=== PATIENT | male | born 1960 | race Caucasian/White ===

== ENCOUNTER → 2018-05-23 | Outpatient (CLI) | payer OTHER | LOC: WOUNDCARE 08:15 | PROVIDERS: ATTEND Surgery | DX: L95.9 Vasculitis limited to the skin, unspecified (principal); I87.332 Chronic venous hypertension (idiopathic) with ulcer and inflammation of left lower extremity; L97.422 Non-pressure chronic ulcer of left heel and midfoot with fat layer exposed; L97.222 Non-pressure chronic ulcer of left calf with fat layer exposed; L97.212 Non-pressure chronic ulcer of right calf with fat layer exposed; E11.42 Type 2 diabetes mellitus with diabetic polyneuropathy; I89.0 Lymphedema, not elsewhere classified; E66.01 Morbid (severe) obesity due to excess calories; Z68.43 Body mass index [BMI] 50.0-59.9, adult | CPT/HCPCS: 11100 ==

== ENCOUNTER → 2018-05-28 | Outpatient (CLI) | payer OTHER | LOC: WOUNDCARE 11:56 | PROVIDERS: ATTEND Surgery | DX: I87.332 Chronic venous hypertension (idiopathic) with ulcer and inflammation of left lower extremity (principal); L97.422 Non-pressure chronic ulcer of left heel and midfoot with fat layer exposed; L97.222 Non-pressure chronic ulcer of left calf with fat layer exposed; L97.212 Non-pressure chronic ulcer of right calf with fat layer exposed; E11.42 Type 2 diabetes mellitus with diabetic polyneuropathy; L95.9 Vasculitis limited to the skin, unspecified; I89.0 Lymphedema, not elsewhere classified; E66.01 Morbid (severe) obesity due to excess calories; Z68.43 Body mass index [BMI] 50.0-59.9, adult | CPT/HCPCS: 99213 ==

== ENCOUNTER → 2018-05-30 | Outpatient (CLI) | payer OTHER | LOC: WOUNDCARE 13:12 | PROVIDERS: ATTEND Surgery | DX: R21 Rash and other nonspecific skin eruption (principal); L95.9 Vasculitis limited to the skin, unspecified; L97.422 Non-pressure chronic ulcer of left heel and midfoot with fat layer exposed; L97.222 Non-pressure chronic ulcer of left calf with fat layer exposed; L97.212 Non-pressure chronic ulcer of right calf with fat layer exposed; I87.332 Chronic venous hypertension (idiopathic) with ulcer and inflammation of left lower extremity; E11.42 Type 2 diabetes mellitus with diabetic polyneuropathy; I89.0 Lymphedema, not elsewhere classified; E66.01 Morbid (severe) obesity due to excess calories; Z68.42 Body mass index [BMI] 45.0-49.9, adult | CPT/HCPCS: 99213 ==

== ENCOUNTER → 2018-06-04 | Outpatient (CLI) | payer OTHER | LOC: WOUNDCARE 12:33 | PROVIDERS: ATTEND Surgery | DX: E11.621 Type 2 diabetes mellitus with foot ulcer (principal); L97.422 Non-pressure chronic ulcer of left heel and midfoot with fat layer exposed; L97.412 Non-pressure chronic ulcer of right heel and midfoot with fat layer exposed; E11.622 Type 2 diabetes mellitus with other skin ulcer; L97.222 Non-pressure chronic ulcer of left calf with fat layer exposed; L97.212 Non-pressure chronic ulcer of right calf with fat layer exposed; E11.42 Type 2 diabetes mellitus with diabetic polyneuropathy; I89.0 Lymphedema, not elsewhere classified; L95.9 Vasculitis limited to the skin, unspecified; E66.01 Morbid (severe) obesity due to excess calories; Z68.42 Body mass index [BMI] 45.0-49.9, adult | CPT/HCPCS: 99213 ==

== ENCOUNTER → 2018-06-11 | Outpatient (CLI) | payer OTHER | LOC: WOUNDCARE 13:22 | PROVIDERS: ATTEND Surgery | DX: E11.621 Type 2 diabetes mellitus with foot ulcer (principal); I87.333 Chronic venous hypertension (idiopathic) with ulcer and inflammation of bilateral lower extremity; L97.422 Non-pressure chronic ulcer of left heel and midfoot with fat layer exposed; L97.412 Non-pressure chronic ulcer of right heel and midfoot with fat layer exposed; E11.622 Type 2 diabetes mellitus with other skin ulcer; L97.222 Non-pressure chronic ulcer of left calf with fat layer exposed; L97.212 Non-pressure chronic ulcer of right calf with fat layer exposed; E11.42 Type 2 diabetes mellitus with diabetic polyneuropathy; I89.0 Lymphedema, not elsewhere classified; L95.9 Vasculitis limited to the skin, unspecified; E66.01 Morbid (severe) obesity due to excess calories; Z68.42 Body mass index [BMI] 45.0-49.9, adult | CPT/HCPCS: 99213 ==

== ENCOUNTER → 2018-06-18 | Outpatient (CLI) | payer OTHER | LOC: WOUNDCARE 13:25 | PROVIDERS: ATTEND Surgery | DX: E11.621 Type 2 diabetes mellitus with foot ulcer (principal); I87.333 Chronic venous hypertension (idiopathic) with ulcer and inflammation of bilateral lower extremity; L97.412 Non-pressure chronic ulcer of right heel and midfoot with fat layer exposed; L97.422 Non-pressure chronic ulcer of left heel and midfoot with fat layer exposed; E11.622 Type 2 diabetes mellitus with other skin ulcer; L97.222 Non-pressure chronic ulcer of left calf with fat layer exposed; L97.212 Non-pressure chronic ulcer of right calf with fat layer exposed; E11.42 Type 2 diabetes mellitus with diabetic polyneuropathy; I89.0 Lymphedema, not elsewhere classified; L95.9 Vasculitis limited to the skin, unspecified; E66.01 Morbid (severe) obesity due to excess calories; Z68.43 Body mass index [BMI] 50.0-59.9, adult | CPT/HCPCS: 11042 ==

== ENCOUNTER → 2018-07-16 | Outpatient (CLI) | payer OTHER | LOC: WOUNDCARE 13:38 | PROVIDERS: ATTEND Surgery | DX: E11.621 Type 2 diabetes mellitus with foot ulcer (principal); L97.412 Non-pressure chronic ulcer of right heel and midfoot with fat layer exposed; L97.421 Non-pressure chronic ulcer of left heel and midfoot limited to breakdown of skin; L97.212 Non-pressure chronic ulcer of right calf with fat layer exposed; L95.9 Vasculitis limited to the skin, unspecified; I87.331 Chronic venous hypertension (idiopathic) with ulcer and inflammation of right lower extremity; E11.42 Type 2 diabetes mellitus with diabetic polyneuropathy; E66.01 Morbid (severe) obesity due to excess calories; I89.0 Lymphedema, not elsewhere classified; E11.622 Type 2 diabetes mellitus with other skin ulcer | CPT/HCPCS: 99213 ==

== ENCOUNTER → 2018-07-30 | Outpatient (CLI) | payer OTHER | LOC: WOUNDCARE 13:33 | PROVIDERS: ATTEND Surgery | DX: E11.621 Type 2 diabetes mellitus with foot ulcer (principal); L97.412 Non-pressure chronic ulcer of right heel and midfoot with fat layer exposed; E11.622 Type 2 diabetes mellitus with other skin ulcer; L97.212 Non-pressure chronic ulcer of right calf with fat layer exposed; E11.42 Type 2 diabetes mellitus with diabetic polyneuropathy; L95.9 Vasculitis limited to the skin, unspecified; I89.0 Lymphedema, not elsewhere classified; E66.01 Morbid (severe) obesity due to excess calories; Z68.43 Body mass index [BMI] 50.0-59.9, adult | CPT/HCPCS: 99213 ==

== ENCOUNTER → 2018-08-13 | Outpatient (CLI) | payer OTHER | LOC: WOUNDCARE 12:51 | PROVIDERS: ATTEND Surgery | DX: E11.621 Type 2 diabetes mellitus with foot ulcer (principal); L97.412 Non-pressure chronic ulcer of right heel and midfoot with fat layer exposed; E11.622 Type 2 diabetes mellitus with other skin ulcer; L97.212 Non-pressure chronic ulcer of right calf with fat layer exposed; L95.9 Vasculitis limited to the skin, unspecified; E11.42 Type 2 diabetes mellitus with diabetic polyneuropathy; I89.0 Lymphedema, not elsewhere classified; E66.01 Morbid (severe) obesity due to excess calories; Z68.43 Body mass index [BMI] 50.0-59.9, adult | CPT/HCPCS: 99212 ==

== ENCOUNTER → 2018-11-12 | Outpatient (CLI) | payer MEDICARE, OTHER ==
[2018-11-12 10:55] LABS: BASOPHILS % (AUTO) 0 % (0-10); EOSINOPHILS # (AUTO) 0.2 10^3/uL (0.0-0.3); EOSINOPHILS % (AUTO) 3 % (0-10); HEMATOCRIT 35 % (40-54); HEMOGLOBIN 10.6 G/DL (13.3-17.7); LYMPHOCYTES # (AUTO) 1.3 X 10^3 (1.0-4.0); LYMPHOCYTES % (AUTO) 17 % (12-44); MEAN CORPUSCULAR HEMOGLOBIN 27 PG (25-34); MEAN CORPUSCULAR HGB CONC 31 G/DL (32-36); MEAN CORPUSCULAR VOLUME 90 FL (80-99); MEAN PLATELET VOLUME 9.3 FL (7.4-10.4); MONOCYTES # (AUTO) 0.6 X 10^3 (0.0-1.0); MONOCYTES % (AUTO) 9 % (0-12); NEUTROPHILS # (AUTO) 5.2 X 10^3 (1.8-7.8); NEUTROPHILS % (AUTO) 71 % (42-75); PLATELET COUNT 245 10^3/uL (130-400); RED BLOOD COUNT 3.88 10^6/uL (4.35-5.85); RED CELL DISTRIBUTION WIDTH 16.1 % (10.0-14.5); WHITE BLOOD COUNT 7.4 10^3/uL (4.3-11.0)
[2018-11-12 11:14] LABS: ALBUMIN 3.7 GM/DL (3.2-4.5); BILIRUBIN,TOTAL 0.5 MG/DL (0.1-1.0); CALCIUM 9.2 MG/DL (8.5-10.1); CREATININE SERUM 1.42 MG/DL (0.60-1.30); POTASSIUM 4.7 MMOL/L (3.6-5.0); TOTAL PROTEIN 7.4 GM/DL (6.4-8.2)
== END ==
LOC: LAB 10:34
PROVIDERS: ATTEND Internal Medicine Rheumatology
DX: M31.0 Hypersensitivity angiitis (principal); Z79.899 Other long term (current) drug therapy
CPT/HCPCS: 36415; 80053; 83010; 83615; 85025

== ENCOUNTER → 2019-01-03 | Outpatient (CLI) | payer MEDICARE ==
--- NOTE | 2019-01-03 15:36 | Diagnostic Imaging Report ---
INDICATION: Left knee pain. AP, oblique, and lateral views of left knee are obtained. No fracture or acute bony abnormality seen. There is no overt joint effusion. There is prominent medial joint space narrowing with osteophyte formation. Lateral compartment appears preserved. There is mild patellofemoral spurring. IMPRESSION: Overt degenerative findings in the left knee, prominent in the medial compartment. No acute bony abnormality. Dictated by: Dictated on workstation # [id number]
== END ==
LOC: RAD FS 15:10
PROVIDERS: ATTEND Nurse Practitioner
DX: M17.12 Unilateral primary osteoarthritis, left knee (principal)
CPT/HCPCS: 73562

== ENCOUNTER → 2019-04-11 | Outpatient (CLI) | payer MEDICARE ==
--- NOTE | 2019-04-11 15:48 | Diagnostic Imaging Report ---
INDICATION: Chronic right knee pain. TIME OF EXAM: 09:40 a.m. COMPARISON: No prior studies are available for comparison. FINDINGS: There is medial compartmental degenerative change with mild joint space narrowing and marginal spurring. Lateral compartment is maintained. Very mild patellofemoral degenerative change is noted. There is some spurring of the tibial spines. No fracture, dislocation, or effusion is seen. IMPRESSION: Mild degenerative changes. No acute bony abnormality is detected. Dictated by: Dictated on workstation # [id number]
== END ==
LOC: RAD FS 09:29
PROVIDERS: ATTEND Nurse Practitioner
DX: M17.11 Unilateral primary osteoarthritis, right knee (principal)
CPT/HCPCS: 73562

== ENCOUNTER → 2019-08-07 | Outpatient (CLI) | payer MEDICARE | LOC: WOUNDCARE 08:04 | PROVIDERS: ATTEND Surgery | DX: E11.621 Type 2 diabetes mellitus with foot ulcer (principal); E11.42 Type 2 diabetes mellitus with diabetic polyneuropathy; L97.412 Non-pressure chronic ulcer of right heel and midfoot with fat layer exposed; L95.8 Other vasculitis limited to the skin | CPT/HCPCS: 11104 ==

== ENCOUNTER → 2019-08-14 | Outpatient (CLI) | payer MEDICARE | LOC: WOUNDCARE 07:59 | PROVIDERS: ATTEND Surgery | DX: L95.8 Other vasculitis limited to the skin (principal); E11.621 Type 2 diabetes mellitus with foot ulcer; E11.42 Type 2 diabetes mellitus with diabetic polyneuropathy; L97.412 Non-pressure chronic ulcer of right heel and midfoot with fat layer exposed; I87.331 Chronic venous hypertension (idiopathic) with ulcer and inflammation of right lower extremity; E11.52 Type 2 diabetes mellitus with diabetic peripheral angiopathy with gangrene | CPT/HCPCS: 99213 ==

== ENCOUNTER → 2019-08-21 | Outpatient (CLI) | payer MEDICARE | LOC: WOUNDCARE 15:05 | PROVIDERS: ATTEND Surgery | DX: L95.8 Other vasculitis limited to the skin (principal); E11.621 Type 2 diabetes mellitus with foot ulcer; E11.42 Type 2 diabetes mellitus with diabetic polyneuropathy; E11.52 Type 2 diabetes mellitus with diabetic peripheral angiopathy with gangrene; L97.412 Non-pressure chronic ulcer of right heel and midfoot with fat layer exposed; I87.331 Chronic venous hypertension (idiopathic) with ulcer and inflammation of right lower extremity | CPT/HCPCS: 99212 ==

== ENCOUNTER → 2019-08-28 | Outpatient (CLI) | payer MEDICARE | LOC: WOUNDCARE 14:50 | PROVIDERS: ATTEND Surgery | DX: E11.621 Type 2 diabetes mellitus with foot ulcer (principal); E11.42 Type 2 diabetes mellitus with diabetic polyneuropathy; E11.52 Type 2 diabetes mellitus with diabetic peripheral angiopathy with gangrene; I87.331 Chronic venous hypertension (idiopathic) with ulcer and inflammation of right lower extremity; I96 Gangrene, not elsewhere classified; L95.8 Other vasculitis limited to the skin; L97.412 Non-pressure chronic ulcer of right heel and midfoot with fat layer exposed | CPT/HCPCS: 11042 ==

== ENCOUNTER → 2019-09-04 | Outpatient (CLI) | payer MEDICARE | LOC: WOUNDCARE 14:22 | PROVIDERS: ATTEND Surgery | DX: E11.621 Type 2 diabetes mellitus with foot ulcer (principal); E11.42 Type 2 diabetes mellitus with diabetic polyneuropathy; L97.412 Non-pressure chronic ulcer of right heel and midfoot with fat layer exposed; I87.331 Chronic venous hypertension (idiopathic) with ulcer and inflammation of right lower extremity; E11.52 Type 2 diabetes mellitus with diabetic peripheral angiopathy with gangrene | CPT/HCPCS: 11042 ==

== ENCOUNTER → 2019-09-11 | Outpatient (CLI) | payer MEDICARE | LOC: WOUNDCARE 09:29 | PROVIDERS: ATTEND Surgery | DX: L97.412 Non-pressure chronic ulcer of right heel and midfoot with fat layer exposed (principal); E11.621 Type 2 diabetes mellitus with foot ulcer; E11.42 Type 2 diabetes mellitus with diabetic polyneuropathy; E11.52 Type 2 diabetes mellitus with diabetic peripheral angiopathy with gangrene; I87.331 Chronic venous hypertension (idiopathic) with ulcer and inflammation of right lower extremity | CPT/HCPCS: 11042 ==

== ENCOUNTER → 2019-09-18 | Outpatient (CLI) | payer MEDICARE | LOC: WOUNDCARE 14:22 | PROVIDERS: ATTEND Surgery | DX: E11.621 Type 2 diabetes mellitus with foot ulcer (principal); E11.42 Type 2 diabetes mellitus with diabetic polyneuropathy; L97.412 Non-pressure chronic ulcer of right heel and midfoot with fat layer exposed; I87.331 Chronic venous hypertension (idiopathic) with ulcer and inflammation of right lower extremity; E11.52 Type 2 diabetes mellitus with diabetic peripheral angiopathy with gangrene | CPT/HCPCS: 11042 ==

== ENCOUNTER → 2019-09-25 | Outpatient (CLI) | payer MEDICARE | LOC: WOUNDCARE 14:11 | PROVIDERS: ATTEND Surgery | DX: E11.621 Type 2 diabetes mellitus with foot ulcer (principal); E11.42 Type 2 diabetes mellitus with diabetic polyneuropathy; L97.412 Non-pressure chronic ulcer of right heel and midfoot with fat layer exposed; I87.331 Chronic venous hypertension (idiopathic) with ulcer and inflammation of right lower extremity; E11.52 Type 2 diabetes mellitus with diabetic peripheral angiopathy with gangrene | CPT/HCPCS: 11042 ==

== ENCOUNTER → 2019-09-27 | Outpatient (CLI) | payer MEDICARE | LOC: WOUNDCARE 09:51 | PROVIDERS: ATTEND Surgery | DX: L97.412 Non-pressure chronic ulcer of right heel and midfoot with fat layer exposed (principal); E11.621 Type 2 diabetes mellitus with foot ulcer; E11.52 Type 2 diabetes mellitus with diabetic peripheral angiopathy with gangrene; I87.331 Chronic venous hypertension (idiopathic) with ulcer and inflammation of right lower extremity | CPT/HCPCS: 97597 ==

== ENCOUNTER → 2019-10-02 | Outpatient (CLI) | payer MEDICARE | LOC: WOUNDCARE 14:13 | PROVIDERS: ATTEND Surgery | DX: E11.621 Type 2 diabetes mellitus with foot ulcer (principal); L97.412 Non-pressure chronic ulcer of right heel and midfoot with fat layer exposed; E11.42 Type 2 diabetes mellitus with diabetic polyneuropathy; I87.331 Chronic venous hypertension (idiopathic) with ulcer and inflammation of right lower extremity | CPT/HCPCS: 29445 ==

== ENCOUNTER → 2019-10-09 | Outpatient (CLI) | payer MEDICARE | LOC: WOUNDCARE 13:56 | PROVIDERS: ATTEND Surgery | DX: E11.621 Type 2 diabetes mellitus with foot ulcer (principal); E11.42 Type 2 diabetes mellitus with diabetic polyneuropathy; E11.52 Type 2 diabetes mellitus with diabetic peripheral angiopathy with gangrene; I87.331 Chronic venous hypertension (idiopathic) with ulcer and inflammation of right lower extremity; L97.412 Non-pressure chronic ulcer of right heel and midfoot with fat layer exposed; I96 Gangrene, not elsewhere classified | CPT/HCPCS: 11042 ==

== ENCOUNTER → 2019-10-16 | Outpatient (CLI) | payer MEDICARE | LOC: WOUNDCARE 13:36 | PROVIDERS: ATTEND Surgery | DX: E11.621 Type 2 diabetes mellitus with foot ulcer (principal); E11.42 Type 2 diabetes mellitus with diabetic polyneuropathy; L97.412 Non-pressure chronic ulcer of right heel and midfoot with fat layer exposed; I87.331 Chronic venous hypertension (idiopathic) with ulcer and inflammation of right lower extremity; E11.52 Type 2 diabetes mellitus with diabetic peripheral angiopathy with gangrene | CPT/HCPCS: 11042 ==

== ENCOUNTER → 2019-10-23 | Outpatient (CLI) | payer MEDICARE | LOC: WOUNDCARE 14:01 | PROVIDERS: ATTEND Surgery | DX: L97.412 Non-pressure chronic ulcer of right heel and midfoot with fat layer exposed (principal); E11.621 Type 2 diabetes mellitus with foot ulcer; E11.52 Type 2 diabetes mellitus with diabetic peripheral angiopathy with gangrene; E11.42 Type 2 diabetes mellitus with diabetic polyneuropathy; I87.331 Chronic venous hypertension (idiopathic) with ulcer and inflammation of right lower extremity | CPT/HCPCS: 11042 ==

== ENCOUNTER → 2019-10-28 | Outpatient (CLI) | payer MEDICARE | LOC: WOUNDCARE 08:16 | PROVIDERS: ATTEND Surgery | DX: E11.621 Type 2 diabetes mellitus with foot ulcer (principal); E11.42 Type 2 diabetes mellitus with diabetic polyneuropathy; E11.52 Type 2 diabetes mellitus with diabetic peripheral angiopathy with gangrene; I96 Gangrene, not elsewhere classified; I87.331 Chronic venous hypertension (idiopathic) with ulcer and inflammation of right lower extremity; L97.412 Non-pressure chronic ulcer of right heel and midfoot with fat layer exposed | CPT/HCPCS: 11042 ==

== ENCOUNTER → 2019-11-01 | Outpatient (CLI) | payer MEDICARE ==
[2019-11-01 14:36] LABS: HEMOGLOBIN 12.2 G/DL (13.3-17.7); MEAN CORPUSCULAR HEMOGLOBIN 30 PG (25-34); WHITE BLOOD COUNT 7.1 10^3/uL (4.3-11.0)
[2019-11-01 14:37] LABS: BASOPHILS % (AUTO) 1 % (0-10); EOSINOPHILS # (AUTO) 0.1 10^3/uL (0.0-0.3); EOSINOPHILS % (AUTO) 2 % (0-10); HEMATOCRIT 38 % (40-54); LYMPHOCYTES # (AUTO) 1.6 X 10^3 (1.0-4.0); LYMPHOCYTES % (AUTO) 22 % (12-44); MEAN CORPUSCULAR HGB CONC 32 G/DL (32-36); MEAN CORPUSCULAR VOLUME 95 FL (80-99); MEAN PLATELET VOLUME 9.8 FL (7.4-10.4); MONOCYTES # (AUTO) 0.7 X 10^3 (0.0-1.0); MONOCYTES % (AUTO) 9 % (0-12); NEUTROPHILS # (AUTO) 4.7 X 10^3 (1.8-7.8); NEUTROPHILS % (AUTO) 66 % (42-75); PLATELET COUNT 238 10^3/uL (130-400); RED CELL DISTRIBUTION WIDTH 13.8 % (10.0-14.5)
[2019-11-01 14:51] LABS: BUN/CREATININE RATIO 15; CALCIUM 9.7 MG/DL (8.5-10.1); CARBON DIOXIDE 26 MMOL/L (21-32); CHLORIDE 96 MMOL/L (98-107); CREATININE SERUM 1.22 MG/DL (0.60-1.30); GFR ESTIMATED > 60; GLUCOSE 304 MG/DL (70-105); POTASSIUM 4.2 MMOL/L (3.6-5.0); SODIUM 134 MMOL/L (135-145)
[2019-11-01 14:52] LABS: ALANINE AMINOTRANSFERASE 12 U/L (0-55); ALBUMIN 3.5 GM/DL (3.2-4.5); ALKALINE PHOSPHATASE 50 U/L (40-136); BILIRUBIN,TOTAL 0.3 MG/DL (0.1-1.0); TOTAL PROTEIN 6.4 GM/DL (6.4-8.2)
== END ==
LOC: LAB FS 14:09
PROVIDERS: ATTEND Surgery
DX: E11.621 Type 2 diabetes mellitus with foot ulcer (principal); E11.42 Type 2 diabetes mellitus with diabetic polyneuropathy; L97.412 Non-pressure chronic ulcer of right heel and midfoot with fat layer exposed; I87.331 Chronic venous hypertension (idiopathic) with ulcer and inflammation of right lower extremity
CPT/HCPCS: 36415; 80053; 83036; 85025

== ENCOUNTER → 2019-11-05 | Outpatient (CLI) | payer MEDICARE | LOC: WOUNDCARE 14:57 | PROVIDERS: ATTEND Surgery | DX: E11.621 Type 2 diabetes mellitus with foot ulcer (principal); E11.42 Type 2 diabetes mellitus with diabetic polyneuropathy; L97.412 Non-pressure chronic ulcer of right heel and midfoot with fat layer exposed; I87.331 Chronic venous hypertension (idiopathic) with ulcer and inflammation of right lower extremity | CPT/HCPCS: 11042 ==

== ENCOUNTER → 2019-11-13 | Outpatient (CLI) | payer MEDICARE | LOC: WOUNDCARE 14:24 | PROVIDERS: ATTEND Orthopaedic Surgery Hand Surgery | DX: L97.412 Non-pressure chronic ulcer of right heel and midfoot with fat layer exposed (principal); E11.621 Type 2 diabetes mellitus with foot ulcer; E11.42 Type 2 diabetes mellitus with diabetic polyneuropathy; E11.52 Type 2 diabetes mellitus with diabetic peripheral angiopathy with gangrene; I87.331 Chronic venous hypertension (idiopathic) with ulcer and inflammation of right lower extremity | CPT/HCPCS: 11042 ==

== ENCOUNTER → 2019-11-20 | Outpatient (CLI) | payer MEDICARE | LOC: WOUNDCARE 13:45 | PROVIDERS: ATTEND Orthopaedic Surgery Hand Surgery | DX: E11.621 Type 2 diabetes mellitus with foot ulcer (principal); E11.42 Type 2 diabetes mellitus with diabetic polyneuropathy; L97.412 Non-pressure chronic ulcer of right heel and midfoot with fat layer exposed; I87.331 Chronic venous hypertension (idiopathic) with ulcer and inflammation of right lower extremity; E11.52 Type 2 diabetes mellitus with diabetic peripheral angiopathy with gangrene | CPT/HCPCS: 11042 ==

== ENCOUNTER 2019-11-27 11:56 | Outpatient (CLI) | payer MEDICARE ==
[~2019-11-27] VITALS: Ht 188 cm; Wt 198.6 kg
[2019-11-27] MEDS ORDERED: DAPS100T3 PO (13:33)
[2019-11-27] MEDS ORDERED: GABA-488 PO (13:33)
[2019-11-27] MEDS ORDERED: ONDA4TAB11 PO (13:33)
[2019-11-27] MEDS ORDERED: LISI40TA PO (13:33)
[2019-11-27] MEDS ORDERED: METF-397 PO (13:33)
[2019-11-27] MEDS ORDERED: RIVA20TA PO (13:33)
[2019-11-27] MEDS ORDERED: GLIM2TAB2 PO (13:33)
== END 2019-11-27 13:10 | disposition home or self-care (01) ==
LOC: PREOP 11:56
PROVIDERS: ATTEND Orthopaedic Surgery
DX: Z01.818 Encounter for other preprocedural examination (principal)
CPT/HCPCS: 87081

== ENCOUNTER → 2019-11-27 | Outpatient (CLI) | payer MEDICARE ==
[~2019-11-27] MED LIST: DAPS100T3 PO; GABA-488 PO; GLIM2TAB2 PO; LISI40TA PO; METF-397 PO; ONDA4TAB11 PO; RIVA20TA PO
== END ==
LOC: WOUNDCARE 14:12
PROVIDERS: ATTEND Orthopaedic Surgery Hand Surgery
DX: E11.621 Type 2 diabetes mellitus with foot ulcer (principal); E11.42 Type 2 diabetes mellitus with diabetic polyneuropathy; E11.52 Type 2 diabetes mellitus with diabetic peripheral angiopathy with gangrene; I87.331 Chronic venous hypertension (idiopathic) with ulcer and inflammation of right lower extremity; L97.412 Non-pressure chronic ulcer of right heel and midfoot with fat layer exposed; I96 Gangrene, not elsewhere classified
CPT/HCPCS: 11042

== ENCOUNTER → 2019-12-04 | Outpatient (CLI) | payer MEDICARE | LOC: WOUNDCARE 13:58 | PROVIDERS: ATTEND Orthopaedic Surgery Hand Surgery | DX: E11.621 Type 2 diabetes mellitus with foot ulcer (principal); L97.412 Non-pressure chronic ulcer of right heel and midfoot with fat layer exposed; E11.42 Type 2 diabetes mellitus with diabetic polyneuropathy; I87.331 Chronic venous hypertension (idiopathic) with ulcer and inflammation of right lower extremity | CPT/HCPCS: 11042 ==

== ENCOUNTER → 2019-12-10 | Outpatient (CLI) | payer MEDICARE ==
[~2019-12-10] MED LIST changes: +HYDR-3816 PO
== END ==
LOC: WOUNDCARE 14:30
PROVIDERS: ATTEND Orthopaedic Surgery Hand Surgery
DX: E11.621 Type 2 diabetes mellitus with foot ulcer (principal); E11.42 Type 2 diabetes mellitus with diabetic polyneuropathy; L97.412 Non-pressure chronic ulcer of right heel and midfoot with fat layer exposed; I87.331 Chronic venous hypertension (idiopathic) with ulcer and inflammation of right lower extremity
CPT/HCPCS: 11042

== ENCOUNTER 2019-12-11 07:40 | Day surgery (SDC) | payer MEDICARE ==
--- NOTE | 2019-12-02 11:30 | HISTORY AND PHYSICAL ---
DATE OF SERVICE: This will be for outpatient surgery, date of service and date of surgery will be 12/11/2019, for right carpal tunnel release. HISTORY OF PRESENT ILLNESS: The patient is a 59-year-old right-hand dominant gentleman with complaints of right hand pain and paresthesias. He underwent an EMG nerve conduction study, which revealed evidence of right carpal tunnel syndrome. Due to functional impairment and failure to improve with conservative measures, the patient elected to proceed with surgical intervention. REVIEW OF SYSTEMS: No chest pain, no shortness of breath, no dysuria. PAST MEDICAL HISTORY: Diabetes, hypertension, osteoarthritis, sciatica, hyperlipidemia, low testosterone, sleep apnea and gout. PAST SURGICAL HISTORY: Elbow, vasectomy. FAMILY HISTORY: Noncontributory. PRIMARY CARE PROVIDER: David Cardenas MD. MEDICATIONS: Aspirin, Valium, alprazolam, furosemide, lovastatin, gabapentin, testosterone, glimepiride, lisinopril, dapsone, hydrocodone, cyclobenzaprine, and prednisone. ALLERGIES: ERYTHROMYCIN AND DICLOXACILLIN. SOCIAL HISTORY: The patient denies alcohol or tobacco use. PHYSICAL EXAMINATION: GENERAL: The patient is well developed, well-nourished, in no acute distress. HEENT: Normocephalic, atraumatic. Pupils are equal, round, and reactive to light. Oropharynx is clear. NECK: Supple, no lymphadenopathy. LUNGS: Clear to auscultation bilaterally. HEART: Regular rate and rhythm. ABDOMEN: Soft, nontender, nondistended. EXTREMITIES: Right wrist demonstrates positive Tinel carpal tunnel with positive Phalen maneuver. He has decreased sensation in median distribution. He has weakness with palmar abduction of the thumb. IMPRESSION: Right carpal tunnel syndrome, unresponsive to conservative measures. PLAN: Right carpal tunnel release. The risks, benefits, options, ramifications and recovery were discussed at length with the patient. He understands and wishes to proceed. Job ID: [id number] DocumentID: [id number] Dictated Date: 12/02/2019 11:12:28 Poly Operator Date: 12/02/2019 11:30:08 Dictated By: AVRIL WINKLER MD
[2019-12-11] VITALS (8 sets, daily range): BP systolic 114–135; BP diastolic 60–90
[~2019-12-11] VITALS: Ht 188 cm; Wt 198.6 kg
[~2019-12-11 07:40] MED LIST changes: -HYDR-3816 PO
[2019-12-11] MEDS ORDERED: LACTATED RINGERS 1,000 ML IV PRN (08:02)
[2019-12-11] MEDS ORDERED: CLINDAMYCIN 600 MG/50 ML IVPB 50 ML IV ONE (08:15)
--- NOTE | 2019-12-11 09:08 | Progress Note-Pre Operative ---
Pre-Operative Progress Note H&P Reviewed The H&P was reviewed, patient examined and no changes noted. Date Seen by Provider: Dec 11, 2019 Time Seen by Provider: 09:08 Date H&P Reviewed: Dec 11, 2019 Time H&P Reviewed: 09:08 Pre-Operative Diagnosis: right carpal tunnel syndrome AVRIL WINKLER MD Dec 11, 2019 09:08
--- NOTE | 2019-12-11 09:09 | Progress Note-Post Operative ---
Post-Operative Progess Note Surgeon (s)/Laser Systems Engineer (s) Surgeon AVRIL WINKLER MD Laser Systems Engineer: Roberto Lama Pre-Operative Diagnosis right carpal tunnel syndrome Post-Operative Diagnosis right carpal tunnel syndrome Procedure & Operative Findings Date of Procedure 12/11/19 Procedure Performed/Findings right carpal tunnel release Anesthesia Type MAC plus local Estimated Blood Loss Estimated blood loss (mL): minimal Specimens/Packing Specimens Removed none Packing: none AVRIL WINKLER MD Dec 11, 2019 09:09
[2019-12-11] MEDS ORDERED: LIDOCAINE 1% INJ 20 ML 20 ML VIAL ONE (09:16)
[2019-12-11] MEDS ORDERED: BUPIVACAINE 0.5% 30 ML (SENSORCAINE) VIAL ONE (09:16)
[2019-12-11] MEDS ORDERED: HYDROcodone/APAP 7.5 MG/325 MG (LORTAB, LORCET PLUS) TABLET PO PRN (10:00)
[2019-12-11] MEDS ORDERED: KETAMINE/NaCl 50 MG/5 ML SYRINGE (ED ONLY) ONE (10:05)
[2019-12-11] MEDS ORDERED: MIDAZOLAM 2 MG/2 ML (VERSED) VIAL ONE (10:05)
[2019-12-11] MEDS ORDERED: PROPOFOL INJECTION 50 ML IV ONE (10:05)
[2019-12-11] MEDS ORDERED: HYDR-3816 PO (12:35)
--- NOTE | 2019-12-11 17:06 | OPERATIVE REPORT ---
DATE OF SERVICE: 12/11/2019 PREOPERATIVE DIAGNOSIS: Right carpal tunnel syndrome. POSTOPERATIVE DIAGNOSIS: Right carpal tunnel syndrome. PROCEDURE: Right open carpal tunnel release. SURGEON: Arun Winkler MD CLIENT ACCOUNT SPECIALIST: Roberto Lama, who assisted throughout the procedure and closed the incision. ANESTHESIA: Monitored anesthesia care plus local by Mirella Escobedo CRNA. TOURNIQUET TIME: 3 minutes at 250 mmHg. ESTIMATED BLOOD LOSS: Minimal. DRAINS: None. COMPLICATIONS: None. POSTOPERATIVE PLAN: Routine protocol. The patient was transferred to the recovery room awake and in stable condition. STATEMENT OF MEDICAL NECESSITY: The patient is a 59-year-old right hand dominant gentleman with complaints of right hand pain and paresthesias. He tried splinting and rest, activity modifications, and anti-inflammatories. Due to functional impairment and failure to improve with conservative measures, the patient elected to proceed with surgical intervention. He had positive Tinel's of carpal tunnel, positive Phalen's maneuver. DESCRIPTION OF PROCEDURE: After risks and benefits of procedure were discussed and questions were answered, informed consent was signed and placed on chart and the operative site was confirmed in the preoperative holding area initialed by the surgeon. The patient was then transferred to the operating room and after adequate levels of monitored anesthesia care were obtained, a timeout was called, confirming the operative site. The right upper extremity was then prepped and draped in the usual sterile fashion with arm elevated, tourniquet inflated to 250 mmHg. A longitudinal incision was made in line with radial border of the ring finger overlying the transverse carpal ligament. The underlying soft tissues were sharply dissected. The transverse carpal ligament was identified and sharply incised by pushing through with the scalpel blade while carefully protecting the median nerve. The median nerve was carefully protected and intact at the conclusion of the procedure. Distally, this was confirmed fully released with a freer. Proximally, the transverse carpal ligament was spread above and below with dissection scissors and then opened while protecting median nerve. This was carefully protected. This was confirmed fully released with a freer. The tourniquet was deflated for a total time of three minutes. Pressure was used for hemostasis. Wound was copiously irrigated and closed with 4-0 nylon in running alternating horizontal mattress fashion. A soft dressing and brace were applied. The patient was transferred to the recovery room awake and in stable condition. Job ID: [id number] DocumentID: [id number] Dictated Date: 12/11/2019 11:36:29 Resaw Operator Date: 12/11/2019 17:06:05 Dictated By: ARUN WINKLER MD
== END 2019-12-11 13:19 | disposition home or self-care (01) ==
LOC: SDC 07:40
PROVIDERS: ATTEND Orthopaedic Surgery
DX: G56.01 Carpal tunnel syndrome, right upper limb (principal); I10 Essential (primary) hypertension; M19.90 Unspecified osteoarthritis, unspecified site; E78.5 Hyperlipidemia, unspecified; M10.9 Gout, unspecified; G47.33 Obstructive sleep apnea (adult) (pediatric); F41.9 Anxiety disorder, unspecified; F32.9 Major depressive disorder, single episode, unspecified; E11.42 Type 2 diabetes mellitus with diabetic polyneuropathy; E66.01 Morbid (severe) obesity due to excess calories; Z68.43 Body mass index [BMI] 50.0-59.9, adult; Z98.52 Vasectomy status; Z79.82 Long term (current) use of aspirin; Z79.51 Long term (current) use of inhaled steroids; Z79.84 Long term (current) use of oral hypoglycemic drugs; Z88.1 Allergy status to other antibiotic agents
CPT/HCPCS: 82962

== ENCOUNTER → 2019-12-18 | Outpatient (CLI) | payer MEDICARE ==
[~2019-12-18] MED LIST changes: +HYDR-3816 PO
== END ==
LOC: WOUNDCARE 09:50
PROVIDERS: ATTEND Orthopaedic Surgery Hand Surgery
DX: E11.42 Type 2 diabetes mellitus with diabetic polyneuropathy (principal); I87.331 Chronic venous hypertension (idiopathic) with ulcer and inflammation of right lower extremity; S90.424A Blister (nonthermal), right lesser toe(s), initial encounter; E66.01 Morbid (severe) obesity due to excess calories; D89.89 Other specified disorders involving the immune mechanism, not elsewhere classified
CPT/HCPCS: 99212

== ENCOUNTER 2020-01-02 07:02 | Inpatient (IN) | payer MEDICARE ==
[2020-01-02] VITALS (9 sets, daily range): BP systolic 120–137; BP diastolic 62–97
[~2020-01-02] VITALS: Ht 187.9 cm; Wt 191.2 kg
[~2020-01-02 07:02] MED LIST changes: -GLIM2TAB2 PO; +GLIM2TAB4 PO; +HYDR-34 PO; -HYDR-3816 PO
[2020-01-02] MEDS ORDERED: NS IV 1000 ML 1,000 ML IV STA ×2 (07:15→08:09)
--- NOTE | 2020-01-02 07:26 | ED General ---
General Stated Complaint: FLU-LIKE SYMPTOMS Source of Information: Patient, EMS History of Present Illness Date Seen by Provider: Jan 02, 2020 Time Seen by Provider: 07:02 Initial Comments 59 yo M presenting with complaints of "flu" symptoms for the last 2 days. He has had sinus congestion, runny nose, cough. He has had low grade fever around 99 at home last night. This am he woke up and was having diarrhea while he was in bed coughing. He states that he has diarrhea at least once or twice a week and it has been more chronic for him. He has no abdominal pain or nausea or vomiting. He has no pain with urination. He had gotten up to go to to the bathroom to finish having more diarrhea and was feeling weak. He was too weak to get up off of the toilet to get in the shower to try and clean off the diarrhea. When his son and ex- helped him get up off the toilet he had his knees give out on him because he was still too weak to get up. They helped to clean from the diarrhea and then called 911 due to his weakness and cough. he also was having some diaphoresis or sweating during all this and thought maybe his low-grade fever had broken. he had not taken his temperature at home this morning and was not sure what his temperature was. Allergies and Home Medications Allergies Coded Allergies: azithromycin (Verified Allergy, Unknown, Rash, 11/27/19) dicloxacillin (Verified Allergy, Unknown, Rash, 11/27/19) Home Medications Dapsone 100 Mg Tablet, 150 MG PO DAILY, (Reported) take 1.5 of 100mg tab Gabapentin 300 Mg Capsule, 300 MG PO TID, (Reported) Glimepiride 2 Mg Tablet, 2 MG PO DAILY, (Reported) Hydrocodone/Acetaminophen 1 Each Tablet, 1 TAB PO Q4H PRN for PAIN-MODERATE (5- 7) Prescribed by: DANIELLE PEREZ on 12/11/19 1235 Lisinopril 40 Mg Tablet, 40 MG PO DAILY, (Reported) Metformin HCl 500 Mg Tablet, 500 MG PO BID, (Reported) Ondansetron 4 Mg Tab.rapdis, 4 MG PO Q6H PRN for NAUSEA/VOMITING, (Reported) Rivaroxaban 20 Mg Tablet, 20 MG PO DAILY, (Reported) Patient Home Medication List Home Medication List Reviewed: Yes Review of Systems Review of Systems Constitutional: chills, diaphoresis (this a.m.), fever (up to around 99F), malaise, weakness EENTM: nose congestion, other (sinus pressure); No ear discharge, No ear pain, No eye pain, No mouth pain, No throat pain Respiratory: cough; No hemoptysis; short of breath; No stridor, No wheezing Cardiovascular: No chest pain, No palpitations Gastrointestinal: No abdominal pain; diarrhea (this am); No nausea, No vomiting Genitourinary: No dysuria, No frequency, No pain Musculoskeletal: joint pain (chronic arthritis but felt his joints were hurting more today) Skin: No rash Psychiatric/Neurological: Headache (sinus pressure), Weakness (generalized this am) Past Jkdhoph-Bzottq-Claaem Hx Past Med/Social Hx: Reviewed Nursing Past Med/Soc Hx Patient Social History Former Smoker, Quit: Nov 27, 2006 Recent Foreign Travel: Yes Recent Hopitalizations: No Immunizations Up To Date Date of Influenza Vaccine: Nov 13, 2019 Seasonal Allergies Seasonal Allergies: No Past Medical History Surgeries: Yes (skin ulceration sx2, R elbow sx, ) Orthopedic (Right carpal tunnel Nov 2019, Elbow), Vasectomy Respiratory: Yes Sleep Apnea Currently Using CPAP: No Cardiac: Yes High Cholesterol, Hypertension Neurological: Yes Neuropathy (Diabetic) Genitourinary: No Gastrointestinal: Yes Chronic Diarrhea Musculoskeletal: Yes Arthritis, Chronic Back Pain, Gout Endocrine: Yes Diabetes, Non-Insulin dep HEENT: Yes (glasses, ) Cancer: No Psychosocial: Yes Anxiety Integumentary: Yes (right heel ulcer) Blood Disorders: No (HX OF DVT) Physical Exam Vital Signs Vital Signs - First Documented 01/02/20 07:37 O2 Flow Rate 2.00 Capillary Refill : Height, Weight, BMI Height: '" Weight: lbs. oz. kg; 56.19 BMI Method: General Appearance: No Apparent Distress, Obese (morbidly obese) HEENT: PERRL/EOMI, Pharynx Normal, Other (clear nasal congestion) Neck: Full Range of Motion, Normal Inspection, Non Tender, Supple Respiratory: Chest Non Tender, No Accessory Muscle Use, No Respiratory Distress, Decreased Breath Sounds Cardiovascular: Regular Rate, Rhythm, Normal Peripheral Pulses, Other (distant heart sounds due to body habitus) Gastrointestinal: Normal Bowel Sounds, No Pulsatile Mass, Non Tender, Soft, Other (morbidly obese abdomen limits exam) Extremity: Normal Capillary Refill, No Pedal Edema Neurologic/Psychiatric: Alert, Oriented x3, Normal Mood/Affect, manager of distribution II-XII Norm as Tested Skin: Normal Color, Warm/Dry Focused Exam Lactate Level 01/02/20 07:10: Lactic Acid Level 2.78*H Lactic Acid Level Laboratory Tests Test 01/02/20 07:10 Lactic Acid Level 2.78 MMOL/L (0.50-2.00) *H Progress/Results/Core Measures Suspected Sepsis SIRS Temperature: Pulse: Respiratory Rate: Laboratory Tests 01/02/20 07:10: White Blood Count 6.1 Blood Pressure / Mean: 01/02/20 07:10: Lactic Acid Level 2.78*H Laboratory Tests 01/02/20 07:10: Creatinine 1.90H, Platelet Count 195, Total Bilirubin 0.6 Results/Orders Lab Results Laboratory Tests Test 01/02/20 07:10 01/02/20 08:20 Range/Units White Blood Count 6.1 4.3-11.0 10^3/uL Red Blood Count 3.88 L 4.35-5.85 10^6/uL Hemoglobin 11.0 L 13.3-17.7 G/DL Hematocrit 36 L 40-54 % Mean Corpuscular Volume 92 80-99 FL Mean Corpuscular Hemoglobin 28 25-34 PG Mean Corpuscular Hemoglobin Concent 31 L 32-36 G/DL Red Cell Distribution Width 14.9 H 10.0-14.5 % Platelet Count 195 130-400 10^3/uL Mean Platelet Volume 9.9 7.4-10.4 FL Neutrophils (%) (Auto) 55 42-75 % Lymphocytes (%) (Auto) 30 12-44 % Monocytes (%) (Auto) 14 H 0-12 % Eosinophils (%) (Auto) 0 0-10 % Basophils (%) (Auto) 0 0-10 % Neutrophils # (Auto) 3.4 1.8-7.8 X 10^3 Lymphocytes # (Auto) 1.9 1.0-4.0 X 10^3 Monocytes # (Auto) 0.8 0.0-1.0 X 10^3 Eosinophils # (Auto) 0.0 0.0-0.3 10^3/uL Basophils # (Auto) 0.0 0.0-0.1 10^3/uL Sodium Level 132 L 135-145 MMOL/L Potassium Level 4.5 3.6-5.0 MMOL/L Chloride Level 95 L 98-107 MMOL/L Carbon Dioxide Level 23 21-32 MMOL/L Anion Gap 14 5-14 MMOL/L Blood Urea Nitrogen 28 H 7-18 MG/DL Creatinine 1.90 H 0.60-1.30 MG/DL Estimat Glomerular Filtration Rate 37 BUN/Creatinine Ratio 15 Glucose Level 158 H 70-105 MG/DL Lactic Acid Level 2.78 *H 0.50-2.00 MMOL/L Calcium Level 9.3 8.5-10.1 MG/DL Corrected Calcium 9.5 8.5-10.1 MG/DL Magnesium Level 1.1 *L 1.6-2.4 MG/DL Total Bilirubin 0.6 0.1-1.0 MG/DL Aspartate Amino Transf (AST/SGOT) 30 5-34 U/L Alanine Aminotransferase (ALT/SGPT) 18 0-55 U/L Alkaline Phosphatase 48 40-136 U/L Troponin I < 0.30 <0.30 NG/ML C-Reactive Protein 3.83 H <0.50 MG/DL Pro-B-Type Natriuretic Peptide 115.0 H <75.0 PG/ML Total Protein 7.1 6.4-8.2 GM/DL Albumin 3.8 3.2-4.5 GM/DL Blood Gas Puncture Site LT WRIST Blood Gas Patient Temperature 36.2 Arterial Blood pH 7.38 7.37-7.43 Arterial Blood Partial Pressure CO2 42 35-45 MMHG Arterial Blood Partial Pressure O2 97 H 79-93 MMHG Arterial Blood HCO3 25 23-27 MMOL/L Arterial Blood Total CO2 26.1 21.0-31.0 MMOL/L Arterial Blood Oxygen Saturation 97 94-100 % Arterial Blood Base Excess -0.4 -2.5-2.5 MMOL/L Werner Test OK Blood Gas Ventilator Setting NO Blood Gas Inspired Oxygen 2L Micro Results Microbiology 01/02/20 Influenza Types A,B Antigen (CANDICE) - Final, Complete My Orders Orders - JADYN MARQUEZ MD Cbc With Automated Diff (01/02/20 07:15) Comprehensive Metabolic Panel (01/02/20 07:15) Blood Culture (01/02/20 07:15) Chest 1 View Ap/Pa Only (01/02/20 07:15) Magnesium (01/02/20 07:15) Ekg Tracing (01/02/20 07:15) O2 (01/02/20 07:15) Ed Iv/Invasive Line Start (01/02/20 07:15) Sputum Culture (01/02/20 07:15) Monitor-Rhythm Ecg Trace Only (01/02/20 07:15) Crp Fs (01/02/20 07:15) Lactic Acid Analyzer (01/02/20 07:15) Influenza A And B Antigens (01/02/20 07:15) Ns Iv 1000 Ml (Sodium Chloride 0.9%) (01/02/20 07:15) Troponin I Fs (01/02/20 07:18) Probnp Fs (01/02/20 07:18) Magnesium 1 Gm/100 Ml Ivpb (Magnesium Gonzalez (01/02/20 08:09) Ns Iv 1000 Ml (Sodium Chloride 0.9%) (01/02/20 08:09) Arterial Blood Gas (01/02/20 08:13) Oseltamivir 75 Mg Capsule (Tamiflu 75 (01/02/20 08:13) Ns Iv 1000 Ml (Sodium Chloride 0.9%) (01/02/20 08:45) Vital Signs/I&O 01/02/20 01/02/20 01/02/20 07:03 07:03 07:37 Temp 36.8 Pulse 94 Resp 18 B/P (MAP) 97/61 (73) Pulse Ox 98 97 O2 Delivery Room Air Room Air Nasal Cannula O2 Flow Rate 2.00 Capillary Refill : Progress Note #1: Progress Note check labs and CXR with Influenza swab and electrocardiogram and cardiac enzymes with his morbid obesity and diabetes Progress Note #2: Time: 07:44 Progress Note CXR does not show any acute infiltrate or effusion. He has not acute ST elevation on his ECG. His CBC is stable with normal WBC count of 6.1 and mild anemia with Hgb 11. He has been hypotensive while here running in 90s systolic but his IVF bolus is still infusing to see if this helps. He has been awake and alert and appropriate the entire time he has been in the ED. Progress Note #3: Time: 07:59 Progress Note Patient is positive for influenza B. His lactic acid was slightly elevated at 2.78. Updated the patient and his ex- about test results. With him still having a blood pressure running around 97/56 and having the elevated lactic acid and general weakness will check with the [facility] staff about admission for hydration, starting Tamiflu and medication for his influenza and continued supportive care. He also was placed on 2 L of supplemental oxygen because his O2 sat had dropped down to 90% as he was resting in the bed. He does have a history of sleep apnea which might have contributed to this. Progress Note #4: Time: 08:13 Progress Note Discussed with Dr. Conner for [facility] and she accepted the admission but requested the patient go to cardiac stepdown as well as have a blood gas drawn. We will start Tamiflu here and continue with fluid bolus to help with his blood pressures Progress Note #5: Time: 08:37 Progress Note The blood gas does not show any acute significant abnormality. His PCO2 is 42 PO2 of 97 on 2 L by nasal cannula and pH of 7.38. Continue with fluid bolus and proceed with transfer to cardiac stepdown unit in [place] ECG Initial ECG Impression Date: Jan 02, 2020 Initial ECG Impression Time: 07:25 Initial ECG Rate: 89 Initial ECG Rhythm: Normal Sinus Initial ECG Comparisson: No Previous ECG Available Comment Sinus rhythm with a heart rate 89 bpm. Low voltage precordial leads. ME interval of [address] elevation. QT interval 316 ms QTc interval 385 ms. He does have some flattening of the T waves in his lateral leads. There are no prior tracings immediately available for comparison. Diagnostic Imaging Diagonstic Imaging: Xray Plain Films/CT/US/NM/MRI: chest Comments NAME: OLI BASHIR [facility] REC#: [id number] PT STATUS: REG ER : 1960 PHYSICIAN: JADYN MARQUEZ MD ADMIT DATE: 01/02/20/ER FS Draft Date of Exam:01/02/20 CHEST 1 VIEW AP/PA ONLY INDICATION: Cough and weakness. COMPARISON: None available. TECHNIQUE: 2 radiographs of the chest dated 01/02/2020. FINDINGS: The cardiac silhouette is within normal limits in size. No significant pulmonary vascular congestion. The lungs are clear. No pleural effusion. No pneumothorax. No acute osseous abnormality. IMPRESSION: No acute cardiopulmonary abnormality. Dictated on workstation # [id number] Dict: 01/02/20 0732 Trans: 01/02/20 0736 [id number] Interpreted by: KIM WILLIAM MD Electronically signed by: Departure Communication (Admissions) Time/Spoke to Admitting Phy: 08:[address] Conner about admission and she accepted the patient for cardiac stepdown. She did request an ABG on the patient. Will start Tamiflu here and continue IV fluids for hydration. His blood pressure has already improved to 107/62 as the initial 2 L of fluid are infusing Impression Primary Impression: Influenza B Additional Impressions: Hypotension Qualified Codes: I95.9 - Hypotension, unspecified Elevated lactic acid level Sepsis Qualified Codes: A41.9 - Sepsis, unspecified organism Dehydration Hypomagnesemia Disposition: ADMITTED INPATIENT Condition: Stable Admissions Decision to Admit Reason: Admit from ER (General) Decision to Admit/Date: Jan 02, 2020 Time/Decision to Admit Time: 08:13 Departure-Patient Inst. Referrals: LOGAN CARDENAS MD (PCP/Family) Primary Care Physician JADYN MARQUEZ MD Jan 02, 2020 07:26
[2020-01-02 07:29] LABS: HEMATOCRIT 36 % (40-54); MEAN CORPUSCULAR HEMOGLOBIN 28 PG (25-34); MEAN CORPUSCULAR HGB CONC 31 G/DL (32-36); MEAN CORPUSCULAR VOLUME 92 FL (80-99); MEAN PLATELET VOLUME 9.9 FL (7.4-10.4); PLATELET COUNT 195 10^3/uL (130-400); RED CELL DISTRIBUTION WIDTH 14.9 % (10.0-14.5); WHITE BLOOD COUNT 6.1 10^3/uL (4.3-11.0)
[2020-01-02 07:30] LABS: BASOPHILS % (AUTO) 0 % (0-10); EOSINOPHILS % (AUTO) 0 % (0-10); LYMPHOCYTES # (AUTO) 1.9 X 10^3 (1.0-4.0); LYMPHOCYTES % (AUTO) 30 % (12-44); MONOCYTES # (AUTO) 0.8 X 10^3 (0.0-1.0); MONOCYTES % (AUTO) 14 % (0-12); NEUTROPHILS # (AUTO) 3.4 X 10^3 (1.8-7.8); NEUTROPHILS % (AUTO) 55 % (42-75)
--- NOTE | 2020-01-02 07:36 | Diagnostic Imaging Report ---
INDICATION: Cough and weakness. COMPARISON: None available. TECHNIQUE: 2 radiographs of the chest dated 01/02/2020. FINDINGS: The cardiac silhouette is within normal limits in size. No significant pulmonary vascular congestion. The lungs are clear. No pleural effusion. No pneumothorax. No acute osseous abnormality. IMPRESSION: No acute cardiopulmonary abnormality. Dictated by: Dictated on workstation # [id number]
--- NOTE | 2020-01-02 07:50 | NUR ---
Pt's BP reading showing low due to contracture of arm. Cuff moved to other arm, and arm repositioned. BP now WNL 97/56.
[2020-01-02 08:06] LABS: BUN/CREATININE RATIO 15; CARBON DIOXIDE 23 MMOL/L (21-32); CHLORIDE 95 MMOL/L (98-107); GFR ESTIMATED 37; POTASSIUM 4.5 MMOL/L (3.6-5.0); SODIUM 132 MMOL/L (135-145)
[2020-01-02 08:07] LABS: CALCIUM 9.3 MG/DL (8.5-10.1); GLUCOSE 158 MG/DL (70-105); MAGNESIUM 1.1 MG/DL (1.6-2.4)
[2020-01-02 08:08] LABS: ALANINE AMINOTRANSFERASE 18 U/L (0-55); ALBUMIN 3.8 GM/DL (3.2-4.5); ALKALINE PHOSPHATASE 48 U/L (40-136); BILIRUBIN,TOTAL 0.6 MG/DL (0.1-1.0); TOTAL PROTEIN 7.1 GM/DL (6.4-8.2)
[2020-01-02] MEDS ORDERED: MAGNESIUM 1 GM/100 ML IVPB 100 ML IV STA (08:09)
[2020-01-02] MEDS ORDERED: OSELTAMIVIR 75 MG (TAMIFLU) CAPSULE PO STA (08:13)
[2020-01-02 08:33] LABS: ALLENS TEST OK; INSPIRED O2 2L; PATIENT TEMP 36.2; VENTILATOR NO
[2020-01-02 08:34] LABS: ABG BASE EXCESS -0.4 MMOL/L (-2.5-2.5); ABG PCO2 42 MMHG (35-45); ABG PH 7.38 (7.37-7.43); ABG PO2 97 MMHG (79-93); ABG TCO2 26.1 MMOL/L (21.0-31.0)
[2020-01-02 08:35] LABS: ABG OXYGEN SATURATION 97 % (94-100)
[2020-01-02] MEDS ORDERED: NS IV 1000 ML 1,000 ML IV SCH (08:45)
--- NOTE | 2020-01-02 09:55 | NUR ---
attempted to call report; nurse unavailable
--- NOTE | 2020-01-02 09:59 | NUR ---
Report received from Donya HUNTER at 0732
[2020-01-02] MEDS ORDERED: HYDR-4227 PO (12:19)
--- NOTE | 2020-01-02 12:22 | NUR ---
SPOKE WITH THE PT , WENT THRU EXT MED HISTORY AND CALLED [facility] TO COMPLETE THE MED REC. GLIMEPIRIDE: MED REC SHOWS 4MG FILLED ON 12-30-2019 #90- HOWEVER THIS HAS NOT BEEN PICKED UP AND WHEN I ASKED THE PT ABOUT THE STRENGTH HE WAS NOT AWARE OF THE 4MG AND SAYS HE JUST TAKES THE 2MG. 2 MG WAS FILLED ON 10-07-2019 #90 AND THAT IS CURRENTLY THE STRENGTH HE IS TAKING AT HOME
[2020-01-02] MEDS ORDERED: inSUlin ASPART (NovoLOG) 1 UNIT/0.01 ML (CHARGE PER UNIT) SC SCH (12:45)
--- NOTE | 2020-01-02 13:17 | History & Physical-Hospitalist ---
RICHY HORTON,MED STUDENT 01/02/20 1316: History of Present Illness HPI/Chief Complaint Mr. Carlin is a 59yo male who presented to [facility] ED on 01/02/2020 via EMS from [facility] due to weakness. He states began to have a cough and rhinorrhea 3 days ago. The pt has chronic diarrhea and states he woke up last night with diarrhea, and when he sat down on the stool he found he was too weak to stand back up. He then had his son try to help him up and his knees gave out on him, which prompted the call to EMS. He also admits sinus pressure, sneezing, SOB while coughing, diaphoresis, and a temperature of 99.9 at home. He denies headache, sore throat, chest pain or pleuritic pain. He states he tried Robitussin for the cough, which did not help. His son experienced similar symptoms recently. Source: patient Exam Limitations: no limitations Date Seen 01/02/20 Time Seen by a Provider: 11:50 Attending Physician Anju Fletcher Pankaj K MD Referring Physician Date of Admission Jan 02, 2020 at 08:40 Home Medications & Allergies Home Medications Reviewed patient Home Medication Reconciliation performed by pharmacy medication reconciliations event technician and/or nursing. Patients Allergies have been reviewed. Allergies Allergies Coded Allergies azithromycin (Verified Allergy, Unknown, Rash, 11/27/19) dicloxacillin (Verified Allergy, Unknown, Rash, 11/27/19) Past Unwyypl-Mgppyb-Vcsdbd Hx Past Med/Social Hx: Reviewed Nursing Past Med/Soc Hx Patient Social History Marrital Status: , Alcohol Use: Occasionally Uses Recreational Drug Use: No Smoking Status: Former Smoker Former Smoker, Quit: Nov 27, 2006 2nd Hand Smoke Exposure: No Recent Foreign Travel: No Contact w/other who traveled: No Recent Hopitalizations: No Recent Infectious Disease Expo: No Immunizations Up To Date Date of Influenza Vaccine: Nov 13, 2019 Seasonal Allergies Seasonal Allergies: No Past Medical History Surgeries: Orthopedic (Right carpal tunnel Nov 2019, Elbow), Vasectomy Respiratory: Sleep Apnea Currently Using CPAP: No (Has one at home he is supposed to use, but has not been recently) Cardiac: High Cholesterol, Hypertension Neurological: Neuropathy (Diabetic) Gastrointestinal: Gastroesophageal Reflux, Chronic Diarrhea Musculoskeletal: Arthritis, Chronic Back Pain, Gout Endocrine: Diabetes, Non-Insulin dep Psychosocial: Anxiety History of Blood Disorders: No (HX OF DVT) Review of Systems Constitutional: No chills; diaphoresis; No dizziness, No fever; weakness EENTM: dental problems (missing several teeth); No hearing loss, No blurred vision, No vision loss, No epistaxis, No throat pain Respiratory: cough; No hemoptysis; phlegm, short of breath (only with coughing); No stridor, No wheezing Cardiovascular: No chest pain, No palpitations, No syncope Gastrointestinal: No abdominal pain, No constipation; diarrhea; No hematemesis; heartburn; No loss of appetite, No melena, No nausea, No vomiting Genitourinary: No dysuria, No frequency, No hematuria, No hesitancy, No pain Musculoskeletal: gout, joint pain Skin: No lesions, No lumps, No pruritus, No rash Psychiatric/Neurological: Anxiety; Denies Depressed, Denies Headache; Tingling; Denies Tremors Physical Exam Physical Exam Vital Signs Vital Signs - First Documented 01/02/20 07:37 O2 Flow Rate 2.00 Capillary Refill : Less Than 3 Seconds Height, Weight, BMI Height: '" Weight: lbs. oz. kg; 53.55 BMI Method: General Appearance: No Apparent Distress, WD/WN, Obese Eyes: Bilateral Eye PERRL, Bilateral Eye EOMI HEENT: Moist Mucous Membranes; No Pale Conjunctivae (L), No Pale Conjunctivae (R), No Scleral Icterus (L), No Scleral Icterus (R) Neck: Non Tender, Supple; No Lymphadenopathy (L), No Lymphadenopathy (R), No Tender Midline Respiratory: Lungs Clear, No Accessory Muscle Use, No Respiratory Distress; No Crackles, No Wheezing Cardiovascular: Regular Rate, Rhythm, No Murmur, Normal Peripheral Pulses Gastrointestinal: Normal Bowel Sounds, Non Tender, Soft; No Distended, No Guarding, No Tenderness Extremity: Non Tender, No Calf Tenderness, Pedal Edema Neurologic/Psychiatric: Alert, Oriented x3, Normal Mood/Affect Lymphatic: No Adenopathy Results Results/Procedures Labs Laboratory Tests 01/02/20 07:10 Patient resulted labs reviewed. Assessment/Plan Admission Diagnosis Influenza B Lactic acidosis Hypomagnesemia Hypertension Type II Diabetes Mellitus Diabetic neuropathy GERD Hyperlipidemia Chronic diarrhea Arthritis Gout Sleep apnea Assessment and Plan Influenza B Lactic acidosis Hypomagnesemia Hypertension Type II Diabetes Mellitus Diabetic neuropathy GERD Hyperlipidemia Chronic diarrhea Arthritis Gout Sleep apnea Start Tamiflu IV fluids IV magnesium Continue to monitor lactate Sputum cultures pending Droplet precautions Clinical Quality Measures DVT/VTE Risk/Contraindication: Risk Factor Score Per Nursin RFS Level Per Nursing on Admit: 4+=Very High ANJU FLETCHER DO 01/02/202119: History of Present Illness HPI/Chief Complaint CC: Severe sepsis HPI: This is a 57yoWM clinic pt of Dr. Cardenas with a PMH of MARITA non compliant with CPAP and morbid obesity with HTN, and DM who presents with Influenza B at [facility]. Pt was found to have acute renal failure with creatinine at 1.9 and systolic BP of 95. He received aggressive IV fluids and Dr. Valentine has been consulted. Tamiflu was given at [facility]. Chest X-ray was free of infiltrates. Past Fhnqwwr-Hfwhjx-Qvqfpy Hx Past Med/Social Hx: Reviewed Nursing Past Med/Soc Hx, Reviewed and Corrections made Patient Social History Marrital Status: Employed/Student: retired ([employer] 19 yrs) Alcohol Use: Denies Use Smoking Status: Former Smoker Past Medical History Respiratory: Sleep Apnea Currently Using CPAP: No (Has one at home he is supposed to use, but has not been recently) Cardiac: Hypertension Gastrointestinal: Gastroesophageal Reflux, Chronic Diarrhea Review of Systems Constitutional: see HPI, fever, malaise, weakness Physical Exam Physical Exam General Appearance: No Apparent Distress, Chronically ill, Obese Respiratory: Lungs Clear, Decreased Breath Sounds Cardiovascular: Regular Rate, Rhythm Assessment/Plan Admission Diagnosis CSD Dr Valentine consult Admission Status: Inpatient Order (span 2 midnights) Reason for Inpatient Admission: Flu and ARF Diagnosis/Problems Diagnosis/Problems (1) Influenza B Status: Acute (2) Elevated lactic acid level Status: Acute (3) Hypotension Status: Acute Qualifiers: Hypotension type: unspecified hypotension type Qualified Codes: I95.9 - Hypotension, unspecified (4) Sepsis Status: Acute Qualifiers: Sepsis type: sepsis due to unspecified organism Sepsis acute organ dysfunction status: without acute organ dysfunction Qualified Codes: A41.9 - Sepsis, unspecified organism (5) Hypomagnesemia Status: Acute (6) Dehydration Status: Acute Supervisory-Addendum Brief Verification & Attestation Participated in pt care: history, MDM, physical Personally performed: exam, history, MDM, supervision of care Care discussed with: Medical Student Procedures: n/a Results interpretation: Verified all documentation Verification and Attestation of Medical Student E/M Service A medical student performed and documented this service in my presence. I reviewed and verified all information documented by the medical student and made modifications to such information, when appropriate. I personally performed the physical exam and medical decision making. Anju Fletcher, Jan 02, 2020,21:20 RICHY HORTON,MED STUDENT Jan 02, 2020 13:16 ANJU FLETCHER DO Jan 02, 2020 21:20
[2020-01-02] MEDS: NS IV 1000 ML 1,000 ML IV SCH ×2 (13:54→20:51)
--- NOTE | 2020-01-02 14:23 | Pulmonary Consultation ---
History of Present Illness History of Present Illness Date Seen by Provider: Jan 02, 2020 Time Seen by Provider: 14:16 Date of Admission History of Present Illness 59yo with morbid obesity, and chronic diarrhea presented to ED via EMS secondary to worsening SOB, weakness, fever, and cough over the last 3 days. pt became so weak he was unable to get off of toilet. Pt was transferred here from [facility] ED for ICU care. I am consulted for pulmonary/CC management. Allergies and Home Medications Allergies Coded Allergies: azithromycin (Verified Allergy, Unknown, Rash, 11/27/19) dicloxacillin (Verified Allergy, Unknown, Rash, 11/27/19) Home Medications Dapsone 100 Mg Tablet, 150 MG PO DAILY, (Reported) TAKES 1 & (100MG) TAB TO EQUAL 150MG Gabapentin 300 Mg Capsule, 300 MG PO TID, (Reported) Glimepiride 2 Mg Tablet, 2 MG PO DAILY, (Reported) Hydrocodone/Acetaminophen 1 Each Tablet, 1 TAB PO Q4H PRN for PAIN-MODERATE (5- 7), (Reported) Lisinopril 40 Mg Tablet, 40 MG PO DAILY, (Reported) Metformin HCl 500 Mg Tablet, 500 MG PO BID, (Reported) Rivaroxaban 20 Mg Tablet, 20 MG PO DAILY, (Reported) Past Tedxuqw-Pfrqad-Rdghqr Hx Past Med/Social Hx: Reviewed Nursing Past Med/Soc Hx Patient Social History Alcohol Use: Occasionally Uses Recreational Drug Use: No Smoking Status: Former Smoker Former Smoker, Quit: Nov 27, 2006 2nd Hand Smoke Exposure: No Recent Foreign Travel: No Contact w/Someone Who Travel: No Recent Infectious Disease Expo: No Recent Hopitalizations: No Immunizations Up To Date Date of Influenza Vaccine: Nov 13, 2019 Seasonal Allergies Seasonal Allergies: No Past Medical History Surgeries: Yes (skin ulceration sx2, R elbow sx, ) Orthopedic (Right carpal tunnel Nov 2019, Elbow), Vasectomy Respiratory: Yes Sleep Apnea Currently Using CPAP: No (Has one at home he is supposed to use, but has not been recently) Cardiac: Yes High Cholesterol, Hypertension Neurological: Yes Neuropathy (Diabetic) Genitourinary: No Gastrointestinal: Yes Gastroesophageal Reflux, Chronic Diarrhea Musculoskeletal: Yes Arthritis, Chronic Back Pain, Gout Endocrine: Yes Diabetes, Non-Insulin dep HEENT: Yes (glasses, ) Cancer: No Psychosocial: Yes Anxiety Integumentary: Yes (right heel ulcer) Blood Disorders: No (HX OF DVT) Review of Systems Time Seen by Provider: 14:21 Constitutional: Fever, Chills, Sweats, Weakness, Malaise, Other Eyes: No: Pain, Vision change, Conjunctivae inflammation, Eyelid inflammation, Other, Redness ENT: Nose congestion; No: Ear pain, Ear discharge, Nose pain, Nose discharge, Mouth pain, Mouth swelling, Throat pain, Throat swelling, Other Respiratory: Cough, Shortness of breath, SOB with excertion, Wheezing, Sputum; No: Hemoptysis Cardiovascular: Palpitations, Orthopnea, Paroxysmal Noc. Dyspnea, Lt Headedness Gastrointestinal: Diarrhea; No: Nausea, Vomiting, Abdominal Pain, Constipation, Melena, Hematochezia, Other Sepsis Event Evaluation Height, Weight, BMI Height: '" Weight: lbs. oz. kg; 53.55 BMI Method: Exam Exam Vital Signs Date Time Temp Pulse Resp B/P (MAP) Pulse Ox O2 Delivery O2 Flow Rate FiO2 01/02/20 12:23 88 01/02/20 12:00 96 Room Air 01/02/20 12:00 82 9 135/89 (104) 95 Room Air 01/02/20 11:50 95 Room Air 01/02/20 11:00 87 14 125/79 (94) 94 Room Air 01/02/20 10:30 95 16 120/86 (97) 93 Room Air 01/02/20 09:45 36.8 80 18 115/54 (73) 98 Nasal Cannula 2.00 01/02/20 07:37 97 Nasal Cannula 2.00 01/02/20 07:03 Room Air 01/02/20 07:03 36.8 94 18 97/61 (73) 98 Room Air Height & Weight Height: '" Weight: lbs. oz. kg; 53.55 BMI Method: General Appearance: No Apparent Distress, WD/WN, Obese HEENT: Moist Mucous Membranes; No Pale Conjunctivae (L), No Pale Conjunctivae (R), No Scleral Icterus (L), No Scleral Icterus (R) Neck: Non Tender, Supple; No Lymphadenopathy (L), No Lymphadenopathy (R), No Tender Midline Respiratory: Lungs Clear, No Accessory Muscle Use, No Respiratory Distress; No Crackles, No Wheezing Cardiovascular: Regular Rate, Rhythm, No Murmur, Normal Peripheral Pulses Capillary Refill: Less Than 3 Seconds Extremity: Non Tender, No Calf Tenderness, Pedal Edema Neurologic/Psychiatric: Alert, Oriented x3, Normal Mood/Affect Skin: Normal Color, Warm/Dry Lymphatic: No Adenopathy Results Lab Laboratory Tests 01/02/20 07:10 Assessment/Plan Assessment/Plan Influenza A -Emmanuel culture -Tamiflu -Repeat labs Metabolic lactic acidosis -IVF and monitor Severe dehydration -aggressive IVF Chronic diarrhea -Check Cdiff and stool culture Acute renal failure -IVF morbid obesity RONALD SCHULZ DO Jan 02, 2020 14:23
[2020-01-02] MEDS ORDERED: ENOXAPARIN 40 MG/0.4 ML (LOVENOX) SYR SC SCH ×2 (14:24→21:00)
[2020-01-02 14:53] LABS: BASOPHILS % (AUTO) 0 % (0-10); EOSINOPHILS % (AUTO) 0 % (0-10); HEMATOCRIT 32 % (40-54); HEMOGLOBIN 9.7 G/DL (13.3-17.7); LYMPHOCYTES # (AUTO) 1.2 X 10^3 (1.0-4.0); LYMPHOCYTES % (AUTO) 36 % (12-44); MEAN CORPUSCULAR HEMOGLOBIN 28 PG (25-34); MEAN CORPUSCULAR HGB CONC 31 G/DL (32-36); MEAN CORPUSCULAR VOLUME 92 FL (80-99); MEAN PLATELET VOLUME 9.4 FL (7.4-10.4); MONOCYTES # (AUTO) 0.4 X 10^3 (0.0-1.0); MONOCYTES % (AUTO) 13 % (0-12); NEUTROPHILS # (AUTO) 1.7 X 10^3 (1.8-7.8); NEUTROPHILS % (AUTO) 51 % (42-75); PLATELET COUNT 164 10^3/uL (130-400); RED CELL DISTRIBUTION WIDTH 15.1 % (10.0-14.5); WHITE BLOOD COUNT 3.3 10^3/uL (4.3-11.0)
--- NOTE | 2020-01-02 15:03 | NUR ---
Pt is Islam. Shipping Specialist provided prayer and blessing . No other needs indicated at this time.
[2020-01-02 15:15] LABS: ALBUMIN 3.3 GM/DL (3.2-4.5); BILIRUBIN,TOTAL 0.4 MG/DL (0.1-1.0); CREATININE SERUM 1.62 MG/DL (0.60-1.30); MAGNESIUM 1.2 MG/DL (1.6-2.4); PHOSPHORUS 3.3 MG/DL (2.3-4.7); POTASSIUM 4.2 MMOL/L (3.6-5.0); TOTAL PROTEIN 6.1 GM/DL (6.4-8.2)
[2020-01-02 15:32] LABS: BILIRUBIN,URINE NEGATIVE (NEGATIVE); CLARITY,URINE CLEAR; COLOR,URINE YELLOW; GLUCOSE, URINE (UA) NEGATIVE (NEGATIVE); KETONES,URINE NEGATIVE (NEGATIVE); LEUKOCYTE ESTERASE ,URINE NEGATIVE (NEGATIVE); NITRITE,URINE NEGATIVE (NEGATIVE); PH,URINE 5.5 (5-9); PROTEIN,URINE TRACE (NEGATIVE)
[2020-01-02 15:47] LABS: BACTERIA,URINE NEGATIVE /HPF; HYALINE CASTS, URINE 0-2 /LPF; SQUAMOUS EPITHELIAL CELL,UR 0-2 /HPF
[2020-01-02] MEDS ORDERED: RT-ALBUTEROL/IPRATROPIUM 3 ML (DUONEB) VIAL INH PRN (16:15)
[2020-01-02] MEDS: OSELTAMIVIR 75 MG (TAMIFLU) CAPSULE PO SCH (20:51)
[2020-01-02] MEDS ORDERED: RT-ALBUTEROL/IPRATROPIUM 3 ML (DUONEB) VIAL INH SCH (21:00)
[2020-01-02] MEDS ORDERED: ENOXAPARIN 60 MG/0.6 ML (LOVENOX) SYR SC SCH (21:00)
[2020-01-03] VITALS (7 sets, daily range): BP systolic 133–146; BP diastolic 63–78
[2020-01-03] MEDS: NS IV 1000 ML 1,000 ML IV SCH (04:10)
[2020-01-03 05:07] LABS: BASOPHILS % (AUTO) 0 % (0-10); EOSINOPHILS % (AUTO) 1 % (0-10); HEMATOCRIT 32 % (40-54); LYMPHOCYTES # (AUTO) 1.2 X 10^3 (1.0-4.0); LYMPHOCYTES % (AUTO) 34 % (12-44); MEAN CORPUSCULAR HEMOGLOBIN 28 PG (25-34); MEAN CORPUSCULAR HGB CONC 31 G/DL (32-36); MEAN CORPUSCULAR VOLUME 92 FL (80-99); MEAN PLATELET VOLUME 9.6 FL (7.4-10.4); MONOCYTES # (AUTO) 0.5 X 10^3 (0.0-1.0); MONOCYTES % (AUTO) 15 % (0-12); NEUTROPHILS # (AUTO) 1.8 X 10^3 (1.8-7.8); NEUTROPHILS % (AUTO) 50 % (42-75); PLATELET COUNT 156 10^3/uL (130-400); RED CELL DISTRIBUTION WIDTH 15.2 % (10.0-14.5); WHITE BLOOD COUNT 3.5 10^3/uL (4.3-11.0)
[2020-01-03 05:25] LABS: CALCIUM 7.9 MG/DL (8.5-10.1); CREATININE SERUM 1.25 MG/DL (0.60-1.30); MAGNESIUM 1.2 MG/DL (1.6-2.4); POTASSIUM 4.7 MMOL/L (3.6-5.0)
[2020-01-03] MEDS: inSUlin ASPART (NovoLOG) 1 UNIT/0.01 ML (CHARGE PER UNIT) SC SCH ×4 (05:30→20:13)
[2020-01-03 05:31] LABS: HYPOCHROMASIA SLIGHT; LYMPHOCYTES % (MANUAL) 34 %; MONOCYTES % (MANUAL) 12 %; NEUTROPHILS % (MANUAL) 54 %
[2020-01-03] MEDS ORDERED: MAGNESIUM 1 GM/100 ML IVPB 400 ML IV ONE (06:15)
--- NOTE | 2020-01-03 06:16 | Pulmonary Progress Note ---
Subjective Time Seen by a Provider: 06:14 Subjective/Events-last exam Pt is doing better. Sepsis Event Evaluation Height, Weight, BMI Height: '" Weight: lbs. oz. kg; 53.55 BMI Method: Focused Exam Lactate Level 01/02/20 07:10: Lactic Acid Level 2.78*H 01/02/20 14:30: Lactic Acid Level 1.40 Exam Exam Vital Signs Date Time Temp Pulse Resp B/P (MAP) Pulse Ox O2 Delivery O2 Flow Rate FiO2 01/03/20 04:00 96 Nasal Cannula 2.00 01/03/20 04:00 69 18 134/72 (92) 96 Nasal Cannula 2.00 01/03/20 01:00 80 01/03/20 00:00 96 Nasal Cannula 2.00 01/03/20 00:00 80 16 136/73 (94) 95 Nasal Cannula 2.00 01/03/20 00:00 36.7 01/02/20 21:50 Nasal Cannula 2.00 01/02/20 21:40 90 Room Air 01/02/20 21:00 94 Room Air 01/02/20 20:00 78 20 129/73 (91) 93 Room Air 01/02/20 20:00 94 Room Air 01/02/20 20:00 36.4 01/02/20 19:00 80 01/02/20 16:00 78 18 134/97 (109) 93 Room Air 01/02/20 16:00 96 Room Air 01/02/20 15:56 36.8 84 92 01/02/20 15:12 37.0 01/02/20 15:00 84 11 131/70 (90) 92 Room Air 01/02/20 14:00 85 21 137/62 (87) 93 Room Air 01/02/20 13:00 85 21 137/62 (87) 93 Room Air 01/02/20 12:23 88 01/02/20 12:00 96 Room Air 01/02/20 12:00 82 9 135/89 (104) 95 Room Air 01/02/20 11:50 95 Room Air 01/02/20 11:00 87 14 125/79 (94) 94 Room Air 01/02/20 10:30 95 16 120/86 (97) 93 Room Air 01/02/20 09:45 36.8 80 18 115/54 (73) 98 Nasal Cannula 2.00 2/27/20 07:37 97 Nasal Cannula 2.00 01/02/20 07:03 Room Air 01/02/20 07:03 36.8 94 18 97/61 (73) 98 Room Air I & O 01/03/20 07:00 Intake Total 6370 ml Output Total 1600 ml Balance 4770 ml Height & Weight Height: '" Weight: lbs. oz. kg; 53.55 BMI Method: General Appearance: No Apparent Distress, Chronically ill, Obese HEENT: Moist Mucous Membranes; No Pale Conjunctivae (L), No Pale Conjunctivae (R), No Scleral Icterus (L), No Scleral Icterus (R) Neck: Non Tender, Supple; No Lymphadenopathy (L), No Lymphadenopathy (R), No Tender Midline Respiratory: Lungs Clear, Decreased Breath Sounds Cardiovascular: Regular Rate, Rhythm Capillary Refill: Less Than 3 Seconds Extremity: Non Tender, No Calf Tenderness, Pedal Edema Neurologic/Psychiatric: Alert, Oriented x3, Normal Mood/Affect Skin: Normal Color, Warm/Dry Lymphatic: No Adenopathy Results Lab Laboratory Tests 01/02/20 07:10 01/02/20 14:30 01/03/20 04:55 Assessment/Plan Assessment/Plan Influenza A -Emmanuel culture -Tamiflu -Repeat labs Metabolic lactic acidosis -IVF and monitor Severe dehydration -aggressive IVF Chronic diarrhea -Check Cdiff and stool culture Acute renal failure -IVF morbid obesity RONALD SCHULZ DO Jan 03, 2020 06:16
[2020-01-03] MEDS ORDERED: ONDANSETRON 4 MG/2 ML (SDV) Z0FRAN IVP PRN (06:30)
[2020-01-03] MEDS ORDERED: RT-ALBUTEROL/IPRATROPIUM 3 ML (DUONEB) VIAL INH SCH (06:30)
[2020-01-03] MEDS: MAGNESIUM 1 GM/100 ML IVPB 100 ML IV SCH ×3 (06:38→16:40)
[2020-01-03] MEDS ORDERED: guaiFENesin/CODEINE (ROBITUSSIN AC) 10ML UDC PO PRN (07:00)
--- NOTE | 2020-01-03 07:47 | NUR ---
Report called to ELSA Starks who will assume pt care on arrival to [facility].
--- NOTE | 2020-01-03 08:03 | NUR ---
Pt transported via bed at this time by this RN and Jessy, closing supervisor at this time. Personal belongings with pt at time of transfer. VSS. Pt currently has no complaints at this time. ELSA Starks to assume pt care at this time.
[2020-01-03] MEDS: RT-ALBUTEROL/IPRATROPIUM 3 ML (DUONEB) VIAL INH SCH ×3 (08:47→20:27)
--- NOTE | 2020-01-03 10:01 | Progress Note - Hospitalist ---
Subjective HPI/CC On Admission Date Seen by Provider: Jan 03, 2020 Time Seen by Provider: 09:45 CC: Severe sepsis HPI: This is a 57yoWM clinic pt of Dr. Cardenas with a PMH of MARITA non compliant with CPAP and morbid obesity with HTN, and DM who presents with Influenza B at [facility]. Pt was found to have acute renal failure with creatinine at 1.9 and systolic BP of 95. He received aggressive IV fluids and Dr. Valentine has been consulted. Tamiflu was given at [facility] ER. Chest X-ray was free of infiltrates. Subjective/Events-last exam Patient was moved to the fourth floor today. He is up in a chair and had a bowel movement in bed after his breathing treatment this morning. He is eating breakfast and is not happy with the food. His functional status is marginal at home. He is on room air. Labs are reviewed and are back to normal. Review of Systems Gastrointestinal: Diarrhea Neurological: Weakness Focused Exam Lactate Level 01/02/20 07:10: Lactic Acid Level 2.78*H 01/02/20 14:30: Lactic Acid Level 1.40 Objective Exam Vital Signs Vital Signs Date Time Temp Pulse Resp B/P (MAP) Pulse Ox O2 Delivery O2 Flow Rate FiO2 01/03/20 16:00 37.5 87 20 146/73 (97) 95 Room Air 01/03/20 08:00 2.00 Capillary Refill : Less Than 3 Seconds General Appearance: No Apparent Distress, WD/WN HEENT: Normal ENT Inspection Neck: Supple Respiratory: Lungs Clear, Normal Breath Sounds, No Accessory Muscle Use, No Respiratory Distress Cardiovascular: Regular Rate, Rhythm, No Gallop Gastrointestinal: Soft Extremity: Pedal Edema Neurologic/Psychiatric: Alert, Oriented x3, Normal Mood/Affect Skin: Normal Color, Warm/Dry Results/Procedures Lab Laboratory Tests 01/03/20 04:55 Patient resulted labs reviewed. Assessment/Plan Assessment and Plan Assess & Plan/Chief Complaint Influenza B-on Tamiflu Lactic acidosis resolved Hypomagnesemia replaced Hypertension Type II Diabetes Mellitus Diabetic neuropathy-history of a non healing ulcer- will re-evaluate GERD Hyperlipidemia Chronic diarrhea with incontinence Arthritis Gout Sleep apnea Renal insufficiency with improvement BUN/creatinine-trace proteinuria Plan to stabilize-d/c planning Clinical Quality Measures DVT/VTE Risk/Contraindication: Risk Factor Score Per Nursin RFS Level Per Nursing on Admit: 4+=Very High SANDNESS,KELSEY Coffman MD Jan 03, 2020 10:01
[2020-01-03] MEDS ORDERED: HYDROcodone/APAP 7.5 MG/325 MG (LORTAB, LORCET PLUS) TABLET PO PRN (10:15)
--- NOTE | 2020-01-03 11:23 | Physical Therapy Evaluation ---
PT Evaluation-General Medical Diagnosis Admission Date Jan 02, 2020 at 08:40 Medical Diagnosis: influenza Onset Date: Jan 03, 2020 Therapy Diagnosis Therapy Diagnosis: wekness Precautions Precautions/Isolations: Droplet Isolation, Standard Precautions Referral Physician: demetria Reason for Referral: Evaluation/Treatment Medical History Pertinent Medical History: Arthritis, DM, GERD, HTN, Neuropathy Additional Medical History obesity Current History Pt admitted to [facility] for flu. Reviewed History: Yes Social History Home: Single Level Current Living Status: Spouse Prior Prior Level of Function SCALE: Activities may be completed with or without assistive devices. 7-Lcmnjvczvj-cqdylrj completes the activity by him/herself with no assistance from a helper. 5-Set-up or Clean-up Assistance-helper sets up or cleans up; patient completes activity. Benedict assists only prior to or following the activity. 4-Supervision or Touching Assistance-helper provides verbal cues and/or touching/steadying and/or contact guard assistance as patient completes activity. Assistance may be provided throughout the activity or intermittently. 3-Partial/Moderate Assistance-helper does LESS THAN HALF the effort. Benedict lifts, holds or supports trunk or limbs, but provides less than half the effort. 2-Substantial/Maximal Assistance-helper does MORE THAN HALF the effort. Benedict lifts or holds trunk or limbs and provides more than half the effort. 4-Gcqysuroa-utaqtk does ALL the effort. Patient does none of the effort to complete the activity. Or, the assistance of 2 or more helpers is required for the patient to complete the activity. If activity was not attempted, code reason: 7-Patient Refused. 9-Not Applicable-not attempted and the patient did not perform the activity before the current illness, exacerbation or injury. 10-Not Attempted due to Environmental Limitations-(lack of equipment, weather restraints, etc.). 88-Not Attempted due to Medical Conditions or Safety Concerns. Bed Mobility: 6 Transfers (B,C,W/C): 6 Gait: 6 Pt moves about in his home with a cane; sounds as though he does not get out much. PT Evaluation-Current Subjective Agrees to PT. Reports he feels weak Objective Patient Orientation: Person, Place, Time, Situation ROM/Strength ROM Lower Extremities WFL Strength Lower Extremities grossly 4/5 Integumentary/Posture Integumentary refer to nursing notes. Bowel Incontinence: Yes Bladder Incontinence: Vargas Cath Posture rounded shoulders. Neuromuscular (Tone, Coordination, Reflexes) intact Sensory Vision: Wears Glasses Hearing: Impaired Hand Dominance: Right Sensation Right Lower Extremit: Intact Sensation Left Lower Extremity: Intact Transfers Sit to Lying (QC): 3 (min assist to get into bed) Sit to Stand (QC): 4 (sBA; took more than one attempt to get up) Gait Does the Patient Walk?: Yes Mode of Locomotion: Walk Walk 10 feet (QC): 4 Walk 50 ft with 2 Turns(QC): 4 Gait Assistive Device: FWW Comments/Gait Description 50 ft with FWW with sBA; slow gait. Balance Sitting Static: Good Sitting Dynamic: Good Standing Static: Fair Standing Dynamic: Fair Assessment/Needs Functional weakness likely due to decreased activity at home as well as recent influenza. Will benefit from functional activity while hospitalized to allow him to return home and care for himself. Rehab Potential: Guarded PT Senior Care Goals Senior Care Goals PT Senior Care Goals Time Frame: Jan 10, 2020 Sit to Lying (QC): 6 Lying-Sitting on Side/Bed(QC): 6 Sit to Stand (QC): 6 Chair/Oxm-xy-Wrord Xfer(QC): 6 Walk 150 ft (QC): 6 PT Plan Problem List Problem List: Activity Tolerance, Functional Strength, Safety, Gait, Transfer Treatment/Plan Treatment Plan: Continue Plan of Care Treatment Duration: Jan 10, 2020 Frequency: 5 times per week Estimated Hrs Per Day: .25 hour per day Patient and/or Family Agrees t: Yes Safety Risks/Education Patient Education: Transfer Techniques, Disease Process Teaching Recipient: Patient Teaching Methods: Discussion Response to Teaching: Reinforcement Needed Time/GCodes Time In: 1050 Time Out: 1105 Total Billed Treatment Time: 15 Total Billed Treatment visit EVM 15 BHUPENDRA VELASCO PT Jan 03, 2020 11:23
[2020-01-03] MEDS: RIVAROXABAN 20 MG TABLET (XARELTO) PO SCH (13:00)
[2020-01-03] MEDS: OSELTAMIVIR 75 MG (TAMIFLU) CAPSULE PO SCH ×2 (13:00→21:27)
[2020-01-03] MEDS: GABAPENTIN 300 MG (NEURONTIN) CAP PO SCH ×2 (16:37→21:27)
[2020-01-03] MEDS: metFORMIN 500 MG (GLUCOPHAGE) TAB PO SCH (17:43)
[2020-01-03] MEDS ORDERED: NS IV 1000 ML 1,000 ML ONE (19:21)
[2020-01-04] VITALS: BP 168/79
[2020-01-04] MEDS: metFORMIN 500 MG (GLUCOPHAGE) TAB PO SCH (05:58)
[2020-01-04] MEDS: inSUlin ASPART (NovoLOG) 1 UNIT/0.01 ML (CHARGE PER UNIT) SC SCH ×2 (06:16→11:10)
[2020-01-04 08:00] VITALS: BP 154/82
[2020-01-04] MEDS: RT-ALBUTEROL/IPRATROPIUM 3 ML (DUONEB) VIAL INH SCH (08:11)
[2020-01-04] MEDS ORDERED: DAPSONE 100 MG TABLET PO SCH (09:00)
[2020-01-04] MEDS ORDERED: lisINopril 40 MG (PRINIVIL) TABLET PO SCH (09:00)
[2020-01-04] MEDS: RIVAROXABAN 20 MG TABLET (XARELTO) PO SCH (09:10)
[2020-01-04] MEDS: OSELTAMIVIR 75 MG (TAMIFLU) CAPSULE PO SCH (09:10)
[2020-01-04] MEDS: GABAPENTIN 300 MG (NEURONTIN) CAP PO SCH ×2 (09:10→13:25)
[2020-01-04] MEDS: MAGNESIUM 1 GM/100 ML IVPB 100 ML IV SCH (11:41)
[2020-01-04] MEDS ORDERED: OSLT75C PO (13:03)
--- NOTE | 2020-01-04 13:07 | Discharge Summary ---
Diagnosis/Chief Complaint Date of Admission Jan 02, 2020 at 08:40 Date of Discharge Dec Discharge Date: Jan 04, 2020 Discharge Time: 14:[address] Valentine consult Primary Care Logan Cardenas MD Discharge Diagnosis Influenza B Dehydration Hypomagnesemia Chronic diarrhea (1) Influenza B Status: Acute (2) Elevated lactic acid level Status: Acute (3) Hypotension Status: Acute (4) Sepsis Status: Acute (5) Hypomagnesemia Status: Acute (6) Dehydration Status: Acute Discharge Summary Procedures/Consulations Dr. Valentine Discharge Physical Exam Allergies: Coded Allergies: azithromycin (Verified Allergy, Unknown, Rash, 11/27/19) dicloxacillin (Verified Allergy, Unknown, Rash, 11/27/19) Vitals & I&Os Vital Signs Date Time Temp Pulse Resp B/P (MAP) Pulse Ox O2 Delivery O2 Flow Rate FiO2 01/04/20 10:15 95 Room Air 2.00 01/04/20 08:00 37.0 75 20 154/82 (106) General Appearance: Obese HEENT: Normal ENT Inspection Respiratory: Chest Non Tender, Lungs Clear, Normal Breath Sounds, No Accessory Muscle Use, No Respiratory Distress Cardiovascular: No Gallop, No JVD, No Murmur Gastrointestinal: Normal Bowel Sounds, Non Tender, Soft Extremity: Pedal Edema Skin: Normal Color, Warm/Dry Neurologic/Psychiatric: Alert, Oriented x3, No Motor/Sensory Deficits, Normal Mood/Affect Hospital Course Was the Problem List Reviewed?: Yes Patient was admitted with influenza B and weakness. He also had evidence of dehydration with an elevated BUN/creatinine creatinine. The patient was hydrated and placed on Tamiflu and his magnesium was replaced. He improved rapidly and at the time of discharge is ready to go home. He feels like he is in his usual state of health. Blood sugars were in an acceptable range with sliding scale insulin. His stools were checked for C. difficile. GDH antigen was positive but toxin a and B were negative. Confirmation with PCR is pending. Labs (last 24 hrs) Laboratory Tests 01/03/20 15:47: Glucometer 171H 01/03/20 20:08: Glucometer 154H 01/04/20 06:08: Glucometer 178H 01/04/20 10:46: Glucometer 178H Microbiology 01/03/20 C. difficile DNA Amplification, Resulted Pending 01/03/20 C. difficile GDH Antigen & Toxins - Final, Resulted 01/03/20 Stool Culture, Resulted Pending 01/02/20 MRSA Screen - Final, Complete MRSA not isolated 01/02/20 Blood Culture - Preliminary, Resulted No growth Patient resulted labs reviewed. Pending Labs Laboratory Tests 01/04/20 06:08: Glucometer 178 01/04/20 10:46: Glucometer 178 Imaging: Reviewed Imaging Report Discussion & Recommendations Discharge Planning: <30 minutes discharge planning Discharge Home Medications: Active Scripts Active Tamiflu (Oseltamivir Phosphate) 75 Mg Cap 75 Mg PO BID 3 Days Reported [place] 7.5-325 Tablet (Hydrocodone/Acetaminophen) 1 Each Tablet 1 Tab PO Q4H PRN MDD 6 TABS Xarelto (Rivaroxaban) 20 Mg Tablet 20 Mg PO DAILY Dapsone 100 Mg Tablet 150 Mg PO DAILY TAKES 1 & (100MG) TAB TO EQUAL 150MG Lisinopril 40 Mg Tablet 40 Mg PO DAILY Glimepiride 2 Mg Tablet 2 Mg PO DAILY Metformin HCl 500 Mg Tablet 500 Mg PO BID Gabapentin 300 Mg Capsule 300 Mg PO TID Condition at discharge Stable Instructions to patient/family Please see electronic discharge instructions given to patient. Clinical Quality Measures DVT/VTE Risk/Contraindication: Risk Factor Score Per Nursin RFS Level Per Nursing on Admit: 4+=Very High Copy Copies To 1: LOGAN CARDENAS MD Problem Qualifiers (1) Hypotension: Hypotension type: unspecified hypotension type Qualified Codes: I95.9 - Hypotension, unspecified (2) Sepsis: Sepsis type: sepsis due to unspecified organism Sepsis acute organ dysfunction status: without acute organ dysfunction Qualified Codes: A41.9 - Sepsis, unspecified organism KELSEY SANCHEZ MD Jan 04, 2020 13:07
[2020-01-04 13:19] VITALS: BP 154/82
== END 2020-01-04 14:15 | disposition home or self-care (01) | DRG 872 ==
LOC: EDUNIT# 07:02 → ER FS 07:03 → CSD 08:40 → ICU 10:39 → 4TH 01-03 08:03
PROVIDERS: ADMIT Internal Medicine; ATTEND Internal Medicine
DX: A41.89 Other specified sepsis (principal); J10.1 Influenza due to other identified influenza virus with other respiratory manifestations; J34.89 Other specified disorders of nose and nasal sinuses; E87.2 Acidosis; N17.9 Acute kidney failure, unspecified; E66.01 Morbid (severe) obesity due to excess calories; Z68.43 Body mass index [BMI] 50.0-59.9, adult; K21.9 Gastro-esophageal reflux disease without esophagitis; F41.9 Anxiety disorder, unspecified; Z87.891 Personal history of nicotine dependence; E86.0 Dehydration; K52.9 Noninfective gastroenteritis and colitis, unspecified; E78.00 Pure hypercholesterolemia, unspecified; I10 Essential (primary) hypertension; E11.40 Type 2 diabetes mellitus with diabetic neuropathy, unspecified; M19.91 Primary osteoarthritis, unspecified site; M54.9 Dorsalgia, unspecified; M10.9 Gout, unspecified; G47.33 Obstructive sleep apnea (adult) (pediatric); E78.5 Hyperlipidemia, unspecified; E83.42 Hypomagnesemia; R15.9 Full incontinence of feces; Z79.84 Long term (current) use of oral hypoglycemic drugs; Z91.19 Patient's noncompliance with other medical treatment and regimen
CPT/HCPCS: 36415; 71045; 80048; 80053; 81000; 82805; 82962; 83605; 83735; 83880; 84100; 84484; 85007; 85025; 85027; 86141; 87015; 87040; 87045; 87046; 87070; 87081; 87205; 87324; 87449; 87493; 87804; 87899; 93005; 93041; 94640; 94760

== ENCOUNTER → 2020-03-02 | Outpatient (CLI) | payer MEDICARE ==
[~2020-03-02] MED LIST changes: +HYDR-4227 PO; +OSLT75C PO
== END ==
LOC: WOUNDCARE 12:47
PROVIDERS: ATTEND Surgery
DX: E11.621 Type 2 diabetes mellitus with foot ulcer (principal); L97.411 Non-pressure chronic ulcer of right heel and midfoot limited to breakdown of skin; L95.8 Other vasculitis limited to the skin; I89.0 Lymphedema, not elsewhere classified; E66.01 Morbid (severe) obesity due to excess calories; Z79.84 Long term (current) use of oral hypoglycemic drugs; Z79.899 Other long term (current) drug therapy
CPT/HCPCS: 99214

== ENCOUNTER → 2020-03-11 | Outpatient (CLI) | payer MEDICARE | LOC: WOUNDCARE 13:29 | PROVIDERS: ATTEND Surgery | DX: E11.621 Type 2 diabetes mellitus with foot ulcer (principal); L97.411 Non-pressure chronic ulcer of right heel and midfoot limited to breakdown of skin; L95.8 Other vasculitis limited to the skin; I89.0 Lymphedema, not elsewhere classified; E66.01 Morbid (severe) obesity due to excess calories; Z79.84 Long term (current) use of oral hypoglycemic drugs; Z79.899 Other long term (current) drug therapy | CPT/HCPCS: 99213 ==

== ENCOUNTER 2020-03-20 07:41 | Outpatient (RCR) | payer MEDICARE ==
[~2020-03-20] VITALS: Ht 188 cm; Wt 193.2 kg
[~2020-03-20 07:41] MED LIST changes: +GLIM4TAB5 PO; +TMSL.4C PO
== END 2020-03-20 16:00 | disposition home or self-care (01) ==
LOC: PREOP 07:41
PROVIDERS: ATTEND Orthopaedic Surgery
DX: Z01.812 Encounter for preprocedural laboratory examination (principal); Z11.59 Encounter for screening for other viral diseases; G56.02 Carpal tunnel syndrome, left upper limb
CPT/HCPCS: 87635

== ENCOUNTER 2020-03-25 06:01 | Day surgery (SDC) | payer MEDICARE ==
--- NOTE | 2020-03-16 11:54 | HISTORY AND PHYSICAL ---
DATE OF SERVICE: DATE OF ADMISSION: 03/25/2020. This will be for outpatient surgery on 03/25/2020, for left carpal tunnel release. HISTORY OF PRESENT ILLNESS: The patient is a 60-year-old right hand dominant gentleman with complaints of left hand pain and paresthesias. He underwent an EMG nerve conduction study, which revealed evidence of carpal tunnel syndrome. He reports pain and weakness in his left hand with paresthesias. Due to functional impairment and failure to improve with conservative measures, the patient has elected to proceed with surgical intervention. REVIEW OF SYSTEMS: No chest pain, no shortness of breath, no dysuria. PAST MEDICAL HISTORY: Diabetes, hypertension, osteoarthritis, sciatica, hyperlipidemia, low testosterone, sleep apnea and gout. PAST SURGICAL HISTORY: Elbow, vasectomy, right carpal tunnel release. FAMILY HISTORY: Unknown. PRIMARY CARE PROVIDER: MEDICATIONS: Aspirin, Valium, alprazolam, furosemide, lovastatin, gabapentin, testosterone, glimepiride, lisinopril, dapsone, hydrocodone, cyclobenzaprine and prednisone. ALLERGIES: AZITHROMYCIN, DICLOXACILLIN. SOCIAL HISTORY: The patient denies alcohol, tobacco use. PHYSICAL EXAMINATION: GENERAL: The patient is well-developed, well-nourished, in no acute distress. HEENT: Normocephalic, atraumatic. Pupils are equal, round, reactive to light. Oropharynx is clear. NECK: Supple, no lymphadenopathy. LUNGS: Clear to auscultation bilaterally. HEART: Regular rate and rhythm. ABDOMEN: Soft, nontender, nondistended. EXTREMITIES: The left hand demonstrates positive Tinel's carpal tunnel with positive Phalen's maneuver. He has decreased sensation in median distribution. No gross weakness with finger abduction, but weakness noted with thumb palmar abduction. IMPRESSION: Left carpal tunnel syndrome. PLAN: Left open carpal tunnel release. The risks, benefits, options, ramifications and recovery were discussed at length with the patient. He understands and wishes to proceed. Job ID: [id number] DocumentID: [id number] Dictated Date: 03/16/2020 11:22:17 Structural Steel Trades Worker Date: 03/16/2020 11:54:45 Dictated By: AVRIL WINKLER MD
[2020-03-25] VITALS (7 sets, daily range): BP systolic 114–153; BP diastolic 60–77
--- OUTSIDE RECORDS SUMMARY | 2020-03-25 06:06 | XMS REPORT | Clinical Summary ---
Author Author Celeste, Derrick Freitas Organization [facility] Address Unknown Phone Unavailable Allergies, Adverse Reactions, Alerts Allergy Name Reaction Description Start Date Severity Status Pr ovider DOXYCYCLINE rash Severe Active Brenda floyd MD ZITHROMAX rash Severe Active Brenda solis MD Conditions or Problems Problem Name Problem Code Onset Date Status Entry Date Provider Comment Standard Description Annotate Diabetes, Type 2 250.00 Active Brenda Ford MD Diabetes mellitus without mention of complication, type II or unspecified type, not stated as uncontrolled BPH with urinary obstruction 600.01 Active Brenda Ford MD Hypertrophy (benign) of pros henry with urinary obstruction and other lower urinary tract symptoms (LUTS) Long-term (current) use of anticoagulants Activ e Brenda Ford MD Long-term (current) use of anticoagulant s BMI 50-59.9 Active Brenda Ford MD Body Mass Index 50.0-59.9, adult Obesity Class III (BMI >=40) Active Brenda Ford MD Morbid obesity Medication List Medication Instructions Start Date Stop Date Generic Name ND Status Provider Patient Instruction FLOMAX 0.4 MG ORAL CAPSULE 1 capsule by mouth every ev ening for prostate symptoms TAMSULOSIN HCL 58339789157 Active Christi Herzog Active XARELTO 20 MG ORAL TABLET Take one by mouth daily RIVAROXABAN 67820655423 Active Brenda Ford MD Active METFORMIN HCL 500 MG ORAL TABLET 1 tablet by mouth twice daily METFORMIN HCL 91472126367 Active Brenda Ford MD Active LISINOPRIL 20 MG ORAL TABLET 1 tablet by mouth daily LISINOPRIL 98046408570 Active Brenda Ford MD Active GLIMEPIRIDE 4 MG ORAL TABLET 1 tab by mouth daily GLIMEPIRIDE 58895151598 Active Brenda Ford MD Active GABAPENTIN 300 MG ORAL CAPSULE 1 tab by mouth three times daily GABAPENTIN 46304803569 Active Brenda Ford MD Active MELOXICAM 15 MG ORAL TABLET 1 tab by mouth every 12 hours as needed MELOXICAM 81764335411 Active Brenda Ford MD Active PROAIR HFA 108 (90 BASE) MCG/ACT INHALATION AEROSOL SO LUTION 2 puffs four times a day as needed ALBUTEROL SULFATE 35288225485 Active Brenda lui MD Active LASIX 40 MG ORAL TABLET 1 tablet by mouth daily as needed for swell ing FUROSEMIDE 20142956875 Active Brenda Ford MD Active Advance Directives Directive Description Start Date PERMISSION TO SHARE Immunizations Vaccine Administration Date Value Standard Jose Luis cription influenza immunization (Flu Vax) has been administered 01/09 Done according to patient influenza virus vaccine, unspecified for mulation Vital Signs Date Name Value Unit Range Description blood pressure, diastolic, repeated by physician 80 BP dubon blood pressure, diastolic 80 mm[Hg] BP dubon blood pressure, systolic, repeated by physician 130 BP sys blood pressure, systolic 130 mm[Hg] BP sys height E&M 72 [in_us] Bdy height pulse rate 74 /min Heart rate temperature E&M 97.8 [degF] Body temp erature weight E&M 434 [lb_av] Weight Measure d Diagnostic Results Date Name Value Unit Range Description Office Visit: Cn-urinary retention - PM H sexually transmitted disease no risk noted Encounters Code Encounter Date Provider Facility CPT-95159 Level 3 Est. Patient 11:54:36 CDT Brenda santiago MD [facility] CPT-53591 Level 3 New Patient 12:57:22 DIGITAL ADVERTISING ANALYST Brenda lui MD [facility] Procedures Code Procedure Name Date Entry Date Standard Desc ription CPT-20114 Bladder Scan 11:54:36 CDT CPT-34996 Bladder Scan 12:57:22 DIGITAL ADVERTISING ANALYST CPT-AP4035O (4274F) Influenza immunization administe red or previously received 12:57:22 DIGITAL ADVERTISING ANALYST
--- OUTSIDE RECORDS SUMMARY | 2020-03-25 06:06 | XMS REPORT ---
Author Author BURTONJOHNNYDerrick Organization [facility] Address [address] [place] [address] Care Team Providers Care [employer]ied [employer] Operator Name Role Phone SHAREEMICHELINE LOGAN Unavailable PROBLEMS Type Condition ICD9-CM Code [id number] Code Onset Dates Condition S tatus SNOMED Code Problem Type 2 diabetes mellitus wit h diabetic polyneuropathy, without long-term current use of insulin E11.42 07 Dec, 2016 Active 39551 6002 Problem Morbid obesity with BMI of 50.0-59.9, adult E66 .01 16 Dec, 2017 Active 011811740 Problem Sleep apnea G47.30 Active 62449803 Problem Osteoarthritis of left knee M17.12 17 Apr, 2013 Active 116135022 Problem Hypotestosteronemia in male E29.1 Ac tive 3740801781000 Problem Pure hypercholesterolemia E78.00 Acti ve 611437765 Problem 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 Active 645824172 Problem Essential hypertension I10 Active 19523155 Problem Left carpal tunnel syndrome G56.02 Ac tive 984273272539526 Problem Gout M10.9 Active 05264961 Problem CKD (chronic kidney disease) stage 3, GFR 30-59 ml/min N18.3 Active 258892805 Problem Type 2 diabetes mellitus wit hout complication, without long-term current use of insulin E11.9 Active 619612670 Problem Benign essential hypertension I10 Active 6915118 Problem 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 with unspecified severity L97.419 Active 300618191 ALLERGIES Substance Reaction Event Type Date Status Dicloxacillin Sodium rash Drug Allergy Jan, Active Azithromycin rash Drug Allergy Jan, Active ENCOUNTERS Encounter Location Date Diagnosis [address] [id number] [place] [address] Jun, [address] [id number] [place] [address] Feb, [address] [id number] [place] [address] Feb, Type 2 diabetes mellitus wit h diabetic polyneuropathy, without long-term current use of insulin E11.[address] [id number], [place] [address] Feb, Type 2 diabetes mellitus wit h diabetic polyneuropathy, without long-term current use of insulin E11.[address] [id number], [place] [address] Jan, [address] [id number], [place] [address] Jan, Bronchitis J40 [address] [id number], [place] [address] Jan, Bronchitis J40 ; Urinary ret ention R33.9 and Sepsis, due to unspecified organism, unspecified whether acute organ dysfunction present A41.9 [facility] [place] [address] [facility] [id number] [address] [address] Jan, [address] [id number], [place] [address] Nov, [address] [id number], [place] [address] Nov, Drug or chemical induced jose betes mellitus with foot ulcer E09.621 ; CKD (chronic kidney disease) stage 3, GFR 30-59 ml/min N18.3 ; Left carpal tunnel syndrome G56.02 and Encounter for immunization Z23 [address] [id number], [place] [address] Oct, Essential hypertension I10 ; Type 2 diabetes mellitus with diabetic polyneuropathy, without long-term current use of insulin E11.42 ; Pure hypercholesterolemia E78.00 ; Trigger thumb, right thumb M65.311 ; Trigger thumb, left thumb M65.312 ; Trigger finger, left index finger M65.322 ; Trigger finger, right middle finger M65.331 and Trigger finger, right index finger M65.[address] [id number] [place] [address] Sep, Type 2 diabetes mellitus wit hout complication, without long-term current use of insulin E11.[address] [id number] [place] [address] Sep, Testosterone deficiency E34. [address] [id number], [place] [address] Sep, [address] [id number], [place] [address] Sep, Type 2 diabetes mellitus wit hout complication, without long-term current use of insulin E11.[address] [id number], [place] [address] Aug, Hypotestosteronemia in male E29.[address] [id number], [place] [address] Aug, Type 2 diabetes mellitus wit h diabetic polyneuropathy, without long-term current use of insulin E11.42 [facility] [place] [address] [facility] [id number] [address] [place] [address] Jul, Drug or chemical induced jose betes mellitus with foot ulcer E09.621 ; Non-pressure chronic ulcer of right heel and midfoot with unspecified severity L97.419 and Cellulitis of other specified site L03.[address] [id number], [place] [address] Jul, Hypotestosteronemia in male E29.[address] [id number], [place] [address] Jun, Cellulitis of other specifie d site L03.[address] [id number], [place] [address] Jun, Hypotestosteronemia in male E29.1 [facility] [address] [id number] [place] [address] Jun, Morbid obesity E66.01 ; Cell ulitis of other specified site L03.818 and Pain of right foot M79.671 [facility] [address] [id number] [place] [address] Jun, Cellulitis of other specifie d site L03.818 ; Morbid obesity E66.01 and Healing skin ulcer, limited to breakdown of skin L98.491 [facility] [address] [id number] [place] [address] May, Benign essential hypertensio n I10 ; Type 2 diabetes mellitus without complication, without long-term current use of insulin E11.9 ; Pure hypercholesterolemia E78.00 ; Morbid obesity E66.01 and Deep vein thrombosis (DVT) of popliteal vein of right lower extremity, unspecified chronicity I82.431 [facility] [address] [id number] [place] [address] Apr, Hypotestosteronemia in male E29.1 [facility] [address] [id number] [place] [address] March, [facility] [address] [address] [id number] [place] [address] Feb, [facility] [address] [id number] [place] [address] Feb, Hypotestosteronemia in male E29.1 [facility] [address] [id number] [place] [address] Feb, [facility] [address] [id number], [place] [address] Feb, Deep vein thrombosis (DVT) o f popliteal vein of right lower extremity, unspecified chronicity I82.431 [facility] [address] [id number] [place] [address] Feb, CKD (chronic kidney disease) stage 3, GFR 30-59 ml/min N18.[address] [id number] [place] [address] Jan, Morbid obesity E66.01 ; Esse ntial hypertension I10 ; Pure hypercholesterolemia E78.00 ; CKD (chronic kidney disease) stage 3, GFR 30- 59 ml/min N18.3 and Hypotestosteronemia in male E29.[address] [id number], [place] [address] Jan, Bilateral leg edema R60.0 an d Pain of left calf M79.[address] [id number], [place] [address] Jan, Morbid obesity E66.01 ; [employer] Operator gabriel venous insufficiency I87.2 ; Bilateral leg edema R60.0 ; Pain of left calf M79.662 and Deep vein thrombosis (DVT) of popliteal vein of right lower extremity, unspecified chronicity I82.[address] 340 [id number], [place] [address] Jan, [address] 340 [id number], [place] [address] Dec, Hypotestosteronemia in male E29.1 [facility] [place] [address] [facility] [id number] [address] [place] [address] Dec, Hypotestosteronemia in male E29.[address] [id number], [place] [address] Dec, Long-term use of high-risk m edication Z79.899 ; BMI 50.0-59.9, adult Z68.43 ; Primary osteoarthritis of left knee M17.12 ; Benign essential hypertension I10 ; Pure hypercholesterolemia E78.00 ; Type 2 diabetes mellitus without complication, without long-term current use of insulin E11.9 ; Hypotestosteronemia in male E29.1 and Sciatica of left side M54.[address] [id number] [place] [address] Dec, Type 2 diabetes mellitus wit h diabetic polyneuropathy, unspecified whether chcf insulin use E11.42 and Long-term use of high-risk medication Z79.899 [facility] [address] [id number] [place] [address] Dec, [facility] [place] [address] [facility] [id number] [address] [place] [address] Oct, [facility] [place] [address] [id number] [address] [place] [address] Oct, [facility] [place] [address] [facility] [id number] [address] [place] [address] Sep, [facility] [place] [address] [facility] [id number] [address] [place] [address] Sep, [facility] [place] [address] [facility] [id number] [address] [place] [address] Sep, [facility] [place] [address] [id number] [address] [place] [address] Sep, [facility] [place] [address] [id number] [address] [place] [address] Aug, [facility] [place] [address] [facility] [id number] [address] [place] [address] May, IMMUNIZATIONS Vaccine Route Administration Date Status TESTOSTERONE 200 MG/1 ML (UP TO 100 MG) IM Intramuscular January 052018 Administered SOCIAL HISTORY Never Assessed REASON FOR VISIT F/U- Blood Clot in Leg- Right Leg PLAN OF CARE Activity Details Follow Up prn Reason: VITAL SIGNS Height 6ft 2in in 2019-01-29 Weight 448lb lbs 2019-01-29 BMI 57.51 kg/m2 2019-01-29 Blood pressure systolic 148 mmHg 2019-01-29 Blood pressure diastolic 90 mmHg 2019-01-29 MEDICATIONS Medication Instructions Dosage Frequency Start Date End Date Duration S tatus Xanax 0.5 MG Orally Twice a day 1 tablet 12h Unknown Testosterone Cypionate 200 MG/ML Intramuscular once monthly 1 ml Dec, 12 months Unknown Hydrocodone-Acetaminophen 10-325 MG Orally every 6 hrs 1 tablet as ne eded 6h Unknown Dapsone 100 MG Orally Once a day 1 1/2 tablet 24h 10 day(s) Active Mevacor 40 MG Orally Once a day 1 tablet with the evening meal 24h 30 day(s) Unknown Cyclobenzaprine HCl 5 MG Orally Three times a day 1 tablet as neede d 8h Dec, Active Furosemide 40 MG Orally Once a day 1 tablet 24h Active Gabapentin 300 MG Orally 3 times daily 1 capsule 30 day(s) Active Glimepiride 4 MG Orally Once a day 1 tablet with breakf ast or the first main meal of the day 24h 30 day(s) Active Xarelto 15 MG Orally 2 times a day 1 tablet with food 12h Jan 21 days Active Valium 5 MG Orally Twice a day 1 tablet as needed 12h Unknown Lisinopril 40 MG Orally Once a day 1 tablet 24h 30 d ay(s) Active RESULTS No Results PROCEDURES Procedure Date Ordered Result Body Site THER/PROPH/DIAG INJ, SC/IM January 29, 2019 INJ TESTOSTERONE CYPIONATE 1 MG 100 units January 29, 2019 INSTRUCTIONS MEDICATIONS ADMINISTERED No Known Medications MEDICAL (GENERAL) HISTORY Type Description Date Medical History Hypertension Medical History Type 2 diabetes mellitus Medical History Sleep apnea Medical History Gout Surgical History Elbow Surgery orthoscopi Surgical History groin surgery, both sides Surgical History vasectomy Surgical History colonoscopy Hospitalization History cellulitis in legs x2 weeks Hospitalization History back pain Hospitalization History [facility] 12/2019
--- OUTSIDE RECORDS SUMMARY | 2020-03-25 06:06 | XMS REPORT | Clinical Summary ---
Author Author Celeste, Derrick Freitas Organization [facility] Address Unknown Phone Unavailable Allergies, Adverse Reactions, [...] ev ening for prostate symptoms TAMSULOSIN HCL 76606609084 Active Christi Herzog Active XARELTO 20 MG ORAL TABLET Take one by mouth daily RIVAROXABAN 16014387440 Active Brenda Ford MD Active METFORMIN HCL 500 MG ORAL TABLET 1 tablet by mouth twice daily METFORMIN HCL 83914002070 Active Brenda Ford MD Active LISINOPRIL 20 MG ORAL TABLET 1 tablet by mouth daily LISINOPRIL 30181427548 Active Brenda Ford MD Active GLIMEPIRIDE 4 MG ORAL TABLET 1 tab by mouth daily GLIMEPIRIDE 38050102744 Active Brenda Ford MD Active GABAPENTIN 300 MG ORAL CAPSULE 1 tab by mouth three times daily GABAPENTIN 28408846866 Active Brenda Ford MD Active MELOXICAM 15 MG ORAL TABLET 1 tab by mouth every 12 hours as needed MELOXICAM 63820030357 Active Brenda Ford MD Active PROAIR HFA 108 (90 BASE) MCG/ACT INHALATION AEROSOL SO LUTION 2 puffs four times a day as needed ALBUTEROL SULFATE 58528248507 Active Brenda lui MD Active LASIX 40 MG ORAL TABLET 1 tablet by mouth daily as needed for swell ing FUROSEMIDE 92065841846 Active Brenda Ford MD Active Advance Directives [...] noted Encounters Code Encounter Date Provider Facility CPT-62908 Level 3 Est. 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
--- OUTSIDE RECORDS SUMMARY | 2020-03-25 06:08 | XMS REPORT | Continuity of Care Document ---
Author Organization Unknown Address Unknown Phone Unavailable Allergies Active Description Code Type Severity Reaction Onset Reported/Identified Relationship to Patient Clinical Status Yes azithromycin [id number] Drug Allergy Unknown Rash 11/27/2019 Yes dicloxacillin [id number] Fede g Allergy Unknown Rash 11/27/2019 Medications There is no data. Problems Date Dx Coded Attending Type Code Diagnosis Diagnosed By 10/05/1599 AVRIL WINKLER MD, Ot G56.02 CARPAL TUNNEL SYNDROME, LEFT UPPER LIMB 10/05/1599 AVRIL WINKLER MD, Ot Z01.812 ENCOUNTER FOR PREPROCEDURAL LABORATORY E 10/05/1599 AVRIL WINKLER MD, Ot Z11.59 ENCOUNTER FOR SCREENING FOR OTHER VIRAL 06/05/2018 AVRIL HERNANDEZ MD, Ot E11.42 TYPE 2 DIABETES MELLITUS WITH DIABETIC P 06/05/2018 AVRIL HERNANDEZ MD, Ot E66.01 MORBID (SEVERE) OBESITY DUE TO EXCESS CA 06/05/2018 AVRIL HERNANDEZ MD, Ot I87.332 CHRONIC VENOUS HTN W ULCER AND INFLAMMAT 06/05/2018 AVRIL HERNANDEZ MD, Ot I89 .0 LYMPHEDEMA, NOT ELSEWHERE CLASSIFIED 06/05/2018 AVRIL HERNANDEZ MD, Ot L95 .9 VASCULITIS LIMITED TO THE SKIN, UNSPECIF 06/05/2018 AVRIL HERNANDEZ MD, Ot L97.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 ULCER OF RIGHT CALF 06/05/2018 AVRIL HERNANDEZ MD, Ot L97.222 NON-PRESSURE CHRONIC ULCER OF LEFT CALF 06/05/2018 AVRIL HERNANDEZ MD, Ot L97.422 NON-PRS CHR ULCER OF LEFT HEEL AND MIDFO 06/05/2018 AVRIL HERNANDEZ MD, Ot R21 RASH AND OTHER NONSPECIFIC SKIN ERUPTION 06/05/2018 AVRIL HENRANDEZ MD, Ot Z68.42 BODY MASS INDEX (BMI) 45.0-49.9, ADULT 06/25/2018 AVRIL HERNANDEZ MD, Ot E11.42 TYPE 2 DIABETES MELLITUS WITH DIABETIC P 06/25/2018 AVRIL HERNANDEZ MD, Ot E66.01 MORBID (SEVERE) OBESITY DUE TO EXCESS CA 06/25/2018 AVRIL HERNANDEZ MD Ot I87.332 CHRONIC VENOUS HTN W ULCER AND INFLAMMAT 06/25/2018 AVRIL HERNANDEZ MD, Ot I89 .0 LYMPHEDEMA, NOT ELSEWHERE CLASSIFIED 06/25/2018 AVRIL HERNANDEZ MD, Ot L95 .9 VASCULITIS LIMITED TO THE SKIN, UNSPECIF 06/25/2018 AVRIL HERNANDEZ MD, Ot L97.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 ULCER OF RIGHT CALF 06/25/2018 AVRIL HERNANDEZ MD, Ot L97.222 NON-PRESSURE CHRONIC ULCER OF LEFT CALF 06/25/2018 AVRIL HERNANDEZ MD, Ot L97.422 NON-PRS CHR ULCER OF LEFT HEEL AND MIDFO 06/25/2018 AVRIL HERNANDEZ MD, Ot Z68.43 BODY MASS INDEX (BMI) 50-59.9 , ADULT 06/28/2018 AVRIL HERNANDEZ MD, Ot E11.42 TYPE 2 DIABETES MELLITUS WITH DIABETIC P 06/28/2018 AVRIL HERNANDEZ MD, Ot E11.621 TYPE 2 DIABETES MELLITUS WITH FOOT ULCER 06/28/2018 AVRIL HERNANDEZ MD, Ot E11.622 TYPE 2 DIABETES MELLITUS WITH OTHER SKIN 06/28/2018 AVRIL HERNANDEZ MD Ot E66.01 MORBID (SEVERE) OBESITY DUE TO EXCESS CA 06/28/2018 AVRIL HERNANDEZ MD Ot I87.333 CHRONIC VENOUS HTN W ULCER AND INFLAM OF 06/28/2018 AVRIL HERNANDEZ MD, Ot I89 .0 LYMPHEDEMA, NOT ELSEWHERE CLASSIFIED 06/28/2018 AVRIL HERNANDEZ MD, Ot L95 .9 VASCULITIS LIMITED TO THE SKIN, UNSPECIF 06/28/2018 AVRIL HERNANDEZ MD, Ot L97.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 ULCER OF RIGHT CALF 06/28/2018 AVRIL HERNANDEZ MD, Ot L97.222 NON-PRESSURE CHRONIC ULCER OF LEFT CALF 06/28/2018 AVRIL HERNANDEZ MD, Ot L97.412 NON-PRS CHR ULCER OF RIGHT HEEL AND MIDF 06/28/2018 AVRIL HERNANDEZ MD Ot L97.422 NON-PRS CHR ULCER OF LEFT HEEL AND MIDFO 06/28/2018 AVRIL HERNANDEZ MD, Ot Z68.43 BODY MASS INDEX (BMI) 50-59.9 , ADULT 07/01/2018 AVRIL HERNANDEZ MD Ot E11.42 TYPE 2 DIABETES MELLITUS WITH DIABETIC P 07/01/2018 AVRIL HERNANDEZ MD Ot E11.621 TYPE 2 DIABETES MELLITUS WITH FOOT ULCER 07/01/2018 AVRIL HERNANDEZ MD Ot E11.622 TYPE 2 DIABETES MELLITUS WITH OTHER SKIN 07/01/2018 AVRIL HERNANDEZ MD Ot E66.01 MORBID (SEVERE) OBESITY DUE TO EXCESS CA 07/01/2018 AVRIL HERNANDEZ MD Ot I87.333 CHRONIC VENOUS HTN W ULCER AND INFLAM OF 07/01/2018 AVRIL HERNANDEZ MD Ot I89 .0 LYMPHEDEMA, NOT ELSEWHERE CLASSIFIED 07/01/2018 AVRIL HERNANDEZ MD Ot L95 .9 VASCULITIS LIMITED TO THE SKIN, UNSPECIF 07/01/2018 AVRIL HERNANDEZ MD Ot L97.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 ULCER OF RIGHT CALF 07/01/2018 AVRIL HERNANDEZ MD Ot L97.222 NON-PRESSURE CHRONIC ULCER OF LEFT CALF 07/01/2018 AVRIL HERNANDEZ MD Ot L97.412 NON-PRS CHR ULCER OF RIGHT HEEL AND MIDF 07/01/2018 AVRIL HERNANDEZ MD Ot L97.422 NON-PRS CHR ULCER OF LEFT HEEL AND MIDFO 07/01/2018 AVRIL HERNANDEZ MD Ot Z68.43 BODY MASS INDEX (BMI) 50-59.9 , ADULT 07/03/2018 Ot E11.42 TYP E 2 DIABETES MELLITUS WITH DIABETIC P 07/03/2018 Ot E11.621 TY PE 2 DIABETES MELLITUS WITH FOOT ULCER 07/03/2018 Ot E11.622 TY PE 2 DIABETES MELLITUS WITH OTHER SKIN 07/03/2018 Ot E66.01 MOR BID (SEVERE) OBESITY DUE TO EXCESS CA 07/03/2018 Ot I87.333 CH RONIC VENOUS HTN W ULCER AND INFLAM OF 07/03/2018 Ot I89.0 LYMP HEDEMA, NOT ELSEWHERE CLASSIFIED 07/03/2018 Ot L95.9 VASC ULITIS LIMITED TO THE SKIN, UNSPECIF 07/03/2018 Ot L97.212 NO N-PRESSURE CHRONIC ULCER OF RIGHT CALF 07/03/2018 Ot L97.222 NO N-PRESSURE CHRONIC ULCER OF LEFT CALF 07/03/2018 Ot L97.412 NO N-PRS CHR ULCER OF RIGHT HEEL AND MIDF 07/03/2018 Ot L97.422 NO N-PRS CHR ULCER OF LEFT HEEL AND MIDFO 07/03/2018 Ot Z68.43 BOD Y MASS INDEX (BMI) 50-59.9 , ADULT 07/05/2018 AVRIL HERNANDEZ MD, Ot E11.42 TYPE 2 DIABETES MELLITUS WITH DIABETIC P 07/05/2018 AVRIL HERNANDEZ MD, Ot E11.621 TYPE 2 DIABETES MELLITUS WITH FOOT ULCER 07/05/2018 AVRIL HERNANDEZ MD, Ot E11.622 TYPE 2 DIABETES MELLITUS WITH OTHER SKIN 07/05/2018 AVRIL HERNANDEZ MD, Ot E66.01 MORBID (SEVERE) OBESITY DUE TO EXCESS CA 07/05/2018 AVRIL HERNANDEZ MD, Ot I87.333 CHRONIC VENOUS HTN W ULCER AND INFLAM OF 07/05/2018 AVRIL HERNANDEZ MD, Ot I89 .0 LYMPHEDEMA, NOT ELSEWHERE CLASSIFIED 07/05/2018 AVRIL HERNANDEZ MD, Ot L95 .9 VASCULITIS LIMITED TO THE SKIN, UNSPECIF 07/05/2018 AVRIL HERNANDEZ MD, Ot L97.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 ULCER OF RIGHT CALF 07/05/2018 AVRIL HERNANDEZ MD, Ot L97.222 NON-PRESSURE CHRONIC ULCER OF LEFT CALF 07/05/2018 AVRIL HERNANDEZ MD, Ot L97.412 NON-PRS CHR ULCER OF RIGHT HEEL AND MIDF 07/05/2018 AVRIL HERNANDEZ MD Ot L97.422 NON-PRS CHR ULCER OF LEFT HEEL AND MIDFO 07/05/2018 AVRIL HERNANDEZ MD Ot Z68.43 BODY MASS INDEX (BMI) 50-59.9 , ADULT 07/08/2018 AVRIL HERNANDEZ MD Ot E11.42 TYPE 2 DIABETES MELLITUS WITH DIABETIC P 07/08/2018 AVRIL HERNANDEZ MD Ot E11.621 TYPE 2 DIABETES MELLITUS WITH FOOT ULCER 07/08/2018 AVRIL HERNANDEZ MD, Ot E11.622 TYPE 2 DIABETES MELLITUS WITH OTHER SKIN 07/08/2018 AVRIL HERNANDEZ MD Ot E66.01 MORBID (SEVERE) OBESITY DUE TO EXCESS CA 07/08/2018 AVRIL HERNANDEZ MD, Ot I87.333 CHRONIC VENOUS HTN W ULCER AND INFLAM OF 07/08/2018 AVRIL HERNANDEZ MD, Ot I89 .0 LYMPHEDEMA, NOT ELSEWHERE CLASSIFIED 07/08/2018 AVRIL HERNANDEZ MD Ot L95 .9 VASCULITIS LIMITED TO THE SKIN, UNSPECIF 07/08/2018 AVRIL HERNANDEZ MD, Ot L97.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 ULCER OF RIGHT CALF 07/08/2018 AVRIL HERNANDEZ MD, Ot L97.412 NON-PRS CHR ULCER OF RIGHT HEEL AND MIDF 07/08/2018 AVRIL HERNANDEZ MD, Ot L97.421 NON-PRS CHR ULCER OF LEFT HEEL AND MIDFT 07/08/2018 AVRIL HERNANDEZ MD, Ot Z68.43 BODY MASS INDEX (BMI) 50-59.9 , ADULT 07/12/2018 AVRIL HERNANDEZ MD, Ot E11.42 TYPE 2 DIABETES MELLITUS WITH DIABETIC P 07/12/2018 AVRIL HERNANDEZ MD, Ot E11.621 TYPE 2 DIABETES MELLITUS WITH FOOT ULCER 07/12/2018 AVRIL HERNANDEZ MD, Ot E11.622 TYPE 2 DIABETES MELLITUS WITH OTHER SKIN 07/12/2018 AVRIL HERNANDEZ MD, Ot E66.01 MORBID (SEVERE) OBESITY DUE TO EXCESS CA 07/12/2018 AVRIL HERNANDEZ MD, Ot I87.333 CHRONIC VENOUS HTN W ULCER AND INFLAM OF 07/12/2018 AVRIL HERNANDEZ MD, Ot I89 .0 LYMPHEDEMA, NOT ELSEWHERE CLASSIFIED 07/12/2018 AVRIL HERNANDEZ MD, Ot L95 .9 VASCULITIS LIMITED TO THE SKIN, UNSPECIF 07/12/2018 AVRIL HERNANDEZ MD, Ot L97.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 ULCER OF RIGHT CALF 07/12/2018 AVRIL HERNANDEZ MD, Ot L97.412 NON-PRS CHR ULCER OF RIGHT HEEL AND MIDF 07/12/2018 AVRIL HERNANDEZ MD, Ot L97.421 NON-PRS CHR ULCER OF LEFT HEEL AND MIDFT 07/12/2018 AVRIL HERNANDEZ MD, Ot Z68.43 BODY MASS INDEX (BMI) 50-59.9 , ADULT 07/26/2018 AVRIL HERNANDEZ MD, Ot E11.42 TYPE 2 DIABETES MELLITUS WITH DIABETIC P 07/26/2018 AVRIL HERNANDEZ MD, Ot E11.621 TYPE 2 DIABETES MELLITUS WITH FOOT ULCER 07/26/2018 AVRIL HERNANDEZ MD, Ot E11.622 TYPE 2 DIABETES MELLITUS WITH OTHER SKIN 07/26/2018 AVRIL HERNANDEZ MD, Ot E66.01 MORBID (SEVERE) OBESITY DUE TO EXCESS CA 07/26/2018 AVRIL HERNANDEZ MD, Ot I87.331 CHRONIC VENOUS HTN W ULCER AND INFLAMMAT 07/26/2018 AVRIL HERNANDEZ MD, Ot I89 .0 LYMPHEDEMA, NOT ELSEWHERE CLASSIFIED 07/26/2018 AVRIL HERNANDEZ MD, Ot L95 .9 VASCULITIS LIMITED TO THE SKIN, UNSPECIF 07/26/2018 AVRIL HERNANDEZ MD, Ot L97.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 ULCER OF RIGHT CALF 07/26/2018 AVRIL HERNANDEZ MD, Ot L97.412 NON-PRS CHR ULCER OF RIGHT HEEL AND MIDF 07/26/2018 AVRIL HERNANDEZ MD, Ot L97.421 NON-PRS CHR ULCER OF LEFT HEEL AND MIDFT 08/01/2018 AVRIL HERNANDEZ MD Ot E11.42 TYPE 2 DIABETES MELLITUS WITH DIABETIC P 08/01/2018 AVRIL HERNANDEZ MD, Ot E11.621 TYPE 2 DIABETES MELLITUS WITH FOOT ULCER 08/01/2018 AVRIL HERNANDEZ MD, Ot E11.622 TYPE 2 DIABETES MELLITUS WITH OTHER SKIN 08/01/2018 AVRIL HERNANDEZ MD, Ot E66.01 MORBID (SEVERE) OBESITY DUE TO EXCESS CA 08/01/2018 AVRIL HERNANDEZ MD, Ot I89 .0 LYMPHEDEMA, NOT ELSEWHERE CLASSIFIED 08/01/2018 AVRIL HERNANDEZ MD, Ot L95 .9 VASCULITIS LIMITED TO THE SKIN, UNSPECIF 08/01/2018 AVRIL HERNANDEZ MD, Ot L97.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 ULCER OF RIGHT CALF 08/01/2018 AVRIL HERNANDEZ MD, Ot L97.412 NON-PRS CHR ULCER OF RIGHT HEEL AND MIDF 08/01/2018 AVRIL HERNANDEZ MD Ot Z68.43 BODY MASS INDEX (BMI) 50-59.9 , ADULT 08/09/2018 AVRIL HERNANDEZ MD Ot E11.42 TYPE 2 DIABETES MELLITUS WITH DIABETIC P 08/09/2018 AVRIL HERNANDEZ MD Ot E11.621 TYPE 2 DIABETES MELLITUS WITH FOOT ULCER 08/09/2018 AVRIL HERNANDEZ MD, Ot E11.622 TYPE 2 DIABETES MELLITUS WITH OTHER SKIN 08/09/2018 AVRIL HERNANDEZ MD Ot E66.01 MORBID (SEVERE) OBESITY DUE TO EXCESS CA 08/09/2018 AVRIL HERNANDEZ MD, Ot I89 .0 LYMPHEDEMA, NOT ELSEWHERE CLASSIFIED 08/09/2018 AVRIL HERNANDEZ MD, Ot L95 .9 VASCULITIS LIMITED TO THE SKIN, UNSPECIF 08/09/2018 AVRIL HERNANDEZ MD, Ot L97.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 ULCER OF RIGHT CALF 08/09/2018 AVRIL HERNANDEZ MD, Ot L97.412 NON-PRS CHR ULCER OF RIGHT HEEL AND MIDF 08/09/2018 AVRIL HERNANDEZ MD, Ot Z68.43 BODY MASS INDEX (BMI) 50-59.9 , ADULT 08/15/2018 AVRIL HERNANDEZ MD, Ot E11.42 TYPE 2 DIABETES MELLITUS WITH DIABETIC P 08/15/2018 AVRIL HERNANDEZ MD, Ot E11.621 TYPE 2 DIABETES MELLITUS WITH FOOT ULCER 08/15/2018 AVRIL HERNANDEZ MD, Ot E11.622 TYPE 2 DIABETES MELLITUS WITH OTHER SKIN 08/15/2018 AVRIL HERNANDEZ MD, Ot E66.01 MORBID (SEVERE) OBESITY DUE TO EXCESS CA 08/15/2018 AVRIL HERNANDEZ MD, Ot I89 .0 LYMPHEDEMA, NOT ELSEWHERE CLASSIFIED 08/15/2018 AVRIL HERNANDEZ MD, Ot L95 .9 VASCULITIS LIMITED TO THE SKIN, UNSPECIF 08/15/2018 AVRIL HERNANDEZ MD, Ot L97.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 ULCER OF RIGHT CALF 08/15/2018 AVRIL HERNANDEZ MD, Ot L97.412 NON-PRS CHR ULCER OF RIGHT HEEL AND MIDF 08/15/2018 AVRIL HERNANDEZ MD, Ot Z68.43 BODY MASS INDEX (BMI) 50-59.9, ADULT 08/27/2018 AVRIL HERNANDEZ MD, Ot E11.42 TYPE 2 DIABETES MELLITUS WITH DIABETIC P 08/27/2018 AVRIL HERNANDEZ MD, Ot E11.621 TYPE 2 DIABETES MELLITUS WITH FOOT ULCER 08/27/2018 AVRIL HERNANDEZ MD, Ot E11.622 TYPE 2 DIABETES MELLITUS WITH OTHER SKIN 08/27/2018 AVRIL HERNANDEZ MD, Ot E66.01 MORBID (SEVERE) OBESITY DUE TO EXCESS CA 08/27/2018 AVRIL HERNANDEZ MD, Ot I89 .0 LYMPHEDEMA, NOT ELSEWHERE CLASSIFIED 08/27/2018 AVRIL HERNANDEZ MD, Ot L95 .9 VASCULITIS LIMITED TO THE SKIN, UNSPECIF 08/27/2018 AVRIL HERNANDEZ MD, Ot L97.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 ULCER OF RIGHT CALF 08/27/2018 AVRIL HERNANDEZ MD, Ot L97.412 NON-PRS CHR ULCER OF RIGHT HEEL AND MIDF 08/27/2018 AVRIL HERNANDEZ MD, Ot Z68.43 BODY MASS INDEX (BMI) 50-59.9, ADULT 11/12/2018 AVRIL HERNANDEZ MD, Ot E11.42 TYPE 2 DIABETES MELLITUS WITH DIABETIC P 11/12/2018 AVRIL HERNANDEZ MD, Ot E66.01 MORBID (SEVERE) OBESITY DUE TO EXCESS CA 11/12/2018 AVRIL HERNANDEZ MD, Ot I87.332 CHRONIC VENOUS HTN W ULCER AND INFLAMMAT 11/12/2018 AVRIL HERNANDEZ MD, Ot I89 .0 LYMPHEDEMA, NOT ELSEWHERE CLASSIFIED 11/12/2018 AVRIL HERNANDEZ MD, Ot L95 .9 VASCULITIS LIMITED TO THE SKIN, UNSPECIF 11/12/2018 AVRIL HERNANDEZ MD, Ot L97.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 ULCER OF RIGHT CALF 11/12/2018 AVRIL HERNANDEZ MD Ot L97.222 NON-PRESSURE CHRONIC ULCER OF LEFT CALF 11/12/2018 AVRIL HERNANDEZ MD, Ot L97.422 NON-PRS CHR ULCER OF LEFT HEEL AND MIDFO 11/12/2018 AVRIL HERNANDEZ MD, Ot Z68.43 BODY MASS INDEX (BMI) 50-59.9 , ADULT 11/12/2018 AVRIL HERNANDEZ MD Ot E11.42 TYPE 2 DIABETES MELLITUS WITH DIABETIC P 11/12/2018 AVRIL HERNANDEZ MD, Ot E66.01 MORBID (SEVERE) OBESITY DUE TO EXCESS CA 11/12/2018 AVRIL HERNANDEZ MD, Ot I87.332 CHRONIC VENOUS HTN W ULCER AND INFLAMMAT 11/12/2018 AVRIL HERNANDEZ MD, Ot I89 .0 LYMPHEDEMA, NOT ELSEWHERE CLASSIFIED 11/12/2018 AVRIL HERNANDEZ MD, Ot L95 .9 VASCULITIS LIMITED TO THE SKIN, UNSPECIF 11/12/2018 AVRIL HERNANDEZ MD Ot L97.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 ULCER OF RIGHT CALF 11/12/2018 AVRIL HERNANDEZ MD, Ot L97.222 NON-PRESSURE CHRONIC ULCER OF LEFT CALF 11/12/2018 AVRIL HERNANDEZ MD, Ot L97.422 NON-PRS CHR ULCER OF LEFT HEEL AND MIDFO 11/12/2018 AVRIL HERNANDEZ MD, Ot Z68.43 BODY MASS INDEX (BMI) 50-59.9 , ADULT 11/12/2018 AVRIL HERNANDEZ MD Ot E11.42 TYPE 2 DIABETES MELLITUS WITH DIABETIC P 11/12/2018 AVRIL HERNANDEZ MD Ot E66.01 MORBID (SEVERE) OBESITY DUE TO EXCESS CA 11/12/2018 AVRIL HERNANDEZ MD, Ot I87.332 CHRONIC VENOUS HTN W ULCER AND INFLAMMAT 11/12/2018 AVRIL HERNANDEZ MD, Ot I89 .0 LYMPHEDEMA, NOT ELSEWHERE CLASSIFIED 11/12/2018 AVRIL HERNANDEZ MD, Ot L95 .9 VASCULITIS LIMITED TO THE SKIN, UNSPECIF 11/12/2018 AVRIL HERNANDEZ MD, Ot L97.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 ULCER OF RIGHT CALF 11/12/2018 AVRIL HERNANDEZ MD, Ot L97.222 NON-PRESSURE CHRONIC ULCER OF LEFT CALF 11/12/2018 AVRIL HERNANDEZ MD, Ot L97.422 NON-PRS CHR ULCER OF LEFT HEEL AND MIDFO 11/12/2018 AVRIL HERNANDEZ MD, Ot R21 RASH AND OTHER NONSPECIFIC SKIN ERUPTION 11/12/2018 AVRIL HERNANDEZ MD, Ot Z68.42 BODY MASS INDEX (BMI) 45.0-49.9, ADULT 11/12/2018 AVRIL HERNANDEZ MD, Ot E11.42 TYPE 2 DIABETES MELLITUS WITH DIABETIC P 11/12/2018 AVRIL HERNANDEZ MD, Ot E11.621 TYPE 2 DIABETES MELLITUS WITH FOOT ULCER 11/12/2018 AVRIL HERNANDEZ MD, Ot E11.622 TYPE 2 DIABETES MELLITUS WITH OTHER SKIN 11/12/2018 AVRIL HERNANDEZ MD Ot E66.01 MORBID (SEVERE) OBESITY DUE TO EXCESS CA 11/12/2018 AVRIL HERNANDEZ MD, Ot I89 .0 LYMPHEDEMA, NOT ELSEWHERE CLASSIFIED 11/12/2018 AVRIL HERNANDEZ MD, Ot L95 .9 VASCULITIS LIMITED TO THE SKIN, UNSPECIF 11/12/2018 AVRIL HERNANDEZ MD, Ot L97.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 ULCER OF RIGHT CALF 11/12/2018 AVRIL HERNANDEZ MD, Ot L97.222 NON-PRESSURE CHRONIC ULCER OF LEFT CALF 11/12/2018 AVRIL HERNANDEZ MD, Ot L97.412 NON-PRS CHR ULCER OF RIGHT HEEL AND MIDF 11/12/2018 AVRIL HERNANDEZ MD, Ot L97.422 NON-PRS CHR ULCER OF LEFT HEEL AND MIDFO 11/12/2018 AVRIL HERNANDEZ MD, Ot Z68.42 BODY MASS INDEX (BMI) 45.0-49.9, ADULT 11/12/2018 Ot E11.42 TYP E 2 DIABETES MELLITUS WITH DIABETIC P 11/12/2018 Ot E11.621 TY PE 2 DIABETES MELLITUS WITH FOOT ULCER 11/12/2018 Ot E11.622 TY PE 2 DIABETES MELLITUS WITH OTHER SKIN 11/12/2018 Ot E66.01 MOR BID (SEVERE) OBESITY DUE TO EXCESS CA 11/12/2018 Ot I87.333 CH RONIC VENOUS HTN W ULCER AND INFLAM OF 11/12/2018 Ot I89.0 LYMP HEDEMA, NOT ELSEWHERE CLASSIFIED 11/12/2018 Ot L95.9 VASC ULITIS LIMITED TO THE SKIN, UNSPECIF 11/12/2018 Ot L97.212 NO N-PRESSURE CHRONIC ULCER OF RIGHT CALF 11/12/2018 Ot L97.222 NO N-PRESSURE CHRONIC ULCER OF LEFT CALF 11/12/2018 Ot L97.412 NO N-PRS CHR ULCER OF RIGHT HEEL AND MIDF 11/12/2018 Ot L97.422 NO N-PRS CHR ULCER OF LEFT HEEL AND MIDFO 11/12/2018 Ot Z68.42 BOD Y MASS INDEX (BMI) 45.0-49.9, ADULT 11/12/2018 Ot E11.42 TYP E 2 DIABETES MELLITUS WITH DIABETIC P 11/12/2018 Ot E11.621 TY PE 2 DIABETES MELLITUS WITH FOOT ULCER 11/12/2018 Ot E11.622 TY PE 2 DIABETES MELLITUS WITH OTHER SKIN 11/12/2018 Ot E66.01 MOR BID (SEVERE) OBESITY DUE TO EXCESS CA 11/12/2018 Ot I87.333 CH RONIC VENOUS HTN W ULCER AND INFLAM OF 11/12/2018 Ot I89.0 LYMP HEDEMA, NOT ELSEWHERE CLASSIFIED 11/12/2018 Ot L95.9 VASC ULITIS LIMITED TO THE SKIN, UNSPECIF 11/12/2018 Ot L97.212 NO N-PRESSURE CHRONIC ULCER OF RIGHT CALF 11/12/2018 Ot L97.222 NO N-PRESSURE CHRONIC ULCER OF LEFT CALF 11/12/2018 Ot L97.412 NO N-PRS CHR ULCER OF RIGHT HEEL AND MIDF 11/12/2018 Ot L97.422 NO N-PRS CHR ULCER OF LEFT HEEL AND MIDFO 11/12/2018 Ot Z68.43 BOD Y MASS INDEX (BMI) 50-59.9 , ADULT 11/12/2018 AVRIL HERNANDEZ MD Ot E11.42 TYPE 2 DIABETES MELLITUS WITH DIABETIC P 11/12/2018 AVRIL HERNANDEZ MD Ot E11.621 TYPE 2 DIABETES MELLITUS WITH FOOT ULCER 11/12/2018 AVRIL HERNANDEZ MD Ot E11.622 TYPE 2 DIABETES MELLITUS WITH OTHER SKIN 11/12/2018 AVRIL HERNANDEZ MD Ot E66.01 MORBID (SEVERE) OBESITY DUE TO EXCESS CA 11/12/2018 AVRIL HERNANDEZ MD, Ot I87.333 CHRONIC VENOUS HTN W ULCER AND INFLAM OF 11/12/2018 AVRIL HERNANDEZ MD, Ot I89 .0 LYMPHEDEMA, NOT ELSEWHERE CLASSIFIED 11/12/2018 AVRIL HERNANDEZ MD, Ot L95 .9 VASCULITIS LIMITED TO THE SKIN, UNSPECIF 11/12/2018 AVRIL HERNANDEZ MD, Ot L97.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 ULCER OF RIGHT CALF 11/12/2018 AVRIL HERNANDEZ MD, Ot L97.222 NON-PRESSURE CHRONIC ULCER OF LEFT CALF 11/12/2018 AVRIL HERNANDEZ MD, Ot L97.412 NON-PRS CHR ULCER OF RIGHT HEEL AND MIDF 11/12/2018 AVRIL HERNANDEZ MD, Ot L97.422 NON-PRS CHR ULCER OF LEFT HEEL AND MIDFO 11/12/2018 AVRIL HERNANDEZ MD, Ot Z68.43 BODY MASS INDEX (BMI) 50-59.9 , ADULT 11/12/2018 AVRIL HERNANDEZ MD, Ot E11.42 TYPE 2 DIABETES MELLITUS WITH DIABETIC P 11/12/2018 AVRIL HERNANDEZ MD, Ot E11.621 TYPE 2 DIABETES MELLITUS WITH FOOT ULCER 11/12/2018 AVRIL HERNANDEZ MD, Ot E11.622 TYPE 2 DIABETES MELLITUS WITH OTHER SKIN 11/12/2018 AVRIL HERNANDEZ MD, Ot E66.01 MORBID (SEVERE) OBESITY DUE TO EXCESS CA 11/12/2018 AVRIL HERNANDEZ MD, Ot I87.333 CHRONIC VENOUS HTN W ULCER AND INFLAM OF 11/12/2018 AVRIL HERNANDEZ MD, Ot I89 .0 LYMPHEDEMA, NOT ELSEWHERE CLASSIFIED 11/12/2018 AVRIL HERNANDEZ MD, Ot L95 .9 VASCULITIS LIMITED TO THE SKIN, UNSPECIF 11/12/2018 AVRIL HERNANDEZ MD, Ot L97.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 ULCER OF RIGHT CALF 11/12/2018 AVRIL HERNANDEZ MD, Ot L97.412 NON-PRS CHR ULCER OF RIGHT HEEL AND MIDF 11/12/2018 AVRIL HERNANDEZ MD, Ot L97.421 NON-PRS CHR ULCER OF LEFT HEEL AND MIDFT 11/12/2018 AVRIL HERNANDEZ MD, Ot Z68.43 BODY MASS INDEX (BMI) 50-59.9 , ADULT 11/12/2018 AVRIL HERNANDEZ MD, Ot E11.42 TYPE 2 DIABETES MELLITUS WITH DIABETIC P 11/12/2018 AVRIL HERNANDEZ MD, Ot E11.621 TYPE 2 DIABETES MELLITUS WITH FOOT ULCER 11/12/2018 AVRIL HERNANDEZ MD, Ot E11.622 TYPE 2 DIABETES MELLITUS WITH OTHER SKIN 11/12/2018 AVRIL HERNANDEZ MD, Ot E66.01 MORBID (SEVERE) OBESITY DUE TO EXCESS CA 11/12/2018 AVRIL HERNANDEZ MD Ot I87.331 CHRONIC VENOUS HTN W ULCER AND INFLAMMAT 11/12/2018 AVRIL HERNANDEZ MD, Ot I89 .0 LYMPHEDEMA, NOT ELSEWHERE CLASSIFIED 11/12/2018 AVRIL HERNANDEZ MD, Ot L95 .9 VASCULITIS LIMITED TO THE SKIN, UNSPECIF 11/12/2018 AVRIL HERNANDEZ MD, Ot L97.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 ULCER OF RIGHT CALF 11/12/2018 AVRIL HERNANDEZ MD, Ot L97.412 NON-PRS CHR ULCER OF RIGHT HEEL AND MIDF 11/12/2018 AVRIL HERNANDEZ MD, Ot L97.421 NON-PRS CHR ULCER OF LEFT HEEL AND MIDFT 11/12/2018 AVRIL HERNANDZE MD, Ot E11.42 TYPE 2 DIABETES MELLITUS WITH DIABETIC P 11/12/2018 AVRIL HERNANDEZ MD, Ot E11.621 TYPE 2 DIABETES MELLITUS WITH FOOT ULCER 11/12/2018 AVRIL HERNANDEZ MD, Ot E11.622 TYPE 2 DIABETES MELLITUS WITH OTHER SKIN 11/12/2018 AVRIL HERNANDEZ MD, Ot E66.01 MORBID (SEVERE) OBESITY DUE TO EXCESS CA 11/12/2018 AVRIL HERNANDEZ MD, Ot I89 .0 LYMPHEDEMA, NOT ELSEWHERE CLASSIFIED 11/12/2018 AVRIL HERNANDEZ MD, Ot L95 .9 VASCULITIS LIMITED TO THE SKIN, UNSPECIF 11/12/2018 AVRIL HERNANDEZ MD, Ot L97.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 ULCER OF RIGHT CALF 11/12/2018 AVRIL HERNANDEZ MD, Ot L97.412 NON-PRS CHR ULCER OF RIGHT HEEL AND MIDF 11/12/2018 AVRIL HERNANDEZ MD, Ot Z68.43 BODY MASS INDEX (BMI) 50-59.9 , ADULT 11/12/2018 AVRIL HERNANDEZ MD, Ot E11.42 TYPE 2 DIABETES MELLITUS WITH DIABETIC P 11/12/2018 AVRIL HERNANDEZ MD, Ot E11.621 TYPE 2 DIABETES MELLITUS WITH FOOT ULCER 11/12/2018 AVRIL HERNANDEZ MD, Ot E11.622 TYPE 2 DIABETES MELLITUS WITH OTHER SKIN 11/12/2018 AVRIL HERNANDEZ MD, Ot E66.01 MORBID (SEVERE) OBESITY DUE TO EXCESS CA 11/12/2018 AVRIL HERNANDEZ MD, Ot I89 .0 LYMPHEDEMA, NOT ELSEWHERE CLASSIFIED 11/12/2018 AVRIL HERNANDEZ MD, Ot L95 .9 VASCULITIS LIMITED TO THE SKIN, UNSPECIF 11/12/2018 AVRIL HERNANDEZ MD, Ot L97.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 ULCER OF RIGHT CALF 11/12/2018 AVRIL HERNANDEZ MD, Ot L97.412 NON-PRS CHR ULCER OF RIGHT HEEL AND MIDF 11/12/2018 AVRIL HERNANDEZ MD, Ot Z68.43 BODY MASS INDEX (BMI) 50-59.9, ADULT 11/15/2018 VAISHNAVI MORTON MD Ot M31.0 HYPERSENSITIVITY ANGIITIS 11/15/2018 VAISHNAVI MORTON MD Ot Z79.8 99 OTHER HALF-WAY (CURRENT) DRUG THERAPY 12/12/2018 VAISHNAVI MORTON MD, Ot M31.0 HYPERSENSITIVITY ANGIITIS 12/12/2018 VAISHNAVI MORTON MD Ot Z79.8 99 OTHER PAINT [employer]AY T[employer]ER (CURRENT) DRUG THERAPY 01/04/2019 VERN BENITEZ SANFORIZER Ot M17.12 UNILATERAL PRIMARY OSTEOARTHRITIS, LEFT 01/09/2019 VERN BENITEZ SANFORIZER Ot M17.12 UNILATERAL PRIMARY OSTEOARTHRITIS, LEFT 01/09/2019 VERN BENITEZ SANFORIZER Ot M17.12 UNILATERAL PRIMARY OSTEOARTHRITIS, LEFT 04/23/2019 VERN BENITEZ Ot M17.11 UNILATERAL PRIMARY OSTEOARTHRITIS, RIGHT 08/07/2019 AVRIL HERNANDEZ MD Ot E11.42 TYPE 2 DIABETES MELLITUS WITH DIABETIC P 08/07/2019 AVRIL HERNANDEZ MD, Ot E66.01 MORBID (SEVERE) OBESITY DUE TO EXCESS CA 08/07/2019 AVRIL HERNANDEZ MD, Ot I87.332 CHRONIC VENOUS HTN W ULCER AND INFLAMMAT 08/07/2019 AVRIL HERNANDEZ MD, Ot I89 .0 LYMPHEDEMA, NOT ELSEWHERE CLASSIFIED 08/07/2019 AVRIL HERNANDEZ MD, Ot L95 .9 VASCULITIS LIMITED TO THE SKIN, UNSPECIF 08/07/2019 AVRIL HERNANDEZ MD, Ot L97.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 ULCER OF RIGHT CALF 08/07/2019 AVRIL HERNANDEZ MD, Ot L97.222 NON-PRESSURE CHRONIC ULCER OF LEFT CALF 08/07/2019 AVRIL HERNANDEZ MD, Ot L97.422 NON-PRS CHR ULCER OF LEFT HEEL AND MIDFO 08/07/2019 AVRIL HERNANDEZ MD, Ot Z68.43 BODY MASS INDEX (BMI) 50-59.9 , ADULT 08/07/2019 AVRIL HERNANDEZ MD, Ot E11.42 TYPE 2 DIABETES MELLITUS WITH DIABETIC P 08/07/2019 AVRIL HERNANDEZ MD Ot E66.01 MORBID (SEVERE) OBESITY DUE TO EXCESS CA 08/07/2019 AVRIL HERNANDEZ MD, Ot I87.332 CHRONIC VENOUS HTN W ULCER AND INFLAMMAT 08/07/2019 AVRIL HERNANDEZ MD, Ot I89 .0 LYMPHEDEMA, NOT ELSEWHERE CLASSIFIED 08/07/2019 AVRIL HERNANDEZ MD, Ot L95 .9 VASCULITIS LIMITED TO THE SKIN, UNSPECIF 08/07/2019 AVRIL HERNANDEZ MD, Ot L97.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 ULCER OF RIGHT CALF 08/07/2019 AVRIL HERNANDEZ MD, Ot L97.222 NON-PRESSURE CHRONIC ULCER OF LEFT CALF 08/07/2019 AVRIL HERNANDEZ MD, Ot L97.422 NON-PRS CHR ULCER OF LEFT HEEL AND MIDFO 08/07/2019 AVRIL HERNANDEZ MD, Ot Z68.43 BODY MASS INDEX (BMI) 50-59.9 , ADULT 08/07/2019 AVRIL HERNANDEZ MD, Ot E11.42 TYPE 2 DIABETES MELLITUS WITH DIABETIC P 08/07/2019 AVRIL HERNANDEZ MD, Ot E66.01 MORBID (SEVERE) OBESITY DUE TO EXCESS CA 08/07/2019 AVRIL HERNANDEZ MD, Ot I87.332 CHRONIC VENOUS HTN W ULCER AND INFLAMMAT 08/07/2019 AVRIL HERNANDEZ MD, Ot I89 .0 LYMPHEDEMA, NOT ELSEWHERE CLASSIFIED 08/07/2019 AVRIL HERNANDEZ MD, Ot L95 .9 VASCULITIS LIMITED TO THE SKIN, UNSPECIF 08/07/2019 AVRIL HERNANDEZ MD, Ot L97.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 ULCER OF RIGHT CALF 08/07/2019 AVRIL HERNANDEZ MD, Ot L97.222 NON-PRESSURE CHRONIC ULCER OF LEFT CALF 08/07/2019 AVRIL HERNANDEZ MD, Ot L97.422 NON-PRS CHR ULCER OF LEFT HEEL AND MIDFO 08/07/2019 AVRIL HERNANDEZ MD, Ot R21 RASH AND OTHER NONSPECIFIC SKIN ERUPTION 08/07/2019 AVRIL HERNANDEZ MD, Ot Z68.42 BODY MASS INDEX (BMI) 45.0-49.9, ADULT 08/07/2019 AVRIL HERNANDEZ MD Ot E11.42 TYPE 2 DIABETES MELLITUS WITH DIABETIC P 08/07/2019 AVRIL HERNANDEZ MD Ot E11.621 TYPE 2 DIABETES MELLITUS WITH FOOT ULCER 08/07/2019 AVRIL HERNANDEZ MD Ot E11.622 TYPE 2 DIABETES MELLITUS WITH OTHER SKIN 08/07/2019 AVRIL HERNANDEZ MD Ot E66.01 MORBID (SEVERE) OBESITY DUE TO EXCESS CA 08/07/2019 AVRIL HERNANDEZ MD Ot I89 .0 LYMPHEDEMA, NOT ELSEWHERE CLASSIFIED 08/07/2019 AVRIL HERNANDEZ MD Ot L95 .9 VASCULITIS LIMITED TO THE SKIN, UNSPECIF 08/07/2019 AVRIL HERNANDEZ MD, Ot L97.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 ULCER OF RIGHT CALF 08/07/2019 AVRIL HERNANDEZ MD Ot L97.222 NON-PRESSURE CHRONIC ULCER OF LEFT CALF 08/07/2019 AVRIL HERNANDEZ MD, Ot L97.412 NON-PRS [facility] ULCER OF RIGHT HEEL AND MIDF 08/07/2019 AVRIL HERNANDEZ MD Ot L97.422 NON-PRS CHR ULCER OF LEFT HEEL AND MIDFO 08/07/2019 AVRIL HERNANDEZ MD Ot Z68.42 BODY MASS INDEX (BMI) 45.0-49.9, ADULT 08/07/2019 Ot E11.42 TYP E 2 DIABETES MELLITUS WITH DIABETIC P 08/07/2019 Ot E11.621 TY PE 2 DIABETES MELLITUS WITH FOOT ULCER 08/07/2019 Ot E11.622 TY PE 2 DIABETES MELLITUS WITH OTHER SKIN 08/07/2019 Ot E66.01 MOR BID (SEVERE) OBESITY DUE TO EXCESS CA 08/07/2019 Ot I87.333 CH RONIC VENOUS HTN W ULCER AND INFLAM OF 08/07/2019 Ot I89.0 LYMP HEDEMA, NOT ELSEWHERE CLASSIFIED 08/07/2019 Ot L95.9 VASC ULITIS LIMITED TO THE SKIN, UNSPECIF 08/07/2019 Ot L97.212 NO N-PRESSURE CHRONIC ULCER OF RIGHT CALF 08/07/2019 Ot L97.222 NO N-PRESSURE CHRONIC ULCER OF LEFT CALF 08/07/2019 Ot L97.412 NO N-PRS CHR ULCER OF RIGHT HEEL AND MIDF 08/07/2019 Ot L97.422 NO N-PRS CHR ULCER OF LEFT HEEL AND MIDFO 08/07/2019 Ot Z68.42 BOD Y MASS INDEX (BMI) 45.0-49.9, ADULT 08/07/2019 Ot E11.42 TYP E 2 DIABETES MELLITUS WITH DIABETIC P 08/07/2019 Ot E11.621 TY PE 2 DIABETES MELLITUS WITH FOOT ULCER 08/07/2019 Ot E11.622 TY PE 2 DIABETES MELLITUS WITH OTHER SKIN 08/07/2019 Ot E66.01 MOR BID (SEVERE) OBESITY DUE TO EXCESS CA 08/07/2019 Ot I87.333 CH RONIC VENOUS HTN W ULCER AND INFLAM OF 08/07/2019 Ot I89.0 LYMP HEDEMA, NOT ELSEWHERE CLASSIFIED 08/07/2019 Ot L95.9 VASC ULITIS LIMITED TO THE SKIN, UNSPECIF 08/07/2019 Ot L97.212 NO N-PRESSURE CHRONIC ULCER OF RIGHT CALF 08/07/2019 Ot L97.222 NO N-PRESSURE CHRONIC ULCER OF LEFT CALF 08/07/2019 Ot L97.412 NO N-PRS CHR ULCER OF RIGHT HEEL AND MIDF 08/07/2019 Ot L97.422 NO N-PRS CHR ULCER OF LEFT HEEL AND MIDFO 08/07/2019 Ot Z68.43 BOD Y MASS INDEX (BMI) 50-59.9 , ADULT 08/07/2019 AVRIL HERNANDEZ MD Ot E11.42 TYPE 2 DIABETES MELLITUS WITH DIABETIC P 08/07/2019 AVRIL HERNANDEZ MD Ot E11.621 TYPE 2 DIABETES MELLITUS WITH FOOT ULCER 08/07/2019 AVRIL HERNANDEZ MD, Ot E11.622 TYPE 2 DIABETES MELLITUS WITH OTHER SKIN 08/07/2019 AVRIL HERNANDEZ MD Ot E66.01 MORBID (SEVERE) OBESITY DUE TO EXCESS CA 08/07/2019 AVRIL HERNANDEZ MD Ot I87.333 CHRONIC VENOUS HTN W ULCER AND INFLAM OF 08/07/2019 AVRIL HERNANDEZ MD Ot I89 .0 LYMPHEDEMA, NOT ELSEWHERE CLASSIFIED 08/07/2019 AVRIL HERNANDEZ MD Ot L95 .9 VASCULITIS LIMITED TO THE SKIN, UNSPECIF 08/07/2019 AVRIL HERNANDEZ MD Ot L97.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 ULCER OF RIGHT CALF 08/07/2019 AVRIL HERNANDEZ MD Ot L97.222 NON-PRESSURE CHRONIC ULCER OF LEFT CALF 08/07/2019 AVRIL HERNANDEZ MD, Ot L97.412 NON-PRS CHR ULCER OF RIGHT HEEL AND MIDF 08/07/2019 AVRIL HERNANDEZ MD, Ot L97.422 NON-PRS CHR ULCER OF LEFT HEEL AND MIDFO 08/07/2019 AVRIL HERNANDEZ MD, Ot Z68.43 BODY MASS INDEX (BMI) 50-59.9 , ADULT 08/07/2019 AVRIL HERNANDEZ MD, Ot E11.42 TYPE 2 DIABETES MELLITUS WITH DIABETIC P 08/07/2019 AVRIL HERNANDEZ MD, Ot E11.621 TYPE 2 DIABETES MELLITUS WITH FOOT ULCER 08/07/2019 AVRIL HERNANDEZ MD, Ot E11.622 TYPE 2 DIABETES MELLITUS WITH OTHER SKIN 08/07/2019 AVRIL HERNANDEZ MD, Ot E66.01 MORBID (SEVERE) OBESITY DUE TO EXCESS CA 08/07/2019 AVRIL HERNANDEZ MD, Ot I87.333 CHRONIC VENOUS HTN W ULCER AND INFLAM OF 08/07/2019 AVRIL HERNANDEZ MD, Ot I89 .0 LYMPHEDEMA, NOT ELSEWHERE CLASSIFIED 08/07/2019 AVRIL HERNANDEZ MD, Ot L95 .9 VASCULITIS LIMITED TO THE SKIN, UNSPECIF 08/07/2019 AVRIL HERNANDEZ MD, Ot L97.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 ULCER OF RIGHT CALF 08/07/2019 AVRIL HERNANDEZ MD, Ot L97.412 NON-PRS CHR ULCER OF RIGHT HEEL AND MIDF 08/07/2019 AVRIL HERNANDEZ MD, Ot L97.421 NON-PRS CHR ULCER OF LEFT HEEL AND MIDFT 08/07/2019 AVRIL HERNANDEZ MD, Ot Z68.43 BODY MASS INDEX (BMI) 50-59.9 , ADULT 08/07/2019 AVRIL HERNANDEZ MD, Ot E11.42 TYPE 2 DIABETES MELLITUS WITH DIABETIC P 08/07/2019 AVRIL HERNANDEZ MD, Ot E11.621 TYPE 2 DIABETES MELLITUS WITH FOOT ULCER 08/07/2019 AVRIL HERNANDEZ MD, Ot E11.622 TYPE 2 DIABETES MELLITUS WITH OTHER SKIN 08/07/2019 AVRIL HERNANDEZ MD, Ot E66.01 MORBID (SEVERE) OBESITY DUE TO EXCESS CA 08/07/2019 AVRIL HERNANDEZ MD, Ot I87.331 CHRONIC VENOUS HTN W ULCER AND INFLAMMAT 08/07/2019 AVRIL HERNANDEZ MD, Ot I89 .0 LYMPHEDEMA, NOT ELSEWHERE CLASSIFIED 08/07/2019 AVRIL HERNANDEZ MD, Ot L95 .9 VASCULITIS LIMITED TO THE SKIN, UNSPECIF 08/07/2019 AVRIL HERNANDEZ MD, Ot L97.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 ULCER OF RIGHT CALF 08/07/2019 AVRIL HERNANDEZ MD, Ot L97.412 NON-PRS CHR ULCER OF RIGHT HEEL AND MIDF 08/07/2019 AVRIL HERNANDEZ MD, Ot L97.421 NON-PRS CHR ULCER OF LEFT HEEL AND MIDFT 08/07/2019 AVRIL HERNANDEZ MD Ot E11.42 TYPE 2 DIABETES MELLITUS WITH DIABETIC P 08/07/2019 AVRIL HERNANDEZ MD, Ot E11.621 TYPE 2 DIABETES MELLITUS WITH FOOT ULCER 08/07/2019 AVRIL HERNANDEZ MD, Ot E11.622 TYPE 2 DIABETES MELLITUS WITH OTHER SKIN 08/07/2019 AVRIL HERNANDEZ MD, Ot E66.01 MORBID (SEVERE) OBESITY DUE TO EXCESS CA 08/07/2019 AVRIL HERNANDEZ MD, Ot I89 .0 LYMPHEDEMA, NOT ELSEWHERE CLASSIFIED 08/07/2019 AVRIL HERNANDEZ MD, Ot L95 .9 VASCULITIS LIMITED TO THE SKIN, UNSPECIF 08/07/2019 AVRIL HERNANDEZ MD, Ot L97.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 ULCER OF RIGHT CALF 08/07/2019 AVRIL HERNANDEZ MD, Ot L97.412 NON-PRS CHR ULCER OF RIGHT HEEL AND MIDF 08/07/2019 AVRIL HERNANDEZ MD, Ot Z68.43 BODY MASS INDEX (BMI) 50-59.9 , ADULT 08/07/2019 AVRIL HERNANDEZ MD, Ot E11.42 TYPE 2 DIABETES MELLITUS WITH DIABETIC P 08/07/2019 AVRIL HERNANDEZ MD, Ot E11.621 TYPE 2 DIABETES MELLITUS WITH FOOT ULCER 08/07/2019 AVRIL HERNANDEZ MD, Ot E11.622 TYPE 2 DIABETES MELLITUS WITH OTHER SKIN 08/07/2019 AVRIL HERNANDEZ MD, Ot E66.01 MORBID (SEVERE) OBESITY DUE TO EXCESS CA 08/07/2019 AVRIL HERNANDEZ MD, Ot I89 .0 LYMPHEDEMA, NOT ELSEWHERE CLASSIFIED 08/07/2019 AVRIL HERNANDEZ MD, Ot L95 .9 VASCULITIS LIMITED TO THE SKIN, UNSPECIF 08/07/2019 AVRIL HERNANDEZ MD, Ot L97.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 ULCER OF RIGHT CALF 08/07/2019 AVRIL HERNANDEZ MD, Ot L97.412 NON-PRS CHR ULCER OF RIGHT HEEL AND MIDF 08/07/2019 AVRIL HERNANDEZ MD, Ot Z68.43 BODY MASS INDEX (BMI) 50-59.9, ADULT 08/07/2019 VAISHNAVI MORTON MD, Ot M31.0 HYPERSENSITIVITY ANGIITIS 08/07/2019 VAISHNAVI MORTON MD, Ot Z79.8 99 OTHER PAINT SPRAY TENDER (CURRENT) DRUG THERAPY 08/07/2019 VERN BENITEZ Ot M17.12 UNILATERAL PRIMARY OSTEOARTHRITIS, LEFT 08/07/2019 VERN BENITEZ Ot M17.11 UNILATERAL PRIMARY OSTEOARTHRITIS, RIGHT 08/16/2019 AVRIL HERNANDEZ MD Ot E11.42 TYPE 2 DIABETES MELLITUS WITH DIABETIC P 08/16/2019 AVRIL HERNANDEZ MD, Ot E11.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 08/16/2019 AVRIL HERNANDEZ MD, Ot E11.621 TYPE 2 DIABETES MELLITUS WITH FOOT ULCER 08/16/2019 AVRIL HERNANDEZ MD Ot I87.331 CHRONIC VENOUS HTN W ULCER AND INFLAMMAT 08/16/2019 AVRIL HERNANDEZ MD Ot L95 .8 OTHER VASCULITIS LIMITED TO THE SKIN 08/16/2019 AVRIL HERNANDEZ MD Ot L97.412 NON-PRS CHR ULCER OF RIGHT HEEL AND MIDF 08/17/2019 AVRIL HERNANDEZ MD Ot E11.42 TYPE 2 DIABETES MELLITUS WITH DIABETIC P 08/17/2019 AVRIL HERNANDEZ MD Ot E11.621 TYPE 2 DIABETES MELLITUS WITH FOOT ULCER 08/17/2019 AVRIL HERNANDEZ MD Ot L95 .8 OTHER VASCULITIS LIMITED TO THE SKIN 08/17/2019 AVRIL HERNANDEZ MD Ot L97.412 NON-PRS CHR ULCER OF RIGHT HEEL AND MIDF 08/19/2019 AVRIL HERNANDEZ MD Ot E11.42 TYPE 2 DIABETES MELLITUS WITH DIABETIC P 08/19/2019 AVRIL HERNANDEZ MD Ot E11.621 TYPE 2 DIABETES MELLITUS WITH FOOT ULCER 08/19/2019 AVRIL HERNANDEZ MD Ot L95 .8 OTHER VASCULITIS LIMITED TO THE SKIN 08/19/2019 AVRIL HERNANDEZ MD Ot L97.412 NON-PRS CHR ULCER OF RIGHT HEEL AND MIDF 08/23/2019 AVRIL HERNANDEZ MD Ot E11.42 TYPE 2 DIABETES MELLITUS WITH DIABETIC P 08/23/2019 AVRIL HERNANDEZ MD Ot E11.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 08/23/2019 AVRIL HERNANDEZ MD Ot E11.621 TYPE 2 DIABETES MELLITUS WITH FOOT ULCER 08/23/2019 AVRIL HERNANDEZ MD Ot I87.331 CHRONIC VENOUS HTN W ULCER AND INFLAMMAT 08/23/2019 AVRIL HERNANDEZ MD, Ot L95 .8 OTHER VASCULITIS LIMITED TO THE SKIN 08/23/2019 AVRIL HERNANDEZ MD, Ot L97.412 NON-PRS CHR ULCER OF RIGHT HEEL AND MIDF 08/30/2019 AVRIL HERNANDEZ MD Ot E11.42 TYPE 2 DIABETES MELLITUS WITH DIABETIC P 08/30/2019 AVRIL HERNANDEZ MD, Ot E11.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 08/30/2019 AVRIL HERNANDEZ MD, Ot E11.621 TYPE 2 DIABETES MELLITUS WITH FOOT ULCER 08/30/2019 AVRIL HERNANDEZ MD, Ot I87.331 CHRONIC VENOUS HTN W ULCER AND INFLAMMAT 08/30/2019 AVRIL HERNANDEZ MD, Ot I96 GANGRENE, NOT ELSEWHERE CLASSIFIED 08/30/2019 AVRIL HERNANDEZ MD, Ot L95 .8 OTHER VASCULITIS LIMITED TO THE SKIN 08/30/2019 AVRIL HERNANDEZ MD, Ot L97.412 NON-PRS CHR ULCER OF RIGHT HEEL AND MIDF 09/07/2019 AVRIL HERNANDEZ MD, Ot E11.42 TYPE 2 DIABETES MELLITUS WITH DIABETIC P 09/07/2019 AVRIL HERNANDEZ MD, Ot E11.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 09/07/2019 AVRIL HERNANDEZ MD, Ot E11.621 TYPE 2 DIABETES MELLITUS WITH FOOT ULCER 09/07/2019 AVRIL HERNANDEZ MD, Ot I87.331 CHRONIC VENOUS HTN W ULCER AND INFLAMMAT 09/07/2019 AVRIL HERNANDEZ MD Ot L97.412 NON-PRS CHR ULCER OF RIGHT HEEL AND MIDF 09/12/2019 AVRIL HERNANEDZ MD, Ot E11.42 TYPE 2 DIABETES MELLITUS WITH DIABETIC P 09/12/2019 AVRIL HERNANDEZ MD Ot E11.621 TYPE 2 DIABETES MELLITUS WITH FOOT ULCER 09/12/2019 AVRIL HERNANDEZ MD Ot L95 .8 OTHER VASCULITIS LIMITED TO THE SKIN 09/12/2019 AVRIL HERNANDEZ MD, Ot L97.412 NON-PRS CHR ULCER OF RIGHT HEEL AND MIDF 09/12/2019 AVRIL HERNANDEZ MD Ot E11.42 TYPE 2 DIABETES MELLITUS WITH DIABETIC P 09/12/2019 AVRIL HERNANDEZ MD Ot E11.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 09/12/2019 AVRIL HERNANDEZ MD, Ot E11.621 TYPE 2 DIABETES MELLITUS WITH FOOT ULCER 09/12/2019 AVRIL HERNANDEZ MD Ot I87.331 CHRONIC VENOUS HTN W ULCER AND INFLAMMAT 09/12/2019 AVRIL HERNANDEZ MD, Ot I96 GANGRENE, NOT ELSEWHERE CLASSIFIED 09/12/2019 AVRIL HERNANDEZ MD Ot L95 .8 OTHER VASCULITIS LIMITED TO THE SKIN 09/12/2019 AVRIL HERNANDEZ MD, Ot L97.412 NON-PRS CHR ULCER OF RIGHT HEEL AND MIDF 09/20/2019 AVRIL HERNANDEZ MD Ot E11.42 TYPE 2 DIABETES MELLITUS WITH DIABETIC P 09/20/2019 AVRIL HERNANDEZ MD, Ot E11.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 09/20/2019 AVRIL HERNANDEZ MD, Ot E11.621 TYPE 2 DIABETES MELLITUS WITH FOOT ULCER 09/20/2019 AVRIL HERNANDEZ MD, Ot I87.331 CHRONIC VENOUS HTN W ULCER AND INFLAMMAT 09/20/2019 AVRIL HERNANDEZ MD, Ot L97.412 NON-PRS CHR ULCER OF RIGHT HEEL AND MIDF 09/24/2019 AVRIL HERNANDEZ MD Ot E11.42 TYPE 2 DIABETES MELLITUS WITH DIABETIC P 09/24/2019 AVRIL HERNANDEZ MD Ot E11.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 09/24/2019 AVRIL HERNANDEZ MD, Ot E11.621 TYPE 2 DIABETES MELLITUS WITH FOOT ULCER 09/24/2019 AVRIL HERNANDEZ MD Ot I87.331 CHRONIC VENOUS HTN W ULCER AND INFLAMMAT 09/24/2019 AVRIL HERNANDEZ MD, Ot L97.412 NON-PRS CHR ULCER OF RIGHT HEEL AND MIDF 09/27/2019 AVRIL HERNANDEZ MD Ot E11.42 TYPE 2 DIABETES MELLITUS WITH DIABETIC P 09/27/2019 AVRIL HERNANDEZ MD Ot E11.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 09/27/2019 AVRIL HERNANDEZ MD, Ot E11.621 TYPE 2 DIABETES MELLITUS WITH FOOT ULCER 09/27/2019 AVRIL HERNANDEZ MD Ot I87.331 CHRONIC VENOUS HTN W ULCER AND INFLAMMAT 09/27/2019 AVRIL HERNANDEZ MD, Ot L97.412 NON-PRS CHR ULCER OF RIGHT HEEL AND MIDF 10/01/2019 AVRIL HERNANDEZ MD Ot E11.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 10/01/2019 AVRIL HERNANDEZ MD, Ot E11.621 TYPE 2 DIABETES MELLITUS WITH FOOT ULCER 10/01/2019 AVRIL HERNANDEZ MD Ot I87.331 CHRONIC VENOUS HTN W ULCER AND INFLAMMAT 10/01/2019 AVRIL HERNANDEZ MD Ot L97.412 NON-PRS CHR ULCER OF RIGHT HEEL AND MIDF 10/07/2019 AVRIL HERNANDEZ MD, Ot E11.42 TYPE 2 DIABETES MELLITUS WITH DIABETIC P 10/07/2019 AVRIL HERNANDEZ MD, Ot E11.621 TYPE 2 DIABETES MELLITUS WITH FOOT ULCER 10/07/2019 AVRIL HERNANDEZ MD, Ot I87.331 CHRONIC VENOUS HTN W ULCER AND INFLAMMAT 10/07/2019 AVRIL HERNANDEZ MD, Ot L97.412 NON-PRS CHR ULCER OF RIGHT HEEL AND MIDF 10/11/2019 AVRIL HERNANDEZ MD, Ot E11.42 TYPE 2 DIABETES MELLITUS WITH DIABETIC P 10/11/2019 AVRIL HERNANDEZ MD, Ot E11.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 10/11/2019 AVRIL HERNANDEZ MD, Ot E11.621 TYPE 2 DIABETES MELLITUS WITH FOOT ULCER 10/11/2019 AVRIL HERNANDEZ MD, Ot I87.331 CHRONIC VENOUS HTN W ULCER AND INFLAMMAT 10/11/2019 AVRIL HERNANDEZ MD Ot I96 GANGRENE, NOT ELSEWHERE CLASSIFIED 10/11/2019 AVRIL HERNANDEZ MD, Ot L97.412 NON-PRS CHR ULCER OF RIGHT HEEL AND MIDF 10/15/2019 AVRIL HERNANDEZ MD Ot E11.42 TYPE 2 DIABETES MELLITUS WITH DIABETIC P 10/15/2019 AVRIL HERNANDEZ MD Ot E11.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 10/15/2019 AVRIL HERNANDEZ MD, Ot E11.621 TYPE 2 DIABETES MELLITUS WITH FOOT ULCER 10/15/2019 AVRIL HERNANDEZ MD Ot I87.331 CHRONIC VENOUS HTN W ULCER AND INFLAMMAT 10/15/2019 AVRIL HERNANDEZ MD Ot I96 GANGRENE, NOT ELSEWHERE CLASSIFIED 10/15/2019 AVRIL HERNANDEZ MD, Ot L97.412 NON-PRS CHR ULCER OF RIGHT HEEL AND MIDF 10/16/2019 AVRIL HERNANDEZ MD Ot E11.42 TYPE 2 DIABETES MELLITUS WITH DIABETIC P 10/16/2019 AVRIL HERNANDEZ MD Ot E11.621 TYPE 2 DIABETES MELLITUS WITH FOOT ULCER 10/16/2019 AVRIL HERNANDEZ MD Ot I87.331 CHRONIC VENOUS HTN W ULCER AND INFLAMMAT 10/16/2019 AVRIL HERNANDEZ MD Ot L97.412 NON-PRS CHR ULCER OF RIGHT HEEL AND MIDF 10/28/2019 AVRIL HERNANDEZ MD Ot E11.42 TYPE 2 DIABETES MELLITUS WITH DIABETIC P 10/28/2019 AVRIL HERNANDEZ MD, Ot E11.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 10/28/2019 AVRIL HERNANDEZ MD, Ot E11.621 TYPE 2 DIABETES MELLITUS WITH FOOT ULCER 10/28/2019 AVRIL HERNANDEZ MD, Ot I87.331 CHRONIC VENOUS HTN W ULCER AND INFLAMMAT 10/28/2019 AVRIL HERNANDEZ MD, Ot L97.412 NON-PRS CHR ULCER OF RIGHT HEEL AND MIDF 11/01/2019 AVRIL HERNANDEZ MD, Ot E11.42 TYPE 2 DIABETES MELLITUS WITH DIABETIC P 11/01/2019 AVRIL HERNANDEZ MD, Ot E11.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 11/01/2019 AVRIL HERNANDEZ MD, Ot E11.621 TYPE 2 DIABETES MELLITUS WITH FOOT ULCER 11/01/2019 AVRIL HERNANDEZ MD, Ot I87.331 CHRONIC VENOUS HTN W ULCER AND INFLAMMAT 11/01/2019 AVRIL HERNANDEZ MD Ot I96 GANGRENE, NOT ELSEWHERE CLASSIFIED 11/01/2019 AVRIL HERNANDEZ MD, Ot L97.412 NON-PRS CHR ULCER OF RIGHT HEEL AND MIDF 11/04/2019 ARVIL HERNANDEZ MD, Ot E11.42 TYPE 2 DIABETES MELLITUS WITH DIABETIC P 11/04/2019 AVRIL HERNANDEZ MD, Ot E11.621 TYPE 2 DIABETES MELLITUS WITH FOOT ULCER 11/04/2019 AVRIL HERNANDEZ MD Ot I87.331 CHRONIC VENOUS HTN W ULCER AND INFLAMMAT 11/04/2019 AVRIL HERNANDEZ MD, Ot L97.412 NON-PRS CHR ULCER OF RIGHT HEEL AND MIDF 11/15/2019 ALICIA BENOIT MD, Ot E11.42 TYPE 2 DIABETES MELLITUS WITH DIABETIC P 11/15/2019 ALICIA BENOIT MD, Ot E11.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 11/15/2019 ALICIA BENOIT MD, Ot E11.621 TYPE 2 DIABETES MELLITUS WITH FOOT ULCER 11/15/2019 ALICIA BENOIT MD Ot I87.331 CHRONIC VENOUS HTN W ULCER AND INFLAMMAT 11/15/2019 ALICIA BENOIT MD, Ot L97.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 11/22/2019 ALICIA BENOIT MD Ot E11.42 TYPE 2 DIABETES MELLITUS WITH DIABETIC P 11/22/2019 ALICIA BENOIT MD Ot E11.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 11/22/2019 ALICIA BENOIT MD, Ot E11.621 TYPE 2 DIABETES MELLITUS WITH FOOT ULCER 11/22/2019 ALICIA BENOIT MD, Ot I87.331 CHRONIC VENOUS HTN W ULCER AND INFLAMMAT 11/22/2019 ALICIA BENOIT MD, Ot L97.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 11/27/2019 AVRIL HERNANDEZ MD, Ot E11.42 TYPE 2 DIABETES MELLITUS WITH DIABETIC P 11/27/2019 AVRIL HERNANDEZ MD, Ot E66.01 MORBID (SEVERE) OBESITY DUE TO EXCESS CA 11/27/2019 AVRIL HERNANDEZ MD, Ot I87.332 CHRONIC VENOUS HTN W ULCER AND INFLAMMAT 11/27/2019 AVRIL HERNANDEZ MD, Ot I89 .0 LYMPHEDEMA, NOT ELSEWHERE CLASSIFIED 11/27/2019 AVRIL HERNANDEZ MD, Ot L95 .9 VASCULITIS LIMITED TO THE SKIN, UNSPECIF 11/27/2019 AVRIL HERNANDEZ MD, Ot L97.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 ULCER OF RIGHT CALF 11/27/2019 AVRIL HERNANDEZ MD Ot L97.222 NON-PRESSURE CHRONIC ULCER OF LEFT CALF 11/27/2019 AVRIL HERNANDEZ MD, Ot L97.422 NON-PRS CHR ULCER OF LEFT HEEL AND MIDFO 11/27/2019 AVRIL HERNANDEZ MD Ot Z68.43 BODY MASS INDEX (BMI) 50-59.9 , ADULT 11/27/2019 AVRIL HERNANDEZ MD, Ot E11.42 TYPE 2 DIABETES MELLITUS WITH DIABETIC P 11/27/2019 AVRIL HERNANDEZ MD, Ot E66.01 MORBID (SEVERE) OBESITY DUE TO EXCESS CA 11/27/2019 AVRIL HERNANDEZ MD, Ot I87.332 CHRONIC VENOUS HTN W ULCER AND INFLAMMAT 11/27/2019 AVRIL HERNANDEZ MD, Ot I89 .0 LYMPHEDEMA, NOT ELSEWHERE CLASSIFIED 11/27/2019 AVRIL HERNANDEZ MD, Ot L95 .9 VASCULITIS LIMITED TO THE SKIN, UNSPECIF 11/27/2019 AVRIL HERNANDEZ MD, Ot L97.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 ULCER OF RIGHT CALF 11/27/2019 AVRIL HERNANDEZ MD Ot L97.222 NON-PRESSURE CHRONIC ULCER OF LEFT CALF 11/27/2019 AVRIL HERNANDEZ MD, Ot L97.422 NON-PRS CHR ULCER OF LEFT HEEL AND MIDFO 11/27/2019 AVRIL HERNANDEZ MD, Ot Z68.43 BODY MASS INDEX (BMI) 50-59.9 , ADULT 11/27/2019 AVRIL HERNANDEZ MD, Ot E11.42 TYPE 2 DIABETES MELLITUS WITH DIABETIC P 11/27/2019 AVRIL HERNANDEZ MD Ot E66.01 MORBID (SEVERE) OBESITY DUE TO EXCESS CA 11/27/2019 AVRIL HERNANDEZ MD, Ot I87.332 CHRONIC VENOUS HTN W ULCER AND INFLAMMAT 11/27/2019 AVRIL HERNANDEZ MD, Ot I89 .0 LYMPHEDEMA, NOT ELSEWHERE CLASSIFIED 11/27/2019 AVRIL HERNANDEZ MD, Ot L95 .9 VASCULITIS LIMITED TO THE SKIN, UNSPECIF 11/27/2019 AVRIL HERNANDEZ MD, Ot L97.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 ULCER OF RIGHT CALF 11/27/2019 AVRIL HERNANDEZ MD, Ot L97.222 NON-PRESSURE CHRONIC ULCER OF LEFT CALF 11/27/2019 AVRIL HERNANDEZ MD, Ot L97.422 NON-PRS CHR ULCER OF LEFT HEEL AND MIDFO 11/27/2019 AVRIL HERNANDEZ MD, Ot R21 RASH AND OTHER NONSPECIFIC SKIN ERUPTION 11/27/2019 AVRIL HERNANDEZ MD, Ot Z68.42 BODY MASS INDEX (BMI) 45.0-49.9, ADULT 11/27/2019 AVRIL HERNANDEZ MD, Ot E11.42 TYPE 2 DIABETES MELLITUS WITH DIABETIC P 11/27/2019 AVRIL HERNANDEZ MD Ot E11.621 TYPE 2 DIABETES MELLITUS WITH FOOT ULCER 11/27/2019 AVRIL HERNANDEZ MD, Ot E11.622 TYPE 2 DIABETES MELLITUS WITH OTHER SKIN 11/27/2019 AVRIL HERNANDEZ MD, Ot E66.01 MORBID (SEVERE) OBESITY DUE TO EXCESS CA 11/27/2019 AVRIL HERNANDEZ MD, Ot I89 .0 LYMPHEDEMA, NOT ELSEWHERE CLASSIFIED 11/27/2019 AVRIL HERNANDEZ MD, Ot L95 .9 VASCULITIS LIMITED TO THE SKIN, UNSPECIF 11/27/2019 AVRIL HERNANDEZ MD, Ot L97.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 ULCER OF RIGHT CALF 11/27/2019 AVRIL HERNANDEZ MD Ot L97.222 NON-PRESSURE CHRONIC ULCER OF LEFT CALF 11/27/2019 AVRIL HERNANDEZ MD, Ot L97.412 NON-PRS CHR ULCER OF RIGHT HEEL AND MIDF 11/27/2019 AVRIL HERNANDEZ MD Ot L97.422 NON-PRS CHR ULCER OF LEFT HEEL AND MIDFO 11/27/2019 AVRIL HERNANDEZ MD Ot Z68.42 BODY MASS INDEX (BMI) 45.0-49.9, ADULT 11/27/2019 Ot E11.42 TYP E 2 DIABETES MELLITUS WITH DIABETIC P 11/27/2019 Ot E11.621 TY PE 2 DIABETES MELLITUS WITH FOOT ULCER 11/27/2019 Ot E11.622 TY PE 2 DIABETES MELLITUS WITH OTHER SKIN 11/27/2019 Ot E66.01 MOR BID (SEVERE) OBESITY DUE TO EXCESS CA 11/27/2019 Ot I87.333 CH RONIC VENOUS HTN W ULCER AND INFLAM OF 11/27/2019 Ot I89.0 LYMP HEDEMA, NOT ELSEWHERE CLASSIFIED 11/27/2019 Ot L95.9 VASC ULITIS LIMITED TO THE SKIN, UNSPECIF 11/27/2019 Ot L97.212 NO N-PRESSURE CHRONIC ULCER OF RIGHT CALF 11/27/2019 Ot L97.222 NO N-PRESSURE CHRONIC ULCER OF LEFT CALF 11/27/2019 Ot L97.412 NO N-PRS CHR ULCER OF RIGHT HEEL AND MIDF 11/27/2019 Ot L97.422 NO N-PRS CHR ULCER OF LEFT HEEL AND MIDFO 11/27/2019 Ot Z68.42 BOD Y MASS INDEX (BMI) 45.0-49.9, ADULT 11/27/2019 Ot E11.42 TYP E 2 DIABETES MELLITUS WITH DIABETIC P 11/27/2019 Ot E11.621 TY PE 2 DIABETES MELLITUS WITH FOOT ULCER 11/27/2019 Ot E11.622 TY PE 2 DIABETES MELLITUS WITH OTHER SKIN 11/27/2019 Ot E66.01 MOR BID (SEVERE) OBESITY DUE TO EXCESS CA 11/27/2019 Ot I87.333 CH RONIC VENOUS HTN W ULCER AND INFLAM OF 11/27/2019 Ot I89.0 LYMP HEDEMA, NOT ELSEWHERE CLASSIFIED 11/27/2019 Ot L95.9 VASC ULITIS LIMITED TO THE SKIN, UNSPECIF 11/27/2019 Ot L97.212 NO N-PRESSURE CHRONIC ULCER OF RIGHT CALF 11/27/2019 Ot L97.222 NO N-PRESSURE CHRONIC ULCER OF LEFT CALF 11/27/2019 Ot L97.412 NO N-PRS CHR ULCER OF RIGHT HEEL AND MIDF 11/27/2019 Ot L97.422 NO N-PRS CHR ULCER OF LEFT HEEL AND MIDFO 11/27/2019 Ot Z68.43 BOD Y MASS INDEX (BMI) 50-59.9 , ADULT 11/27/2019 AVRIL HERNANDEZ MD, Ot E11.42 TYPE 2 DIABETES MELLITUS WITH DIABETIC P 11/27/2019 AVRIL HERNANDEZ MD, Ot E11.621 TYPE 2 DIABETES MELLITUS WITH FOOT ULCER 11/27/2019 AVRIL HERNANDEZ MD, Ot E11.622 TYPE 2 DIABETES MELLITUS WITH OTHER SKIN 11/27/2019 AVRIL HERNANDEZ MD, Ot E66.01 MORBID (SEVERE) OBESITY DUE TO EXCESS CA 11/27/2019 AVRIL HERNANDEZ MD, Ot I87.333 CHRONIC VENOUS HTN W ULCER AND INFLAM OF 11/27/2019 AVRIL HERNANDEZ MD, Ot I89 .0 LYMPHEDEMA, NOT ELSEWHERE CLASSIFIED 11/27/2019 AVRIL HERNANDEZ MD, Ot L95 .9 VASCULITIS LIMITED TO THE SKIN, UNSPECIF 11/27/2019 AVRIL HERNANDEZ MD, Ot L97.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 ULCER OF RIGHT CALF 11/27/2019 AVRIL HERNANDEZ MD, Ot L97.222 NON-PRESSURE CHRONIC ULCER OF LEFT CALF 11/27/2019 AVRIL HERNANDEZ MD, Ot L97.412 NON-PRS CHR ULCER OF RIGHT HEEL AND MIDF 11/27/2019 AVRIL HERNANDEZ MD, Ot L97.422 NON-PRS CHR ULCER OF LEFT HEEL AND MIDFO 11/27/2019 AVRIL HERNANDEZ MD Ot Z68.43 BODY MASS INDEX (BMI) 50-59.9 , ADULT 11/27/2019 AVRIL HERNANDEZ MD, Ot E11.42 TYPE 2 DIABETES MELLITUS WITH DIABETIC P 11/27/2019 AVRIL HERNANDEZ MD, Ot E11.621 TYPE 2 DIABETES MELLITUS WITH FOOT ULCER 11/27/2019 AVRIL HERNANDEZ MD, Ot E11.622 TYPE 2 DIABETES MELLITUS WITH OTHER SKIN 11/27/2019 AVRIL HERNANDEZ MD, Ot E66.01 MORBID (SEVERE) OBESITY DUE TO EXCESS CA 11/27/2019 AVRIL HERNANDEZ MD Ot I87.333 CHRONIC VENOUS HTN W ULCER AND INFLAM OF 11/27/2019 AVRIL HERNANDEZ MD, Ot I89 .0 LYMPHEDEMA, NOT ELSEWHERE CLASSIFIED 11/27/2019 AVRIL HERNANDEZ MD, Ot L95 .9 VASCULITIS LIMITED TO THE SKIN, UNSPECIF 11/27/2019 AVRIL HERNANDEZ MD, Ot L97.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 ULCER OF RIGHT CALF 11/27/2019 AVRIL HERNANDEZ MD, Ot L97.412 NON-PRS CHR ULCER OF RIGHT HEEL AND MIDF 11/27/2019 AVRIL HERNANDEZ MD, Ot L97.421 NON-PRS CHR ULCER OF LEFT HEEL AND MIDFT 11/27/2019 AVRIL HERNANDEZ MD, Ot Z68.43 BODY MASS INDEX (BMI) 50-59.9 , ADULT 11/27/2019 AVRIL HERNANDEZ MD, Ot E11.42 TYPE 2 DIABETES MELLITUS WITH DIABETIC P 11/27/2019 AVRIL HERNANDEZ MD, Ot E11.621 TYPE 2 DIABETES MELLITUS WITH FOOT ULCER 11/27/2019 AVRIL HERNANDEZ MD, Ot E11.622 TYPE 2 DIABETES MELLITUS WITH OTHER SKIN 11/27/2019 AVRIL HERNANDEZ MD, Ot E66.01 MORBID (SEVERE) OBESITY DUE TO EXCESS CA 11/27/2019 AVRIL HERNANDEZ MD, Ot I87.331 CHRONIC VENOUS HTN W ULCER AND INFLAMMAT 11/27/2019 AVRIL HERNANDEZ MD, Ot I89 .0 LYMPHEDEMA, NOT ELSEWHERE CLASSIFIED 11/27/2019 AVRIL HERNANDEZ MD, Ot L95 .9 VASCULITIS LIMITED TO THE SKIN, UNSPECIF 11/27/2019 AVRIL HERNANDEZ MD, Ot L97.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 ULCER OF RIGHT CALF 11/27/2019 AVRIL HERNANDEZ MD, Ot L97.412 NON-PRS CHR ULCER OF RIGHT HEEL AND MIDF 11/27/2019 AVRIL HERNANDEZ MD Ot L97.421 NON-PRS CHR ULCER OF LEFT HEEL AND MIDFT 11/27/2019 AVRIL HERNANDEZ MD, Ot E11.42 TYPE 2 DIABETES MELLITUS WITH DIABETIC P 11/27/2019 AVRIL HERNANDEZ MD, Ot E11.621 TYPE 2 DIABETES MELLITUS WITH FOOT ULCER 11/27/2019 AVRIL HERNANDEZ MD, Ot E11.622 TYPE 2 DIABETES MELLITUS WITH OTHER SKIN 11/27/2019 AVRIL HERNANDEZ MD, Ot E66.01 MORBID (SEVERE) OBESITY DUE TO EXCESS CA 11/27/2019 AVRIL HERNANDEZ MD, Ot I89 .0 LYMPHEDEMA, NOT ELSEWHERE CLASSIFIED 11/27/2019 AVRIL HERNANDEZ MD, Ot L95 .9 VASCULITIS LIMITED TO THE SKIN, UNSPECIF 11/27/2019 AVRIL HERNANDEZ MD, Ot L97.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 ULCER OF RIGHT CALF 11/27/2019 AVRIL HERNANDEZ MD, Ot L97.412 NON-PRS CHR ULCER OF RIGHT HEEL AND MIDF 11/27/2019 VARIL HERNANDEZ MD, Ot Z68.43 BODY MASS INDEX (BMI) 50-59.9 , ADULT 11/27/2019 AVRIL HERNANDEZ MD Ot E11.42 TYPE 2 DIABETES MELLITUS WITH DIABETIC P 11/27/2019 AVRIL HERNANDEZ MD, Ot E11.621 TYPE 2 DIABETES MELLITUS WITH FOOT ULCER 11/27/2019 AVRIL HERNANDEZ MD, Ot E11.622 TYPE 2 DIABETES MELLITUS WITH OTHER SKIN 11/27/2019 AVRIL HERNANDEZ MD, Ot E66.01 MORBID (SEVERE) OBESITY DUE TO EXCESS CA 11/27/2019 AVRIL HERNANDEZ MD, Ot I89 .0 LYMPHEDEMA, NOT ELSEWHERE CLASSIFIED 11/27/2019 AVRIL HERNANDEZ MD, Ot L95 .9 VASCULITIS LIMITED TO THE SKIN, UNSPECIF 11/27/2019 AVRIL HERNANDEZ MD, Ot L97.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 ULCER OF RIGHT CALF 11/27/2019 AVRIL HERNANDEZ MD, Ot L97.412 NON-PRS CHR ULCER OF RIGHT HEEL AND MIDF 11/27/2019 AVRIL HERNANDEZ MD, Ot Z68.43 BODY MASS INDEX (BMI) 50-59.9, ADULT 11/27/2019 VAISHNAVI MORTON MD Ot M31.0 HYPERSENSITIVITY ANGIITIS 11/27/2019 VAISHNAVI MORTON MD Ot Z79.8 99 OTHER PA[employer] (CURRENT) DRUG THERAPY 11/27/2019 VERN BENITEZ Ot M17.12 UNILATERAL PRIMARY OSTEOARTHRITIS, LEFT 11/27/2019 VERN BENITEZ Ot M17.11 UNILATERAL PRIMARY OSTEOARTHRITIS, RIGHT 11/27/2019 AVRIL HERNANDEZ MD Ot E11.42 TYPE 2 DIABETES MELLITUS WITH DIABETIC P 11/27/2019 AVRIL HERNANDEZ MD, Ot E11.621 TYPE 2 DIABETES MELLITUS WITH FOOT ULCER 11/27/2019 AVRIL HERNANDEZ MD, Ot L95 .8 OTHER VASCULITIS LIMITED TO THE SKIN 11/27/2019 AVRIL HERNANDEZ MD Ot L97.412 NON-PRS CHR ULCER OF RIGHT HEEL AND MIDF 11/27/2019 AVRIL HERNANDEZ MD, Ot E11.42 TYPE 2 DIABETES MELLITUS WITH DIABETIC P 11/27/2019 AVRIL HERNANDEZ MD Ot E11.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 11/27/2019 AVRIL HERNANDEZ MD, Ot E11.621 TYPE 2 DIABETES MELLITUS WITH FOOT ULCER 11/27/2019 AVRIL HERNANDEZ MD Ot I87.331 CHRONIC VENOUS HTN W ULCER AND INFLAMMAT 11/27/2019 AVRIL HERNANDEZ MD Ot L95 .8 OTHER VASCULITIS LIMITED TO THE SKIN 11/27/2019 AVRIL HERNANDEZ MD Ot L97.412 NON-PRS CHR ULCER OF RIGHT HEEL AND MIDF 11/27/2019 ARVIL HERNANDEZ MD Ot E11.42 TYPE 2 DIABETES MELLITUS WITH DIABETIC P 11/27/2019 AVRIL HERNANDEZ MD Ot E11.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 11/27/2019 AVRIL HERNANDEZ MD, Ot E11.621 TYPE 2 DIABETES MELLITUS WITH FOOT ULCER 11/27/2019 AVRIL HERNANDEZ MD Ot I87.331 CHRONIC VENOUS HTN W ULCER AND INFLAMMAT 11/27/2019 AVRIL HERNANDEZ MD Ot L95 .8 OTHER VASCULITIS LIMITED TO THE SKIN 11/27/2019 AVRIL HERNANDEZ MD Ot L97.412 NON-PRS CHR ULCER OF RIGHT HEEL AND MIDF 11/27/2019 AVRIL HERNANDEZ MD Ot E11.42 TYPE 2 DIABETES MELLITUS WITH DIABETIC P 11/27/2019 AVRIL HERNANDEZ MD Ot E11.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 11/27/2019 AVRIL HERNANDEZ MD Ot E11.621 TYPE 2 DIABETES MELLITUS WITH FOOT ULCER 11/27/2019 AVRIL HERNANDEZ MD Ot I87.331 CHRONIC VENOUS HTN W ULCER AND INFLAMMAT 11/27/2019 AVRIL HERNANDEZ MD Ot I96 GANGRENE, NOT ELSEWHERE CLASSIFIED 11/27/2019 AVRIL HERNANDEZ MD Ot L95 .8 OTHER VASCULITIS LIMITED TO THE SKIN 11/27/2019 AVRIL HERNANDEZ MD Ot L97.412 NON-PRS CHR ULCER OF RIGHT HEEL AND MIDF 11/27/2019 AVRIL HERNANDEZ MD Ot E11.42 TYPE 2 DIABETES MELLITUS WITH DIABETIC P 11/27/2019 AVRIL HERNANDEZ MD Ot E11.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 11/27/2019 AVRIL HERNANDEZ MD Ot E11.621 TYPE 2 DIABETES MELLITUS WITH FOOT ULCER 11/27/2019 AVRIL HERNANDEZ MD Ot I87.331 CHRONIC VENOUS HTN W ULCER AND INFLAMMAT 11/27/2019 AVRIL HERNANDEZ MD Ot L97.412 NON-PRS CHR ULCER OF RIGHT HEEL AND MIDF 11/27/2019 AVRIL HERNANDEZ MD Ot E11.42 TYPE 2 DIABETES MELLITUS WITH DIABETIC P 11/27/2019 AVRIL HERNANDEZ MD Ot E11.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 11/27/2019 AVRIL HERNANDEZ MD, Ot E11.621 TYPE 2 DIABETES MELLITUS WITH FOOT ULCER 11/27/2019 AVRIL HERNANDEZ MD Ot I87.331 CHRONIC VENOUS HTN W ULCER AND INFLAMMAT 11/27/2019 AVRIL HERNANDEZ MD Ot L97.412 NON-PRS CHR ULCER OF RIGHT HEEL AND MIDF 11/27/2019 AVRIL HERNANDEZ MD, Ot E11.42 TYPE 2 DIABETES MELLITUS WITH DIABETIC P 11/27/2019 AVRIL HERNANDEZ MD, Ot E11.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 11/27/2019 AVRIL HERNANDEZ MD, Ot E11.621 TYPE 2 DIABETES MELLITUS WITH FOOT ULCER 11/27/2019 AVRIL HERNANDEZ MD Ot I87.331 CHRONIC VENOUS HTN W ULCER AND INFLAMMAT 11/27/2019 AVRIL HERNANDEZ MD Ot L97.412 NON-PRS CHR ULCER OF RIGHT HEEL AND MIDF 11/27/2019 AVRIL HERNANDEZ MD, Ot E11.42 TYPE 2 DIABETES MELLITUS WITH DIABETIC P 11/27/2019 AVRIL HERNANDEZ MD Ot E11.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 11/27/2019 AVRIL HERNANDEZ MD Ot E11.621 TYPE 2 DIABETES MELLITUS WITH FOOT ULCER 11/27/2019 AVRIL HERNANDEZ MD Ot I87.331 CHRONIC VENOUS HTN W ULCER AND INFLAMMAT 11/27/2019 AVRIL HERNANDEZ MD Ot L97.412 NON-PRS CHR ULCER OF RIGHT HEEL AND MIDF 11/27/2019 AVRIL HERNANDEZ MD Ot E11.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 11/27/2019 AVRIL HERNANDEZ MD Ot E11.621 TYPE 2 DIABETES MELLITUS WITH FOOT ULCER 11/27/2019 AVRIL HERNANDEZ MD Ot I87.331 CHRONIC VENOUS HTN W ULCER AND INFLAMMAT 11/27/2019 AVRIL HERNANDEZ MD Ot L97.412 NON-PRS CHR ULCER OF RIGHT HEEL AND MIDF 11/27/2019 AVRIL HERNANDEZ MD Ot E11.42 TYPE 2 DIABETES MELLITUS WITH DIABETIC P 11/27/2019 AVRIL HERNANDEZ MD, Ot E11.621 TYPE 2 DIABETES MELLITUS WITH FOOT ULCER 11/27/2019 AVRIL HERNANDEZ MD, Ot I87.331 CHRONIC VENOUS HTN W ULCER AND INFLAMMAT 11/27/2019 AVRIL HERNANDEZ MD, Ot L97.412 NON-PRS CHR ULCER OF RIGHT HEEL AND MIDF 11/27/2019 AVRIL HERNANDEZ MD Ot E11.42 TYPE 2 DIABETES MELLITUS WITH DIABETIC P 11/27/2019 AVRIL HERNANDEZ MD, Ot E11.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 11/27/2019 AVRIL HERNANDEZ MD, Ot E11.621 TYPE 2 DIABETES MELLITUS WITH FOOT ULCER 11/27/2019 AVRIL HERNANDEZ MD, Ot I87.331 CHRONIC VENOUS HTN W ULCER AND INFLAMMAT 11/27/2019 AVRIL HERNANDEZ MD, Ot I96 GANGRENE, NOT ELSEWHERE CLASSIFIED 11/27/2019 AVRIL HERNANDEZ MD, Ot L97.412 NON-PRS CHR ULCER OF RIGHT HEEL AND MIDF 11/27/2019 AVRIL EHRNANDEZ MD Ot E11.42 TYPE 2 DIABETES MELLITUS WITH DIABETIC P 11/27/2019 AVRIL HERNANDEZ MD, Ot E11.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 11/27/2019 AVRIL HERNANDEZ MD, Ot E11.621 TYPE 2 DIABETES MELLITUS WITH FOOT ULCER 11/27/2019 AVRIL HERNANDEZ MD, Ot I87.331 CHRONIC VENOUS HTN W ULCER AND INFLAMMAT 11/27/2019 AVRIL HERNANDEZ MD Ot L97.412 NON-PRS CHR ULCER OF RIGHT HEEL AND MIDF 11/27/2019 AVRIL HERNANDEZ MD Ot E11.42 TYPE 2 DIABETES MELLITUS WITH DIABETIC P 11/27/2019 AVRIL HERNANDEZ MD Ot E11.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 11/27/2019 AVRIL HERNANDEZ MD Ot E11.621 TYPE 2 DIABETES MELLITUS WITH FOOT ULCER 11/27/2019 AVRIL HERNANDEZ MD Ot I87.331 CHRONIC VENOUS HTN W ULCER AND INFLAMMAT 11/27/2019 AVRIL HERNANDEZ MD, Ot L97.412 NON-PRS CHR ULCER OF RIGHT HEEL AND MIDF 11/27/2019 AVRIL HERNANDEZ MD Ot E11.42 TYPE 2 DIABETES MELLITUS WITH DIABETIC P 11/27/2019 AVRIL HERNANDEZ MD Ot E11.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 11/27/2019 AVRIL HERNANDEZ MD, Ot E11.621 TYPE 2 DIABETES MELLITUS WITH FOOT ULCER 11/27/2019 AVRIL HERNANDEZ MD Ot I87.331 CHRONIC VENOUS HTN W ULCER AND INFLAMMAT 11/27/2019 AVRIL HERNANDEZ MD Ot I96 GANGRENE, NOT ELSEWHERE CLASSIFIED 11/27/2019 AVRIL HERNANDEZ MD Ot L97.412 NON-PRS CHR ULCER OF RIGHT HEEL AND MIDF 11/27/2019 AVRIL HERNANDEZ MD Ot E11.42 TYPE 2 DIABETES MELLITUS WITH DIABETIC P 11/27/2019 AVRIL HERNANDEZ MD, Ot E11.621 TYPE 2 DIABETES MELLITUS WITH FOOT ULCER 11/27/2019 AVRIL HERNANDEZ MD Ot I87.331 CHRONIC VENOUS HTN W ULCER AND INFLAMMAT 11/27/2019 AVRIL HERNANDEZ MD, Ot L97.412 NON-PRS CHR ULCER OF RIGHT HEEL AND MIDF 11/27/2019 AVRIL HERNANDEZ MD, Ot E11.42 TYPE 2 DIABETES MELLITUS WITH DIABETIC P 11/27/2019 AVRIL HERNANDEZ MD, Ot E11.621 TYPE 2 DIABETES MELLITUS WITH FOOT ULCER 11/27/2019 AVRIL HERNANDEZ MD Ot I87.331 CHRONIC VENOUS HTN W ULCER AND INFLAMMAT 11/27/2019 AVRIL HERNANDEZ MD Ot L97.412 NON-PRS CHR ULCER OF RIGHT HEEL AND MIDF 11/27/2019 ALICIA BENOIT MD, Ot E11.42 TYPE 2 DIABETES MELLITUS WITH DIABETIC P 11/27/2019 ALICIA BENOIT MD Ot E11.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 11/27/2019 ALICIA BENOIT MD, Ot E11.621 TYPE 2 DIABETES MELLITUS WITH FOOT ULCER 11/27/2019 ALICIA BENOIT MD, Ot I87.331 CHRONIC VENOUS HTN W ULCER AND INFLAMMAT 11/27/2019 ALICIA BENOIT MD Ot L97.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 11/27/2019 ALICIA BENOIT MD, Ot E11.42 TYPE 2 DIABETES MELLITUS WITH DIABETIC P 11/27/2019 ALICIA BENOIT MD, Ot E11.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 11/27/2019 ALICIA BENOIT MD, Ot E11.621 TYPE 2 DIABETES MELLITUS WITH FOOT ULCER 11/27/2019 ALICIA BENOIT MD Ot I87.331 CHRONIC VENOUS HTN W ULCER AND INFLAMMAT 11/27/2019 ALICIA BENOIT MD, Ot L97.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 11/27/2019 AVRIL WINKLER MD Ot Z01.818 ENCOUNTER FOR OTHER PREPROCEDURAL EXAMIN 11/27/2019 AVRIL HERNANDEZ MD Ot E11.42 TYPE 2 DIABETES MELLITUS WITH DIABETIC P 11/27/2019 AVRIL HERNANDEZ MD Ot E66.01 MORBID (SEVERE) OBESITY DUE TO EXCESS CA 11/27/2019 AVRIL HERNANDEZ MD Ot I87.332 CHRONIC VENOUS HTN W ULCER AND INFLAMMAT 11/27/2019 AVRIL HERNANDEZ MD, Ot I89 .0 LYMPHEDEMA, NOT ELSEWHERE CLASSIFIED 11/27/2019 AVRIL HERNANDEZ MD, Ot L95 .9 VASCULITIS LIMITED TO THE SKIN, UNSPECIF 11/27/2019 AVRIL HERNANDEZ MD, Ot L97.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 ULCER OF RIGHT CALF 11/27/2019 AVRIL HERNANDEZ MD Ot L97.222 NON-PRESSURE CHRONIC ULCER OF LEFT CALF 11/27/2019 AVRIL HERNANDEZ MD, Ot L97.422 NON-PRS CHR ULCER OF LEFT HEEL AND MIDFO 11/27/2019 AVRIL HERNANDEZ MD Ot Z68.43 BODY MASS INDEX (BMI) 50-59.9 , ADULT 11/27/2019 AVRIL HERNANDEZ MD Ot E11.42 TYPE 2 DIABETES MELLITUS WITH DIABETIC P 11/27/2019 AVRIL HERNANDEZ MD Ot E66.01 MORBID (SEVERE) OBESITY DUE TO EXCESS CA 11/27/2019 AVRIL HERNANDEZ MD Ot I87.332 CHRONIC VENOUS HTN W ULCER AND INFLAMMAT 11/27/2019 AVRIL HERNANDEZ MD, Ot I89 .0 LYMPHEDEMA, NOT ELSEWHERE CLASSIFIED 11/27/2019 AVRIL HERNANDEZ MD, Ot L95 .9 VASCULITIS LIMITED TO THE SKIN, UNSPECIF 11/27/2019 AVRIL HERNANDEZ MD Ot L97.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 ULCER OF RIGHT CALF 11/27/2019 AVRIL HERNANDEZ MD Ot L97.222 NON-PRESSURE CHRONIC ULCER OF LEFT CALF 11/27/2019 AVRIL HERNANDEZ MD Ot L97.422 NON-PRS CHR ULCER OF LEFT HEEL AND MIDFO 11/27/2019 AVRIL HERNANDEZ MD, Ot Z68.43 BODY MASS INDEX (BMI) 50-59.9 , ADULT 11/27/2019 AVRIL HERNANDEZ MD Ot E11.42 TYPE 2 DIABETES MELLITUS WITH DIABETIC P 11/27/2019 AVRIL HERNANDEZ MD, Ot E66.01 MORBID (SEVERE) OBESITY DUE TO EXCESS CA 11/27/2019 AVRIL HERNANDEZ MD Ot I87.332 CHRONIC VENOUS HTN W ULCER AND INFLAMMAT 11/27/2019 AVRIL HERNANDEZ MD, Ot I89 .0 LYMPHEDEMA, NOT ELSEWHERE CLASSIFIED 11/27/2019 AVRIL HERNANDEZ MD, Ot L95 .9 VASCULITIS LIMITED TO THE SKIN, UNSPECIF 11/27/2019 AVRIL HERNANDEZ MD, Ot L97.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 ULCER OF RIGHT CALF 11/27/2019 AVRIL HERNANDEZ MD, Ot L97.222 NON-PRESSURE CHRONIC ULCER OF LEFT CALF 11/27/2019 AVRIL HERNANDEZ MD, Ot L97.422 NON-PRS CHR ULCER OF LEFT HEEL AND MIDFO 11/27/2019 AVRIL HERNANDEZ MD, Ot R21 RASH AND OTHER NONSPECIFIC SKIN ERUPTION 11/27/2019 AVRIL HERNANDEZ MD, Ot Z68.42 BODY MASS INDEX (BMI) 45.0-49.9, ADULT 11/27/2019 AVRIL HERNANDEZ MD, Ot E11.42 TYPE 2 DIABETES MELLITUS WITH DIABETIC P 11/27/2019 AVRIL HERNANDEZ MD Ot E11.621 TYPE 2 DIABETES MELLITUS WITH FOOT ULCER 11/27/2019 AVRIL HERNANDEZ MD, Ot E11.622 TYPE 2 DIABETES MELLITUS WITH OTHER SKIN 11/27/2019 AVRIL HERNANDEZ MD, Ot E66.01 MORBID (SEVERE) OBESITY DUE TO EXCESS CA 11/27/2019 AVRIL HERNANDEZ MD, Ot I89 .0 LYMPHEDEMA, NOT ELSEWHERE CLASSIFIED 11/27/2019 AVRIL HERNANDEZ MD, Ot L95 .9 VASCULITIS LIMITED TO THE SKIN, UNSPECIF 11/27/2019 AVRIL HERNANDEZ MD, Ot L97.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 ULCER OF RIGHT CALF 11/27/2019 AVRIL HERNANDEZ MD Ot L97.222 NON-PRESSURE CHRONIC ULCER OF LEFT CALF 11/27/2019 AVRIL HERNANDEZ MD, Ot L97.412 NON-PRS CHR ULCER OF RIGHT HEEL AND MIDF 11/27/2019 AVRIL HERNANDEZ MD, Ot L97.422 NON-PRS CHR ULCER OF LEFT HEEL AND MIDFO 11/27/2019 AVRIL HERNANDEZ MD, Ot Z68.42 BODY MASS INDEX (BMI) 45.0-49.9, ADULT 11/27/2019 Ot E11.42 TYP E 2 DIABETES MELLITUS WITH DIABETIC P 11/27/2019 Ot E11.621 TY PE 2 DIABETES MELLITUS WITH FOOT ULCER 11/27/2019 Ot E11.622 TY PE 2 DIABETES MELLITUS WITH OTHER SKIN 11/27/2019 Ot E66.01 MOR BID (SEVERE) OBESITY DUE TO EXCESS CA 11/27/2019 Ot I87.333 CH RONIC VENOUS HTN W ULCER AND INFLAM OF 11/27/2019 Ot I89.0 LYMP HEDEMA, NOT ELSEWHERE CLASSIFIED 11/27/2019 Ot L95.9 VASC ULITIS LIMITED TO THE SKIN, UNSPECIF 11/27/2019 Ot L97.212 NO N-PRESSURE CHRONIC ULCER OF RIGHT CALF 11/27/2019 Ot L97.222 NO N-PRESSURE CHRONIC ULCER OF LEFT CALF 11/27/2019 Ot L97.412 NO N-PRS CHR ULCER OF RIGHT HEEL AND MIDF 11/27/2019 Ot L97.422 NO N-PRS CHR ULCER OF LEFT HEEL AND MIDFO 11/27/2019 Ot Z68.42 BOD Y MASS INDEX (BMI) 45.0-49.9, ADULT 11/27/2019 Ot E11.42 TYP E 2 DIABETES MELLITUS WITH DIABETIC P 11/27/2019 Ot E11.621 TY PE 2 DIABETES MELLITUS WITH FOOT ULCER 11/27/2019 Ot E11.622 TY PE 2 DIABETES MELLITUS WITH OTHER SKIN 11/27/2019 Ot E66.01 MOR BID (SEVERE) OBESITY DUE TO EXCESS CA 11/27/2019 Ot I87.333 CH RONIC VENOUS HTN W ULCER AND INFLAM OF 11/27/2019 Ot I89.0 LYMP HEDEMA, NOT ELSEWHERE CLASSIFIED 11/27/2019 Ot L95.9 VASC ULITIS LIMITED TO THE SKIN, UNSPECIF 11/27/2019 Ot L97.212 NO N-PRESSURE CHRONIC ULCER OF RIGHT CALF 11/27/2019 Ot L97.222 NO N-PRESSURE CHRONIC ULCER OF LEFT CALF 11/27/2019 Ot L97.412 NO N-PRS CHR ULCER OF RIGHT HEEL AND MIDF 11/27/2019 Ot L97.422 NO N-PRS CHR ULCER OF LEFT HEEL AND MIDFO 11/27/2019 Ot Z68.43 BOD Y MASS INDEX (BMI) 50-59.9 , ADULT 11/27/2019 AVRIL HERNANDEZ MD Ot E11.42 TYPE 2 DIABETES MELLITUS WITH DIABETIC P 11/27/2019 AVRIL HERNANDEZ MD Ot E11.621 TYPE 2 DIABETES MELLITUS WITH FOOT ULCER 11/27/2019 AVRIL HERNANDEZ MD, Ot E11.622 TYPE 2 DIABETES MELLITUS WITH OTHER SKIN 11/27/2019 AVRIL HERNANDEZ MD Ot E66.01 MORBID (SEVERE) OBESITY DUE TO EXCESS CA 11/27/2019 AVRIL HERNANDEZ MD Ot I87.333 CHRONIC VENOUS HTN W ULCER AND INFLAM OF 11/27/2019 AVRIL HERNANDEZ MD, Ot I89 .0 LYMPHEDEMA, NOT ELSEWHERE CLASSIFIED 11/27/2019 AVRIL HERNANDEZ MD, Ot L95 .9 VASCULITIS LIMITED TO THE SKIN, UNSPECIF 11/27/2019 AVRIL HERNANDEZ MD, Ot L97.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 ULCER OF RIGHT CALF 11/27/2019 AVRIL HERNANDEZ MD, Ot L97.222 NON-PRESSURE CHRONIC ULCER OF LEFT CALF 11/27/2019 AVRIL HERNANDEZ MD, Ot L97.412 NON-PRS CHR ULCER OF RIGHT HEEL AND MIDF 11/27/2019 AVRIL HERNANDEZ MD, Ot L97.422 NON-PRS CHR ULCER OF LEFT HEEL AND MIDFO 11/27/2019 AVRIL HERNANDEZ MD Ot Z68.43 BODY MASS INDEX (BMI) 50-59.9 , ADULT 11/27/2019 AVRIL HERNANDEZ MD Ot E11.42 TYPE 2 DIABETES MELLITUS WITH DIABETIC P 11/27/2019 AVRIL HERNANDEZ MD, Ot E11.621 TYPE 2 DIABETES MELLITUS WITH FOOT ULCER 11/27/2019 AVRIL HERNANDEZ MD, Ot E11.622 TYPE 2 DIABETES MELLITUS WITH OTHER SKIN 11/27/2019 AVRIL HERNANDEZ MD, Ot E66.01 MORBID (SEVERE) OBESITY DUE TO EXCESS CA 11/27/2019 AVRIL HERNANDEZ MD, Ot I87.333 CHRONIC VENOUS HTN W ULCER AND INFLAM OF 11/27/2019 AVRIL HERNANDEZ MD, Ot I89 .0 LYMPHEDEMA, NOT ELSEWHERE CLASSIFIED 11/27/2019 AVRIL HERNANDEZ MD, Ot L95 .9 VASCULITIS LIMITED TO THE SKIN, UNSPECIF 11/27/2019 AVRIL HERNANDEZ MD, Ot L97.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 ULCER OF RIGHT CALF 11/27/2019 AVRIL HERNANDEZ MD, Ot L97.412 NON-PRS CHR ULCER OF RIGHT HEEL AND MIDF 11/27/2019 AVRIL HERNANDEZ MD, Ot L97.421 NON-PRS CHR ULCER OF LEFT HEEL AND MIDFT 11/27/2019 AVRIL HERNANDEZ MD, Ot Z68.43 BODY MASS INDEX (BMI) 50-59.9 , ADULT 11/27/2019 AVRIL HERNANDEZ MD, Ot E11.42 TYPE 2 DIABETES MELLITUS WITH DIABETIC P 11/27/2019 AVRIL HERNANDEZ MD, Ot E11.621 TYPE 2 DIABETES MELLITUS WITH FOOT ULCER 11/27/2019 AVRIL HERNANDEZ MD, Ot E11.622 TYPE 2 DIABETES MELLITUS WITH OTHER SKIN 11/27/2019 AVRIL HERNANDEZ MD, Ot E66.01 MORBID (SEVERE) OBESITY DUE TO EXCESS CA 11/27/2019 AVRIL HERNANDEZ MD, Ot I87.331 CHRONIC VENOUS HTN W ULCER AND INFLAMMAT 11/27/2019 AVRIL HERNANDEZ MD, Ot I89 .0 LYMPHEDEMA, NOT ELSEWHERE CLASSIFIED 11/27/2019 AVRIL HERNANDEZ MD, Ot L95 .9 VASCULITIS LIMITED TO THE SKIN, UNSPECIF 11/27/2019 AVRIL HERNANDEZ MD, Ot L97.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 ULCER OF RIGHT CALF 11/27/2019 AVRIL HERNANDEZ MD, Ot L97.412 NON-PRS CHR ULCER OF RIGHT HEEL AND MIDF 11/27/2019 AVRIL HERNANDEZ MD, Ot L97.421 NON-PRS CHR ULCER OF LEFT HEEL AND MIDFT 11/27/2019 AVRIL HERNANDEZ MD, Ot E11.42 TYPE 2 DIABETES MELLITUS WITH DIABETIC P 11/27/2019 AVRIL HERNANDEZ MD, Ot E11.621 TYPE 2 DIABETES MELLITUS WITH FOOT ULCER 11/27/2019 AVRIL HERNANDEZ MD, Ot E11.622 TYPE 2 DIABETES MELLITUS WITH OTHER SKIN 11/27/2019 AVRIL HERNANDEZ MD, Ot E66.01 MORBID (SEVERE) OBESITY DUE TO EXCESS CA 11/27/2019 AVRIL HERNANDEZ MD, Ot I89 .0 LYMPHEDEMA, NOT ELSEWHERE CLASSIFIED 11/27/2019 AVRIL HERNANDEZ MD, Ot L95 .9 VASCULITIS LIMITED TO THE SKIN, UNSPECIF 11/27/2019 AVRIL HERNANDEZ MD Ot L97.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 ULCER OF RIGHT CALF 11/27/2019 AVRIL HERNANDEZ MD Ot L97.412 NON-PRS CHR ULCER OF RIGHT HEEL AND MIDF 11/27/2019 AVRIL HERNANDEZ MD, Ot Z68.43 BODY MASS INDEX (BMI) 50-59.9 , ADULT 11/27/2019 AVRIL HERNANDEZ MD, Ot E11.42 TYPE 2 DIABETES MELLITUS WITH DIABETIC P 11/27/2019 AVRIL HERNANDEZ MD, Ot E11.621 TYPE 2 DIABETES MELLITUS WITH FOOT ULCER 11/27/2019 AVRIL HERNANDEZ MD, Ot E11.622 TYPE 2 DIABETES MELLITUS WITH OTHER SKIN 11/27/2019 AVRIL HERNANDEZ MD Ot E66.01 MORBID (SEVERE) OBESITY DUE TO EXCESS CA 11/27/2019 AVRIL HERNANDEZ MD, Ot I89 .0 LYMPHEDEMA, NOT ELSEWHERE CLASSIFIED 11/27/2019 AVRIL HERNANDEZ MD, Ot L95 .9 VASCULITIS LIMITED TO THE SKIN, UNSPECIF 11/27/2019 AVRIL HERNANDEZ MD, Ot L97.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 ULCER OF RIGHT CALF 11/27/2019 AVRIL HERNANDEZ MD, Ot L97.412 NON-PRS CHR ULCER OF RIGHT HEEL AND MIDF 11/27/2019 AVRIL HERNANDEZ MD, Ot Z68.43 BODY MASS INDEX (BMI) 50-59.9, ADULT 11/27/2019 VAISHNAVI MORTON MD Ot M31.0 HYPERSENSITIVITY ANGIITIS 11/27/2019 VAISHNAVI MORTON MD Ot Z79.8 99 OTHER PA[employer] (CURRENT) DRUG THERAPY 11/27/2019 VERN BENITEZ Ot M17.12 UNILATERAL PRIMARY OSTEOARTHRITIS, LEFT 11/27/2019 VERN BENITEZ Ot M17.11 UNILATERAL PRIMARY OSTEOARTHRITIS, RIGHT 11/27/2019 AVRIL HERNANDEZ MD Ot E11.42 TYPE 2 DIABETES MELLITUS WITH DIABETIC P 11/27/2019 AVRIL HERNANDEZ MD, Ot E11.621 TYPE 2 DIABETES MELLITUS WITH FOOT ULCER 11/27/2019 AVRIL HERNANDEZ MD Ot L95 .8 OTHER VASCULITIS LIMITED TO THE SKIN 11/27/2019 AVRIL HERNANDEZ MD, Ot L97.412 NON-PRS CHR ULCER OF RIGHT HEEL AND MIDF 11/27/2019 AVRIL HERNANDEZ MD, Ot E11.42 TYPE 2 DIABETES MELLITUS WITH DIABETIC P 11/27/2019 AVRIL HERNANDEZ MD Ot E11.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 11/27/2019 AVRIL HERNANDEZ MD, Ot E11.621 TYPE 2 DIABETES MELLITUS WITH FOOT ULCER 11/27/2019 AVRIL HERNANDEZ MD Ot I87.331 CHRONIC VENOUS HTN W ULCER AND INFLAMMAT 11/27/2019 AVRIL HERNANDEZ MD Ot L95 .8 OTHER VASCULITIS LIMITED TO THE SKIN 11/27/2019 AVRIL HERNANDEZ MD Ot L97.412 NON-PRS CHR ULCER OF RIGHT HEEL AND MIDF 11/27/2019 AVRIL HERNANDEZ MD Ot E11.42 TYPE 2 DIABETES MELLITUS WITH DIABETIC P 11/27/2019 AVRIL HERNANDEZ MD Ot E11.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 11/27/2019 AVRIL HERNANDEZ MD Ot E11.621 TYPE 2 DIABETES MELLITUS WITH FOOT ULCER 11/27/2019 AVRIL HERNANDEZ MD Ot I87.331 CHRONIC VENOUS HTN W ULCER AND INFLAMMAT 11/27/2019 AVRIL HERNANDEZ MD Ot L95 .8 OTHER VASCULITIS LIMITED TO THE SKIN 11/27/2019 AVRIL HERNANDEZ MD, Ot L97.412 NON-PRS CHR ULCER OF RIGHT HEEL AND MIDF 11/27/2019 AVRIL HERNANDEZ MD Ot E11.42 TYPE 2 DIABETES MELLITUS WITH DIABETIC P 11/27/2019 AVRIL HERNANDEZ MD Ot E11.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 11/27/2019 AVRIL HERNANDEZ MD Ot E11.621 TYPE 2 DIABETES MELLITUS WITH FOOT ULCER 11/27/2019 AVRIL HERNANDEZ MD Ot I87.331 CHRONIC VENOUS HTN W ULCER AND INFLAMMAT 11/27/2019 AVRIL HERNANDEZ MD Ot I96 GANGRENE, NOT ELSEWHERE CLASSIFIED 11/27/2019 AVRIL HERNANDEZ MD Ot L95 .8 OTHER VASCULITIS LIMITED TO THE SKIN 11/27/2019 AVRIL HERNANDEZ MD Ot L97.412 NON-PRS CHR ULCER OF RIGHT HEEL AND MIDF 11/27/2019 AVRIL HERNANDEZ MD Ot E11.42 TYPE 2 DIABETES MELLITUS WITH DIABETIC P 11/27/2019 AVRIL HERNANDEZ MD Ot E11.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 11/27/2019 AVRIL HERNANDEZ MD Ot E11.621 TYPE 2 DIABETES MELLITUS WITH FOOT ULCER 11/27/2019 AVRIL HERNANDEZ MD Ot I87.331 CHRONIC VENOUS HTN W ULCER AND INFLAMMAT 11/27/2019 AVRIL HERNANDEZ MD Ot L97.412 NON-PRS CHR ULCER OF RIGHT HEEL AND MIDF 11/27/2019 AVRIL HERNANDEZ MD Ot E11.42 TYPE 2 DIABETES MELLITUS WITH DIABETIC P 11/27/2019 AVRIL HERNANDEZ MD, Ot E11.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 11/27/2019 AVRIL HERNANDEZ MD Ot E11.621 TYPE 2 DIABETES MELLITUS WITH FOOT ULCER 11/27/2019 AVRIL HERNANDEZ MD Ot I87.331 CHRONIC VENOUS HTN W ULCER AND INFLAMMAT 11/27/2019 AVRIL HERNANDEZ MD Ot L97.412 NON-PRS CHR ULCER OF RIGHT HEEL AND MIDF 11/27/2019 AVRIL HERNANDEZ MD Ot E11.42 TYPE 2 DIABETES MELLITUS WITH DIABETIC P 11/27/2019 AVRIL HERNANDEZ MD Ot E11.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 11/27/2019 AVRIL HERNANDEZ MD, Ot E11.621 TYPE 2 DIABETES MELLITUS WITH FOOT ULCER 11/27/2019 AVRIL HERNANDEZ MD Ot I87.331 CHRONIC VENOUS HTN W ULCER AND INFLAMMAT 11/27/2019 AVRIL HERNANDEZ MD Ot L97.412 NON-PRS CHR ULCER OF RIGHT HEEL AND MIDF 11/27/2019 AVRIL HERNANDEZ MD Ot E11.42 TYPE 2 DIABETES MELLITUS WITH DIABETIC P 11/27/2019 AVRIL HERNANDEZ MD Ot E11.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 11/27/2019 AVRIL HERNANDEZ MD Ot E11.621 TYPE 2 DIABETES MELLITUS WITH FOOT ULCER 11/27/2019 AVRIL HERNANDEZ MD Ot I87.331 CHRONIC VENOUS HTN W ULCER AND INFLAMMAT 11/27/2019 AVRIL HERNANDEZ MD Ot L97.412 NON-PRS CHR ULCER OF RIGHT HEEL AND MIDF 11/27/2019 AVRIL HERNANDEZ MD Ot E11.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 11/27/2019 AVRIL HERNANDEZ MD Ot E11.621 TYPE 2 DIABETES MELLITUS WITH FOOT ULCER 11/27/2019 AVRIL HERNANDEZ MD Ot I87.331 CHRONIC VENOUS HTN W ULCER AND INFLAMMAT 11/27/2019 AVRIL HERNANDEZ MD Ot L97.412 NON-PRS CHR ULCER OF RIGHT HEEL AND MIDF 11/27/2019 AVRIL HERNANDEZ MD Ot E11.42 TYPE 2 DIABETES MELLITUS WITH DIABETIC P 11/27/2019 AVRIL HERNANDEZ MD Ot E11.621 TYPE 2 DIABETES MELLITUS WITH FOOT ULCER 11/27/2019 AVRIL HERNANDEZ MD Ot I87.331 CHRONIC VENOUS HTN W ULCER AND INFLAMMAT 11/27/2019 AVRIL HERNANDEZ MD Ot L97.412 NON-PRS CHR ULCER OF RIGHT HEEL AND MIDF 11/27/2019 AVRIL HERNANDEZ MD Ot E11.42 TYPE 2 DIABETES MELLITUS WITH DIABETIC P 11/27/2019 AVRIL HERNANDEZ MD Ot E11.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 11/27/2019 AVRIL HERNANDEZ MD, Ot E11.621 TYPE 2 DIABETES MELLITUS WITH FOOT ULCER 11/27/2019 AVRIL HERNANDEZ MD Ot I87.331 CHRONIC VENOUS HTN W ULCER AND INFLAMMAT 11/27/2019 AVRLI HERNANDEZ MD Ot I96 GANGRENE, NOT ELSEWHERE CLASSIFIED 11/27/2019 AVRIL HERNANDEZ MD Ot L97.412 NON-PRS CHR ULCER OF RIGHT HEEL AND MIDF 11/27/2019 AVRIL HERNANDEZ MD, Ot E11.42 TYPE 2 DIABETES MELLITUS WITH DIABETIC P 11/27/2019 AVRIL HERNANDEZ MD, Ot E11.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 11/27/2019 AVRIL HERNANDEZ MD, Ot E11.621 TYPE 2 DIABETES MELLITUS WITH FOOT ULCER 11/27/2019 AVRIL HERNANDEZ MD Ot I87.331 CHRONIC VENOUS HTN W ULCER AND INFLAMMAT 11/27/2019 AVRIL HERNANDEZ MD Ot L97.412 NON-PRS CHR ULCER OF RIGHT HEEL AND MIDF 11/27/2019 AVRIL HERNANDEZ MD Ot E11.42 TYPE 2 DIABETES MELLITUS WITH DIABETIC P 11/27/2019 AVRIL HERNANDEZ MD Ot E11.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 11/27/2019 AVRIL HERNANDEZ MD Ot E11.621 TYPE 2 DIABETES MELLITUS WITH FOOT ULCER 11/27/2019 AVRIL HERNANDEZ MD Ot I87.331 CHRONIC VENOUS HTN W ULCER AND INFLAMMAT 11/27/2019 AVRIL HERNANDEZ MD Ot L97.412 NON-PRS CHR ULCER OF RIGHT HEEL AND MIDF 11/27/2019 AVRIL HERNANDEZ MD Ot E11.42 TYPE 2 DIABETES MELLITUS WITH DIABETIC P 11/27/2019 AVRIL HERNANDEZ MD Ot E11.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 11/27/2019 AVRIL HERNANDEZ MD Ot E11.621 TYPE 2 DIABETES MELLITUS WITH FOOT ULCER 11/27/2019 AVRIL HERNANDEZ MD Ot I87.331 CHRONIC VENOUS HTN W ULCER AND INFLAMMAT 11/27/2019 AVRIL HERNANDEZ MD Ot I96 GANGRENE, NOT ELSEWHERE CLASSIFIED 11/27/2019 AVRIL HERNANDEZ MD Ot L97.412 NON-PRS CHR ULCER OF RIGHT HEEL AND MIDF 11/27/2019 AVRIL HERNANDEZ MD, Ot E11.42 TYPE 2 DIABETES MELLITUS WITH DIABETIC P 11/27/2019 AVRIL HERNANDEZ MD, Ot E11.621 TYPE 2 DIABETES MELLITUS WITH FOOT ULCER 11/27/2019 AVRIL HERNANDEZ MD Ot I87.331 CHRONIC VENOUS HTN W ULCER AND INFLAMMAT 11/27/2019 AVRIL HERNANDEZ MD Ot L97.412 NON-PRS CHR ULCER OF RIGHT HEEL AND MIDF 11/27/2019 AVRIL HERNANDEZ MD, Ot E11.42 TYPE 2 DIABETES MELLITUS WITH DIABETIC P 11/27/2019 AVRIL HERNANDEZ MD, Ot E11.621 TYPE 2 DIABETES MELLITUS WITH FOOT ULCER 11/27/2019 AVRIL HERNANDEZ MD Ot I87.331 CHRONIC VENOUS HTN W ULCER AND INFLAMMAT 11/27/2019 AVRIL HERNANDEZ MD, Ot L97.412 NON-PRS CHR ULCER OF RIGHT HEEL AND MIDF 11/27/2019 ALICIA BENOIT MD, Ot E11.42 TYPE 2 DIABETES MELLITUS WITH DIABETIC P 11/27/2019 ALICIA BENOIT MD, Ot E11.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 11/27/2019 ALICIA BENOIT MD, Ot E11.621 TYPE 2 DIABETES MELLITUS WITH FOOT ULCER 11/27/2019 ALICIA BENOIT MD, Ot I87.331 CHRONIC VENOUS HTN W ULCER AND INFLAMMAT 11/27/2019 ALICIA BENOIT MD, Ot L97.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 11/27/2019 ALICIA BENOIT MD, Ot E11.42 TYPE 2 DIABETES MELLITUS WITH DIABETIC P 11/27/2019 ALICIA BENOIT MD, Ot E11.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 11/27/2019 ALICIA BENOIT MD, Ot E11.621 TYPE 2 DIABETES MELLITUS WITH FOOT ULCER 11/27/2019 ALICIA BENOIT MD Ot I87.331 CHRONIC VENOUS HTN W ULCER AND INFLAMMAT 11/27/2019 ALICIA BENOIT MD, Ot L97.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 11/29/2019 ALICIA BENOIT MD, Ot E11.42 TYPE 2 DIABETES MELLITUS WITH DIABETIC P 11/29/2019 ALICIA BENOIT MD, Ot E11.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 11/29/2019 LO MD, KIRTIE Ot E11.621 TYPE 2 DIABETES MELLITUS WITH FOOT ULCER 11/29/2019 ALICIA BENOIT MD Ot I87.331 CHRONIC VENOUS HTN W ULCER AND INFLAMMAT 11/29/2019 ALICIA BENOIT MD Ot I96 GANGRENE, NOT ELSEWHERE CLASSIFIED 11/29/2019 ALICIA BENOIT MD Ot L97.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 11/29/2019 AVRIL WINKLER MD Ot Z01.818 ENCOUNTER FOR OTHER PREPROCEDURAL EXAMIN 12/03/2019 AVRIL HERNANDEZ MD Ot E11.42 TYPE 2 DIABETES MELLITUS WITH DIABETIC P 12/03/2019 AVRIL HERNANDEZ MD, Ot E66.01 MORBID (SEVERE) OBESITY DUE TO EXCESS CA 12/03/2019 AVRIL HERNANDEZ MD, Ot I87.332 CHRONIC VENOUS HTN W ULCER AND INFLAMMAT 12/03/2019 AVRIL HERNANDEZ MD, Ot I89 .0 LYMPHEDEMA, NOT ELSEWHERE CLASSIFIED 12/03/2019 AVRIL HERNANDEZ MD, Ot L95 .9 VASCULITIS LIMITED TO THE SKIN, UNSPECIF 12/03/2019 AVRIL HERNANDEZ MD Ot L97.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 ULCER OF RIGHT CALF 12/03/2019 AVRIL HERNANDEZ MD Ot L97.222 NON-PRESSURE CHRONIC ULCER OF LEFT CALF 12/03/2019 AVRIL HERNANDEZ MD Ot L97.422 NON-PRS CHR ULCER OF LEFT HEEL AND MIDFO 12/03/2019 AVRIL HERNANDEZ MD Ot Z68.43 BODY MASS INDEX (BMI) 50-59.9 , ADULT 12/03/2019 AVRIL HERNANDEZ MD Ot E11.42 TYPE 2 DIABETES MELLITUS WITH DIABETIC P 12/03/2019 AVRIL HERNANDEZ MD Ot E66.01 MORBID (SEVERE) OBESITY DUE TO EXCESS CA 12/03/2019 AVRIL HERNANDEZ MD Ot I87.332 CHRONIC VENOUS HTN W ULCER AND INFLAMMAT 12/03/2019 AVRIL HERNANDEZ MD, Ot I89 .0 LYMPHEDEMA, NOT ELSEWHERE CLASSIFIED 12/03/2019 AVRIL HERNANDEZ MD, Ot L95 .9 VASCULITIS LIMITED TO THE SKIN, UNSPECIF 12/03/2019 AVRIL HERNANDEZ MD Ot L97.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 ULCER OF RIGHT CALF 12/03/2019 AVRIL HERNANDEZ MD Ot L97.222 NON-PRESSURE CHRONIC ULCER OF LEFT CALF 12/03/2019 AVRIL HERNANDEZ MD, Ot L97.422 NON-PRS CHR ULCER OF LEFT HEEL AND MIDFO 12/03/2019 AVRIL HERNANDEZ MD, Ot Z68.43 BODY MASS INDEX (BMI) 50-59.9 , ADULT 12/03/2019 AVRIL HERNANDEZ MD, Ot E11.42 TYPE 2 DIABETES MELLITUS WITH DIABETIC P 12/03/2019 AVRIL HERNANDEZ MD, Ot E66.01 MORBID (SEVERE) OBESITY DUE TO EXCESS CA 12/03/2019 AVRIL HERNANDEZ MD, Ot I87.332 CHRONIC VENOUS HTN W ULCER AND INFLAMMAT 12/03/2019 AVRIL HERNANDEZ MD, Ot I89 .0 LYMPHEDEMA, NOT ELSEWHERE CLASSIFIED 12/03/2019 AVRIL HERNANDEZ MD, Ot L95 .9 VASCULITIS LIMITED TO THE SKIN, UNSPECIF 12/03/2019 AVRIL HERNANDEZ MD, Ot L97.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 ULCER OF RIGHT CALF 12/03/2019 AVRIL HERNANDEZ MD, Ot L97.222 NON-PRESSURE CHRONIC ULCER OF LEFT CALF 12/03/2019 AVRIL HERNANDEZ MD, Ot L97.422 NON-PRS CHR ULCER OF LEFT HEEL AND MIDFO 12/03/2019 AVRIL HERNANDEZ MD, Ot R21 RASH AND OTHER NONSPECIFIC SKIN ERUPTION 12/03/2019 AVRIL HERNANDEZ MD, Ot Z68.42 BODY MASS INDEX (BMI) 45.0-49.9, ADULT 12/03/2019 AVRIL HERNANDEZ MD, Ot E11.42 TYPE 2 DIABETES MELLITUS WITH DIABETIC P 12/03/2019 AVRIL HERNANDEZ MD Ot E11.621 TYPE 2 DIABETES MELLITUS WITH FOOT ULCER 12/03/2019 AVRIL HERNANDEZ MD, Ot E11.622 TYPE 2 DIABETES MELLITUS WITH OTHER SKIN 12/03/2019 AVRIL HERNANDEZ MD, Ot E66.01 MORBID (SEVERE) OBESITY DUE TO EXCESS CA 12/03/2019 AVRIL HERNANDEZ MD, Ot I89 .0 LYMPHEDEMA, NOT ELSEWHERE CLASSIFIED 12/03/2019 AVRIL HERNANDEZ MD, Ot L95 .9 VASCULITIS LIMITED TO THE SKIN, UNSPECIF 12/03/2019 AVRIL HERNANDEZ MD, Ot L97.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 ULCER OF RIGHT CALF 12/03/2019 AVRIL HERNANDEZ MD, Ot L97.222 NON-PRESSURE CHRONIC ULCER OF LEFT CALF 12/03/2019 AVRIL HERNANDEZ MD, Ot L97.412 NON-PRS CHR ULCER OF RIGHT HEEL AND MIDF 12/03/2019 AVRIL HERNANDEZ MD Ot L97.422 NON-PRS CHR ULCER OF LEFT HEEL AND MIDFO 12/03/2019 AVRIL HERNANDEZ MD Ot Z68.42 BODY MASS INDEX (BMI) 45.0-49.9, ADULT 12/03/2019 Ot E11.42 TYP E 2 DIABETES MELLITUS WITH DIABETIC P 12/03/2019 Ot E11.621 TY PE 2 DIABETES MELLITUS WITH FOOT ULCER 12/03/2019 Ot E11.622 TY PE 2 DIABETES MELLITUS WITH OTHER SKIN 12/03/2019 Ot E66.01 MOR BID (SEVERE) OBESITY DUE TO EXCESS CA 12/03/2019 Ot I87.333 CH RONIC VENOUS HTN W ULCER AND INFLAM OF 12/03/2019 Ot I89.0 LYMP HEDEMA, NOT ELSEWHERE CLASSIFIED 12/03/2019 Ot L95.9 VASC ULITIS LIMITED TO THE SKIN, UNSPECIF 12/03/2019 Ot L97.212 NO N-PRESSURE CHRONIC ULCER OF RIGHT CALF 12/03/2019 Ot L97.222 NO N-PRESSURE CHRONIC ULCER OF LEFT CALF 12/03/2019 Ot L97.412 NO N-PRS CHR ULCER OF RIGHT HEEL AND MIDF 12/03/2019 Ot L97.422 NO N-PRS CHR ULCER OF LEFT HEEL AND MIDFO 12/03/2019 Ot Z68.42 BOD Y MASS INDEX (BMI) 45.0-49.9, ADULT 12/03/2019 Ot E11.42 TYP E 2 DIABETES MELLITUS WITH DIABETIC P 12/03/2019 Ot E11.621 TY PE 2 DIABETES MELLITUS WITH FOOT ULCER 12/03/2019 Ot E11.622 TY PE 2 DIABETES MELLITUS WITH OTHER SKIN 12/03/2019 Ot E66.01 MOR BID (SEVERE) OBESITY DUE TO EXCESS CA 12/03/2019 Ot I87.333 CH RONIC VENOUS HTN W ULCER AND INFLAM OF 12/03/2019 Ot I89.0 LYMP HEDEMA, NOT ELSEWHERE CLASSIFIED 12/03/2019 Ot L95.9 VASC ULITIS LIMITED TO THE SKIN, UNSPECIF 12/03/2019 Ot L97.212 NO N-PRESSURE CHRONIC ULCER OF RIGHT CALF 12/03/2019 Ot L97.222 NO N-PRESSURE CHRONIC ULCER OF LEFT CALF 12/03/2019 Ot L97.412 NO N-PRS CHR ULCER OF RIGHT HEEL AND MIDF 12/03/2019 Ot L97.422 NO N-PRS CHR ULCER OF LEFT HEEL AND MIDFO 12/03/2019 Ot Z68.43 BOD Y MASS INDEX (BMI) 50-59.9 , ADULT 12/03/2019 AVRIL HERNANDEZ MD, Ot E11.42 TYPE 2 DIABETES MELLITUS WITH DIABETIC P 12/03/2019 AVRIL HERNANDEZ MD, Ot E11.621 TYPE 2 DIABETES MELLITUS WITH FOOT ULCER 12/03/2019 AVRIL HERNANDEZ MD, Ot E11.622 TYPE 2 DIABETES MELLITUS WITH OTHER SKIN 12/03/2019 AVRIL HERNANDEZ MD Ot E66.01 MORBID (SEVERE) OBESITY DUE TO EXCESS CA 12/03/2019 AVRIL HERNANDEZ MD, Ot I87.333 CHRONIC VENOUS HTN W ULCER AND INFLAM OF 12/03/2019 AVRIL HERNANDEZ MD, Ot I89 .0 LYMPHEDEMA, NOT ELSEWHERE CLASSIFIED 12/03/2019 AVRIL HERNANDEZ MD, Ot L95 .9 VASCULITIS LIMITED TO THE SKIN, UNSPECIF 12/03/2019 AVRIL HERNANDEZ MD, Ot L97.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 ULCER OF RIGHT CALF 12/03/2019 AVRIL HERNANDEZ MD, Ot L97.222 NON-PRESSURE CHRONIC ULCER OF LEFT CALF 12/03/2019 AVRIL HERNANDEZ MD, Ot L97.412 NON-PRS CHR ULCER OF RIGHT HEEL AND MIDF 12/03/2019 AVRIL HERNANDEZ MD, Ot L97.422 NON-PRS CHR ULCER OF LEFT HEEL AND MIDFO 12/03/2019 AVRIL HERNANDEZ MD Ot Z68.43 BODY MASS INDEX (BMI) 50-59.9 , ADULT 12/03/2019 AVRIL HERNANDEZ MD, Ot E11.42 TYPE 2 DIABETES MELLITUS WITH DIABETIC P 12/03/2019 AVRIL HERNANDEZ MD, Ot E11.621 TYPE 2 DIABETES MELLITUS WITH FOOT ULCER 12/03/2019 AVRIL HERNANDEZ MD, Ot E11.622 TYPE 2 DIABETES MELLITUS WITH OTHER SKIN 12/03/2019 AVRIL HERNANDEZ MD, Ot E66.01 MORBID (SEVERE) OBESITY DUE TO EXCESS CA 12/03/2019 AVRIL HERNANDEZ MD Ot I87.333 CHRONIC VENOUS HTN W ULCER AND INFLAM OF 12/03/2019 AVRIL HERNANDEZ MD Ot I89 .0 LYMPHEDEMA, NOT ELSEWHERE CLASSIFIED 12/03/2019 AVRIL HERNANDEZ MD Ot L95 .9 VASCULITIS LIMITED TO THE SKIN, UNSPECIF 12/03/2019 AVRIL HERNANDEZ MD Ot L97.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 ULCER OF RIGHT CALF 12/03/2019 AVRIL HERNANDEZ MD, Ot L97.412 NON-PRS CHR ULCER OF RIGHT HEEL AND MIDF 12/03/2019 AVRIL HERNANDEZ MD, Ot L97.421 NON-PRS CHR ULCER OF LEFT HEEL AND MIDFT 12/03/2019 AVRIL HERNANDEZ MD, Ot Z68.43 BODY MASS INDEX (BMI) 50-59.9 , ADULT 12/03/2019 AVRIL HERNANDEZ MD, Ot E11.42 TYPE 2 DIABETES MELLITUS WITH DIABETIC P 12/03/2019 AVRIL HERNANDEZ MD, Ot E11.621 TYPE 2 DIABETES MELLITUS WITH FOOT ULCER 12/03/2019 AVRIL HERNANDEZ MD, Ot E11.622 TYPE 2 DIABETES MELLITUS WITH OTHER SKIN 12/03/2019 AVRIL HERNANDEZ MD, Ot E66.01 MORBID (SEVERE) OBESITY DUE TO EXCESS CA 12/03/2019 AVRIL HERNANDEZ MD, Ot I87.331 CHRONIC VENOUS HTN W ULCER AND INFLAMMAT 12/03/2019 AVRIL HERNANDEZ MD, Ot I89 .0 LYMPHEDEMA, NOT ELSEWHERE CLASSIFIED 12/03/2019 AVRIL HERNANDEZ MD Ot L95 .9 VASCULITIS LIMITED TO THE SKIN, UNSPECIF 12/03/2019 AVRIL HERNANDEZ MD Ot L97.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 ULCER OF RIGHT CALF 12/03/2019 AVRIL HERNANDEZ MD Ot L97.412 NON-PRS CHR ULCER OF RIGHT HEEL AND MIDF 12/03/2019 AVRIL HERNANDEZ MD Ot L97.421 NON-PRS CHR ULCER OF LEFT HEEL AND MIDFT 12/03/2019 AVRIL HERNANDEZ MD, Ot E11.42 TYPE 2 DIABETES MELLITUS WITH DIABETIC P 12/03/2019 AVRIL HERNANDEZ MD, Ot E11.621 TYPE 2 DIABETES MELLITUS WITH FOOT ULCER 12/03/2019 AVRIL HERNANDEZ MD, Ot E11.622 TYPE 2 DIABETES MELLITUS WITH OTHER SKIN 12/03/2019 AVRIL HERNANDEZ MD, Ot E66.01 MORBID (SEVERE) OBESITY DUE TO EXCESS CA 12/03/2019 AVRIL HERNANDEZ MD, Ot I89 .0 LYMPHEDEMA, NOT ELSEWHERE CLASSIFIED 12/03/2019 AVRIL HERNANDEZ MD, Ot L95 .9 VASCULITIS LIMITED TO THE SKIN, UNSPECIF 12/03/2019 AVRIL HERNANDEZ MD, Ot L97.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 ULCER OF RIGHT CALF 12/03/2019 AVRIL HERNANDEZ MD, Ot L97.412 NON-PRS CHR ULCER OF RIGHT HEEL AND MIDF 12/03/2019 AVRIL HERNANDEZ MD, Ot Z68.43 BODY MASS INDEX (BMI) 50-59.9 , ADULT 12/03/2019 AVRIL HERNANDEZ MD Ot E11.42 TYPE 2 DIABETES MELLITUS WITH DIABETIC P 12/03/2019 AVRIL HERNANDEZ MD, Ot E11.621 TYPE 2 DIABETES MELLITUS WITH FOOT ULCER 12/03/2019 AVRIL HERNANDEZ MD, Ot E11.622 TYPE 2 DIABETES MELLITUS WITH OTHER SKIN 12/03/2019 AVRIL HERNANDEZ MD, Ot E66.01 MORBID (SEVERE) OBESITY DUE TO EXCESS CA 12/03/2019 AVRIL HERNANDEZ MD, Ot I89 .0 LYMPHEDEMA, NOT ELSEWHERE CLASSIFIED 12/03/2019 AVRIL HERNANDEZ MD, Ot L95 .9 VASCULITIS LIMITED TO THE SKIN, UNSPECIF 12/03/2019 AVRIL HERNANDEZ MD, Ot L97.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 ULCER OF RIGHT CALF 12/03/2019 AVRIL HERNANDEZ MD, Ot L97.412 NON-PRS CHR ULCER OF RIGHT HEEL AND MIDF 12/03/2019 AVRIL HERNANDEZ MD, Ot Z68.43 BODY MASS INDEX (BMI) 50-59.9, ADULT 12/03/2019 VAISHNAVI MORTON MD Ot M31.0 HYPERSENSITIVITY ANGIITIS 12/03/2019 VAISHNAVI MORTON MD Ot Z79.8 99 OTHER PAINT SPRAY TENDER (CURRENT) DRUG THERAPY 12/03/2019 VERN BENITEZ Ot M17.12 UNILATERAL PRIMARY OSTEOARTHRITIS, LEFT 12/03/2019 VERN BENITEZ Ot M17.11 UNILATERAL PRIMARY OSTEOARTHRITIS, RIGHT 12/03/2019 AVRIL HERNANDEZ MD Ot E11.42 TYPE 2 DIABETES MELLITUS WITH DIABETIC P 12/03/2019 AVRIL HERNANDEZ MD, Ot E11.621 TYPE 2 DIABETES MELLITUS WITH FOOT ULCER 12/03/2019 AVRIL HERNANDEZ MD Ot L95 .8 OTHER VASCULITIS LIMITED TO THE SKIN 12/03/2019 AVRIL HERNANDEZ MD, Ot L97.412 NON-PRS CHR ULCER OF RIGHT HEEL AND MIDF 12/03/2019 AVRIL HERNANDEZ MD, Ot E11.42 TYPE 2 DIABETES MELLITUS WITH DIABETIC P 12/03/2019 AVRIL HERNANDEZ MD Ot E11.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 12/03/2019 AVRIL HERNANDEZ MD Ot E11.621 TYPE 2 DIABETES MELLITUS WITH FOOT ULCER 12/03/2019 AVRIL HERNANDEZ MD Ot I87.331 CHRONIC VENOUS HTN W ULCER AND INFLAMMAT 12/03/2019 AVRIL HERNANDEZ MD Ot L95 .8 OTHER VASCULITIS LIMITED TO THE SKIN 12/03/2019 AVRIL HERNANDEZ MD Ot L97.412 NON-PRS CHR ULCER OF RIGHT HEEL AND MIDF 12/03/2019 AVRIL HERNANDEZ MD Ot E11.42 TYPE 2 DIABETES MELLITUS WITH DIABETIC P 12/03/2019 AVRIL HERNANDEZ MD Ot E11.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 12/03/2019 AVRIL HERNANDEZ MD, Ot E11.621 TYPE 2 DIABETES MELLITUS WITH FOOT ULCER 12/03/2019 AVRIL HERNANDEZ MD Ot I87.331 CHRONIC VENOUS HTN W ULCER AND INFLAMMAT 12/03/2019 AVRIL HERNANDEZ MD Ot L95 .8 OTHER VASCULITIS LIMITED TO THE SKIN 12/03/2019 AVRIL HERNANDEZ MD Ot L97.412 NON-PRS CHR ULCER OF RIGHT HEEL AND MIDF 12/03/2019 AVRIL HERNANDEZ MD Ot E11.42 TYPE 2 DIABETES MELLITUS WITH DIABETIC P 12/03/2019 AVRIL HERNANDEZ MD Ot E11.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 12/03/2019 AVRIL HERNANDEZ MD Ot E11.621 TYPE 2 DIABETES MELLITUS WITH FOOT ULCER 12/03/2019 AVRIL HERNANDEZ MD Ot I87.331 CHRONIC VENOUS HTN W ULCER AND INFLAMMAT 12/03/2019 AVRIL HERNANDEZ MD Ot I96 GANGRENE, NOT ELSEWHERE CLASSIFIED 12/03/2019 AVRIL HERNANDEZ MD Ot L95 .8 OTHER VASCULITIS LIMITED TO THE SKIN 12/03/2019 AVRIL HERNANDEZ MD Ot L97.412 NON-PRS CHR ULCER OF RIGHT HEEL AND MIDF 12/03/2019 AVRIL HERNANDEZ MD Ot E11.42 TYPE 2 DIABETES MELLITUS WITH DIABETIC P 12/03/2019 AVRIL HERNANDEZ MD Ot E11.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 12/03/2019 AVRIL HERNANDEZ MD Ot E11.621 TYPE 2 DIABETES MELLITUS WITH FOOT ULCER 12/03/2019 AVRIL HERNANDEZ MD Ot I87.331 CHRONIC VENOUS HTN W ULCER AND INFLAMMAT 12/03/2019 AVRIL HERNANDEZ MD Ot L97.412 NON-PRS CHR ULCER OF RIGHT HEEL AND MIDF 12/03/2019 AVRIL HERNANDEZ MD Ot E11.42 TYPE 2 DIABETES MELLITUS WITH DIABETIC P 12/03/2019 AVRIL HERNANDEZ MD Ot E11.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 12/03/2019 AVRIL HERNANDEZ MD Ot E11.621 TYPE 2 DIABETES MELLITUS WITH FOOT ULCER 12/03/2019 AVRIL HERNANDEZ MD Ot I87.331 CHRONIC VENOUS HTN W ULCER AND INFLAMMAT 12/03/2019 AVRIL HERNANDEZ MD Ot L97.412 NON-PRS CHR ULCER OF RIGHT HEEL AND MIDF 12/03/2019 AVRIL HERNANDEZ MD, Ot E11.42 TYPE 2 DIABETES MELLITUS WITH DIABETIC P 12/03/2019 AVRIL HERNANDEZ MD, Ot E11.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 12/03/2019 AVRIL HERNANDEZ MD, Ot E11.621 TYPE 2 DIABETES MELLITUS WITH FOOT ULCER 12/03/2019 AVRIL HERNANDEZ MD Ot I87.331 CHRONIC VENOUS HTN W ULCER AND INFLAMMAT 12/03/2019 AVRIL HERNANDEZ MD Ot L97.412 NON-PRS CHR ULCER OF RIGHT HEEL AND MIDF 12/03/2019 AVRIL HERNANDEZ MD, Ot E11.42 TYPE 2 DIABETES MELLITUS WITH DIABETIC P 12/03/2019 AVRIL HERNANDEZ MD Ot E11.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 12/03/2019 AVRIL HERNANDEZ MD, Ot E11.621 TYPE 2 DIABETES MELLITUS WITH FOOT ULCER 12/03/2019 AVRIL HERNANDEZ MD Ot I87.331 CHRONIC VENOUS HTN W ULCER AND INFLAMMAT 12/03/2019 AVRIL HERNANDEZ MD Ot L97.412 NON-PRS CHR ULCER OF RIGHT HEEL AND MIDF 12/03/2019 AVRIL HERNANDEZ MD Ot E11.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 12/03/2019 AVRIL HERNANDEZ MD Ot E11.621 TYPE 2 DIABETES MELLITUS WITH FOOT ULCER 12/03/2019 AVRIL HERNANDEZ MD Ot I87.331 CHRONIC VENOUS HTN W ULCER AND INFLAMMAT 12/03/2019 AVRIL HERNANDEZ MD Ot L97.412 NON-PRS CHR ULCER OF RIGHT HEEL AND MIDF 12/03/2019 AVRIL HERNANDEZ MD Ot E11.42 TYPE 2 DIABETES MELLITUS WITH DIABETIC P 12/03/2019 AVRIL HERNANDEZ MD, Ot E11.621 TYPE 2 DIABETES MELLITUS WITH FOOT ULCER 12/03/2019 AVRIL HERNANDEZ MD Ot I87.331 CHRONIC VENOUS HTN W ULCER AND INFLAMMAT 12/03/2019 AVRIL HERNANDEZ MD Ot L97.412 NON-PRS CHR ULCER OF RIGHT HEEL AND MIDF 12/03/2019 AVRIL HERNANDEZ MD Ot E11.42 TYPE 2 DIABETES MELLITUS WITH DIABETIC P 12/03/2019 AVRIL HERNANDEZ MD Ot E11.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 12/03/2019 AVRIL HERNANDEZ MD, Ot E11.621 TYPE 2 DIABETES MELLITUS WITH FOOT ULCER 12/03/2019 AVRIL HERNANDEZ MD, Ot I87.331 CHRONIC VENOUS HTN W ULCER AND INFLAMMAT 12/03/2019 AVRIL HERNANDEZ MD, Ot I96 GANGRENE, NOT ELSEWHERE CLASSIFIED 12/03/2019 AVRIL HERNANDEZ MD Ot L97.412 NON-PRS CHR ULCER OF RIGHT HEEL AND MIDF 12/03/2019 AVRIL HERNANDEZ MD Ot E11.42 TYPE 2 DIABETES MELLITUS WITH DIABETIC P 12/03/2019 AVRIL HERNANDEZ MD Ot E11.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 12/03/2019 AVRIL HERNANDEZ MD, Ot E11.621 TYPE 2 DIABETES MELLITUS WITH FOOT ULCER 12/03/2019 AVRIL HERNANDEZ MD, Ot I87.331 CHRONIC VENOUS HTN W ULCER AND INFLAMMAT 12/03/2019 AVRIL HERNANDEZ MD Ot L97.412 NON-PRS CHR ULCER OF RIGHT HEEL AND MIDF 12/03/2019 AVRIL HERNANDEZ MD Ot E11.42 TYPE 2 DIABETES MELLITUS WITH DIABETIC P 12/03/2019 AVRIL HERNANDEZ MD Ot E11.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 12/03/2019 AVRIL HERNANDEZ MD Ot E11.621 TYPE 2 DIABETES MELLITUS WITH FOOT ULCER 12/03/2019 AVRIL HERNANDEZ MD Ot I87.331 CHRONIC VENOUS HTN W ULCER AND INFLAMMAT 12/03/2019 AVRIL HERNANDEZ MD, Ot L97.412 NON-PRS CHR ULCER OF RIGHT HEEL AND MIDF 12/03/2019 AVRIL HERNANDEZ MD Ot E11.42 TYPE 2 DIABETES MELLITUS WITH DIABETIC P 12/03/2019 AVRIL HERNANDEZ MD Ot E11.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 12/03/2019 AVRIL HERNANDEZ MD, Ot E11.621 TYPE 2 DIABETES MELLITUS WITH FOOT ULCER 12/03/2019 AVRIL HERNANDEZ MD Ot I87.331 CHRONIC VENOUS HTN W ULCER AND INFLAMMAT 12/03/2019 AVRIL HERNANDEZ MD Ot I96 GANGRENE, NOT ELSEWHERE CLASSIFIED 12/03/2019 AVRIL HERNANDEZ MD Ot L97.412 NON-PRS CHR ULCER OF RIGHT HEEL AND MIDF 12/03/2019 AVRIL HERNANDEZ MD Ot E11.42 TYPE 2 DIABETES MELLITUS WITH DIABETIC P 12/03/2019 AVRIL HERNANDEZ MD, Ot E11.621 TYPE 2 DIABETES MELLITUS WITH FOOT ULCER 12/03/2019 AVRIL HERNANDEZ MD Ot I87.331 CHRONIC VENOUS HTN W ULCER AND INFLAMMAT 12/03/2019 AVRIL HERNANDEZ MD, Ot L97.412 NON-PRS CHR ULCER OF RIGHT HEEL AND MIDF 12/03/2019 AVRIL HERNANDEZ MD, Ot E11.42 TYPE 2 DIABETES MELLITUS WITH DIABETIC P 12/03/2019 AVRIL HERNANDEZ MD, Ot E11.621 TYPE 2 DIABETES MELLITUS WITH FOOT ULCER 12/03/2019 AVRIL HERNANDEZ MD Ot I87.331 CHRONIC VENOUS HTN W ULCER AND INFLAMMAT 12/03/2019 AVRIL HERNANDEZ MD Ot L97.412 NON-PRS CHR ULCER OF RIGHT HEEL AND MIDF 12/03/2019 ALICIA BENOIT MD, Ot E11.42 TYPE 2 DIABETES MELLITUS WITH DIABETIC P 12/03/2019 ALICIA EBNOIT MD Ot E11.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 12/03/2019 ALICIA BENOIT MD, Ot E11.621 TYPE 2 DIABETES MELLITUS WITH FOOT ULCER 12/03/2019 ALICIA BENOIT MD Ot I87.331 CHRONIC VENOUS HTN W ULCER AND INFLAMMAT 12/03/2019 ALICIA BENOIT MD Ot L97.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 12/03/2019 ALICIA BENOIT MD, Ot E11.42 TYPE 2 DIABETES MELLITUS WITH DIABETIC P 12/03/2019 ALICIA BENOIT MD Ot E11.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 12/03/2019 ALICIA BENOIT MD, Ot E11.621 TYPE 2 DIABETES MELLITUS WITH FOOT ULCER 12/03/2019 ALICIA BENOIT MD Ot I87.331 CHRONIC VENOUS HTN W ULCER AND INFLAMMAT 12/03/2019 LO MD, KIRTIE Ot L97.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 12/03/2019 LO ALICIA WELCH Ot E11.42 TYPE 2 DIABETES MELLITUS WITH DIABETIC P 12/03/2019 ALICIA BENOIT MD, Ot E11.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 12/03/2019 LO ALICIA WELCH Ot E11.621 TYPE 2 DIABETES MELLITUS WITH FOOT ULCER 12/03/2019 LO ALICIA WELCH Ot I87.331 CHRONIC VENOUS HTN W ULCER AND INFLAMMAT 12/03/2019 LO ALICIA WELCH Ot I96 GANGRENE, NOT ELSEWHERE CLASSIFIED 12/03/2019 LO ALICIA WELCH Ot L97.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 12/05/2019 LO ALICIA WELCH Ot E11.42 TYPE 2 DIABETES MELLITUS WITH DIABETIC P 12/05/2019 ALICIA BENOIT MD, Ot E11.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 12/05/2019 LO ALICIA WELCH Ot E11.621 TYPE 2 DIABETES MELLITUS WITH FOOT ULCER 12/05/2019 LO ALICIA WELCH Ot I87.331 CHRONIC VENOUS HTN W ULCER AND INFLAMMAT 12/05/2019 LO ALICIA WELCH Ot L97.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 12/05/2019 LO ALICIA WELCH Ot E11.42 TYPE 2 DIABETES MELLITUS WITH DIABETIC P 12/05/2019 ALICIA BENOIT MD, Ot E11.621 TYPE 2 DIABETES MELLITUS WITH FOOT ULCER 12/05/2019 ALICIA BENOIT MD, Ot I87.331 CHRONIC VENOUS HTN W ULCER AND INFLAMMAT 12/05/2019 LO ALICIA WELCH Ot L97.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 12/11/2019 ALICIA BENOIT MD, Ot E11.42 TYPE 2 DIABETES MELLITUS WITH DIABETIC P 12/11/2019 ALICIA BENOIT MD, Ot E11.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 12/11/2019 ALICIA BENOIT MD, Ot E11.621 TYPE 2 DIABETES MELLITUS WITH FOOT ULCER 12/11/2019 ALICIA BNEOIT MD, Ot I87.331 CHRONIC VENOUS HTN W ULCER AND INFLAMMAT 12/11/2019 LO ALICIA WELCH Ot L97.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 12/11/2019 AVRIL WINKLER MD Ot E11.42 TYPE 2 DIABETES MELLITUS WITH DIABETIC P 12/11/2019 VARIL WINKLER MD Ot E66.01 MORBID (SEVERE) OBESITY DUE TO EXCESS CA 12/11/2019 AVRIL WINKLER MD, Ot E78.5 HYPERLIPIDEMIA, UNSPECIFIED 12/11/2019 AVRIL WINKLER MD, Ot F32.9 MAJOR DEPRESSIVE DISORDER, SINGLE EPISOD 12/11/2019 AVRIL WINKLER MD, Ot F41.9 ANXIETY DISORDER, UNSPECIFIED 12/11/2019 AVRIL WINKLER MD, Ot G47.33 OBSTRUCTIVE SLEEP APNEA (ADULT) (PEDIATR 12/11/2019 AVRIL WINKLER MD, Ot G56.01 CARPAL TUNNEL SYNDROME, RIGHT UPPER LIMB 12/11/2019 AVRIL WINKLER MD, Ot I1 0 ESSENTIAL (PRIMARY) HYPERTENSION 12/11/2019 AVRIL WINKLER MD, Ot M10.9 GOUT, UNSPECIFIED 12/11/2019 AVRIL WINKLER MD, Ot M19.90 UNSPECIFIED OSTEOARTHRITIS, UNSPECIFIED 12/11/2019 AVRIL WINKLER MD, Ot Z68.43 BODY MASS INDEX (BMI) 50.0-59.9, ADULT 12/11/2019 AVRIL WINKLER MD, Ot Z79.51 HALF-WAY (CURRENT) USE OF INHALED STERO 12/11/2019 AVRIL WINKLER MD, Ot Z79.82 PAINT SPRAY TENDER (CURRENT) USE OF ASPIRIN 12/11/2019 AVRIL WINKLER MD, Ot Z79.84 HALF-WAY (CURRENT) USE OF ORAL HYPOGLYC 12/11/2019 AVRIL WINKLER MD, Ot Z88.1 ALLERGY STATUS TO OTHER ANTIBIOTIC AGENT 12/11/2019 AVRIL WINKLER MD, Ot Z98.52 VASECTOMY STATUS 12/11/2019 ALICIA BENOIT MD Ot E11.42 TYPE 2 DIABETES MELLITUS WITH DIABETIC P 12/11/2019 ALICIA BENOIT MD, Ot E11.621 TYPE 2 DIABETES MELLITUS WITH FOOT ULCER 12/11/2019 ALICIA BENOIT MD, Ot I87.331 CHRONIC VENOUS HTN W ULCER AND INFLAMMAT 12/11/2019 ALICIA BENOIT MD, Ot L97.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 12/13/2019 AVRIL WINKLER MD, Ot E11.42 TYPE 2 DIABETES MELLITUS WITH DIABETIC P 12/13/2019 AVRIL WINKLER MD, Ot E66.01 MORBID (SEVERE) OBESITY DUE TO EXCESS CA 12/13/2019 ZAFUTA MD, AVRIL P Ot E78.5 HYPERLIPIDEMIA, UNSPECIFIED 12/13/2019 CATHI WELCH, AVRIL Mosquera Ot F32.9 MAJOR DEPRESSIVE DISORDER, SINGLE EPISOD 12/13/2019 CATHI WELCH, AVRIL Mosquera Ot F41.9 ANXIETY DISORDER, UNSPECIFIED 12/13/2019 CATHI WELCH, AVRIL Mosquera Ot G47.33 OBSTRUCTIVE SLEEP APNEA (ADULT) (PEDIATR 12/13/2019 CATHI WELCH, AVRIL Mosquera Ot G56.01 CARPAL TUNNEL SYNDROME, RIGHT UPPER LIMB 12/13/2019 AVRIL WINKLER MD Ot I1 0 ESSENTIAL (PRIMARY) HYPERTENSION 12/13/2019 AVRIL WINKLER MD Ot M10.9 GOUT, UNSPECIFIED 12/13/2019 AVRIL WINKLER MD Ot M19.90 UNSPECIFIED OSTEOARTHRITIS, UNSPECIFIED 12/13/2019 AVRIL WINKLER MD Ot Z68.43 BODY MASS INDEX (BMI) 50.0-59.9, ADULT 12/13/2019 AVRIL WINKLER MD Ot Z79.51 PAINT SPRAY TENDER (CURRENT) USE OF INHALED STERO 12/13/2019 AVRIL WINKLER MD Ot Z79.82 PAINT SPRAY TENDER (CURRENT) USE OF ASPIRIN 12/13/2019 AVRIL WINKLER MD Ot Z79.84 PAINT SPRAY TENDER (CURRENT) USE OF ORAL HYPOGLYC 12/13/2019 AVRIL WINKLER MD Ot Z88.1 ALLERGY STATUS TO OTHER ANTIBIOTIC AGENT 12/13/2019 AVRIL WINKLER MD Ot Z98.52 VASECTOMY STATUS 12/17/2019 AVRIL WINKLER MD Ot E11.42 TYPE 2 DIABETES MELLITUS WITH DIABETIC P 12/17/2019 AVRIL WINKLER MD Ot E66.01 MORBID (SEVERE) OBESITY DUE TO EXCESS CA 12/17/2019 AVRIL WINKLER MD Ot E78.5 HYPERLIPIDEMIA, UNSPECIFIED 12/17/2019 AVRIL WINKLER MD Ot F32.9 MAJOR DEPRESSIVE DISORDER, SINGLE EPISOD 12/17/2019 CATHI WELCH, AVRIL Mosquera Ot F41.9 ANXIETY DISORDER, UNSPECIFIED 12/17/2019 AVRIL WINKLER MD Ot G47.33 OBSTRUCTIVE SLEEP APNEA (ADULT) (PEDIATR 12/17/2019 AVRIL WINKLER MD Ot G56.01 CARPAL TUNNEL SYNDROME, RIGHT UPPER LIMB 12/17/2019 AVRIL WINKLER MD, Ot I1 0 ESSENTIAL (PRIMARY) HYPERTENSION 12/17/2019 AVRIL WINKLER MD, Ot M10.9 GOUT, UNSPECIFIED 12/17/2019 AVRIL WINKLER MD, Ot M19.90 UNSPECIFIED OSTEOARTHRITIS, UNSPECIFIED 12/17/2019 AVRIL WINKLER MD, Ot Z68.43 BODY MASS INDEX (BMI) 50.0-59.9, ADULT 12/17/2019 AVRIL WINKLER MD, Ot Z79.51 PAINT SPRAY TENDER (CURRENT) USE OF INHALED STERO 12/17/2019 AVRIL WINKLER MD, Ot Z79.82 HALF-WAY (CURRENT) USE OF ASPIRIN 12/17/2019 AVRIL WINKLER MD, Ot Z79.84 PAINT SPRAY TENDER (CURRENT) USE OF ORAL HYPOGLYC 12/17/2019 AVRIL WINKLER MD, Ot Z88.1 ALLERGY STATUS TO OTHER ANTIBIOTIC AGENT 12/17/2019 AVRIL WINKLER MD, Ot Z98.52 VASECTOMY STATUS 12/17/2019 ALICIA BENOIT MD, Ot E11.42 TYPE 2 DIABETES MELLITUS WITH DIABETIC P 12/17/2019 ALICIA BENOIT MD, Ot E11.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 12/17/2019 ALICIA BENOIT MD, Ot E11.621 TYPE 2 DIABETES MELLITUS WITH FOOT ULCER 12/17/2019 ALICIA BENOIT MD, Ot I87.331 CHRONIC VENOUS HTN W ULCER AND INFLAMMAT 12/17/2019 ALICIA BENOIT MD, Ot I96 GANGRENE, NOT ELSEWHERE CLASSIFIED 12/17/2019 ALICIA BENOIT MD, Ot L97.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 12/19/2019 ALICIA BENOIT MD, Ot 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 12/19/2019 ALICIA BENOIT MD, Ot E11.42 TYPE 2 DIABETES MELLITUS WITH DIABETIC P 12/19/2019 ALICIA BENOIT MD, Ot E66.01 MORBID (SEVERE) OBESITY DUE TO EXCESS CA 12/19/2019 ALICIA BENOIT MD, Ot I87.331 CHRONIC VENOUS HTN W ULCER AND INFLAMMAT 12/19/2019 ALICIA BENOIT MD, Ot S90.424A BLISTER (NONTHERMAL), RIGHT LESSER TOE(S 12/27/2019 ALICIA BENOIT MD, Ot E11.42 TYPE 2 DIABETES MELLITUS WITH DIABETIC P 12/27/2019 ALICIA BENOIT MD, Ot E11.621 TYPE 2 DIABETES MELLITUS WITH FOOT ULCER 12/27/2019 ALICIA BENOIT MD Ot I87.331 CHRONIC VENOUS HTN W ULCER AND INFLAMMAT 12/27/2019 ALICIA BENOIT MD, Ot L97.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 12/31/2019 ALICIA BENOIT MD, Ot E11.42 TYPE 2 DIABETES MELLITUS WITH DIABETIC P 12/31/2019 ALICIA BENOIT MD, Ot E11.621 TYPE 2 DIABETES MELLITUS WITH FOOT ULCER 12/31/2019 ALICIA BENOIT MD, Ot I87.331 CHRONIC VENOUS HTN W ULCER AND INFLAMMAT 12/31/2019 ALICIA BENOIT MD, Ot L97.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 01/02/2020 ALICIA BENOIT MD, Ot 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 01/02/2020 ALICIA BENOIT MD, Ot E11.42 TYPE 2 DIABETES MELLITUS WITH DIABETIC P 01/02/2020 ALICIA BENOIT MD, Ot E66.01 MORBID (SEVERE) OBESITY DUE TO EXCESS CA 01/02/2020 ALICIA BENOIT MD, Ot I87.331 CHRONIC VENOUS HTN W ULCER AND INFLAMMAT 01/02/2020 ALICIA BENOIT MD Ot S90.424A BLISTER (NONTHERMAL), RIGHT LESSER TOE(S 01/04/2020 JUSTINE DO MELITON Ot A41.89 OTHER SPECIFIED SEPSIS 01/04/2020 JUSTINE DO MELITON Ot E11.40 TYPE 2 DIABETES MELLITUS WITH DIABETIC N 01/04/2020 JUSTINE DO MELITON Ot E66.01 MORBID (SEVERE) OBESITY DUE TO EXCESS CA 01/04/2020 JUSTINE DO MELITON Ot E78.00 PURE HYPERCHOLESTEROLEMIA, UNSPECIFIED 01/04/2020 JUSTINE DO MELITON Ot E86.0 DEHYDRATION 01/04/2020 JUSTINE VALDES MELITON Ot E87.2 ACIDOSIS 01/04/2020 JUSTINE VALDES MELITON Ot F41.9 ANXIETY DISORDER, UNSPECIFIED 01/04/2020 JUSTINE VALDES MELITON Ot I10 ESSENTIAL (PRIMARY) HYPERTENSION 01/04/2020 JUSTINE VALDES MELITON Ot J10.1 FLU DUE TO OTH IDENT INFLUENZA VIRUS W O 01/04/2020 JUSTINE DO MELITON Ot J34.89 OTHER SPECIFIED DISORDERS OF NOSE AND NA 01/04/2020 JUSTINE VALDES MELITON Ot K21.9 GASTRO-ESOPHAGEAL REFLUX DISEASE WITHOUT 01/04/2020 FLETCHER DO, MELITON Ot K52.9 NONINFECTIVE GASTROENTERITIS AND COLITIS 01/04/2020 FLETCHER DO, MELITON Ot M10.9 GOUT, UNSPECIFIED 01/04/2020 FLETCHER DO, MELITON Ot M19.91 PRIMARY OSTEOARTHRITIS, UNSPECIFIED SITE 01/04/2020 FLETCHER DO, MELITON Ot M54.9 DORSALGIA, UNSPECIFIED 01/04/2020 FLETCHER DO, MELITON Ot N17.9 ACUTE KIDNEY FAILURE, UNSPECIFIED 01/04/2020 FLETCHER DO MELITON Ot R05 COUGH 01/04/2020 FLETCHER DO, MELITON Ot Z79.84 HALF-WAY (CURRENT) USE OF ORAL HYPOGLYC 01/04/2020 JUSTINE DO MELITON Ot Z87.89 1 PERSONAL HISTORY OF NICOTINE DEPENDENCE 01/04/2020 JUSTINE VALDES MELITON Ot A41.89 OTHER SPECIFIED SEPSIS 01/04/2020 FLETCHER DO, MELITON Ot E11.40 TYPE 2 DIABETES MELLITUS WITH DIABETIC N 01/04/2020 FLETCHER DO, MELITON Ot E66.01 MORBID (SEVERE) OBESITY DUE TO EXCESS CA 01/04/2020 FLETCHER DO, MELITON Ot E78.00 PURE HYPERCHOLESTEROLEMIA, UNSPECIFIED 01/04/2020 FLETCHER DO, MELITON Ot E78.5 HYPERLIPIDEMIA, UNSPECIFIED 01/04/2020 FLETCHER DO, MELITON Ot E83.42 HYPOMAGNESEMIA 01/04/2020 FLETCHER DO, MELITON Ot E86.0 DEHYDRATION 01/04/2020 FLETCHER DO, MELITON Ot E87.2 ACIDOSIS 01/04/2020 JUSTINE DO MELITON Ot F41.9 ANXIETY DISORDER, UNSPECIFIED 01/04/2020 FLETCHER DO, MELITON Ot G47.33 OBSTRUCTIVE SLEEP APNEA (ADULT) (PEDIATR 01/04/2020 FLETCHER DO, MELITON Ot I10 ESSENTIAL (PRIMARY) HYPERTENSION 01/04/2020 FLETCHER DO, MELITON Ot J10.1 FLU DUE TO OTH IDENT INFLUENZA VIRUS W O 01/04/2020 FLETCHER DO, MELITON Ot J34.89 OTHER SPECIFIED DISORDERS OF NOSE AND NA 01/04/2020 JUSTINE DO, MELITON Ot K21.9 GASTRO-ESOPHAGEAL REFLUX DISEASE WITHOUT 01/04/2020 FLETCHER DO, MELITON Ot K52.9 NONINFECTIVE GASTROENTERITIS AND COLITIS 01/04/2020 FLETCHER DO, MELITON Ot M10.9 GOUT, UNSPECIFIED 01/04/2020 FLETCHER DO, MELITON Ot M19.91 PRIMARY OSTEOARTHRITIS, UNSPECIFIED SITE 01/04/2020 JUSTINE VALDES, MELITON Ot M54.9 DORSALGIA, UNSPECIFIED 01/04/2020 FLETCHER DO, MELITON Ot N17.9 ACUTE KIDNEY FAILURE, UNSPECIFIED 01/04/2020 FLETCHER DO, MELITON Ot R15.9 FULL INCONTINENCE OF FECES 01/04/2020 JUSTINE VALDES MELITON Ot Z68.43 BODY MASS INDEX (BMI) 50.0-59.9, ADULT 01/04/2020 JUSTINE DO MELITON Ot Z79.84 PAINT SPRAY TENDER (CURRENT) USE OF ORAL HYPOGLYC 01/04/2020 JUSTINE VALDES MELITON Ot Z87.89 1 PERSONAL HISTORY OF NICOTINE DEPENDENCE 01/04/2020 JUSTINE VALDES MELITON Ot Z91.19 PATIENT'S NONCOMPLIANCE W [facility] 01/04/2020 JUSTINE VALDES MELITON Ot A41.89 OTHER SPECIFIED SEPSIS 01/04/2020 JUSTINE VALDES, MELITON Ot E11.40 TYPE 2 DIABETES MELLITUS WITH DIABETIC N 01/04/2020 JUSTINE DO, MELITON Ot E66.01 MORBID (SEVERE) OBESITY DUE TO EXCESS CA 01/04/2020 JUSTINE DO, MELITON Ot E78.00 PURE HYPERCHOLESTEROLEMIA, UNSPECIFIED 01/04/2020 JUSTINE VALDES, MELITON Ot E78.5 HYPERLIPIDEMIA, UNSPECIFIED 01/04/2020 FLETCHER DO, MELITON Ot E83.42 HYPOMAGNESEMIA 01/04/2020 JUSTINE VALDES, MELITON Ot E86.0 DEHYDRATION 01/04/2020 JUSTINE VALDES, MELITON Ot E87.2 ACIDOSIS 01/04/2020 JUSTINE VALDES, MELITON Ot F41.9 ANXIETY DISORDER, UNSPECIFIED 01/04/2020 JUSTINE VALDES, MELITON Ot G47.33 OBSTRUCTIVE SLEEP APNEA (ADULT) (PEDIATR 01/04/2020 JUSTINE VALDES, MELITON Ot I10 ESSENTIAL (PRIMARY) HYPERTENSION 01/04/2020 JUSTINE VALDES MELITON Ot J10.1 FLU DUE TO [facility] IDENT INFLUENZA VIRUS W O 01/04/2020 JUSTINE DO, MELITON Ot J34.89 OTHER SPECIFIED DISORDERS OF NOSE AND NA 01/04/2020 JUSTINE DO, MELITON Ot K21.9 GASTRO-ESOPHAGEAL REFLUX DISEASE WITHOUT 01/04/2020 FLETCHER DO, MELITON Ot K52.9 NONINFECTIVE GASTROENTERITIS AND COLITIS 01/04/2020 FLETCHER DO, MELITON Ot M10.9 GOUT, UNSPECIFIED 01/04/2020 FLETCHER DO, MELITON Ot M19.91 PRIMARY OSTEOARTHRITIS, UNSPECIFIED SITE 01/04/2020 FLETCHER DO, MELITON Ot M54.9 DORSALGIA, UNSPECIFIED 01/04/2020 FLETCHER DO, MELITON Ot N17.9 ACUTE KIDNEY FAILURE, UNSPECIFIED 01/04/2020 FLETCHER DO, MELITON Ot R05 COUGH 01/04/2020 FLETCHER DO, MELITON Ot R15.9 FULL INCONTINENCE OF FECES 01/04/2020 FLETCHER DO, MELITON Ot Z68.43 BODY MASS INDEX (BMI) 50.0-59.9, ADULT 01/04/2020 FLETCHER DO, MELITON Ot Z79.84 PAINT SPRAY TENDER (CURRENT) USE OF ORAL HYPOGLYC 01/04/2020 FLETCHER DO, MELITON Ot Z87.89 1 PERSONAL HISTORY OF NICOTINE DEPENDENCE 01/04/2020 FLETCHER DO, MELITON Ot Z91.19 PATIENT'S NONCOMPLIANCE W [facility] 01/10/2020 Logan WELCH, Brenda Kennedy N4 0.1 BPH with urinary obstruction 01/10/2020 Brenda Ford MD E1 1.9 Diabetes, Type 2 2020 FLETCHER DO, MELITON Ot A41.89 OTHER SPECIFIED SEPSIS 2020 FLETCHER DO, MELITON Ot E11.40 TYPE 2 DIABETES MELLITUS WITH DIABETIC N 2020 FLETCHER DO, MELITON Ot E66.01 MORBID (SEVERE) OBESITY DUE TO EXCESS CA 2020 FLETCHER DO, MELITON Ot E78.00 PURE HYPERCHOLESTEROLEMIA, UNSPECIFIED 2020 FLETCHER DO, MELITON Ot E78.5 HYPERLIPIDEMIA, UNSPECIFIED 2020 FLETCHER DO, MELITON Ot E83.42 HYPOMAGNESEMIA 2020 FLETCHER DO, MELITON Ot E86.0 DEHYDRATION 2020 FLETCHER DO, MELITON Ot E87.2 ACIDOSIS 2020 FLETCHER DO, MELITON Ot F41.9 ANXIETY DISORDER, UNSPECIFIED 2020 FLETCHER DO, MELITON Ot G47.33 OBSTRUCTIVE SLEEP APNEA (ADULT) (PEDIATR 2020 FLETCHER DO, MELITON Ot I10 ESSENTIAL (PRIMARY) HYPERTENSION 2020 JUSTINE VALDES MELITON Ot J10.1 FLU DUE TO [facility] IDENT INFLUENZA VIRUS W O 2020 FLETCHERAYSE VALDES MELITON Ot J34.89 OTHER SPECIFIED DISORDERS OF NOSE AND NA 2020 FLETCHER MELITON Ot K21.9 GASTRO-ESOPHAGEAL REFLUX DISEASE WITHOUT 2020 FLETCHER DO MELITON Ot K52.9 NONINFECTIVE GASTROENTERITIS AND COLITIS 2020 FLETCHER DO MELITON Ot M10.9 GOUT, UNSPECIFIED 2020 FLETCHER DO MELITON Ot M19.91 PRIMARY OSTEOARTHRITIS, UNSPECIFIED SITE 2020 JUSTINE VALDES MELITON Ot M54.9 DORSALGIA, UNSPECIFIED 2020 JUSTINE VALDES MELITON Ot N17.9 ACUTE KIDNEY FAILURE, UNSPECIFIED 2020 JUSTINE VALDES MELITON Ot R15.9 FULL INCONTINENCE OF FECES 2020 FLETCHERAYSE VALDES MELITON Ot Z68.43 BODY MASS INDEX (BMI) 50.0-59.9, ADULT 2020 FLETCHER MELITON Ot Z79.84 HALF-WAY (CURRENT) USE OF ORAL HYPOGLYC 2020 FLETCHER MELITON Ot Z87.89 1 PERSONAL HISTORY OF NICOTINE DEPENDENCE 2020 JUSTINE VALDES MELITON Ot Z91.19 PATIENT'S NONCOMPLIANCE W 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331 CHRONIC VENOUS HTN W ULCER AND INFLAMMAT 02/21/2020 ALICIA BENOIT MD, Ot I96 GANGRENE, NOT ELSEWHERE CLASSIFIED 02/21/2020 ALICIA BENOIT MD, Ot L97.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 02/21/2020 AVRIL HERNANDEZ MD, Ot E11.42 TYPE 2 DIABETES MELLITUS WITH DIABETIC P 02/21/2020 AVRIL HERNANDEZ MD, Ot E66.01 MORBID (SEVERE) OBESITY DUE TO EXCESS CA 02/21/2020 AVRIL HERNANDEZ MD, Ot I87.332 CHRONIC VENOUS HTN W ULCER AND INFLAMMAT 02/21/2020 AVRIL HERNANDEZ MD, Ot I89 .0 LYMPHEDEMA, NOT ELSEWHERE CLASSIFIED 02/21/2020 AVRIL HERNANDEZ MD, Ot L95 .9 VASCULITIS LIMITED TO THE SKIN, UNSPECIF 02/21/2020 AVRIL HERNANDEZ MD Ot L97.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 ULCER OF RIGHT CALF 02/21/2020 AVRIL HERNANDEZ MD, Ot L97.222 NON-PRESSURE CHRONIC ULCER OF LEFT CALF 02/21/2020 AVRIL HERNANDEZ MD Ot L97.422 NON-PRS CHR ULCER OF LEFT HEEL AND MIDFO 02/21/2020 AVRIL HERNANDEZ MD, Ot Z68.43 BODY MASS INDEX (BMI) 50-59.9 , ADULT 02/21/2020 AVRIL HERNANDEZ MD, Ot E11.42 TYPE 2 DIABETES MELLITUS WITH DIABETIC P 02/21/2020 AVRIL HERNANDEZ MD, Ot E66.01 MORBID (SEVERE) OBESITY DUE TO EXCESS CA 02/21/2020 AVRIL HERNANDEZ MD Ot I87.332 CHRONIC VENOUS HTN W ULCER AND INFLAMMAT 02/21/2020 AVRIL HERNANDEZ MD, Ot I89 .0 LYMPHEDEMA, NOT ELSEWHERE CLASSIFIED 02/21/2020 AVRIL HERNANDEZ MD, Ot L95 .9 VASCULITIS LIMITED TO THE SKIN, UNSPECIF 02/21/2020 AVRIL HERNANDEZ MD, Ot L97.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 ULCER OF RIGHT CALF 02/21/2020 AVRIL HERNANDEZ MD Ot L97.222 NON-PRESSURE CHRONIC ULCER OF LEFT CALF 02/21/2020 AVRIL HERNANDEZ MD, Ot L97.422 NON-PRS CHR ULCER OF LEFT HEEL AND MIDFO 02/21/2020 AVRIL HERNANDEZ MD, Ot Z68.43 BODY MASS INDEX (BMI) 50-59.9 , ADULT 02/21/2020 AVRIL HERNANDEZ MD, Ot E11.42 TYPE 2 DIABETES MELLITUS WITH DIABETIC P 02/21/2020 AVRIL HERNANDEZ MD, Ot E66.01 MORBID (SEVERE) OBESITY DUE TO EXCESS CA 02/21/2020 AVRIL HERNANDEZ MD, Ot I87.332 CHRONIC VENOUS HTN W ULCER AND INFLAMMAT 02/21/2020 AVRIL HERNANDEZ MD, Ot I89 .0 LYMPHEDEMA, NOT ELSEWHERE CLASSIFIED 02/21/2020 AVRIL HERNANDEZ MD, Ot L95 .9 VASCULITIS LIMITED TO THE SKIN, UNSPECIF 02/21/2020 AVRIL HERNANDEZ MD Ot L97.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 ULCER OF RIGHT CALF 02/21/2020 AVRIL HERNANDEZ MD Ot L97.222 NON-PRESSURE CHRONIC ULCER OF LEFT CALF 02/21/2020 AVRIL HERNANDEZ MD, Ot L97.422 NON-PRS CHR ULCER OF LEFT HEEL AND MIDFO 02/21/2020 AVRIL HERNANDEZ MD Ot R21 RASH AND OTHER NONSPECIFIC SKIN ERUPTION 02/21/2020 AVRIL HERNANDEZ MD, Ot Z68.42 BODY MASS INDEX (BMI) 45.0-49.9, ADULT 02/21/2020 AVRIL HERNANDEZ MD Ot E11.42 TYPE 2 DIABETES MELLITUS WITH DIABETIC P 02/21/2020 AVRIL HERNANDEZ MD Ot E11.621 TYPE 2 DIABETES MELLITUS WITH FOOT ULCER 02/21/2020 AVRIL HERNANDEZ MD Ot E11.622 TYPE 2 DIABETES MELLITUS WITH OTHER SKIN 02/21/2020 AVRIL HERNANDEZ MD Ot E66.01 MORBID (SEVERE) OBESITY DUE TO EXCESS CA 02/21/2020 AVRIL HERNANDEZ MD, Ot I89 .0 LYMPHEDEMA, NOT ELSEWHERE CLASSIFIED 02/21/2020 AVRIL HERNANDEZ MD Ot L95 .9 VASCULITIS LIMITED TO THE SKIN, UNSPECIF 02/21/2020 AVRIL HERNANDEZ MD Ot L97.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 ULCER OF RIGHT CALF 02/21/2020 AVRIL HERNANDEZ MD Ot L97.222 NON-PRESSURE CHRONIC ULCER OF LEFT CALF 02/21/2020 AVRIL HERNANDEZ MD Ot L97.412 NON-PRS CHR ULCER OF RIGHT HEEL AND MIDF 02/21/2020 AVRIL HERNANDEZ MD Ot L97.422 NON-PRS CHR ULCER OF LEFT HEEL AND MIDFO 02/21/2020 AVRIL HERNANDEZ MD Ot Z68.42 BODY MASS INDEX (BMI) 45.0-49.9, ADULT 02/21/2020 Ot E11.42 TYP E 2 DIABETES MELLITUS WITH DIABETIC P 02/21/2020 Ot E11.621 TY PE 2 DIABETES MELLITUS WITH FOOT ULCER 02/21/2020 Ot E11.622 TY PE 2 DIABETES MELLITUS WITH OTHER SKIN 02/21/2020 Ot E66.01 MOR BID (SEVERE) OBESITY DUE TO EXCESS CA 02/21/2020 Ot I87.333 CH RONIC VENOUS HTN W ULCER AND INFLAM OF 02/21/2020 Ot I89.0 LYMP HEDEMA, NOT ELSEWHERE CLASSIFIED 02/21/2020 Ot L95.9 VASC ULITIS LIMITED TO THE SKIN, UNSPECIF 02/21/2020 Ot L97.212 NO N-PRESSURE CHRONIC ULCER OF RIGHT CALF 02/21/2020 Ot L97.222 NO N-PRESSURE CHRONIC ULCER OF LEFT CALF 02/21/2020 Ot L97.412 NO N-PRS CHR ULCER OF RIGHT HEEL AND MIDF 02/21/2020 Ot L97.422 NO N-PRS CHR ULCER OF LEFT HEEL AND MIDFO 02/21/2020 Ot Z68.42 BOD Y MASS INDEX (BMI) 45.0-49.9, ADULT 02/21/2020 Ot E11.42 TYP E 2 DIABETES MELLITUS WITH DIABETIC P 02/21/2020 Ot E11.621 TY PE 2 DIABETES MELLITUS WITH FOOT ULCER 02/21/2020 Ot E11.622 TY PE 2 DIABETES MELLITUS WITH OTHER SKIN 02/21/2020 Ot E66.01 MOR BID (SEVERE) OBESITY DUE TO EXCESS CA 02/21/2020 Ot I87.333 CH RONIC VENOUS HTN W ULCER AND INFLAM OF 02/21/2020 Ot I89.0 LYMP HEDEMA, NOT ELSEWHERE CLASSIFIED 02/21/2020 Ot L95.9 VASC ULITIS LIMITED TO THE SKIN, UNSPECIF 02/21/2020 Ot L97.212 NO N-PRESSURE CHRONIC ULCER OF RIGHT CALF 02/21/2020 Ot L97.222 NO N-PRESSURE CHRONIC ULCER OF LEFT CALF 02/21/2020 Ot L97.412 NO N-PRS CHR ULCER OF RIGHT HEEL AND MIDF 02/21/2020 Ot L97.422 NO N-PRS CHR ULCER OF LEFT HEEL AND MIDFO 02/21/2020 Ot Z68.43 BOD Y MASS INDEX (BMI) 50-59.9 , ADULT 02/21/2020 AVRIL HERNANDEZ MD Ot E11.42 TYPE 2 DIABETES MELLITUS WITH DIABETIC P 02/21/2020 AVRIL HERNANDEZ MD, Ot E11.621 TYPE 2 DIABETES MELLITUS WITH FOOT ULCER 02/21/2020 AVRIL HERNANDEZ MD, Ot E11.622 TYPE 2 DIABETES MELLITUS WITH OTHER SKIN 02/21/2020 AVRIL HERNANDEZ MD, Ot E66.01 MORBID (SEVERE) OBESITY DUE TO EXCESS CA 02/21/2020 AVRIL HERNANDEZ MD Ot I87.333 CHRONIC VENOUS HTN W ULCER AND INFLAM OF 02/21/2020 AVRIL HERNANDEZ MD, Ot I89 .0 LYMPHEDEMA, NOT ELSEWHERE CLASSIFIED 02/21/2020 AVRIL HERNANDEZ MD, Ot L95 .9 VASCULITIS LIMITED TO THE SKIN, UNSPECIF 02/21/2020 AVRIL HERNANDEZ MD Ot L97.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 ULCER OF RIGHT CALF 02/21/2020 AVRIL HERNANDEZ MD Ot L97.222 NON-PRESSURE CHRONIC ULCER OF LEFT CALF 02/21/2020 AVRIL HERNANDEZ MD Ot L97.412 NON-PRS CHR ULCER OF RIGHT HEEL AND MIDF 02/21/2020 AVRIL HERNANDEZ MD Ot L97.422 NON-PRS CHR ULCER OF LEFT HEEL AND MIDFO 02/21/2020 AVRIL HERNANDEZ MD Ot Z68.43 BODY MASS INDEX (BMI) 50-59.9 , ADULT 02/21/2020 AVRIL HERNANDEZ MD Ot E11.42 TYPE 2 DIABETES MELLITUS WITH DIABETIC P 02/21/2020 AVRIL HERNANDEZ MD Ot E11.621 TYPE 2 DIABETES MELLITUS WITH FOOT ULCER 02/21/2020 AVRIL HERNANDEZ MD Ot E11.622 TYPE 2 DIABETES MELLITUS WITH OTHER SKIN 02/21/2020 AVRIL HERNANDEZ MD, Ot E66.01 MORBID (SEVERE) OBESITY DUE TO EXCESS CA 02/21/2020 AVRIL HERNANDEZ MD Ot I87.333 CHRONIC VENOUS HTN W ULCER AND INFLAM OF 02/21/2020 AVRIL HERNANDEZ MD, Ot I89 .0 LYMPHEDEMA, NOT ELSEWHERE CLASSIFIED 02/21/2020 AVRIL HERNANDEZ MD, Ot L95 .9 VASCULITIS LIMITED TO THE SKIN, UNSPECIF 02/21/2020 AVRIL HERNANDEZ MD, Ot L97.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 ULCER OF RIGHT CALF 02/21/2020 AVRIL HERNANDEZ MD, Ot L97.412 NON-PRS CHR ULCER OF RIGHT HEEL AND MIDF 02/21/2020 AVRIL HERNANDEZ MD, Ot L97.421 NON-PRS CHR ULCER OF LEFT HEEL AND MIDFT 02/21/2020 AVRIL HERNANDEZ MD, Ot Z68.43 BODY MASS INDEX (BMI) 50-59.9 , ADULT 02/21/2020 AVRIL HERNANDEZ MD Ot E11.42 TYPE 2 DIABETES MELLITUS WITH DIABETIC P 02/21/2020 AVRIL HERNANDEZ MD Ot E11.621 TYPE 2 DIABETES MELLITUS WITH FOOT ULCER 02/21/2020 AVRIL HENRANDEZ MD, Ot E11.622 TYPE 2 DIABETES MELLITUS WITH OTHER SKIN 02/21/2020 AVRIL HERNANDEZ MD, Ot E66.01 MORBID (SEVERE) OBESITY DUE TO EXCESS CA 02/21/2020 AVRIL HERNANDEZ MD Ot I87.331 CHRONIC VENOUS HTN W ULCER AND INFLAMMAT 02/21/2020 AVRIL HERNANDEZ MD, Ot I89 .0 LYMPHEDEMA, NOT ELSEWHERE CLASSIFIED 02/21/2020 AVRIL HERNANDEZ MD, Ot L95 .9 VASCULITIS LIMITED TO THE SKIN, UNSPECIF 02/21/2020 AVRIL HERNANDEZ MD Ot L97.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 ULCER OF RIGHT CALF 02/21/2020 AVRIL HERNANDEZ MD, Ot L97.412 NON-PRS CHR ULCER OF RIGHT HEEL AND MIDF 02/21/2020 AVRIL HERNANDEZ MD, Ot L97.421 NON-PRS CHR ULCER OF LEFT HEEL AND MIDFT 02/21/2020 AVRIL HERNANDEZ MD Ot E11.42 TYPE 2 DIABETES MELLITUS WITH DIABETIC P 02/21/2020 AVRIL HERNANDEZ MD Ot E11.621 TYPE 2 DIABETES MELLITUS WITH FOOT ULCER 02/21/2020 AVRIL HERNANDEZ MD Ot E11.622 TYPE 2 DIABETES MELLITUS WITH OTHER SKIN 02/21/2020 AVRIL HERNANDEZ MD Ot E66.01 MORBID (SEVERE) OBESITY DUE TO EXCESS CA 02/21/2020 AVRIL HERNANDEZ MD Ot I89 .0 LYMPHEDEMA, NOT ELSEWHERE CLASSIFIED 02/21/2020 AVRIL HERNANDEZ MD, Ot L95 .9 VASCULITIS LIMITED TO THE SKIN, UNSPECIF 02/21/2020 AVRIL HERNANDEZ MD Ot L97.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 ULCER OF RIGHT CALF 02/21/2020 AVRIL HERNANDEZ MD Ot L97.412 NON-PRS CHR ULCER OF RIGHT HEEL AND MIDF 02/21/2020 AVRIL HERNANDEZ MD, Ot Z68.43 BODY MASS INDEX (BMI) 50-59.9 , ADULT 02/21/2020 AVRIL HERNANDEZ MD, Ot E11.42 TYPE 2 DIABETES MELLITUS WITH DIABETIC P 02/21/2020 AVRIL HERNANDEZ MD, Ot E11.621 TYPE 2 DIABETES MELLITUS WITH FOOT ULCER 02/21/2020 AVRIL HERNANDEZ MD, Ot E11.622 TYPE 2 DIABETES MELLITUS WITH OTHER SKIN 02/21/2020 AVRIL HERNANDEZ MD Ot E66.01 MORBID (SEVERE) OBESITY DUE TO EXCESS CA 02/21/2020 AVRIL HERNANDEZ MD Ot I89 .0 LYMPHEDEMA, NOT ELSEWHERE CLASSIFIED 02/21/2020 AVRIL HERNANDEZ MD, Ot L95 .9 VASCULITIS LIMITED TO THE SKIN, UNSPECIF 02/21/2020 AVRIL HERNANDEZ MD Ot L97.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 ULCER OF RIGHT CALF 02/21/2020 AVRIL HERNANDEZ MD Ot L97.412 NON-PRS CHR ULCER OF RIGHT HEEL AND MIDF 02/21/2020 AVRIL HERNANDEZ MD, Ot Z68.43 BODY MASS INDEX (BMI) 50-59.9, ADULT 02/21/2020 VAISHNAVI MORTON MD Ot M31.0 HYPERSENSITIVITY ANGIITIS 02/21/2020 VAISHNAVI MORTON MD Ot Z79.8 99 OTHER HALF-WAY (CURRENT) DRUG THERAPY 02/21/2020 VERN BENITEZ Ot M17.12 UNILATERAL PRIMARY OSTEOARTHRITIS, LEFT 02/21/2020 VERN BENITEZ Ot M17.11 UNILATERAL PRIMARY OSTEOARTHRITIS, RIGHT 02/21/2020 AVRIL HERNANDEZ MD Ot E11.42 TYPE 2 DIABETES MELLITUS WITH DIABETIC P 02/21/2020 MARY MD, AVRIL G Ot E11.621 TYPE 2 DIABETES MELLITUS WITH FOOT ULCER 02/21/2020 AVRIL HERNANDEZ MD Ot L95 .8 OTHER VASCULITIS LIMITED TO THE SKIN 02/21/2020 AVRIL HERNANDEZ MD, Ot L97.412 NON-PRS CHR ULCER OF RIGHT HEEL AND MIDF 02/21/2020 AVRIL HERNANDEZ MD Ot E11.42 TYPE 2 DIABETES MELLITUS WITH DIABETIC P 02/21/2020 AVRIL HERNANDEZ MD Ot E11.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 02/21/2020 AVRIL HERNANDEZ MD, Ot E11.621 TYPE 2 DIABETES MELLITUS WITH FOOT ULCER 02/21/2020 AVRIL HERNANDEZ MD Ot I87.331 CHRONIC VENOUS HTN W ULCER AND INFLAMMAT 02/21/2020 AVRIL HERNANDEZ MD, Ot L95 .8 OTHER VASCULITIS LIMITED TO THE SKIN 02/21/2020 AVRIL HERNANDEZ MD, Ot L97.412 NON-PRS CHR ULCER OF RIGHT HEEL AND MIDF 02/21/2020 AVRIL HERNANDEZ MD Ot E11.42 TYPE 2 DIABETES MELLITUS WITH DIABETIC P 02/21/2020 AVRIL HERNANDEZ MD Ot E11.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 02/21/2020 AVRIL HERNANDEZ MD Ot E11.621 TYPE 2 DIABETES MELLITUS WITH FOOT ULCER 02/21/2020 AVRIL HERNANDEZ MD Ot I87.331 CHRONIC VENOUS HTN W ULCER AND INFLAMMAT 02/21/2020 AVRIL HERNANDEZ MD Ot L95 .8 OTHER VASCULITIS LIMITED TO THE SKIN 02/21/2020 AVRIL HERNANDEZ MD Ot L97.412 NON-PRS CHR ULCER OF RIGHT HEEL AND MIDF 02/21/2020 AVRIL HERNANDEZ MD Ot E11.42 TYPE 2 DIABETES MELLITUS WITH DIABETIC P 02/21/2020 AVRIL HERNANDEZ MD Ot E11.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 02/21/2020 AVRIL HERNANDEZ MD Ot E11.621 TYPE 2 DIABETES MELLITUS WITH FOOT ULCER 02/21/2020 AVRIL HERNANDEZ MD Ot I87.331 CHRONIC VENOUS HTN W ULCER AND INFLAMMAT 02/21/2020 AVRIL HERNANDEZ MD Ot I96 GANGRENE, NOT ELSEWHERE CLASSIFIED 02/21/2020 AVRIL HERNANDEZ MD Ot L95 .8 OTHER VASCULITIS LIMITED TO THE SKIN 02/21/2020 AVRIL HERNANDEZ MD Ot L97.412 NON-PRS CHR ULCER OF RIGHT HEEL AND MIDF 02/21/2020 AVRIL HERNANDEZ MD Ot E11.42 TYPE 2 DIABETES MELLITUS WITH DIABETIC P 02/21/2020 AVRIL HERNANDEZ MD Ot E11.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 02/21/2020 AVRIL HERNANDEZ MD, Ot E11.621 TYPE 2 DIABETES MELLITUS WITH FOOT ULCER 02/21/2020 AVRIL HERNANDEZ MD Ot I87.331 CHRONIC VENOUS HTN W ULCER AND INFLAMMAT 02/21/2020 AVRIL HERNANDEZ MD Ot L97.412 NON-PRS CHR ULCER OF RIGHT HEEL AND MIDF 02/21/2020 AVRIL HERNANDEZ MD Ot E11.42 TYPE 2 DIABETES MELLITUS WITH DIABETIC P 02/21/2020 AVRIL HERNANDEZ MD Ot E11.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 02/21/2020 AVRIL HERNANDEZ MD, Ot E11.621 TYPE 2 DIABETES MELLITUS WITH FOOT ULCER 02/21/2020 AVRIL HERNANDEZ MD Ot I87.331 CHRONIC VENOUS HTN W ULCER AND INFLAMMAT 02/21/2020 AVRIL HERNANDEZ MD Ot L97.412 NON-PRS CHR ULCER OF RIGHT HEEL AND MIDF 02/21/2020 AVRIL HERNANDEZ MD Ot E11.42 TYPE 2 DIABETES MELLITUS WITH DIABETIC P 02/21/2020 AVRIL HERNANDEZ MD Ot E11.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 02/21/2020 AVRIL HERNANDEZ MD Ot E11.621 TYPE 2 DIABETES MELLITUS WITH FOOT ULCER 02/21/2020 AVRIL HERNANDEZ MD Ot I87.331 CHRONIC VENOUS HTN W ULCER AND INFLAMMAT 02/21/2020 AVRIL HERNANDEZ MD Ot L97.412 NON-PRS CHR ULCER OF RIGHT HEEL AND MIDF 02/21/2020 AVRIL HERNANDEZ MD Ot E11.42 TYPE 2 DIABETES MELLITUS WITH DIABETIC P 02/21/2020 AVRIL HERNANDEZ MD Ot E11.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 02/21/2020 AVRIL HERNANDEZ MD Ot E11.621 TYPE 2 DIABETES MELLITUS WITH FOOT ULCER 02/21/2020 AVRIL HERNANDEZ MD Ot I87.331 CHRONIC VENOUS HTN W ULCER AND INFLAMMAT 02/21/2020 AVRIL HERNANDEZ MD Ot L97.412 NON-PRS CHR ULCER OF RIGHT HEEL AND MIDF 02/21/2020 AVRIL HERNANDEZ MD Ot E11.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 02/21/2020 AVRIL HERNANDEZ MD Ot E11.621 TYPE 2 DIABETES MELLITUS WITH FOOT ULCER 02/21/2020 AVRIL HERNANDEZ MD Ot I87.331 CHRONIC VENOUS HTN W ULCER AND INFLAMMAT 02/21/2020 AVRIL HERNANDEZ MD Ot L97.412 NON-PRS CHR ULCER OF RIGHT HEEL AND MIDF 02/21/2020 AVRIL HERNANDEZ MD Ot E11.42 TYPE 2 DIABETES MELLITUS WITH DIABETIC P 02/21/2020 VARIL HERNANDEZ MD Ot E11.621 TYPE 2 DIABETES MELLITUS WITH FOOT ULCER 02/21/2020 AVRIL HERNANDEZ MD Ot I87.331 CHRONIC VENOUS HTN W ULCER AND INFLAMMAT 02/21/2020 AVRIL HERNANDEZ MD Ot L97.412 NON-PRS CHR ULCER OF RIGHT HEEL AND MIDF 02/21/2020 AVRIL HERNANDEZ MD Ot E11.42 TYPE 2 DIABETES MELLITUS WITH DIABETIC P 02/21/2020 AVRIL HERNANDEZ MD Ot E11.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 02/21/2020 AVRIL HERNANDEZ MD Ot E11.621 TYPE 2 DIABETES MELLITUS WITH FOOT ULCER 02/21/2020 AVRIL HERNANDEZ MD Ot I87.331 CHRONIC VENOUS HTN W ULCER AND INFLAMMAT 02/21/2020 AVRIL HERNANDEZ MD Ot I96 GANGRENE, NOT ELSEWHERE CLASSIFIED 02/21/2020 AVRIL HERNANDEZ MD Ot L97.412 NON-PRS CHR ULCER OF RIGHT HEEL AND MIDF 02/21/2020 AVRIL HERNANDEZ MD Ot E11.42 TYPE 2 DIABETES MELLITUS WITH DIABETIC P 02/21/2020 AVRIL HERNANDEZ MD Ot E11.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 02/21/2020 AVRIL HERNANDEZ MD Ot E11.621 TYPE 2 DIABETES MELLITUS WITH FOOT ULCER 02/21/2020 AVRIL HERNANDEZ MD Ot I87.331 CHRONIC VENOUS HTN W ULCER AND INFLAMMAT 02/21/2020 AVRIL HERNANDEZ MD Ot L97.412 NON-PRS CHR ULCER OF RIGHT HEEL AND MIDF 02/21/2020 AVRIL HERNANDEZ MD Ot E11.42 TYPE 2 DIABETES MELLITUS WITH DIABETIC P 02/21/2020 AVRIL HERNANDEZ MD Ot E11.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 02/21/2020 AVRIL HERNANDEZ MD Ot E11.621 TYPE 2 DIABETES MELLITUS WITH FOOT ULCER 02/21/2020 AVRIL HERNANDEZ MD Ot I87.331 CHRONIC VENOUS HTN W ULCER AND INFLAMMAT 02/21/2020 AVRIL HERNANDEZ MD Ot L97.412 NON-PRS CHR ULCER OF RIGHT HEEL AND MIDF 02/21/2020 AVRIL HERNANDEZ MD Ot E11.42 TYPE 2 DIABETES MELLITUS WITH DIABETIC P 02/21/2020 AVRIL HERNANDEZ MD Ot E11.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 02/21/2020 AVRIL HERNANDEZ MD, Ot E11.621 TYPE 2 DIABETES MELLITUS WITH FOOT ULCER 02/21/2020 AVRIL HERNANDEZ MD Ot I87.331 CHRONIC VENOUS HTN W ULCER AND INFLAMMAT 02/21/2020 AVRIL HERNANDEZ MD Ot I96 GANGRENE, NOT ELSEWHERE CLASSIFIED 02/21/2020 AVRIL HERNANDEZ MD, Ot L97.412 NON-PRS CHR ULCER OF RIGHT HEEL AND MIDF 02/21/2020 AVRIL HERNANDEZ MD, Ot E11.42 TYPE 2 DIABETES MELLITUS WITH DIABETIC P 02/21/2020 AVRIL HERNANDEZ MD, Ot E11.621 TYPE 2 DIABETES MELLITUS WITH FOOT ULCER 02/21/2020 AVRIL HERNANDEZ MD Ot I87.331 CHRONIC VENOUS HTN W ULCER AND INFLAMMAT 02/21/2020 AVRIL HERNANDEZ MD Ot L97.412 NON-PRS CHR ULCER OF RIGHT HEEL AND MIDF 02/21/2020 AVRIL HERNANDEZ MD, Ot E11.42 TYPE 2 DIABETES MELLITUS WITH DIABETIC P 02/21/2020 AVRIL HERNANDEZ MD, Ot E11.621 TYPE 2 DIABETES MELLITUS WITH FOOT ULCER 02/21/2020 AVRIL HERNANDEZ MD Ot I87.331 CHRONIC VENOUS HTN W ULCER AND INFLAMMAT 02/21/2020 AVRIL HERNANDEZ MD Ot L97.412 NON-PRS CHR ULCER OF RIGHT HEEL AND MIDF 02/21/2020 ALICIA BENOIT MD, Ot E11.42 TYPE 2 DIABETES MELLITUS WITH DIABETIC P 02/21/2020 ALICIA BENOIT MD, Ot E11.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 02/21/2020 ALICIA BENOIT MD, Ot E11.621 TYPE 2 DIABETES MELLITUS WITH FOOT ULCER 02/21/2020 ALICIA BENOIT MD, Ot I87.331 CHRONIC VENOUS HTN W ULCER AND INFLAMMAT 02/21/2020 ALICIA BENOIT MD, Ot L97.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 02/21/2020 ALICIA BENOIT MD, Ot E11.42 TYPE 2 DIABETES MELLITUS WITH DIABETIC P 02/21/2020 ALICIA BENOIT MD, Ot E11.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 02/21/2020 ALICIA BENOIT MD, Ot E11.621 TYPE 2 DIABETES MELLITUS WITH FOOT ULCER 02/21/2020 ALICIA BENOIT MD, Ot I87.331 CHRONIC VENOUS HTN W ULCER AND INFLAMMAT 02/21/2020 ALICIA BENOIT MD, Ot L97.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 02/21/2020 ALICIA BENOIT MD, Ot E11.42 TYPE 2 DIABETES MELLITUS WITH DIABETIC P 02/21/2020 ALICIA BENOIT MD, Ot E11.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 02/21/2020 ALICIA BENOIT MD, Ot E11.621 TYPE 2 DIABETES MELLITUS WITH FOOT ULCER 02/21/2020 ALICIA BENOIT MD, Ot I87.331 CHRONIC VENOUS HTN W ULCER AND INFLAMMAT 02/21/2020 ALICIA BENOIT MD, Ot I96 GANGRENE, NOT ELSEWHERE CLASSIFIED 02/21/2020 ALICIA BENOIT MD, Ot L97.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 02/21/2020 ALICIA BENOIT MD, Ot E11.42 TYPE 2 DIABETES MELLITUS WITH DIABETIC P 02/21/2020 ALICIA BENOIT MD, Ot E11.621 TYPE 2 DIABETES MELLITUS WITH FOOT ULCER 02/21/2020 ALICIA BENOIT MD, Ot I87.331 CHRONIC VENOUS HTN W ULCER AND INFLAMMAT 02/21/2020 ALICIA BENOIT MD, Ot L97.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 02/21/2020 ALICIA BENOIT MD, Ot E11.42 TYPE 2 DIABETES MELLITUS WITH DIABETIC P 02/21/2020 ALICIA BENOIT MD, Ot E11.621 TYPE 2 DIABETES MELLITUS WITH FOOT ULCER 02/21/2020 ALICIA BENOIT MD, Ot I87.331 CHRONIC VENOUS HTN W ULCER AND INFLAMMAT 02/21/2020 ALICIA BENOIT MD, Ot L97.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 02/21/2020 ALICIA BENOIT MD, Ot 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 02/21/2020 ALICIA BENOIT MD, Ot E11.42 TYPE 2 DIABETES MELLITUS WITH DIABETIC P 02/21/2020 ALICIA BENOIT MD, Ot E66.01 MORBID (SEVERE) OBESITY DUE TO EXCESS CA 02/21/2020 LO MD, KIRTIE Ot I87.331 CHRONIC VENOUS HTN W ULCER AND INFLAMMAT 02/21/2020 ALICIA BEONIT MD Ot S90.424A BLISTER (NONTHERMAL), RIGHT LESSER TOE(S 02/21/2020 AVRIL HERNANDEZ MD Ot E11.42 TYPE 2 DIABETES MELLITUS WITH DIABETIC P 02/21/2020 AVRIL HERNANDEZ MD, Ot E66.01 MORBID (SEVERE) OBESITY DUE TO EXCESS CA 02/21/2020 AVRIL HERNANDEZ MD, Ot I87.332 CHRONIC VENOUS HTN W ULCER AND INFLAMMAT 02/21/2020 AVRIL HERNANDEZ MD, Ot I89 .0 LYMPHEDEMA, NOT ELSEWHERE CLASSIFIED 02/21/2020 AVRIL HERNANDEZ MD, Ot L95 .9 VASCULITIS LIMITED TO THE SKIN, UNSPECIF 02/21/2020 AVRIL HERNANDEZ MD, Ot L97.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 ULCER OF RIGHT CALF 02/21/2020 AVRIL HERNANDEZ MD, Ot L97.222 NON-PRESSURE CHRONIC ULCER OF LEFT CALF 02/21/2020 AVRIL HERNANDEZ MD Ot L97.422 NON-PRS CHR ULCER OF LEFT HEEL AND MIDFO 02/21/2020 AVRIL HERNANDEZ MD Ot Z68.43 BODY MASS INDEX (BMI) 50-59.9 , ADULT 02/21/2020 AVRIL HERNANDEZ MD Ot E11.42 TYPE 2 DIABETES MELLITUS WITH DIABETIC P 02/21/2020 AVRIL HERNANDEZ MD Ot E66.01 MORBID (SEVERE) OBESITY DUE TO EXCESS CA 02/21/2020 AVRIL HERNANDEZ MD Ot I87.332 CHRONIC VENOUS HTN W ULCER AND INFLAMMAT 02/21/2020 AVRIL HERNANDEZ MD, Ot I89 .0 LYMPHEDEMA, NOT ELSEWHERE CLASSIFIED 02/21/2020 AVRIL HERNANDEZ MD, Ot L95 .9 VASCULITIS LIMITED TO THE SKIN, UNSPECIF 02/21/2020 AVRIL HERNANDEZ MD Ot L97.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 ULCER OF RIGHT CALF 02/21/2020 AVRIL HERNANDEZ MD Ot L97.222 NON-PRESSURE CHRONIC ULCER OF LEFT CALF 02/21/2020 AVRIL HERNANDEZ MD Ot L97.422 NON-PRS CHR ULCER OF LEFT HEEL AND MIDFO 02/21/2020 AVRIL HERNANDEZ MD Ot Z68.43 BODY MASS INDEX (BMI) 50-59.9 , ADULT 02/21/2020 AVRIL HERNANDEZ MD Ot E11.42 TYPE 2 DIABETES MELLITUS WITH DIABETIC P 02/21/2020 AVRIL HERNANDEZ MD Ot E66.01 MORBID (SEVERE) OBESITY DUE TO EXCESS CA 02/21/2020 AVRIL HERNANDEZ MD Ot I87.332 CHRONIC VENOUS HTN W ULCER AND INFLAMMAT 02/21/2020 AVRIL HERNANDEZ MD, Ot I89 .0 LYMPHEDEMA, NOT ELSEWHERE CLASSIFIED 02/21/2020 AVRIL HERNANDEZ MD Ot L95 .9 VASCULITIS LIMITED TO THE SKIN, UNSPECIF 02/21/2020 AVRIL HERNANDEZ MD, Ot L97.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 ULCER OF RIGHT CALF 02/21/2020 AVRIL HERNANDEZ MD Ot L97.222 NON-PRESSURE CHRONIC ULCER OF LEFT CALF 02/21/2020 AVRIL HERNANDEZ MD, Ot L97.422 NON-PRS CHR ULCER OF LEFT HEEL AND MIDFO 02/21/2020 AVRIL HERNANDEZ MD, Ot R21 RASH AND OTHER NONSPECIFIC SKIN ERUPTION 02/21/2020 AVRIL HERNANDEZ MD, Ot Z68.42 BODY MASS INDEX (BMI) 45.0-49.9, ADULT 02/21/2020 AVRIL HERNANDEZ MD Ot E11.42 TYPE 2 DIABETES MELLITUS WITH DIABETIC P 02/21/2020 AVRIL HERNANDEZ MD Ot E11.621 TYPE 2 DIABETES MELLITUS WITH FOOT ULCER 02/21/2020 AVRIL HERNANDEZ MD, Ot E11.622 TYPE 2 DIABETES MELLITUS WITH OTHER SKIN 02/21/2020 AVRIL HERNANDEZ MD Ot E66.01 MORBID (SEVERE) OBESITY DUE TO EXCESS CA 02/21/2020 AVRIL HERNANDEZ MD, Ot I89 .0 LYMPHEDEMA, NOT ELSEWHERE CLASSIFIED 02/21/2020 AVRIL HERNANDEZ MD Ot L95 .9 VASCULITIS LIMITED TO THE SKIN, UNSPECIF 02/21/2020 AVRIL HERNANDEZ MD Ot L97.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 ULCER OF RIGHT CALF 02/21/2020 AVRIL HERNANDEZ MD Ot L97.222 NON-PRESSURE CHRONIC ULCER OF LEFT CALF 02/21/2020 AVRIL HERNANDEZ MD, Ot L97.412 NON-PRS CHR ULCER OF RIGHT HEEL AND MIDF 02/21/2020 AVRIL HERNANDEZ MD Ot L97.422 NON-PRS CHR ULCER OF LEFT HEEL AND MIDFO 02/21/2020 AVRIL HERNANDEZ MD Ot Z68.42 BODY MASS INDEX (BMI) 45.0-49.9, ADULT 02/21/2020 Ot E11.42 TYP E 2 DIABETES MELLITUS WITH DIABETIC P 02/21/2020 Ot E11.621 TY PE 2 DIABETES MELLITUS WITH FOOT ULCER 02/21/2020 Ot E11.622 TY PE 2 DIABETES MELLITUS WITH OTHER SKIN 02/21/2020 Ot E66.01 MOR BID (SEVERE) OBESITY DUE TO EXCESS CA 02/21/2020 Ot I87.333 CH RONIC VENOUS HTN W ULCER AND INFLAM OF 02/21/2020 Ot I89.0 LYMP HEDEMA, NOT ELSEWHERE CLASSIFIED 02/21/2020 Ot L95.9 VASC ULITIS LIMITED TO THE SKIN, UNSPECIF 02/21/2020 Ot L97.212 NO N-PRESSURE CHRONIC ULCER OF RIGHT CALF 02/21/2020 Ot L97.222 NO N-PRESSURE CHRONIC ULCER OF LEFT CALF 02/21/2020 Ot L97.412 NO N-PRS CHR ULCER OF RIGHT HEEL AND MIDF 02/21/2020 Ot L97.422 NO N-PRS CHR ULCER OF LEFT HEEL AND MIDFO 02/21/2020 Ot Z68.42 BOD Y MASS INDEX (BMI) 45.0-49.9, ADULT 02/21/2020 Ot E11.42 TYP E 2 DIABETES MELLITUS WITH DIABETIC P 02/21/2020 Ot E11.621 TY PE 2 DIABETES MELLITUS WITH FOOT ULCER 02/21/2020 Ot E11.622 TY PE 2 DIABETES MELLITUS WITH OTHER SKIN 02/21/2020 Ot E66.01 MOR BID (SEVERE) OBESITY DUE TO EXCESS CA 02/21/2020 Ot I87.333 CH RONIC VENOUS HTN W ULCER AND INFLAM OF 02/21/2020 Ot I89.0 LYMP HEDEMA, NOT ELSEWHERE CLASSIFIED 02/21/2020 Ot L95.9 VASC ULITIS LIMITED TO THE SKIN, UNSPECIF 02/21/2020 Ot L97.212 NO N-PRESSURE CHRONIC ULCER OF RIGHT CALF 02/21/2020 Ot L97.222 NO N-PRESSURE CHRONIC ULCER OF LEFT CALF 02/21/2020 Ot L97.412 NO N-PRS CHR ULCER OF RIGHT HEEL AND MIDF 02/21/2020 Ot L97.422 NO N-PRS CHR ULCER OF LEFT HEEL AND MIDFO 02/21/2020 Ot Z68.43 BOD Y MASS INDEX (BMI) 50-59.9 , ADULT 02/21/2020 MARY WELCH, AVRIL Maher Ot E11.42 TYPE 2 DIABETES MELLITUS WITH DIABETIC P 02/21/2020 AVRIL HERNANDEZ MD Ot E11.621 TYPE 2 DIABETES MELLITUS WITH FOOT ULCER 02/21/2020 AVRIL HERNANDEZ MD, Ot E11.622 TYPE 2 DIABETES MELLITUS WITH OTHER SKIN 02/21/2020 AVRIL HERNANDEZ MD Ot E66.01 MORBID (SEVERE) OBESITY DUE TO EXCESS CA 02/21/2020 AVRIL HERNANDEZ MD Ot I87.333 CHRONIC VENOUS HTN W ULCER AND INFLAM OF 02/21/2020 AVRIL HERNANDEZ MD Ot I89 .0 LYMPHEDEMA, NOT ELSEWHERE CLASSIFIED 02/21/2020 AVRIL HERNANDEZ MD, Ot L95 .9 VASCULITIS LIMITED TO THE SKIN, UNSPECIF 02/21/2020 AVRIL HERNANDEZ MD, Ot L97.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 ULCER OF RIGHT CALF 02/21/2020 AVRIL HERNANDEZ MD, Ot L97.222 NON-PRESSURE CHRONIC ULCER OF LEFT CALF 02/21/2020 AVRIL HERNANDEZ MD, Ot L97.412 NON-PRS CHR ULCER OF RIGHT HEEL AND MIDF 02/21/2020 AVRIL HERNANDEZ MD Ot L97.422 NON-PRS CHR ULCER OF LEFT HEEL AND MIDFO 02/21/2020 AVRIL HERNANDEZ MD Ot Z68.43 BODY MASS INDEX (BMI) 50-59.9 , ADULT 02/21/2020 AVRIL HERNANDEZ MD Ot E11.42 TYPE 2 DIABETES MELLITUS WITH DIABETIC P 02/21/2020 AVRIL HERNANDEZ MD, Ot E11.621 TYPE 2 DIABETES MELLITUS WITH FOOT ULCER 02/21/2020 AVRIL HERNANDEZ MD, Ot E11.622 TYPE 2 DIABETES MELLITUS WITH OTHER SKIN 02/21/2020 AVRIL HERNANDEZ MD Ot E66.01 MORBID (SEVERE) OBESITY DUE TO EXCESS CA 02/21/2020 AVRIL HERNANDEZ MD Ot I87.333 CHRONIC VENOUS HTN W ULCER AND INFLAM OF 02/21/2020 AVRIL HERNANDEZ MD, Ot I89 .0 LYMPHEDEMA, NOT ELSEWHERE CLASSIFIED 02/21/2020 AVRIL HERNANDEZ MD, Ot L95 .9 VASCULITIS LIMITED TO THE SKIN, UNSPECIF 02/21/2020 AVRIL HERNANDEZ MD Ot L97.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 ULCER OF RIGHT CALF 02/21/2020 AVRIL HERNANDEZ MD Ot L97.412 NON-PRS CHR ULCER OF RIGHT HEEL AND MIDF 02/21/2020 AVRIL HERNANDEZ MD Ot L97.421 NON-PRS CHR ULCER OF LEFT HEEL AND MIDFT 02/21/2020 AVRIL HERNANDEZ MD, Ot Z68.43 BODY MASS INDEX (BMI) 50-59.9 , ADULT 02/21/2020 AVRIL HERNANDEZ MD, Ot E11.42 TYPE 2 DIABETES MELLITUS WITH DIABETIC P 02/21/2020 AVRIL HERNANDEZ MD, Ot E11.621 TYPE 2 DIABETES MELLITUS WITH FOOT ULCER 02/21/2020 AVRIL HERNANDEZ MD, Ot E11.622 TYPE 2 DIABETES MELLITUS WITH OTHER SKIN 02/21/2020 AVRIL HERNANDEZ MD, Ot E66.01 MORBID (SEVERE) OBESITY DUE TO EXCESS CA 02/21/2020 AVRIL HERNANDEZ MD Ot I87.331 CHRONIC VENOUS HTN W ULCER AND INFLAMMAT 02/21/2020 AVRIL HERNANDEZ MD, Ot I89 .0 LYMPHEDEMA, NOT ELSEWHERE CLASSIFIED 02/21/2020 AVRIL HERNANDEZ MD, Ot L95 .9 VASCULITIS LIMITED TO THE SKIN, UNSPECIF 02/21/2020 AVRIL HERNANDEZ MD, Ot L97.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 ULCER OF RIGHT CALF 02/21/2020 AVRIL HERNANDEZ MD Ot L97.412 NON-PRS CHR ULCER OF RIGHT HEEL AND MIDF 02/21/2020 AVRIL HERNANDEZ MD Ot L97.421 NON-PRS CHR ULCER OF LEFT HEEL AND MIDFT 02/21/2020 AVRIL HERNANDEZ MD, Ot E11.42 TYPE 2 DIABETES MELLITUS WITH DIABETIC P 02/21/2020 AVRIL HERNANDEZ MD, Ot E11.621 TYPE 2 DIABETES MELLITUS WITH FOOT ULCER 02/21/2020 AVRIL HERNANDEZ MD, Ot E11.622 TYPE 2 DIABETES MELLITUS WITH OTHER SKIN 02/21/2020 AVRIL HERNANDEZ MD, Ot E66.01 MORBID (SEVERE) OBESITY DUE TO EXCESS CA 02/21/2020 AVRIL HERNANDEZ MD, Ot I89 .0 LYMPHEDEMA, NOT ELSEWHERE CLASSIFIED 02/21/2020 AVRIL HERNANDEZ MD, Ot L95 .9 VASCULITIS LIMITED TO THE SKIN, UNSPECIF 02/21/2020 AVRIL HERNANDEZ MD Ot L97.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 ULCER OF RIGHT CALF 02/21/2020 AVRIL HERNANDEZ MD Ot L97.412 NON-PRS CHR ULCER OF RIGHT HEEL AND MIDF 02/21/2020 AVRIL HERNANDEZ MD, Ot Z68.43 BODY MASS INDEX (BMI) 50-59.9 , ADULT 02/21/2020 AVRIL HERNANDEZ MD Ot E11.42 TYPE 2 DIABETES MELLITUS WITH DIABETIC P 02/21/2020 ARVIL HERNANDEZ MD, Ot E11.621 TYPE 2 DIABETES MELLITUS WITH FOOT ULCER 02/21/2020 AVRIL HERNANDEZ MD, Ot E11.622 TYPE 2 DIABETES MELLITUS WITH OTHER SKIN 02/21/2020 AVRIL HERNANDEZ MD Ot E66.01 MORBID (SEVERE) OBESITY DUE TO EXCESS CA 02/21/2020 AVRIL HERNANDEZ MD, Ot I89 .0 LYMPHEDEMA, NOT ELSEWHERE CLASSIFIED 02/21/2020 AVRIL HERNANDEZ MD, Ot L95 .9 VASCULITIS LIMITED TO THE SKIN, UNSPECIF 02/21/2020 AVRIL HERNANDEZ MD, Ot L97.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 ULCER OF RIGHT CALF 02/21/2020 AVRIL HERNANDEZ MD, Ot L97.412 NON-PRS CHR ULCER OF RIGHT HEEL AND MIDF 02/21/2020 AVRIL HERNANDEZ MD Ot Z68.43 BODY MASS INDEX (BMI) 50-59.9, ADULT 02/21/2020 VAISHNAVI MORTON MD Ot M31.0 HYPERSENSITIVITY ANGIITIS 02/21/2020 VAISHNAVI MORTON MD Ot Z79.8 99 OTHER PA[employer] (CURRENT) DRUG THERAPY 02/21/2020 VERN BENITEZ Ot M17.12 UNILATERAL PRIMARY OSTEOARTHRITIS, LEFT 02/21/2020 VERN BENITEZ Ot M17.11 UNILATERAL PRIMARY OSTEOARTHRITIS, RIGHT 02/21/2020 AVRIL HERNANDEZ MD Ot E11.42 TYPE 2 DIABETES MELLITUS WITH DIABETIC P 02/21/2020 AVRIL HERNANDEZ MD, Ot E11.621 TYPE 2 DIABETES MELLITUS WITH FOOT ULCER 02/21/2020 AVRIL HERNANDEZ MD Ot L95 .8 OTHER VASCULITIS LIMITED TO THE SKIN 02/21/2020 AVRIL HERNANDEZ MD, Ot L97.412 NON-PRS CHR ULCER OF RIGHT HEEL AND MIDF 02/21/2020 AVRIL HERNANDEZ MD Ot E11.42 TYPE 2 DIABETES MELLITUS WITH DIABETIC P 02/21/2020 AVRIL HERNANDEZ MD Ot E11.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 02/21/2020 AVRIL HERNANDEZ MD, Ot E11.621 TYPE 2 DIABETES MELLITUS WITH FOOT ULCER 02/21/2020 AVRIL HERNANDEZ MD Ot I87.331 CHRONIC VENOUS HTN W ULCER AND INFLAMMAT 02/21/2020 AVRIL HERNANDEZ MD Ot L95 .8 OTHER VASCULITIS LIMITED TO THE SKIN 02/21/2020 AVRIL HERNANDEZ MD Ot L97.412 NON-PRS CHR ULCER OF RIGHT HEEL AND MIDF 02/21/2020 AVRIL HERNANDEZ MD Ot E11.42 TYPE 2 DIABETES MELLITUS WITH DIABETIC P 02/21/2020 AVRIL HERNANDEZ MD Ot E11.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 02/21/2020 AVRIL HERNANDEZ MD, Ot E11.621 TYPE 2 DIABETES MELLITUS WITH FOOT ULCER 02/21/2020 AVRIL HERNANDEZ MD Ot I87.331 CHRONIC VENOUS HTN W ULCER AND INFLAMMAT 02/21/2020 AVRIL HERNANDEZ MD Ot L95 .8 OTHER VASCULITIS LIMITED TO THE SKIN 02/21/2020 AVRIL HERNANDEZ MD, Ot L97.412 NON-PRS CHR ULCER OF RIGHT HEEL AND MIDF 02/21/2020 AVRIL HERNANDEZ MD, Ot E11.42 TYPE 2 DIABETES MELLITUS WITH DIABETIC P 02/21/2020 AVRIL HERNANDEZ MD Ot E11.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 02/21/2020 AVRIL HERNANDEZ MD, Ot E11.621 TYPE 2 DIABETES MELLITUS WITH FOOT ULCER 02/21/2020 AVRIL HERNANDEZ MD Ot I87.331 CHRONIC VENOUS HTN W ULCER AND INFLAMMAT 02/21/2020 AVRIL HERNANDEZ MD Ot I96 GANGRENE, NOT ELSEWHERE CLASSIFIED 02/21/2020 AVRIL HERNANDEZ MD Ot L95 .8 OTHER VASCULITIS LIMITED TO THE SKIN 02/21/2020 AVRIL HERNANDEZ MD Ot L97.412 NON-PRS CHR ULCER OF RIGHT HEEL AND MIDF 02/21/2020 AVRIL HERNANDEZ MD Ot E11.42 TYPE 2 DIABETES MELLITUS WITH DIABETIC P 02/21/2020 AVRIL HERNANDEZ MD Ot E11.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 02/21/2020 AVRIL HERNANDEZ MD Ot E11.621 TYPE 2 DIABETES MELLITUS WITH FOOT ULCER 02/21/2020 AVRIL HERNANDEZ MD Ot I87.331 CHRONIC VENOUS HTN W ULCER AND INFLAMMAT 02/21/2020 AVRIL HERNANDEZ MD Ot L97.412 NON-PRS CHR ULCER OF RIGHT HEEL AND MIDF 02/21/2020 AVRIL HERNANDEZ MD Ot E11.42 TYPE 2 DIABETES MELLITUS WITH DIABETIC P 02/21/2020 AVRIL HERNANDEZ MD Ot E11.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 02/21/2020 AVRIL HERNANDEZ MD Ot E11.621 TYPE 2 DIABETES MELLITUS WITH FOOT ULCER 02/21/2020 AVRIL HERNANDEZ MD Ot I87.331 CHRONIC VENOUS HTN W ULCER AND INFLAMMAT 02/21/2020 AVRIL HERNANDEZ MD Ot L97.412 NON-PRS CHR ULCER OF RIGHT HEEL AND MIDF 02/21/2020 AVRIL HERNANDEZ MD Ot E11.42 TYPE 2 DIABETES MELLITUS WITH DIABETIC P 02/21/2020 AVRIL HERNANDEZ MD Ot E11.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 02/21/2020 AVRIL HERNANDEZ MD, Ot E11.621 TYPE 2 DIABETES MELLITUS WITH FOOT ULCER 02/21/2020 AVRIL HERNANDEZ MD Ot I87.331 CHRONIC VENOUS HTN W ULCER AND INFLAMMAT 02/21/2020 AVRIL HERNANDEZ MD Ot L97.412 NON-PRS CHR ULCER OF RIGHT HEEL AND MIDF 02/21/2020 AVRIL HERNANDEZ MD Ot E11.42 TYPE 2 DIABETES MELLITUS WITH DIABETIC P 02/21/2020 AVRIL HERNANDEZ MD Ot E11.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 02/21/2020 AVRIL HERNANDEZ MD Ot E11.621 TYPE 2 DIABETES MELLITUS WITH FOOT ULCER 02/21/2020 AVRIL HERNANDEZ MD Ot I87.331 CHRONIC VENOUS HTN W ULCER AND INFLAMMAT 02/21/2020 AVRIL HERNANDEZ MD Ot L97.412 NON-PRS CHR ULCER OF RIGHT HEEL AND MIDF 02/21/2020 AVRIL HERNANDEZ MD Ot E11.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 02/21/2020 AVRIL HERNANDEZ MD Ot E11.621 TYPE 2 DIABETES MELLITUS WITH FOOT ULCER 02/21/2020 AVRIL HERNANDEZ MD Ot I87.331 CHRONIC VENOUS HTN W ULCER AND INFLAMMAT 02/21/2020 AVRIL HERNANDEZ MD Ot L97.412 NON-PRS CHR ULCER OF RIGHT HEEL AND MIDF 02/21/2020 AVRIL HERNANDEZ MD Ot E11.42 TYPE 2 DIABETES MELLITUS WITH DIABETIC P 02/21/2020 AVRIL HERNANDEZ MD Ot E11.621 TYPE 2 DIABETES MELLITUS WITH FOOT ULCER 02/21/2020 AVRIL HERNANDEZ MD Ot I87.331 CHRONIC VENOUS HTN W ULCER AND INFLAMMAT 02/21/2020 AVRIL HERNANDEZ MD Ot L97.412 NON-PRS CHR ULCER OF RIGHT HEEL AND MIDF 02/21/2020 AVRIL HERNANDEZ MD Ot E11.42 TYPE 2 DIABETES MELLITUS WITH DIABETIC P 02/21/2020 AVRIL HERNANDEZ MD Ot E11.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 02/21/2020 AVRIL HERNANDEZ MD Ot E11.621 TYPE 2 DIABETES MELLITUS WITH FOOT ULCER 02/21/2020 AVRIL HERNANDEZ MD Ot I87.331 CHRONIC VENOUS HTN W ULCER AND INFLAMMAT 02/21/2020 AVRIL HERNANDEZ MD Ot I96 GANGRENE, NOT ELSEWHERE CLASSIFIED 02/21/2020 AVRIL HERNANDEZ MD Ot L97.412 NON-PRS CHR ULCER OF RIGHT HEEL AND MIDF 02/21/2020 AVRIL HERNANDEZ MD Ot E11.42 TYPE 2 DIABETES MELLITUS WITH DIABETIC P 02/21/2020 AVRIL HERNANDEZ MD Ot E11.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 02/21/2020 AVRIL HERNANDEZ MD, Ot E11.621 TYPE 2 DIABETES MELLITUS WITH FOOT ULCER 02/21/2020 AVRIL HERNANDEZ MD Ot I87.331 CHRONIC VENOUS HTN W ULCER AND INFLAMMAT 02/21/2020 AVRIL HERNANDEZ MD Ot L97.412 NON-PRS CHR ULCER OF RIGHT HEEL AND MIDF 02/21/2020 AVRIL HERNANDEZ MD Ot E11.42 TYPE 2 DIABETES MELLITUS WITH DIABETIC P 02/21/2020 AVRIL HERNANDEZ MD Ot E11.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 02/21/2020 AVRIL HERNANDEZ MD Ot E11.621 TYPE 2 DIABETES MELLITUS WITH FOOT ULCER 02/21/2020 AVRIL HERNANDEZ MD Ot I87.331 CHRONIC VENOUS HTN W ULCER AND INFLAMMAT 02/21/2020 AVRIL HERNANDEZ MD Ot L97.412 NON-PRS CHR ULCER OF RIGHT HEEL AND MIDF 02/21/2020 AVRIL HERNANDEZ MD Ot E11.42 TYPE 2 DIABETES MELLITUS WITH DIABETIC P 02/21/2020 AVRIL HERNANDEZ MD Ot E11.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 02/21/2020 AVRIL HERNANDEZ MD Ot E11.621 TYPE 2 DIABETES MELLITUS WITH FOOT ULCER 02/21/2020 AVRIL HERNANDEZ MD Ot I87.331 CHRONIC VENOUS HTN W ULCER AND INFLAMMAT 02/21/2020 AVRIL HERNANDEZ MD Ot I96 GANGRENE, NOT ELSEWHERE CLASSIFIED 02/21/2020 AVRIL HERNANDEZ MD, Ot L97.412 NON-PRS CHR ULCER OF RIGHT HEEL AND MIDF 02/21/2020 AVRIL HERNANDEZ MD, Ot E11.42 TYPE 2 DIABETES MELLITUS WITH DIABETIC P 02/21/2020 AVRIL HERNANDEZ MD, Ot E11.621 TYPE 2 DIABETES MELLITUS WITH FOOT ULCER 02/21/2020 AVRIL HERNANDEZ MD Ot I87.331 CHRONIC VENOUS HTN W ULCER AND INFLAMMAT 02/21/2020 AVRIL HERNANDEZ MD, Ot L97.412 NON-PRS CHR ULCER OF RIGHT HEEL AND MIDF 02/21/2020 AVRIL HERNANDEZ MD, Ot E11.42 TYPE 2 DIABETES MELLITUS WITH DIABETIC P 02/21/2020 AVRIL HERNANDEZ MD, Ot E11.621 TYPE 2 DIABETES MELLITUS WITH FOOT ULCER 02/21/2020 AVRIL HERNANDEZ MD Ot I87.331 CHRONIC VENOUS HTN W ULCER AND INFLAMMAT 02/21/2020 AVRIL HERNANDEZ MD, Ot L97.412 NON-PRS CHR ULCER OF RIGHT HEEL AND MIDF 02/21/2020 ALICIA BENOIT MD, Ot E11.42 TYPE 2 DIABETES MELLITUS WITH DIABETIC P 02/21/2020 ALICIA BENOIT MD, Ot E11.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 02/21/2020 ALICIA BENOIT MD, Ot E11.621 TYPE 2 DIABETES MELLITUS WITH FOOT ULCER 02/21/2020 ALICIA BENOIT MD, Ot I87.331 CHRONIC VENOUS HTN W ULCER AND INFLAMMAT 02/21/2020 ALICIA BENOIT MD, Ot L97.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 02/21/2020 ALICIA BENOIT MD, Ot E11.42 TYPE 2 DIABETES MELLITUS WITH DIABETIC P 02/21/2020 ALICIA BENOIT MD, Ot E11.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 02/21/2020 ALICIA BENOIT MD, Ot E11.621 TYPE 2 DIABETES MELLITUS WITH FOOT ULCER 02/21/2020 ALICIA BENOIT MD Ot I87.331 CHRONIC VENOUS HTN W ULCER AND INFLAMMAT 02/21/2020 ALICIA BENOIT MD Ot L97.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 02/21/2020 ALICIA BENOIT MD, Ot E11.42 TYPE 2 DIABETES MELLITUS WITH DIABETIC P 02/21/2020 ALICIA BENOIT MD Ot E11.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 02/21/2020 ALICIA BENOIT MD Ot E11.621 TYPE 2 DIABETES MELLITUS WITH FOOT ULCER 02/21/2020 ALICIA BENOIT MD Ot I87.331 CHRONIC VENOUS HTN W ULCER AND INFLAMMAT 02/21/2020 ALICIA BENOIT MD, Ot I96 GANGRENE, NOT ELSEWHERE CLASSIFIED 02/21/2020 ALICIA BENOIT MD, Ot L97.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 02/21/2020 ALICIA BENOIT MD, Ot E11.42 TYPE 2 DIABETES MELLITUS WITH DIABETIC P 02/21/2020 ALICIA BENOIT MD, Ot E11.621 TYPE 2 DIABETES MELLITUS WITH FOOT ULCER 02/21/2020 ALICIA BENOIT MD, Ot I87.331 CHRONIC VENOUS HTN W ULCER AND INFLAMMAT 02/21/2020 ALICIA BENOIT MD, Ot L97.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 02/21/2020 ALICIA BENOIT MD, Ot E11.42 TYPE 2 DIABETES MELLITUS WITH DIABETIC P 02/21/2020 ALICIA BENOIT MD, Ot E11.621 TYPE 2 DIABETES MELLITUS WITH FOOT ULCER 02/21/2020 ALICIA BENOIT MD, Ot I87.331 CHRONIC VENOUS HTN W ULCER AND INFLAMMAT 02/21/2020 ALICIA BENOIT MD, Ot L97.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 02/21/2020 ALICIA BENOIT MD, Ot 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 02/21/2020 ALICIA BENOIT MD, Ot E11.42 TYPE 2 DIABETES MELLITUS WITH DIABETIC P 02/21/2020 ALICIA BENOIT MD Ot E66.01 MORBID (SEVERE) OBESITY DUE TO EXCESS CA 02/21/2020 ALICIA BENOIT MD, Ot I87.331 CHRONIC VENOUS HTN W ULCER AND INFLAMMAT 02/21/2020 ALICIA BENOIT MD, Ot S90.424A BLISTER (NONTHERMAL), RIGHT LESSER TOE(S 02/21/2020 ALICIA BENOIT MD, Ot E11.42 TYPE 2 DIABETES MELLITUS WITH DIABETIC P 02/21/2020 ALICIA BENOIT MD, Ot E11.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 02/21/2020 ALICIA BENOIT MD, Ot E11.621 TYPE 2 DIABETES MELLITUS WITH FOOT ULCER 02/21/2020 LAICIA BENOIT MD Ot I87.331 CHRONIC VENOUS HTN W ULCER AND INFLAMMAT 02/21/2020 ALICIA BENOIT MD, Ot L97.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 03/03/2020 AVRIL HERNANDEZ MD, Ot E11.621 TYPE 2 DIABETES MELLITUS WITH FOOT ULCER 03/03/2020 AVRIL HERNANDEZ MD Ot E66.01 MORBID (SEVERE) OBESITY DUE TO EXCESS CA 03/03/2020 AVRIL HERNANDEZ MD Ot I89 .0 LYMPHEDEMA, NOT ELSEWHERE CLASSIFIED 03/03/2020 AVRIL HERNANDEZ MD, Ot L95 .8 OTHER VASCULITIS LIMITED TO THE SKIN 03/03/2020 AVRIL HERNANDEZ MD, Ot L97.411 NON-PRS CHR ULCER OF RIGHT HEEL AND MIDF 03/03/2020 AVRIL HERNANDEZ MD Ot Z79.84 HALF-WAY (CURRENT) USE OF ORAL HYPOGLYC 03/03/2020 AVRIL HERNANDEZ MD Ot Z79.899 OTHER HALF-WAY (CURRENT) DRUG THERAPY 03/12/2020 AVRIL HERNANDEZ MD, Ot E11.621 TYPE 2 DIABETES MELLITUS WITH FOOT ULCER 03/12/2020 AVRIL HERNANDEZ MD, Ot E66.01 MORBID (SEVERE) OBESITY DUE TO EXCESS CA 03/12/2020 AVRIL HERNANDEZ MD, Ot I89 .0 LYMPHEDEMA, NOT ELSEWHERE CLASSIFIED 03/12/2020 AVRIL HERNANDEZ MD, Ot L95 .8 OTHER VASCULITIS LIMITED TO THE SKIN 03/12/2020 AVRIL HERNANDEZ MD, Ot L97.411 NON-PRS CHR ULCER OF RIGHT HEEL AND MIDF 03/12/2020 AVRIL HERNANDEZ MD Ot Z79.84 PAINT SPRAY TENDER (CURRENT) USE OF ORAL HYPOGLYC 03/12/2020 AVRIL HERNANDEZ MD Ot Z79.899 OTHER HALF-WAY (CURRENT) DRUG THERAPY 03/19/2020 AVRIL HERNANDEZ MD, Ot E11.621 TYPE 2 DIABETES MELLITUS WITH FOOT ULCER 03/19/2020 AVRIL HERNANDEZ MD Ot E66.01 MORBID (SEVERE) OBESITY DUE TO EXCESS CA 03/19/2020 AVRIL HERNANDEZ MD Ot I89 .0 LYMPHEDEMA, NOT ELSEWHERE CLASSIFIED 03/19/2020 AVRIL HERNANDEZ MD Ot L95 .8 OTHER VASCULITIS LIMITED TO THE SKIN 03/19/2020 AVRIL HERNANDEZ MD, Ot L97.411 NON-PRS CHR ULCER OF RIGHT HEEL AND MIDF 03/19/2020 AVRIL HERNANDEZ MD, Ot Z79.84 PAINT SPRAY TENDER (CURRENT) USE OF ORAL HYPOGLYC 03/19/2020 AVRIL HERNANDEZ MD Ot Z79.899 OTHER HALF-WAY (CURRENT) DRUG THERAPY Procedures There is no data. Results Test Result Range Complete blood count (CBC) with automate d white blood cell (WBC) differential - 11/12/18 10:50 Blood leukocytes automated count (number/volume) 7.4 10*3/uL 4.3-11.0 Blood erythrocytes automated count (number/volume) 3.88 10*6/uL 4.35-5.85 Venous blood hemoglobin measurement (mass/volume) 10.6 g/dL 13.3-17.7 Blood hematocrit (volume fraction) 35 % 40-54 Automated erythrocyte mean corpuscular volume 90 [ foz_us] 80-99 Automated erythrocyte mean corpuscular h emoglobin (mass per erythrocyte) 27 pg 25-34 Automated erythrocyte mean corpuscular h emoglobin concentration measurement (mass/volume) 31 g/dL 32-36 Automated erythrocyte distribution width ratio 16. 1 % 10.0- 14.5 Automated blood platelet count (count/volume) 245 10*3/uL 130-400 Automated blood platelet mean volume measurement 9.3 [foz_us] 7.4-10.4 Automated blood neutrophils/100 leukocytes 71 % 42-75 Automated blood lymphocytes/100 leukocytes 17 % 12-44 Blood monocytes/100 leukocytes 9 % 0-12 Automated blood eosinophils/100 leukocytes 3 % 0-10 Automated blood basophils/100 leukocytes 0 % 0-10 Blood neutrophils automated count (number/volume) 5.2 10*3 1.8-7.8 Blood lymphocytes automated count (number/volume) 1.3 10*3 1.0-4.0 Blood monocytes automated count (number/volume) 0. 6 10*3 0.0-1.0 Automated eosinophil count 0.2 10*3/uL 0 .0-0.3 Automated blood basophil count (count/volume) 0.0 10*3/uL 0.0-0.1 Comprehensive metabolic panel - 11/12/18 10:50 Serum or plasma sodium measurement (moles/volume) 137 mmol/L 135-145 Serum or plasma potassium measurement (moles/volume) 4.7 mmol/L 3.6-5.0 Serum or plasma chloride measurement (moles/volume) 103 mmol/L 98-107 Carbon dioxide 23 mmol/L 21-32 Serum or plasma anion gap determination (moles/volume) 11 mmol/L 5-14 Serum or plasma urea nitrogen measurement (mass/volume ) 21 mg/dL 7-18 Serum or plasma creatinine measurement (mass/volume) 1.42 mg/dL 0.60-1.30 Serum or plasma urea nitrogen/creatinine mass ratio 15 NRG Serum or plasma creatinine measurement w ith calculation of estimated glomerular filtration rate 52 NRG Serum or plasma glucose measurement (mass/volume) 206 mg/dL 70-105 Serum or plasma calcium measurement (mass/volume) 9.2 mg/dL 8.5-10.1 Serum or plasma total bilirubin measurement (mass/volu me) 0.5 mg/dL 0.1-1.0 Serum or plasma alkaline phosphatase anjel surement (enzymatic activity/volume) 57 U/L 40-136 Serum or plasma aspartate aminotransfera se measurement (enzymatic activity/volume) 20 U/L 5-34 Serum or plasma alanine aminotransferase measurement (enzymatic activity/volume) 17 U/L 0-55 Serum or plasma protein measurement (mass/volume) 7.4 g/dL 6.4-8.2 Serum or plasma albumin measurement (mass/volume) 3.7 g/dL 3.2-4.5 CALCIUM CORRECTED 9.4 mg/dL 8.5-10.1 Lactate dehydrogenase 1 [enzymatic activ ity/volume] in serum or plasma - 11/12/18 10:50 Lactate dehydrogenase 1 [enzymatic activ ity/volume] in serum or plasma 186 U/L 125-220 Serum or plasma haptoglobin measurement (mass/volume) - 11/12/18 10:50 Haptoglobin [mass/volume] in serum or plasma 81.0 % 37.0- 184.0 BMP - 02/12/19 09:01 GLUCOSE 191 mg/dL 65-99 UREA NITROGEN (BUN) 18 mg/dL 7-25 CREATININE 1.48 mg/dL 0.70-1.33 eGFR NON-AFR. [place]IZ[place] 52 mL/min/1.73m2 > OR = 60 eGFR 60 mL/min/1.73m2 > OR = 60 BUN/CREATININE RATIO 12 (calc) 6-22 SODIUM 138 mmol/L 135-146 POTASSIUM 4.3 mmol/L 3.5-5.3 CHLORIDE 99 mmol/L 98-110 CARBON DIOXIDE 27 mmol/L 20-32 CALCIUM 9.8 mg/dL 8.6-10.3 A1C - 05/29/19 08:03 HEMOGLOBIN A1c 5.3 % of total Hgb <5.7 Complete blood count (CBC) with automate d white blood cell (WBC) differential - 11/01/19 14:27 Blood leukocytes automated count (number/volume) 7.1 10*3/uL 4.3-11.0 Blood erythrocytes automated count (number/volume) 4.04 10*6/uL 4.35-5.85 Venous blood hemoglobin measurement (mass/volume) 12.2 g/dL 13.3-17.7 Blood hematocrit (volume fraction) 38 % 40-54 Automated erythrocyte mean corpuscular volume 95 [ foz_us] 80-99 Automated erythrocyte mean corpuscular h emoglobin (mass per erythrocyte) 30 pg 25-34 Automated erythrocyte mean corpuscular h emoglobin concentration measurement (mass/volume) 32 g/dL 32-36 Automated erythrocyte distribution width ratio 13. 8 % 10.0- 14.5 Automated blood platelet count (count/volume) 238 10*3/uL 130-400 Automated blood platelet mean volume measurement 9.8 [foz_us] 7.4-10.4 Automated blood neutrophils/100 leukocytes 66 % 42-75 Automated blood lymphocytes/100 leukocytes 22 % 12-44 Blood monocytes/100 leukocytes 9 % 0-12 Automated blood eosinophils/100 leukocytes 2 % 0-10 Automated blood basophils/100 leukocytes 1 % 0-10 Blood neutrophils automated count (number/volume) 4.7 10*3 1.8-7.8 Blood lymphocytes automated count (number/volume) 1.6 10*3 1.0-4.0 Blood monocytes automated count (number/volume) 0. 7 10*3 0.0-1.0 Automated eosinophil count 0.1 10*3/uL 0 .0-0.3 Automated blood basophil count (count/volume) 0.0 10*3/uL 0.0-0.1 Comprehensive metabolic panel - 11/01/19 14:27 Serum or plasma sodium measurement (moles/volume) 134 mmol/L 135-145 Serum or plasma potassium measurement (moles/volume) 4.2 mmol/L 3.6-5.0 Serum or plasma chloride measurement (moles/volume) 96 mmol/L 98-107 Carbon dioxide 26 mmol/L 21-32 Serum or plasma anion gap determination (moles/volume) 12 mmol/L 5-14 Serum or plasma urea nitrogen measurement (mass/volume ) 18 mg/dL 7-18 Serum or plasma creatinine measurement (mass/volume) 1.22 mg/dL 0.60-1.30 Serum or plasma urea nitrogen/creatinine mass ratio 15 NRG Serum or plasma creatinine measurement w ith calculation of estimated glomerular filtration rate > NRG Serum or plasma glucose measurement (mass/volume) 304 mg/dL 70-105 Serum or plasma calcium measurement (mass/volume) 9.7 mg/dL 8.5-10.1 Serum or plasma total bilirubin measurement (mass/volu me) 0.3 mg/dL 0.1-1.0 Serum or plasma alkaline phosphatase anjel surement (enzymatic activity/volume) 50 U/L 40-136 Serum or plasma aspartate aminotransfera se measurement (enzymatic activity/volume) 15 U/L 5-34 Serum or plasma alanine aminotransferase measurement (enzymatic activity/volume) 12 U/L 0-55 Serum or plasma protein measurement (mass/volume) 6.4 g/dL 6.4-8.2 Serum or plasma albumin measurement (mass/volume) 3.5 g/dL 3.2-4.5 CALCIUM CORRECTED 10.1 mg/dL 8.5-10.1 Hemoglobin A1c measurement - 11/01/19 14 :27 Blood hemoglobin A1C measurement (mass/volume) 5.5 % 4.0-5.6 MEAN BLOOD GLUCOSE 111 % <=126 Methicillin resistant Staphylococcus aur eus (MRSA) screening culture - 11/27/19 13:06 Methicillin resistant Staphylococcus aureus (MRSA) scr eening culture NEG NRG Capillary blood glucose measurement by g lucometer (mass/volume) - 12/11/19 08:08 Capillary blood glucose measurement by glucometer (mas s/volume) 177 mg/dL 70-110 Complete blood count (CBC) with automate d white blood cell (WBC) differential - 01/02/20 07:10 Blood leukocytes automated count (number/volume) 6.1 10*3/uL 4.3-11.0 Blood erythrocytes automated count (number/volume) 3.88 10*6/uL 4.35-5.85 Venous blood hemoglobin measurement (mass/volume) 11.0 g/dL 13.3-17.7 Blood hematocrit (volume fraction) 36 % 40-54 Automated erythrocyte mean corpuscular volume 92 [ foz_us] 80-99 Automated erythrocyte mean corpuscular h emoglobin (mass per erythrocyte) 28 pg 25-34 Automated erythrocyte mean corpuscular h emoglobin concentration measurement (mass/volume) 31 g/dL 32-36 Automated erythrocyte distribution width ratio 14. 9 % 10.0- 14.5 Automated blood platelet count (count/volume) 195 10*3/uL 130-400 Automated blood platelet mean volume measurement 9.9 [foz_us] 7.4-10.4 Automated blood neutrophils/100 leukocytes 55 % 42-75 Automated blood lymphocytes/100 leukocytes 30 % 12-44 Blood monocytes/100 leukocytes 14 % 0-12 Automated blood eosinophils/100 leukocytes 0 % 0-10 Automated blood basophils/100 leukocytes 0 % 0-10 Blood neutrophils automated count (number/volume) 3.4 10*3 1.8-7.8 Blood lymphocytes automated count (number/volume) 1.9 10*3 1.0-4.0 Blood monocytes automated count (number/volume) 0. 8 10*3 0.0-1.0 Automated eosinophil count 0.0 10*3/uL 0 .0-0.3 Automated blood basophil count (count/volume) 0.0 10*3/uL 0.0-0.1 Blood lactic acid measurement (moles/vol ume) - 01/02/20 07:10 Blood lactic acid measurement (moles/volume) 2.78 mmol/L 0.50-2.00 Comprehensive metabolic panel - 01/02/20 07:10 Serum or plasma sodium measurement (moles/volume) 132 mmol/L 135-145 Serum or plasma potassium measurement (moles/volume) 4.5 mmol/L 3.6-5.0 Serum or plasma chloride measurement (moles/volume) 95 mmol/L 98-107 Carbon dioxide 23 mmol/L 21-32 Serum or plasma anion gap determination (moles/volume) 14 mmol/L 5-14 Serum or plasma urea nitrogen measurement (mass/volume ) 28 mg/dL 7-18 Serum or plasma creatinine measurement (mass/volume) 1.90 mg/dL 0.60-1.30 Serum or plasma urea nitrogen/creatinine mass ratio 15 NRG Serum or plasma creatinine measurement w ith calculation of estimated glomerular filtration rate 37 NRG Serum or plasma glucose measurement (mass/volume) 158 mg/dL 70-105 Serum or plasma calcium measurement (mass/volume) 9.3 mg/dL 8.5-10.1 Serum or plasma total bilirubin measurement (mass/volu me) 0.6 mg/dL 0.1-1.0 Serum or plasma alkaline phosphatase anjel surement (enzymatic activity/volume) 48 U/L 40-136 Serum or plasma aspartate aminotransfera se measurement (enzymatic activity/volume) 30 U/L 5-34 Serum or plasma alanine aminotransferase measurement (enzymatic activity/volume) 18 U/L 0-55 Serum or plasma protein measurement (mass/volume) 7.1 g/dL 6.4-8.2 Serum or plasma albumin measurement (mass/volume) 3.8 g/dL 3.2-4.5 CALCIUM CORRECTED 9.5 mg/dL 8.5-10.1 Magnesium - 01/02/20 07:10 Magnesium 1.1 mg/dL 1.6-2.4 TROPONIN I FS - 01/02/20 07:10 TROPONIN I FS < 0.30 <0.30 CRP FS - 01/02/20 07:10 CRP FS 3.83 mg/dL <0.50 PROBNP FS - 01/02/20 07:10 PROBNP FS 115.0 pg/mL <75.0 Bacterial blood culture - 01/02/20 07:10 FREE TEXT EXTERNAL SEE COMMENTS NRG QUANTITY OF GROWTH Isolated [facility] Bacterial blood culture [id number] [facility] Influenza virus A and B antigen detectio n - 01/02/20 07:18 FLU RESULT POSITIVE FOR INFLUENZA B ANT IGEN, NEG FOR A ANTIGEN, BY IA [facility] Bacterial blood culture - 01/02/20 07:57 Bacterial blood culture NG [facility] Arterial blood gas measurement - 0 08:20 Blood pCO2 42 mm[Hg] 35-45 Blood pO2 97 mm[Hg] 79-93 Arterial blood bicarbonate measurement (moles/volume) 25 mmol/L 23-27 Arterial blood base excess by calculation -0.4 mmo l/L -2.5-2.5 Arterial blood oxygen saturation measurement 97 % 94-100 * Inhaled oxygen flow rate 2L NRG Arterial blood pH measurement with patient temperature correction 7.38 7.37-7.43 Arterial blood carbon dioxide, total measurement (mole s/volume) 26.1 mmol/L 21.0-31.0 Body site LT WRIST NRG Assessment of wrist artery patency prior to arterial p uncture OK NRG Setting of ventilation mode NO NR G Measurement of body temperature 36.2 NRG Sputum Gram stain - 01/02/20 08:25 Sputum Gram stain RELEVANT, INTERPRET WITH CAUTION . NRG Bacterial sputum culture - 01/02/20 08:2 5 QUANTITY OF GROWTH LARGE AMOUNT NRG Bacterial sputum culture USUAL RESP NRG Methicillin resistant Staphylococcus aur eus (MRSA) screening culture - 01/02/20 14:27 Methicillin resistant Staphylococcus aureus (MRSA) scr eening culture NEG NRG Complete blood count (CBC) with automate d white blood cell (WBC) differential - 01/02/20 14:30 Blood leukocytes automated count (number/volume) 3.3 10*3/uL 4.3-11.0 Blood erythrocytes automated count (number/volume) 3.44 10*6/uL 4.35-5.85 Venous blood hemoglobin measurement (mass/volume) 9.7 g/dL 13.3-17.7 Blood hematocrit (volume fraction) 32 % 40-54 Automated erythrocyte mean corpuscular volume 92 [ foz_us] 80-99 Automated erythrocyte mean corpuscular h emoglobin (mass per erythrocyte) 28 pg 25-34 Automated erythrocyte mean corpuscular h emoglobin concentration measurement (mass/volume) 31 g/dL 32-36 Automated erythrocyte distribution width ratio 15. 1 % 10.0- 14.5 Automated blood platelet count (count/volume) 164 10*3/uL 130-400 Automated blood platelet mean volume measurement 9.4 [foz_us] 7.4-10.4 Automated blood neutrophils/100 leukocytes 51 % 42-75 Automated blood lymphocytes/100 leukocytes 36 % 12-44 Blood monocytes/100 leukocytes 13 % 0-12 Automated blood eosinophils/100 leukocytes 0 % 0-10 Automated blood basophils/100 leukocytes 0 % 0-10 Blood neutrophils automated count (number/volume) 1.7 10*3 1.8-7.8 Blood lymphocytes automated count (number/volume) 1.2 10*3 1.0-4.0 Blood monocytes automated count (number/volume) 0. 4 10*3 0.0-1.0 Automated eosinophil count 0.0 10*3/uL 0 .0-0.3 Automated blood basophil count (count/volume) 0.0 10*3/uL 0.0-0.1 Blood lactic acid measurement (moles/vol ume) - 01/02/20 14:30 Blood lactic acid measurement (moles/volume) 1.40 mmol/L 0.50-2.00 Comprehensive metabolic panel - 01/02/20 14:30 Serum or plasma sodium measurement (moles/volume) 135 mmol/L 135-145 Serum or plasma potassium measurement (moles/volume) 4.2 mmol/L 3.6-5.0 Serum or plasma chloride measurement (moles/volume) 104 mmol/L 98-107 Carbon dioxide 24 mmol/L 21-32 Serum or plasma anion gap determination (moles/volume) 7 mmol/L 5-14 Serum or plasma urea nitrogen measurement (mass/volume ) 25 mg/dL 7-18 Serum or plasma creatinine measurement (mass/volume) 1.62 mg/dL 0.60-1.30 Serum or plasma urea nitrogen/creatinine mass ratio 15 NRG Serum or plasma creatinine measurement w ith calculation of estimated glomerular filtration rate 44 NRG Serum or plasma glucose measurement (mass/volume) 139 mg/dL 70-105 Serum or plasma calcium measurement (mass/volume) 8.0 mg/dL 8.5-10.1 Serum or plasma total bilirubin measurement (mass/volu me) 0.4 mg/dL 0.1-1.0 Serum or plasma alkaline phosphatase anjel surement (enzymatic activity/volume) 41 U/L 40-136 Serum or plasma aspartate aminotransfera se measurement (enzymatic activity/volume) 28 U/L 5-34 Serum or plasma alanine aminotransferase measurement (enzymatic activity/volume) 18 U/L 0-55 Serum or plasma protein measurement (mass/volume) 6.1 g/dL 6.4-8.2 Serum or plasma albumin measurement (mass/volume) 3.3 g/dL 3.2-4.5 CALCIUM CORRECTED 8.6 mg/dL 8.5-10.1 Serum or plasma phosphate measurement (m ass/volume) - 01/02/20 14:30 Serum or plasma phosphate measurement (mass/volume) 3.3 mg/dL 2.3-4.7 Magnesium - 01/02/20 14:30 Magnesium 1.2 mg/dL 1.6-2.4 Complete urinalysis with reflex to cultu re - 01/02/20 15:18 Urine color determination YELLOW NRG Urine clarity determination CLEAR NR G Urine pH measurement by test strip 5.5 5-9 Specific gravity of urine by test strip >= 1.016-1.022 Urine protein assay by test strip, semi-quantitative TRACE NEGATIVE Urine glucose detection by automated test strip NE GATIVE NEGATIVE Erythrocytes detection in urine sediment by light micr oscopy 2+ NEGATIVE Urine ketones detection by automated test strip NE GATIVE NEGATIVE Urine nitrite detection by test strip NEGATIVE NEGATIVE Urine total bilirubin detection by test strip NEGA TIVE NEGATIVE Urine urobilinogen measurement by automated test strip (mass/volume) 0.2 mg/dL < = 1.0 Urine leukocyte esterase detection by dipstick NEG ATIVE NEGATIVE Automated urine sediment erythrocyte cou nt by microscopy (number/high power field) [HPF] NRG Automated urine sediment leukocyte count by microscopy (number/high power field) NONE NRG Bacteria detection in urine sediment by light microsco py NEGATIVE NRG Squamous epithelial cells detection in u rine sediment by light microscopy 0-2 NRG Crystals detection in urine sediment by light microsco py NONE NRG Casts detection in urine sediment by light microscopy PRESENT NRG Mucus detection in urine sediment by light microscopy NEGATIVE NRG Complete urinalysis with reflex to culture NO NRG Hyaline casts detection in urine sediment by light jai roscopy 0-2 NRG Capillary blood glucose measurement by g lucometer (mass/volume) - 01/02/20 15:59 Capillary blood glucose measurement by glucometer (mas s/volume) 121 mg/dL 70-110 Capillary blood glucose measurement by g lucometer (mass/volume) - 01/02/20 20:34 Capillary blood glucose measurement by glucometer (mas s/volume) 133 mg/dL 70-110 Clostridium difficile DNA detection by feroz lopez and target amplification method - 01/03/20 03:20 C DIFF MOLECULAR RESULT Negative for toxigen ic C diff by molecular method NRG C DIFFICILE AG + TOXIN A/B. - 01/03/20 0 3:20 FREE TEXT ENTRY 2 POSITIVE FOR GDH ANITGEN NRG FREE TEXT ENTRY 3 NEGATIVE FOR TOXIN A AND B NRG CALL POSITIVES (F1 HELP) CALLED TO [facility] 4TH FLOOR 01/03 8:[address] NRG RESULTS INDETERMINANT; MOLECULAR TEST TO FOLLOW NRG Stool bacteria identification by culture - 01/03/20 03:20 Blood CBC with ordered manual differenti al panel - 01/03/20 04:55 Blood leukocytes automated count (number/volume) 3.5 10*3/uL 4.3-11.0 Blood erythrocytes automated count (number/volume) 3.52 10*6/uL 4.35-5.85 Venous blood hemoglobin measurement (mass/volume) 10.0 g/dL 13.3-17.7 Blood hematocrit (volume fraction) 32 % 40-54 Automated erythrocyte mean corpuscular volume 92 [ foz_us] 80-99 Automated erythrocyte mean corpuscular h emoglobin (mass per erythrocyte) 28 pg 25-34 Automated erythrocyte mean corpuscular h emoglobin concentration measurement (mass/volume) 31 g/dL 32-36 Automated erythrocyte distribution width ratio 15. 2 % 10.0- 14.5 Automated blood platelet count (count/volume) 156 10*3/uL 130-400 Automated blood platelet mean volume measurement 9.6 [foz_us] 7.4-10.4 Automated blood neutrophils/100 leukocytes 50 % 42-75 Automated blood lymphocytes/100 leukocytes 34 % 12-44 Blood monocytes/100 leukocytes 12 % NRG Automated blood eosinophils/100 leukocytes 1 % 0-10 Automated blood basophils/100 leukocytes 0 % 0-10 Blood neutrophils automated count (number/volume) 1.8 10*3 1.8-7.8 Blood lymphocytes automated count (number/volume) 1.2 10*3 1.0-4.0 Blood monocytes automated count (number/volume) 0. 5 10*3 0.0-1.0 Automated eosinophil count 0.0 10*3/uL 0 .0-0.3 Automated blood basophil count (count/volume) 0.0 10*3/uL 0.0-0.1 Manual blood segmented neutrophils/100 leukocytes 54 % NRG Manual blood lymphocytes/100 leukocytes 34 % NRG Blood hypochromia detection by light microscopy [facility] Whole blood basic metabolic panel - 12/08 06/25 04:55 Serum or plasma sodium measurement (moles/volume) 134 mmol/L 135-145 Serum or plasma potassium measurement (moles/volume) 4.7 mmol/L 3.6-5.0 Serum or plasma chloride measurement (moles/volume) 105 mmol/L 98-107 Carbon dioxide 19 mmol/L 21-32 Serum or plasma anion gap determination (moles/volume) 10 mmol/L 5-14 Serum or plasma urea nitrogen measurement (mass/volume ) 20 mg/dL 7-18 Serum or plasma creatinine measurement (mass/volume) 1.25 mg/dL 0.60-1.30 Serum or plasma urea nitrogen/creatinine mass ratio 16 NRG Serum or plasma creatinine measurement w ith calculation of estimated glomerular filtration rate 60 NRG Serum or plasma glucose measurement (mass/volume) 125 mg/dL 70-105 Serum or plasma calcium measurement (mass/volume) 7.9 mg/dL 8.5-10.1 Magnesium - 01/03/20 04:55 Magnesium 1.2 mg/dL 1.6-2.4 Capillary blood glucose measurement by g lucometer (mass/volume) - 01/03/20 11:11 Capillary blood glucose measurement by glucometer (mas s/volume) 221 mg/dL 70-110 Capillary blood glucose measurement by g lucometer (mass/volume) - 01/03/20 15:47 Capillary blood glucose measurement by glucometer (mas s/volume) 171 mg/dL 70-110 Capillary blood glucose measurement by g lucometer (mass/volume) - 01/03/20 20:08 Capillary blood glucose measurement by glucometer (mas s/volume) 154 mg/dL 70-110 Capillary blood glucose measurement by g lucometer (mass/volume) - 01/04/20 06:08 Capillary blood glucose measurement by glucometer (mas s/volume) 178 mg/dL 70-110 Capillary blood glucose measurement by g lucometer (mass/volume) - 01/04/20 10:46 Capillary blood glucose measurement by glucometer (mas s/volume) 178 mg/dL 70-110 A1C - 02/06/20 11:20 HEMOGLOBIN A1c 4.7 % of total Hgb <5.7 MICROALBUMIN/CREATININE RATIO, URINE - 0 02/06/20 13:23 CREATININE, RANDOM URINE 244 mg/dL 20-32 0 MICROALBUMIN 2.6 mg/dL See Note: MICROALBUMIN/CREATININE RATIO, RANDOM URINE 11 mcg /mg creat <30 CMP - 03/05/20 13:20 GLUCOSE 143 mg/dL 65-99 UREA NITROGEN (BUN) 19 mg/dL 7-25 CREATININE 1.23 mg/dL 0.70-1.33 eGFR NON-AFR. [place]IZ[place] 64 mL/min/1.73m2 > OR = 60 eGFR 75 mL/min/1.73m2 > OR = 60 BUN/CREATININE RATIO NOT APPLICABLE (calc) 6-22 SODIUM 137 mmol/L 135-146 POTASSIUM 4.2 mmol/L 3.5-5.3 CHLORIDE 102 mmol/L 98-110 CARBON DIOXIDE 27 mmol/L 20-32 CALCIUM 9.1 mg/dL 8.6-10.3 PROTEIN, TOTAL 6.4 g/dL 6.1-8.1 ALBUMIN 3.9 g/dL 3.6-5.1 GLOBULIN 2.5 g/dL (calc) 1.9-3.7 ALBUMIN/GLOBULIN RATIO 1.6 (calc) 1.0-2. 5 BILIRUBIN, TOTAL 0.5 mg/dL 0.2-1.2 ALKALINE PHOSPHATASE 55 U/L 35-144 AST 18 U/L 10-35 ALT 17 U/L 9-46 CBC - 03/05/20 13:20 WHITE BLOOD CELL COUNT 5.5 Thousand/uL 3 .8-10.8 RED BLOOD CELL COUNT 3.98 Million/uL 4.2 0-5.80 HEMOGLOBIN 11.4 g/dL 13.2-17.1 HEMATOCRIT 36.3 % 38.5-50.0 MCV 91.2 fL 80.0-100.0 MCH 28.6 pg 27.0-33.0 MCHC 31.4 g/dL 32.0-36.0 RDW 13.5 % 11.0-15.0 PLATELET COUNT 230 Thousand/uL 140-400 MPV 9.8 fL 7.5-12.5 ABSOLUTE NEUTROPHILS 3553 cells/uL 1500- 7800 ABSOLUTE LYMPHOCYTES 1403 cells/uL 850-3 900 ABSOLUTE MONOCYTES 418 cells/uL 200-950 ABSOLUTE EOSINOPHILS 99 cells/uL 15-500 ABSOLUTE BASOPHILS 28 cells/uL 0-200 NEUTROPHILS 64.6 % NRG LYMPHOCYTES 25.5 % NRG MONOCYTES 7.6 % NRG EOSINOPHILS 1.8 % NRG BASOPHILS 0.5 % NRG ESR/SED RATE - 03/05/20 13:20 SED RATE BY MODIFIED WESTERGREN 25 mm/h < OR = 20 CRP - 03/05/20 13:20 C-REACTIVE PROTEIN 11.5 mg/L <8.0 Coronavirus SARS-CoV-2 SO 2018 - 0 12:52 Coronavirus Ab [Units/volume] in Serum Negative Negative Encounters ACCT No. Visit Date/Time Discharge Status Pt. Type Provider Facility Loc./Unit Complaint [id number] 10/07/2019 08:30:00 10/07/2019 23:59:5 9 [id number] 03/05/2020 13:20:00 Document Registration [id number] 02/06/2020 13:15:00 Document Registration [id number] 02/06/2020 11:00:00 Document Registration [id number] 05/29/2019 08:45:00 Document Registration [id number] 02/12/2019 09:00:00 Document Registration [id number] 03/20/2020 07:41:00 16:00:00 DIS Outpatient AVRIL WINKLER MD [facility] PREOP LEFT CARPAL TUNNEL SYN DROME [id number] 03/11/2020 13:29:00 23:59:59 CLS Outpatient AVRIL HERNANDEZ MD [facility] WOUNDCARE [id number] 03/02/2020 12:47:00 23:59:59 CLS Outpatient AVRIL HERNANDEZ MD [facility] WOUND[facility] [id number] 01/02/2020 10:30:00 12:55:00 DIS Inpatient JUSTINE VALDES, MELITON [facility] 4TH FLU B SEPSIS DEHYDRATIO N HYPOMAGNESIA HYPOTENSION [id number] 12/18/2019 09:50:00 23:59:59 CLS Outpatient ALICIA BENOIT MD [facility] WOUNDCARE [id number] 12/11/2019 07:40:00 13:19:00 DIS Outpatient AVRIL WINKLER MD [facility] SDC RIGHT HAND CARPAL TUNN EL [id number] 12/10/2019 14:30:00 23:59:59 CLS Outpatient ALICIA BENOIT MD [facility] WOUNDCARE [id number] 12/04/2019 13:58:00 23:59:59 CLS Outpatient ALICIA BENOIT MD [facility] WOUND[facility] [id number] 11/27/2019 14:12:00 01/22/2 020 23:59:59 CLS Outpatient ALICIA BENOIT MD [facility] WOUNDCARE [id number] 11/27/2019 11:56:00 13:10:00 DIS Outpatient AVRIL WINKLER MD [facility] PREOP RIGHT CARPAL TUNNEL [id number] 11/20/2019 13:45:00 23:59:59 CLS Outpatient ALICIA BENOIT MD [facility] WOUNDCARE [id number] 11/13/2019 14:24:00 23:59:59 CLS Outpatient ALICIA BENOIT MD [facility] WOUNDC[facility] [id number] 11/05/2019 14:57:00 23:59:59 CLS Outpatient AVRIL HERNANDEZ MD [facility] WOUNDCARE [id number] 11/01/2019 14:09:00 23:59:59 CLS Outpatient AVRIL HERNANDEZ MD [facility] LAB FS [id number] 10/28/2019 08:16:00 23:59:59 CLS Outpatient AVRIL HERNANDEZ MD [facility] WOUNDCARE [id number] 10/23/2019 14:01:00 23:59:59 CLS Outpatient AVRIL HERNANDEZ MD [facility] WOUNDC[facility] [id number] 10/16/2019 13:36:00 23:59:59 CLS Outpatient AVRIL HERNANDEZ MD [facility] WOUNDC[facility] [id number] 10/09/2019 13:56:00 23:59:59 CLS Outpatient AVRIL HERNANDEZ MD [facility] WOUNDC[facility] [id number] 10/02/2019 14:13:00 23:59:59 CLS Outpatient AVRIL HERNANDEZ MD [facility] WOUNDC[facility] [id number] 09/27/2019 09:51:00 23:59:59 CLS Outpatient AVRIL HERNANDEZ MD [facility] WOUNDCARE [id number] 09/25/2019 14:11:00 23:59:59 CLS Outpatient AVRIL HERNANDEZ MD [facility] WOUND[facility] [id number] 09/18/2019 14:22:00 23:59:59 CLS Outpatient AVRIL HERNANDEZ MD [facility] WOUNDCARE [id number] 09/11/2019 09:29:00 23:59:59 CLS Outpatient AVRIL HERNANDEZ MD [facility] WOUNDCARE [id number] 09/04/2019 14:22:00 23:59:59 CLS Outpatient AVRIL HERNANDEZ MD [id number] 08/28/2019 14:50:00 23:59:59 CLS Outpatient AVRIL HERNANDEZ MD [facility] WOUNDCARE [id number] 08/21/2019 15:05:00 23:59:59 CLS Outpatient AVRIL HERNANDEZ MD [facility] WOUNDCARE [id number] 08/14/2019 07:59:00 23:59:59 CLS Outpatient AVRIL HERNANDEZ MD [facility] WOUNDCARE [id number] 08/07/2019 08:04:00 23:59:59 CLS Outpatient AVRIL HERNANDEZ MD [facility] WOUNDCARE [id number] 04/11/2019 09:29:00 23:59:59 CLS Outpatient VERN BENITEZ [facility] RAD FS M25.561 [id number] 01/03/2019 15:10:00 23:59:59 CLS Outpatient VERN BENITEZ [facility] RAD FS M25.562 [id number] 11/12/2018 10:34:00 23:59:59 CLS Outpatient VAISHNAVI MORTON MD [facility] LAB M31.0 [id number] 08/13/2018 12:51:00 23:59:59 CLS Outpatient AVRIL HERNANDEZ MD [facility] WOUNDCARE [id number] 07/30/2018 13:33:00 23:59:59 CLS Outpatient AVRIL HERNANDEZ MD [facility] WOUNDCARE [id number] 07/16/2018 13:38:00 23:59:59 CLS Outpatient AVIRL HERNANDEZ MD [facility] WOUNDCARE [id number] 07/02/2018 13:42:00 018 23:59:59 CLS Outpatient AVRLI HERNANDEZ MD [facility] WOUNDCARE [id number] 06/25/2018 13:16:00 23:59:59 CLS Outpatient AVRIL HERNANDEZ MD [facility] WOUNDCARE [id number] 06/04/2018 12:33:00 018 23:59:59 CLS Outpatient AVRIL HERNANDEZ MD [facility] WOUNDCARE [id number] 05/30/2018 13:12:00 018 23:59:59 CLS Outpatient AVRIL HERNANDEZ MD [facility] WOUNDCARE [id number] 05/28/2018 11:56:00 018 23:59:59 CLS Outpatient AVRIL HERNANDEZ MD [facility] WOUNDCARE [id number] 05/23/2018 08:15:00 018 23:59:59 CLS Outpatient AVRIL HERNANDEZ MD [facility] WOUNDCARE [id number] 06/18/2018 13:25:00 Document Registration [id number] 06/11/2018 13:22:00 Document Registration [id number] 03/06/2020 12:26:00 ACT Brenda Rao MD
[2020-03-25] MEDS ORDERED: LACTATED RINGERS 1,000 ML IV PRN (06:14)
[2020-03-25] MEDS ORDERED: CLINDAMYCIN 600 MG/50 ML IVPB 50 ML IV ONE ×2 (06:15→06:37)
[2020-03-25] MEDS ORDERED: LIDOCAINE 1% INJ 20 ML 20 ML VIAL ONE (06:32)
[2020-03-25] MEDS ORDERED: BUPIVACAINE 0.5% 30 ML (SENSORCAINE) VIAL ONE (06:32)
[2020-03-25] MEDS ORDERED: KETAMINE/NaCl 50 MG/5 ML SYRINGE (ED ONLY) ONE (06:45)
[2020-03-25] MEDS ORDERED: MIDAZOLAM 2 MG/2 ML (VERSED) VIAL ONE (06:45)
--- NOTE | 2020-03-25 06:56 | Progress Note-Pre Operative ---
Pre-Operative Progress Note H&P Reviewed The H&P was reviewed, patient examined and no changes noted. Date Seen by Provider: March 25, 2020 Time Seen by Provider: 06:45 Date H&P Reviewed: March 25, 2020 Time H&P Reviewed: 06:44 Pre-Operative Diagnosis: left carpal tunnel syndrome AVRIL WINKLER MD March 25, 2020 06:56
--- NOTE | 2020-03-25 06:57 | Progress Note-Post Operative ---
Post-Operative Progess Note Surgeon (s)/Discharging Machine Operator (s) Surgeon AVRIL WINKLER MD Discharging Machine Operator: Roberto Lama Pre-Operative Diagnosis left carpal tunnel syndrome Post-Operative Diagnosis left carpal tunnel syndrome Procedure & Operative Findings Date of Procedure 03/25/20 Procedure Performed/Findings left carpal tunnel release Anesthesia Type MAC plus local Estimated Blood Loss Estimated blood loss (mL): minimal Specimens/Packing Specimens Removed none Packing: none AVRIL WINKLER MD March 25, 2020 06:57
[2020-03-25] MEDS ORDERED: ONDANSETRON 4 MG/2 ML (SDV) Z0FRAN ONE (07:03)
[2020-03-25] MEDS ORDERED: PROPOFOL INJECTION 50 ML IV ONE (07:15)
[2020-03-25] MEDS ORDERED: HYDROcodone/APAP 5 MG/325 MG (LORTAB) TAB PO PRN (07:30)
[2020-03-25] MEDS ORDERED: ONDANSETRON 4 MG/2 ML (SDV) Z0FRAN IVP PRN (07:45)
[2020-03-25] MEDS ORDERED: fentaNYL INJECTION 100 MCG/2 ML AMP IVP ONE (07:45)
[2020-03-25] MEDS ORDERED: MEPERIDINE (DEMEROL) INJ 50 MG/ML IVP ONE (07:45)
[2020-03-25] MEDS ORDERED: morphine INJ 10 MG/ML 1ML (SYR OR VIAL) IVP ONE (07:45)
[2020-03-25] MEDS ORDERED: HYDR-4342 PO (08:04)
--- NOTE | 2020-03-25 10:42 | OPERATIVE REPORT ---
DATE OF SERVICE: 03/25/2020 PREOPERATIVE DIAGNOSIS: Left carpal tunnel syndrome. POSTOPERATIVE DIAGNOSIS: Left carpal tunnel syndrome. PROCEDURE: Left open carpal tunnel release. SURGEON: Arun Winkler MD. M[employer] MANAGER: Roberto Lama, who assisted throughout the procedure and closed the incision. ANESTHESIA: Monitored anesthesia care plus local by Roberto Jonas CRNA. TOURNIQUET TIME: 3 minutes at 250 mmHg. ESTIMATED BLOOD LOSS: Minimal. DRAINS: None. COMPLICATIONS: None. POSTOPERATIVE PLAN: Routine protocol. The patient was transferred to the recovery room awake and stable condition. STATEMENT OF MEDICAL NECESSITY: The patient is a 60-year-old right hand dominant gentleman with complaints of left hand pain and paresthesias. He had a positive tilt with carpal tunnel with positive Phalen's maneuver. He tried splinting and rest, activity modifications, anti-inflammatories without relief. Due to functional impairment and failure to improve with conservative measures, the patient elected to proceed with surgical intervention. DESCRIPTION OF PROCEDURE: After risks and benefits of the procedure were discussed and questions were answered, informed consent was signed and placed on chart and the operative site was confirmed in the preoperative holding area initialed by the surgeon, the patient was then transferred to the operating room and after adequate levels of monitored anesthesia care were obtained, a timeout was called, confirming the operative site and under sterile conditions, incision site was infiltrated with combination of plain lidocaine and plain Marcaine. Left upper extremity was prepped and draped in the usual sterile fashion with arm elevated, tourniquet was inflated to 250 mmHg. An incision was made in line with the radial border of the ring finger overlying the transverse carpal ligament. The transverse carpal ligament was identified and sharply incised by pushing through with the scalpel blade. This was confirmed fully released distally under direct visualization. Proximally, the transverse carpal ligament was spread above and below with dissection scissors and then opened while carefully protecting the median nerve. The median nerve was identified and carefully protected throughout the procedure and intact at the conclusion of the procedure. The tourniquet was deflated for a total tourniquet time of 3 minutes. Pressure was used for hemostasis. Wound was copiously irrigated and then closed with 4-0 nylon in a running alternating horizontal mattress fashion. A soft dressing was applied and a splint and the patient was transferred to the recovery room awake and in stable condition. Job ID: [id number] DocumentID: [id number] Dictated Date: 03/25/2020 07:27:51 Sas Programmer Date: 03/25/2020 10:41:55 Dictated By: ARUN WINKLER MD
--- NOTE | 2020-03-25 14:21 | Anesthesia-General Post-Op ---
MAC Patient Condition Mental Status/LOC: Same as Preop Cardiovascular: Satisfactory Nausea/Vomiting: Absent Respiratory: Satisfactory Pain: Controlled Complications: Absent Post Op Complications Complications None Follow Up Care/Instructions Patient Instructions None needed. Anesthesiology Discharge Order Discharge Order Patient is doing well, no complaints, stable vital signs, no apparent adverse anesthesia problems. No complications reported per nursing. MAJOR HOPE CRNA March 25, 2020 14:21
== END 2020-03-25 08:44 | disposition home or self-care (01) ==
LOC: SDC 06:01
PROVIDERS: ATTEND Orthopaedic Surgery
DX: G56.02 Carpal tunnel syndrome, left upper limb (principal); I10 Essential (primary) hypertension; E11.9 Type 2 diabetes mellitus without complications; E78.5 Hyperlipidemia, unspecified; G47.30 Sleep apnea, unspecified; M19.90 Unspecified osteoarthritis, unspecified site; M54.30 Sciatica, unspecified side; M10.9 Gout, unspecified; Z98.52 Vasectomy status; Z79.82 Long term (current) use of aspirin; Z79.84 Long term (current) use of oral hypoglycemic drugs; Z79.891 Long term (current) use of opiate analgesic; Z79.899 Other long term (current) drug therapy
CPT/HCPCS: 82962; 87081

== ENCOUNTER 2022-02-15 15:04 | Inpatient (IN) | payer MEDICARE ==
[~2022-02-15] VITALS: Ht 187.9 cm; Wt 215.5 kg
[2022-02-15] VITALS (7 sets, daily range): BP systolic 90–128; BP diastolic 33–97
[~2022-02-15 15:04] MED LIST changes: +HYDR-3817 PO; -LISI40TA PO; +LISI40TA9 PO
[2022-02-15] MEDS ORDERED: ONDANSETRON 4 MG/2 ML (SDV) Z0FRAN IV PRN (15:15)
[2022-02-15] MEDS ORDERED: NS IV ONE (15:15)
[2022-02-15] MEDS ORDERED: HOLD METFORMIN - RECEIVED CONTRAST 20 ML VIAL IV SCH (15:30)
[2022-02-15] MEDS ORDERED: IOHEXOL 350 MG/ML 100 ML (OMNIPAQUE 350) VIAL IV ONE (15:30)
[2022-02-15] MEDS ORDERED: NS 100 ML (IVPB) BAG IV ONE (15:30)
[2022-02-15 15:59] LABS: BASOPHILS % (AUTO) 0 % (0-10); EOSINOPHILS # (AUTO) 0.1 10^3/uL (0.0-0.3); EOSINOPHILS % (AUTO) 0 % (0-10); HEMATOCRIT 39 % (40-54); HEMOGLOBIN 12.3 g/dL (13.3-17.7); LYMPHOCYTES # (AUTO) 1.4 10^3/uL (1.0-4.0); LYMPHOCYTES % (AUTO) 10 % (12-44); MEAN CORPUSCULAR HEMOGLOBIN 28 pg (25-34); MEAN CORPUSCULAR HGB CONC 32 g/dL (32-36); MEAN CORPUSCULAR VOLUME 88 fL (80-99); MEAN PLATELET VOLUME 9.8 fL (9.0-12.2); MONOCYTES # (AUTO) 0.2 10^3/uL (0.0-1.0); MONOCYTES % (AUTO) 1 % (0-12); NEUTROPHILS # (AUTO) 12.4 10^3/uL (1.8-7.8); NEUTROPHILS % (AUTO) 87 % (42-75); PLATELET COUNT 219 10^3/uL (130-400); WHITE BLOOD COUNT 14.1 10^3/uL (4.3-11.0)
--- NOTE | 2022-02-15 16:17 | Diagnostic Imaging Report ---
CHEST 1 VIEW AP/PA ONLY Indication: Abdominal pain Comparison: 01/02/2020 Findings: No focal airspace disease in the visualized lungs. Please note that the posterior lower lobes are poorly evaluated by portable radiography. No pleural effusion or pneumothorax. Normal cardiomediastinal silhouette. No free intraperitoneal air under the diaphragm. Impression: 1. No acute cardiopulmonary process by portable radiography. Dictated by: Dictated on workstation # [id number]
--- NOTE | 2022-02-15 16:35 | ED Abdominal Pain ---
General Chief Complaint: Abdominal/GI Problems Stated Complaint: NAUSEA/VOMITING Nursing Triage Note: Patient presents to the ED via EMS with c/o nausea, vomiting, abdominal pain, fever, and weakness. Reports symptoms began 3 days ago. Reports increased weakness today. IV established in route to ED by EMS. Bolus of normal saline started and 4mg IV zofran admistered. History of Present Illness Date Seen by Provider: Feb 15, 2022 Time Seen by Provider: 15:18 Initial Comments 62-year-old male with PMH of COPD and asthma supposed to be on CPAP but does not wear it at home, DVT, diabetes mellitus, is brought in by EMS with complaints of abdominal pain, nausea, vomiting, diarrhea and lightheadedness and generalized weakness, which began about 3 days ago. The lightheadedness and generalized weakness started today morning and patient was too exhausted to even stand up or sit up by himself. Denies any known sick contacts, fever, chest pain, SOB, localized weakness or neurological deficits. EMS reports that patient had a temperature in the ambulance. Allergies and Home Medications Allergies Coded Allergies: azithromycin (Verified Allergy, Unknown, Rash, 11/27/19) dicloxacillin (Verified Allergy, Unknown, Rash, 11/27/19) Patient Home Medication List Home Medication List Reviewed: Yes Dapsone (Dapsone) 100 Mg Tablet, 150 MG PO DAILY, (Reported) Entered as Reported by: YEYO GAN on 11/27/19 1333 Gabapentin (Gabapentin) 300 Mg Capsule, 300 MG PO TID, (Reported) Entered as Reported by: YEYO GAN on 11/27/19 1333 Glimepiride (Glimepiride) 4 Mg Tablet, 4 MG PO DAILY, (Reported) Entered as Reported by: YEYO GAN on 03/17/20 1355 Hydrocodone/Acetaminophen (Hydrocodone-Acetamin 7.5-325) 1 Each Tablet, 1 EACH PO Q4H Prescribed by: ROS BOB on 03/25/20 0804 Lisinopril (Lisinopril) 40 Mg Tablet, 40 MG PO DAILY, (Reported) Entered as Reported by: YEYO GAN on 11/27/19 1333 Metformin HCl (Metformin HCl) 500 Mg Tablet, 500 MG PO BID, (Reported) Entered as Reported by: YEYO GAN on 11/27/19 1333 Rivaroxaban (Xarelto) 20 Mg Tablet, 20 MG PO DAILY, (Reported) Entered as Reported by: YEYO GAN on 11/27/19 1333 Tamsulosin HCl (Flomax) 0.4 Mg Cap, 0.4 MG PO DAILY, (Reported) Entered as Reported by: YEYO GAN on 03/17/20 1355 Review of Systems Review of Systems Constitutional: dizziness, fever, malaise, weakness EENTM: No Symptoms Reported Respiratory: No Symptoms Reported Cardiovascular: No Symptoms Reported Gastrointestinal: Abdominal Pain, Diarrhea, Nausea, Poor Appetite, Vomiting Genitourinary: No Symptoms Reported Musculoskeletal: no symptoms reported Skin: lesions Psychiatric/Neurological: No Symptoms Reported Endocrine: No Symptoms Reported Hematologic/Lymphatic: No Symptoms Reported Past Kcwrkrb-Fjwhqq-Lzkxon Hx Seasonal Allergies Seasonal Allergies: No Past Medical History Surgeries: Yes (skin ulceration sx2, R elbow sx, r CTR) Orthopedic, Vasectomy Respiratory: Yes Sleep Apnea Currently Using CPAP: No (SUPPOSED TO, DOES NOT WEAR) Currently Using BIPAP: No Cardiac: Yes Hypertension Neurological: Yes Neuropathy Genitourinary: No Gastrointestinal: Yes Gastroesophageal Reflux, Chronic Diarrhea Musculoskeletal: Yes Arthritis, Chronic Back Pain, Gout Endocrine: Yes Diabetes, Non-Insulin dep HEENT: Yes (glasses, ) Cancer: No Psychosocial: Yes Anxiety Integumentary: Yes (R foot abrasion) Blood Disorders: No (HX OF DVT) Physical Exam Vital Signs Vital Signs - First Documented 02/15/22 15:05 Pulse 128 Resp 16 B/P (MAP) 126/84 (98) Pulse Ox 97 O2 Delivery Room Air Capillary Refill : Less Than 3 Seconds Height/Weight/BMI Height: '" Weight: lbs. oz. kg; 54.66 BMI Method: General Appearance: mild distress, obese HEENT: PERRL/EOMI Neck: full range of motion Respiratory: chest non-tender, lungs clear, normal breath sounds, no respiratory distress, no accessory muscle use Cardiovascular: tachycardia, other (bilateral pedal edema and erythema) Gastrointestinal: normal bowel sounds, soft, tenderness, other (lower abdominal chronic wound) Extremities: normal range of motion Back: normal inspection Neurologic/Psychiatric: hydrochloric area supervisor II-XII nml as tested, no motor/sensory deficits, alert, normal mood/affect, oriented x 3 Focused Exam Lactate Level 02/15/22 15:11: Lactic Acid Level 2.72*H Lactic Acid Level Laboratory Tests Test 02/15/22 15:11 Lactic Acid Level 2.72 MMOL/L (0.50-2.00) *H Progress/Results/Core Measures Results/Orders Lab Results Laboratory Tests Test 02/15/22 15:11 02/15/22 15:40 02/15/22 16:17 Range/Units White Blood Count 14.1 H 4.3-11.0 10^3/uL Red Blood Count 4.40 4.30-5.52 10^6/uL Hemoglobin 12.3 L 13.3-17.7 g/dL Hematocrit 39 L 40-54 % Mean Corpuscular Volume 88 80-99 fL Mean Corpuscular Hemoglobin 28 25-34 pg Mean Corpuscular Hemoglobin Concent 32 32-36 g/dL Red Cell Distribution Width 14.9 H 10.0-14.5 % Platelet Count 219 130-400 10^3/uL Mean Platelet Volume 9.8 9.0-12.2 fL Immature Granulocyte % (Auto) 1 % Neutrophils (%) (Auto) 87 H 42-75 % Lymphocytes (%) (Auto) 10 L 12-44 % Monocytes (%) (Auto) 1 0-12 % Eosinophils (%) (Auto) 0 0-10 % Basophils (%) (Auto) 0 0-10 % Neutrophils # (Auto) 12.4 H 1.8-7.8 10^3/uL Lymphocytes # (Auto) 1.4 1.0-4.0 10^3/uL Monocytes # (Auto) 0.2 0.0-1.0 10^3/uL Eosinophils # (Auto) 0.1 0.0-0.3 10^3/uL Basophils # (Auto) 0.0 0.0-0.1 10^3/uL Immature Granulocyte # (Auto) 0.1 0.0-0.1 10^3/uL Prothrombin Time 17.0 H 12.2-14.7 SEC INR Comment 1.3 0.8-1.4 Activated Partial Thromboplast Time 28 24-35 SEC Sodium Level 142 135-145 MMOL/L Potassium Level 4.9 3.6-5.0 MMOL/L Chloride Level 104 98-107 MMOL/L Carbon Dioxide Level 25 21-32 MMOL/L Anion Gap 13 5-14 MMOL/L Blood Urea Nitrogen 30 H 7-18 MG/DL Creatinine 1.38 H 0.60-1.30 MG/DL Estimat Glomerular Filtration Rate 59 BUN/Creatinine Ratio 22 Glucose Level 172 H 70-105 MG/DL Lactic Acid Level 2.72 *H 0.50-2.00 MMOL/L Calcium Level 9.4 8.5-10.1 MG/DL Corrected Calcium 9.7 8.5-10.1 MG/DL Total Bilirubin 0.3 0.1-1.0 MG/DL Aspartate Amino Transf (AST/SGOT) 13 5-34 U/L Alanine Aminotransferase (ALT/SGPT) 12 0-55 U/L Alkaline Phosphatase 68 40-136 U/L Troponin I < 0.30 <0.30 NG/ML Total Protein 6.7 6.4-8.2 GM/DL Albumin 3.6 3.2-4.5 GM/DL Lipase 36 8-78 U/L Urine Color YELLOW Urine Clarity CLEAR Urine pH 6.0 5-9 Urine Specific [place] 1.015 L 1.016-1.022 Urine Protein NEGATIVE NEGATIVE Urine Glucose (UA) NEGATIVE NEGATIVE Urine Ketones NEGATIVE NEGATIVE Urine Nitrite NEGATIVE NEGATIVE Urine Bilirubin NEGATIVE NEGATIVE Urine Urobilinogen 0.2 < = 1.0 MG/DL Urine Leukocyte Esterase NEGATIVE NEGATIVE Urine RBC (Auto) NEGATIVE NEGATIVE Urine RBC NONE /HPF Urine WBC RARE /HPF Urine Squamous Epithelial Cells NONE /HPF Urine Crystals NONE /LPF Urine Bacteria NEGATIVE /HPF Urine Casts NONE /LPF Urine Mucus NEGATIVE /LPF Urine Culture Indicated NO Influenza Type A Antigen NEGATIVE NEGATIVE Influenza Type B Antigen NEGATIVE NEGATIVE My Orders Orders - MARCELO JEAN BAPTISTE MD Comprehensive Metabolic Panel (02/15/22 15:14) Lipase (02/15/22 15:14) Ua Culture If Indicated (02/15/22 15:14) Cbc With Automated Diff (02/15/22 15:14) Ct Abdomen/Pelvis W (02/15/22 15:14) Blood Culture (02/15/22 15:14) Sputum Culture (02/15/22 15:14) Protime With Inr (02/15/22 15:14) Partial Thromboplastin Time (02/15/22 15:14) Chest 1 View Ap/Pa Only (02/15/22 15:14) Ed Iv/Invasive Line Start (02/15/22 15:14) Ed Iv/Invasive Line Start (02/15/22 15:14) Troponin I [place] (02/15/22 15:14) Vital Signs Adult Sepsis Patie Q15M (02/15/22 15:14) Ondansetron Injection (Zofran Injectio (02/15/22 15:15) O2 (02/15/22 15:14) Remove Rings In Anticipation O (02/15/22 15:14) Wound Culture (02/15/22 15:14) Lactic Acid Analyzer (02/15/22 15:14) Influenza A & B Antigens (02/15/22 15:14) Ns Iv 1000 Ml (Sodium Chloride 0.9%) (02/15/22 15:15) Iohexol Injection (Omnipaque 350 Mg/Ml 1 (02/15/22 15:30) Received Contrast (Hold Metformin- Contr (02/15/22 15:30) Ns (Ivpb) (Sodium Chloride 0.9% Ivpb Bag (02/15/22 15:30) Manual Differential (02/15/22 15:11) Blood Culture (02/15/22 16:52) Metronidazole Tablet (Flagyl Tablet) (02/15/22 16:52) Cefepime Injection (Maxipime Injection) (02/15/22 16:52) Metronidazole 500mg/100ml Ivpb (Flagyl 5 (02/15/22 16:52) Pantoprazole Injection (Protonix Injecti (02/15/22 16:56) Ed Admission (Communication) (02/15/22 17:07) Add [facility] Sepsis Care Plan .admit (02/15/22 17:07) Medications Given in ED Current Medications Medications Dose Ordered Sig/Delmar Route Start Time Stop Time Status Last Admin Dose Admin Ondansetron HCl 4 mg PRN PRN IV 02/15/22 15:15 02/15/22 15:25 DC 02/15/22 15:25 4 MG Sodium Chloride 5,796 ml @ 5,796 mls/hr ONCE ONCE IV 02/15/22 15:15 02/15/22 16:14 DC 02/15/22 15:25 5,796 MLS/HR Vital Signs/I&O 02/15/22 15:05 Pulse 128 Resp 16 B/P (MAP) 126/84 (98) Pulse Ox 97 O2 Delivery Room Air Blood Pressure Mean: 98 Progress Progress Note : Progress Note 1. ABDOMINAL PAIN WITH SEPSIS - CT ABD: Unable to get CT at [place] due to pt's size and weight. Will need to transfer to [place] for CT abd - CBC: Wbc is elevated to 14.1 with a left shift - Chem: Lactic acid elevated - Blood cultures x2 - Troponin normal - Lipase normal - NS IVF boluses - Zofran 4mg iv STAT - Cefepime iv and Flagyl iv STAT - Will transfer to [place] for admission to step down and CT abdomen. Discussed with Dr. Garcia - Pt also has a chronic abdominal wall wound which may also be a possible source of sepsis. 2. JENNI & DEHYDRATION: - NS IVF - s. creatinine is 1.38 Diagnostic Imaging Diagonstic Imaging: Xray Plain Films/CT/US/NM/MRI: chest Comments [facility]. [place], [place] NAME: OLI BASHIR [facility] REC#: [id number] PT STATUS: REG ER : 1960 PHYSICIAN: MARCELO JEAN BAPTISTE MD ADMIT DATE: 02/15/22/ER FS Signed Date of Exam:02/15/22 CHEST 1 VIEW AP/PA ONLY CHEST 1 VIEW AP/PA ONLY Indication: Abdominal pain Comparison: 01/02/2020 Findings: No focal airspace disease in the visualized lungs. Please note that the posterior lower lobes are poorly evaluated by portable radiography. No pleural effusion or pneumothorax. Normal cardiomediastinal silhouette. No free intraperitoneal air under the diaphragm. Impression: 1. No acute cardiopulmonary process by portable radiography. Dictated by: Dictated on workstation # [id number] Dict: 02/15/221615 Trans: 02/15/221615 [facility] [id number] Interpreted by: KLAUDIA GONZALES MD Electronically signed by: KLAUDIA GONZALES MD 02/15/221615 Departure Impression Primary Impression: Sepsis Qualified Codes: A41.9 - Sepsis, unspecified organism Additional Impressions: Abdominal pain Qualified Codes: R10.30 - Lower abdominal pain, unspecified JENNI (acute kidney injury) Dehydration Disposition: 30 STILL A PATIENT Condition: Stable Admissions Decision to Admit Reason: Admit from ER (General) Transfer Transfer Reason: Exceeds level of care Time Spoke to Accepting Phy: 16:58 Transfer Progress Notes - Will transfer to [place] for admission to step down and CT abdomen. Discussed with Dr. Garcia Transfer Facility: [facility] Method of Transfer: EMS Departure-Patient Inst. Referrals: LOGAN CARDENAS MD (PCP/Family) Primary Care Physician MARCELO JEAN BAPTISTE MD Feb 15, 2022 16:35
[2022-02-15 16:39] LABS: BILIRUBIN,TOTAL 0.3 MG/DL (0.1-1.0); CALCIUM 9.4 MG/DL (8.5-10.1); CREATININE SERUM 1.38 MG/DL (0.60-1.30); POTASSIUM 4.9 MMOL/L (3.6-5.0); TOTAL PROTEIN 6.7 GM/DL (6.4-8.2)
[2022-02-15 16:40] LABS: ALBUMIN 3.6 GM/DL (3.2-4.5)
[2022-02-15 16:42] LABS: INR 1.3 (0.8-1.4)
[2022-02-15 16:49] LABS: COLOR,URINE YELLOW
[2022-02-15 16:50] LABS: BACTERIA,URINE NEGATIVE /HPF; BILIRUBIN,URINE NEGATIVE (NEGATIVE); CLARITY,URINE CLEAR; GLUCOSE, URINE (UA) NEGATIVE (NEGATIVE); KETONES,URINE NEGATIVE (NEGATIVE); LEUKOCYTE ESTERASE ,URINE NEGATIVE (NEGATIVE); NITRITE,URINE NEGATIVE (NEGATIVE); PROTEIN,URINE NEGATIVE (NEGATIVE); WBC,URINE RARE /HPF
[2022-02-15] MEDS ORDERED: metroNIDAZOLE 500 MG (FLAGYL) TAB PO STA (16:52)
[2022-02-15] MEDS ORDERED: metroNIDAZOLE 500MG/100ML IVPB 100 ML IV STA (16:52)
[2022-02-15] MEDS ORDERED: CEFEPIME INJECTION 1,000 MG in NS (IVPB) 50 ML IV STA (16:52)
[2022-02-15] MEDS ORDERED: PANTOPRAZOLE 40 MG (PROTONIX) VIAL IV STA (16:56)
[2022-02-15 18:46] LABS: BAND NEUTROPHILS 14 %; NEUTROPHILS % (MANUAL) 75 %
[2022-02-15 18:47] LABS: BASOPHILS % (MANUAL) 0 %; EOSINOPHILS % (MANUAL) 1 %; HYPOCHROMASIA SLIGHT; LYMPHOCYTES % (MANUAL) 9 %; MONOCYTES % (MANUAL) 1 %; PLATELET ESTIMATE NORMAL
[2022-02-15] MEDS ORDERED: ONDANSETRON 4 MG/2 ML (SDV) Z0FRAN IVP PRN (19:45)
[2022-02-15] MEDS ORDERED: NS IV 1000 ML 1,000 ML ONE (19:46)
[2022-02-15] MEDS: NS IV 1000 ML 1,000 ML IV SCH ×3 (19:51→23:59)
[2022-02-15] MEDS ORDERED: cefTRIAXone 1 GM PRE-MIX 50 ML IV SCH (22:00)
[2022-02-16] VITALS (25 sets, daily range): BP systolic 68–127; BP diastolic 40–99
[2022-02-16] MEDS: NS IV 1000 ML 1,000 ML IV SCH ×5 (00:01→22:23)
[2022-02-16 04:59] LABS: BASOPHILS # (AUTO) 0.1 10^3/uL (0.0-0.1); BASOPHILS % (AUTO) 0 % (0-10); EOSINOPHILS % (AUTO) 0 % (0-10); HEMATOCRIT 39 % (40-54); HEMOGLOBIN 11.9 g/dL (13.3-17.7); LYMPHOCYTES # (AUTO) 1.5 10^3/uL (1.0-4.0); LYMPHOCYTES % (AUTO) 6 % (12-44); MEAN CORPUSCULAR HEMOGLOBIN 28 pg (25-34); MEAN CORPUSCULAR HGB CONC 31 g/dL (32-36); MEAN CORPUSCULAR VOLUME 93 fL (80-99); MEAN PLATELET VOLUME 9.5 fL (9.0-12.2); MONOCYTES % (AUTO) 4 % (0-12); NEUTROPHILS # (AUTO) 20.3 10^3/uL (1.8-7.8); NEUTROPHILS % (AUTO) 85 % (42-75); PLATELET COUNT 220 10^3/uL (130-400); WHITE BLOOD COUNT 23.9 10^3/uL (4.3-11.0)
[2022-02-16 05:10] LABS: ALBUMIN 3.1 GM/DL (3.2-4.5); POTASSIUM 4.9 MMOL/L (3.6-5.0)
[2022-02-16 05:11] LABS: CALCIUM 8.4 MG/DL (8.5-10.1)
[2022-02-16 05:15] LABS: BILIRUBIN,TOTAL 0.4 MG/DL (0.1-1.0)
[2022-02-16 05:16] LABS: CREATININE SERUM 2.64 MG/DL (0.60-1.30)
[2022-02-16] MEDS ORDERED: metroNIDAZOLE 500MG/100ML IVPB 100 ML IV SCH (06:00)
[2022-02-16] MEDS ORDERED: NOREPINEPHRINE 16 MG in NS (IVPB) 234 ML IV SCH (08:30)
[2022-02-16] MEDS ORDERED: RIVAROXABAN 20 MG TABLET (XARELTO) PO SCH (09:00)
[2022-02-16] MEDS ORDERED: PIPERACILLIN SODIUM/TAZOBACTAM 4.5 GM in NS (IVPB) 100 ML IV NR (10:00)
[2022-02-16] MEDS ORDERED: LOPERAMIDE 2 MG (IMODIUM) TABLET PO PRN (10:00)
--- NOTE | 2022-02-16 10:06 | CONSULTATION REPORT ---
DATE OF SERVICE: 02/16/2022 ADMITTING PHYSICIAN: Amy Garcia MD ATTENDING PRIMARY CARE PHYSICIAN: Dr. Cardenas. HISTORY OF PRESENT ILLNESS: The patient is a 62-year-old male with an extensive past medical history including morbid obesity, COPD, history of DVT, diabetes, who presented with nausea, vomiting, diarrhea and general malaise, which began 3 days ago. The patient was admitted and given significant amount of crystalloids; however, the patient was unresponsive to the fluid challenge and continue to be hypotensive. Besides the symptoms mentioned before, he does not report any abdominal pain. He does have a wound along the abdominal pannus along the left side, which appears to be clean and granulating well with no abscess. He does have bilateral lower extremity chronic venous insufficiency as well as some mild overlying cellulitis; however, no abscesses. He has a poor peripheral venous circulation and will require a central venous catheter for vasopressors. PAST MEDICAL HISTORY: COPD, sleep apnea, hypertension, neuropathy, chronic venous insufficiency, gastroesophageal reflux disease, degenerative joint disease, gout, diabetes, history of DVT. PAST SURGICAL HISTORY: Debridement of thigh x2, right elbow surgery, vasectomy. ALLERGIES: AZITHROMYCIN, DICLOXACILLIN MEDICATIONS: Dapsone 150 mg daily, gabapentin 300 mg daily, glimepiride 4 mg daily, hydrocodone p.r.n., lisinopril 40 mg daily, metformin 500 mg b.i.d., Xarelto 20 mg daily, tamsulosin 0.4 mg daily. SOCIAL HISTORY: Previous smoke, quit 10 years ago, 50 pack years. Negative alcohol. FAMILY HISTORY: Noncontributory. VITAL SIGNS: Temperature 36.5, blood pressure 88/40, pulse 110, respirations 22, pulse ox 95% on 2 liters nasal cannula. REVIEW OF SYSTEMS: This is an obese male, currently in no acute distress. He is experiencing some mild shortness of breath; however, this appears to be his baseline. No new cough or sputum production. No chest pain, palpitations, diaphoresis. Intermittent episodes of nausea as well as diarrhea. No red blood per rectum, no dark tarry stools. No fever or chills. He does not report any fever, chills; however, has had fevers since admission. No recent inadvertent weight loss. All other review of systems negative. PHYSICAL EXAMINATION: CHEST: Few scattered rales bilaterally. HEART: Regular, no murmurs. EXTREMITIES: No lower extremity edema, negative Homans sign. HEENT: No scleral icterus. NECK: No cervical lymphadenopathy. ABDOMEN: Soft, nondistended. There is a large overlying pannus with an open area with good granulation tissue, no fluctuance to indicate any abscess. SKIN: There is bilateral edema around the ankle distribution as well as chronic color changes of the skin consistent with chronic venous insufficiency with some mild overlying cellulitis. LABORATORY DATA: WBC 23.9, hemoglobin 11.9, hematocrit 39, platelets 220. BUN 34, creatinine 2.64. Lactic acid 4.77. ASSESSMENT AND PLAN: A 62-year-old male in septic shock of unknown etiology. This may encompass cellulitis of the lower extremities; however, he also does have diarrhea, which may encompass a Clostridium difficile colitis and we will check his stools for the toxins related to this. We will also switch him over to a broad-spectrum antibiotic for now. He will also likely need further diagnostic imaging. Job ID: [id number] DocumentID: [id number] Dictated Date: 02/16/2022 09:50:29 Plastic Manager Date: 02/16/2022 10:06:14 Dictated By: DELORES AQUINO MD
--- NOTE | 2022-02-16 10:43 | Diagnostic Imaging Report ---
INDICATION: Central line placement Portable chest 10:34 AM Left subclavian central line tip is at the innominate confluence. Heart size and pulmonary vascularity are normal. Lungs are clear. There are no effusions or pneumothoraces. IMPRESSION: No acute abnormalities in the chest Dictated by: Dictated on workstation # [id number]
--- NOTE | 2022-02-16 11:08 | Tele-ICU Consult ---
History of Present Illness History of Present Illness Date Seen by Provider: Feb 16, 2022 Time Seen by Provider: 11:07 Date of Admission (Tele-ICU Physician , consultation) Available chart/ vitals / labs / Images reviewed H&P is from ER notes Patient's information available about PMH, Shx, Fhx allergy reviewed in EMR. ROS as per chart and RN report Now in ICU AAO Video assessment done using teleICU camera, rest of exam as per RN Discussed with RN. Consultants: sx Hospital course: transferred fron [facility] with sepsis A/P Severe sepsis, shock by elev lactate Infection source is not immediately obvious _, can not het CT abd Received > 5 L crystalloids for hypotension and lactate last 24 h -abx initiated CVP placed - will check CVP consider ECHO ( suspect pulm HTN -pressors suppor prn JENNI/ARF -Likely in setting of sepsis , Cr worsenign despite hydration - castelan in place , follow closely , might need US renal -Renally dose meds - hold JERMAIN H/o DVT - cont on xartelto MARITA - not compl with CPAP - will need to cont here nocturnal DM - ISS -= hold metformian Lines : R SCL 02/16 (Central Line Necessity Reviewed) Castelan: 02/15 OG: Nutrition: Analgesia: Anxiety/ delirium VTE Prophylaxis: xarelto Stress Ulcer Prophylaxis: po Plans in collaboration with bedside consultants and IM MDs. Discussed with RN to reach out if any questions or concerns A total of 33 minutes of critical care time was devoted to this patient today, required to treat and/or prevent further deterioration of critical care condition ( as above ) . Allergies and Home Medications Allergies Coded Allergies: azithromycin (Verified Allergy, Unknown, Rash, 11/27/19) dicloxacillin (Verified Allergy, Unknown, Rash, 11/27/19) Home Medications Dapsone 100 Mg Tablet, 150 MG PO DAILY, (Reported) TAKES 1 & (100MG) TAB TO EQUAL 150MG Gabapentin 300 Mg Capsule, 300 MG PO TID, (Reported) Glimepiride 4 Mg Tablet, 4 MG PO DAILY, (Reported) Lisinopril 40 Mg Tablet, 40 MG PO DAILY, (Reported) Metformin HCl 500 Mg Tablet, 500 MG PO BID, (Reported) Rivaroxaban 20 Mg Tablet, 20 MG PO DAILY, (Reported) Tamsulosin HCl 0.4 Mg Cap, 0.4 MG PO DAILY, (Reported) Past Medical/Social/Family Hx Patient Social History Tobacco Use?: No Smoking Status: Never a Smoker Use of E-Cig and/or Vaping dev: No Substance use?: No Alcohol Use?: Yes Alcohol type: Wine Alcohol Frequency: Rarely Pt stated abuse/neglect: No Immunizations Up To Date Influenza Vaccine Up-to-Date: Yes; Up-to-Date First/Initial COVID19 Vaccinat: Yes Second COVID19 Vaccination Randal: Yes Tetanus Booster (TDap): Unknown Current Status Advance Directives: No Communicates: Verbally Primary Language: Libyan Preferred Spoken Language: Libyan Is interpretation needed?: No Sensory deficits: Vision impairment Implanted or Applied Medical D: None Review of Systems Constitutional: see HPI Focused Exam Lactate Level 02/16/22 04:35: Lactic Acid Level 5.20*H 02/16/22 07:47: Lactic Acid Level 4.77*H 02/16/22 09:45: Lactic Acid Level 3.02*H Height, Weight, BMI Height: '" Weight: lbs. oz. kg; 58.94 BMI Method: Lactic Acid Level Laboratory Tests Test 02/16/22 07:47 02/16/22 09:45 Lactic Acid Level 4.77 MMOL/L (0.50-2.00) *H 3.02 MMOL/L (0.50-2.00) *H Exam Exam Patient acknowledged, consented, and participated in this virtual visit which was conducted using real time audio/video Vital Signs Date Time Temp Pulse Resp B/P (MAP) Pulse Ox O2 Delivery O2 Flow Rate FiO2 02/16/22 07:41 36.5 110 22 88/40 (56) 95 02/16/22 07:00 118 02/16/22 05:30 118 29 100/60 (73) 95 Nasal Cannula 2.00 02/16/22 04:00 36.2 02/16/22 03:30 116 23 90/43 (59) 96 Nasal Cannula 2.00 02/16/22 03:00 91 Nasal Cannula 2.00 02/16/22 01:00 112 02/16/22 01:00 112 17 89/46 (60) Nasal Cannula 2.00 02/16/22 00:30 106 28 68/47 (54) 97 Nasal Cannula 2.00 4/12/22 23:18 94 Nasal Cannula 2.00 02/15/22 23:15 105 25 91/63 (72) 94 Nasal Cannula 2.00 02/15/22 23:07 37.2 131 31 128/97 (107) 94 Nasal Cannula 2.00 2.00 02/15/22 22:00 128 12 90/68 (75) 89 Nasal Cannula 2.00 02/15/22 20:44 131 31 128/97 (111) 94 Nasal Cannula 2.00 02/15/22 20:00 135 11 100/90 (95) 91 Nasal Cannula 2.00 02/15/22 19:45 144 02/15/22 19:42 142 35 108/65 (68) 92 Nasal Cannula 2.00 02/15/22 19:32 149 19 103/33 (43) 93 Nasal Cannula 2.00 02/15/22 18:30 37.2 127 16 107/82 94 Room Air 02/15/22 15:05 128 16 126/84 (98) 97 Room Air I & O 02/16/22 07:00 Intake Total 3300 ml Balance 3300 ml Height & Weight Height: '" Weight: lbs. oz. kg; 58.94 BMI Method: General Appearance: No Apparent Distress Capillary Refill: Less Than 3 Seconds Gastrointestinal: normal bowel sounds, soft, tenderness, other (lower abdominal chronic wound) Results Lab Laboratory Tests 02/15/22 15:11 02/16/22 04:35 Assessment/Plan Assessment/Plan ` LIOR HOWARD MD Feb 16, 2022 11:08
[2022-02-16] MEDS: NOREPINEPHRINE 8 MG/250 ML 250 ML IV SCH ×3 (11:31→21:00)
[2022-02-16] MEDS: VASOPRESSIN INJECTION 20 UNIT in NS (IVPB) 100 ML IV SCH ×2 (11:31→18:43)
[2022-02-16] MEDS: LINEZOLID IVPB 300 ML IV SCH ×2 (11:36→20:40)
[2022-02-16] MEDS ORDERED: HYPOCHLOROUS ACID/NaCl (VASHE) 250 ML IR PRN (12:15)
--- NOTE | 2022-02-16 12:20 | History & Physical ---
HPI History of Present Illness: 62 yo male says he came to the hospital due to not feeling well. He had nausea and worsening shortness of breath over the last days to week. He denies abdominal pain, chest pain, cough. He denies fever. He reports chronic intermittent diarrhea and chronic difficulty urinating that he has seen Urology for and was placed on Flomax but isn't sure if it has helped. He has a chronic abdominal wound that he has been seeing outpatient wound care for. At baseline, he says he can walk a little bit with a cane, usually is in a recliner at home. He does not use supplemental oxygen at home. He does have CPAP for sleep apnea, but hasn't used it in a couple of years because it dries him out. Source: patient Date seen by provider: Feb 16, 2022 Time Seen by Provider: 09:10 Attending Physician Edwin Garcia MD PCP David Cardenas MD Consult Date of Admission Feb 15, 2022 at 19:20 Home Medications Home Medications Reviewed patient Home Medication Reconciliation performed by pharmacy medication reconciliations licensed chemical spray technician and/or nursing. Patients Allergies have been reviewed. Allergies Coded Allergies: azithromycin (Verified Allergy, Unknown, Rash, 11/27/19) dicloxacillin (Verified Allergy, Unknown, Rash, 11/27/19) [id number] Hx Patient Social History Smoking Status: Never a Smoker 2nd Hand Smoke Exposure: No Recent Hopitalizations: No Alcohol Use?: Yes Have you traveled recently?: No Immunizations Up To Date Influenza Vaccine Up-to-Date: Yes; Up-to-Date First/Initial COVID19 Vaccinat: 02/11/2021 Second COVID19 Vaccination Randal: 03/11/2021 COVID19 Vaccine Tire Layer: Moderna Past Medical History PMHx: Gout Morbid obesity Sleep apnea DMII HLD HTN Leukocytoclastic vasculitis CKD Lymphedema SurgHx: Elbow Vasectomy Review of Systems ([facility]) Constitutional: No fever; malaise Respiratory: see HPI Cardiovascular: No chest pain Gastrointestinal: see HPI; No abdominal pain Genitourinary: hesitancy Skin: see HPI Psychiatric/Neurological: No Symptoms Reported Reviewed Test Results Reviewed Test Results Lab Laboratory Tests Test 02/15/22 15:11 02/15/22 15:40 02/15/22 16:17 02/15/22 17:16 Range/Units White Blood Count 14.1 H 4.3-11.0 10^3/uL Red Blood Count 4.40 4.30-5.52 10^6/uL Hemoglobin 12.3 L 13.3-17.7 g/dL Hematocrit 39 L 40-54 % Mean Corpuscular Volume 88 80-99 fL Mean Corpuscular Hemoglobin 28 25-34 pg Mean Corpuscular Hemoglobin Concent 32 32-36 g/dL Red Cell Distribution Width 14.9 H 10.0-14.5 % Platelet Count 219 130-400 10^3/uL Mean Platelet Volume 9.8 9.0-12.2 fL Immature Granulocyte % (Auto) 1 % Neutrophils (%) (Auto) 87 H 42-75 % Lymphocytes (%) (Auto) 10 L 12-44 % Monocytes (%) (Auto) 1 0-12 % Eosinophils (%) (Auto) 0 0-10 % Basophils (%) (Auto) 0 0-10 % Neutrophils # (Auto) 12.4 H 1.8-7.8 10^3/uL Lymphocytes # (Auto) 1.4 1.0-4.0 10^3/uL Monocytes # (Auto) 0.2 0.0-1.0 10^3/uL Eosinophils # (Auto) 0.1 0.0-0.3 10^3/uL Basophils # (Auto) 0.0 0.0-0.1 10^3/uL Immature Granulocyte # (Auto) 0.1 0.0-0.1 10^3/uL Neutrophils % (Manual) 75 % Lymphocytes % (Manual) 9 % Monocytes % (Manual) 1 % Eosinophils % (Manual) 1 % Basophils % (Manual) 0 % Band Neutrophils 14 % Platelet Estimate NORMAL Hypochromasia SLIGHT Prothrombin Time 17.0 H 12.2-14.7 SEC INR Comment 1.3 0.8-1.4 Activated Partial Thromboplast Time 28 24-35 SEC Sodium Level 142 135-145 MMOL/L Potassium Level 4.9 3.6-5.0 MMOL/L Chloride Level 104 98-107 MMOL/L Carbon Dioxide Level 25 21-32 MMOL/L Anion Gap 13 5-14 MMOL/L Blood Urea Nitrogen 30 H 7-18 MG/DL Creatinine 1.38 H 0.60-1.30 MG/DL Estimat Glomerular Filtration Rate 59 BUN/Creatinine Ratio 22 Glucose Level 172 H 70-105 MG/DL Lactic Acid Level 2.72 *H 4.08 *H 0.50-2.00 MMOL/L Calcium Level 9.4 8.5-10.1 MG/DL Corrected Calcium 9.7 8.5-10.1 MG/DL Total Bilirubin 0.3 0.1-1.0 MG/DL Aspartate Amino Transf (AST/SGOT) 13 5-34 U/L Alanine Aminotransferase (ALT/SGPT) 12 0-55 U/L Alkaline Phosphatase 68 40-136 U/L Troponin I < 0.30 <0.30 NG/ML Total Protein 6.7 6.4-8.2 GM/DL Albumin 3.6 3.2-4.5 GM/DL Lipase 36 8-78 U/L Urine Color YELLOW Urine Clarity CLEAR Urine pH 6.0 5-9 Urine Specific [place] 1.015 L 1.016-1.022 Urine Protein NEGATIVE NEGATIVE Urine Glucose (UA) NEGATIVE NEGATIVE Urine Ketones NEGATIVE NEGATIVE Urine Nitrite NEGATIVE NEGATIVE Urine Bilirubin NEGATIVE NEGATIVE Urine Urobilinogen 0.2 < = 1.0 MG/DL Urine Leukocyte Esterase NEGATIVE NEGATIVE Urine RBC (Auto) NEGATIVE NEGATIVE Urine RBC NONE /HPF Urine WBC RARE /HPF Urine Squamous Epithelial Cells NONE /HPF Urine Crystals NONE /LPF Urine Bacteria NEGATIVE /HPF Urine Casts NONE /LPF Urine Mucus NEGATIVE /LPF Urine Culture Indicated NO Influenza Type A Antigen NEGATIVE NEGATIVE Influenza Type B Antigen NEGATIVE NEGATIVE SARS-CoV-2 RNA (RT-PCR) Not Detected Not Detecte Test 02/15/22 20:10 02/15/22 22:30 02/16/22 00:35 02/16/22 02:35 Range/Units Lactic Acid Level 8.05 *H 8.78 *H 7.84 *H 6.27 *H 0.50-2.00 MMOL/L Test 02/16/22 04:35 02/16/22 07:47 02/16/22 09:45 02/16/22 12:13 Range/Units White Blood Count 23.9 H 4.3-11.0 10^3/uL Red Blood Count 4.20 L 4.30-5.52 10^6/uL Hemoglobin 11.9 L 13.3-17.7 g/dL Hematocrit 39 L 40-54 % Mean Corpuscular Volume 93 80-99 fL Mean Corpuscular Hemoglobin 28 25-34 pg Mean Corpuscular Hemoglobin Concent 31 L 32-36 g/dL Red Cell Distribution Width 15.1 H 10.0-14.5 % Platelet Count 220 130-400 10^3/uL Mean Platelet Volume 9.5 9.0-12.2 fL Immature Granulocyte % (Auto) 5 % Neutrophils (%) (Auto) 85 H 42-75 % Lymphocytes (%) (Auto) 6 L 12-44 % Monocytes (%) (Auto) 4 0-12 % Eosinophils (%) (Auto) 0 0-10 % Basophils (%) (Auto) 0 0-10 % Neutrophils # (Auto) 20.3 H 1.8-7.8 10^3/uL Lymphocytes # (Auto) 1.5 1.0-4.0 10^3/uL Monocytes # (Auto) 1.0 0.0-1.0 10^3/uL Eosinophils # (Auto) 0.0 0.0-0.3 10^3/uL Basophils # (Auto) 0.1 0.0-0.1 10^3/uL Immature Granulocyte # (Auto) 1.1 H 0.0-0.1 10^3/uL Sodium Level 143 135-145 MMOL/L Potassium Level 4.9 3.6-5.0 MMOL/L Chloride Level 112 H 98-107 MMOL/L Carbon Dioxide Level 13 L 21-32 MMOL/L Anion Gap 18 H 5-14 MMOL/L Blood Urea Nitrogen 34 H 7-18 MG/DL Creatinine 2.64 #H 0.60-1.30 MG/DL Estimat Glomerular Filtration Rate 27 BUN/Creatinine Ratio 13 Glucose Level 69 L 70-105 MG/DL Lactic Acid Level 5.20 *H 4.77 *H 3.02 *H 3.12 *H 0.50-2.00 MMOL/L Calcium Level 8.4 L 8.5-10.1 MG/DL Corrected Calcium 9.1 8.5-10.1 MG/DL Total Bilirubin 0.4 0.1-1.0 MG/DL Aspartate Amino Transf (AST/SGOT) 87 H 5-34 U/L Alanine Aminotransferase (ALT/SGPT) 42 0-55 U/L Alkaline Phosphatase 45 40-136 U/L Total Protein 6.0 L 6.4-8.2 GM/DL Albumin 3.1 L 3.2-4.5 GM/DL Test 02/16/22 14:38 Range/Units Lactic Acid Level 2.67 *H 0.50-2.00 MMOL/L Radiology CXR 02/15/22: Impression: 1. No acute cardiopulmonary process by portable radiography. Physical Exam-([facility]) Physical Exam Vital Signs VS - Last 72 Hours, by Label 02/15/22 02/15/22 02/15/22 02/15/22 15:05 18:30 19:32 19:42 Temp 37.2 Pulse 128 127 149 142 Resp 16 16 19 35 B/P (MAP) 126/84 (98) 107/82 103/33 (43) 108/65 (68) Pulse Ox 97 94 93 92 O2 Delivery Room Air Room Air Nasal Cannula Nasal Cannula O2 Flow Rate 2.00 2.00 02/15/22 02/15/22 02/15/22 02/15/22 19:45 20:00 20:44 22:00 Pulse 144 135 131 128 Resp 11 31 12 B/P (MAP) 100/90 (95) 128/97 (111) 90/68 (75) Pulse Ox 91 94 89 O2 Delivery Nasal Cannula Nasal Cannula Nasal Cannula O2 Flow Rate 2.00 2.00 2.00 02/15/22 02/15/22 02/15/22 02/16/22 23:07 23:15 23:18 00:30 Temp 37.2 Pulse 131 105 106 Resp 31 25 28 B/P (MAP) 128/97 (107) 91/63 (72) 68/47 (54) Pulse Ox 94 94 94 97 O2 Delivery Nasal Cannula Nasal Cannula Nasal Cannula Nasal Cannula O2 Flow Rate 2.00 2.00 2.00 2.00 2.00 02/16/22 02/16/22 02/16/22 02/16/22 01:00 01:00 03:00 03:30 Pulse 112 112 116 Resp 17 23 B/P (MAP) 89/46 (60) 90/43 (59) Pulse Ox 91 96 O2 Delivery Nasal Cannula Nasal Cannula Nasal Cannula O2 Flow Rate 2.00 2.00 2.00 02/16/22 02/16/22 02/16/22 02/16/22 04:00 05:30 07:00 07:41 Temp 36.2 36.5 Pulse 118 118 110 Resp B/P (MAP) 100/60 (73) 88/40 (56) Pulse Ox 95 95 O2 Delivery Nasal Cannula O2 Flow Rate 2.00 02/16/22 02/16/22 02/16/22 02/16/22 08:30 08:45 09:00 09:15 Pulse 120 120 117 Resp 29 26 B/P (MAP) 99/57 (71) 114/54 (74) 84/54 (64) Pulse Ox 94 95 93 02/16/22 02/16/22 02/16/22 02/16/22 09:30 09:45 10:00 10:35 Pulse 112 118 118 Resp 42 25 B/P (MAP) 118/99 (105) 99/75 (83) Pulse Ox 93 93 95 O2 Delivery Nasal Cannula O2 Flow Rate 2.00 02/16/22 02/16/22 02/16/22 02/16/22 11:00 12:00 13:00 13:00 Pulse 117 115 114 113 Resp 27 B/P (MAP) 113/89 (97) 102/46 (64) 113/66 (82) Pulse Ox 94 92 94 O2 Delivery Nasal Cannula Nasal Cannula Nasal Cannula O2 Flow Rate 2.00 2.00 2.00 02/16/22 02/16/22 14:00 15:00 Pulse 111 113 Resp 27 B/P (MAP) 90/62 (71) 116/86 (96) Pulse Ox 95 94 O2 Delivery Nasal Cannula Nasal Cannula O2 Flow Rate 2.00 2.00 Capillary Refill : Less Than 3 Seconds General Appearance: mild distress, obese Eyes: Bilateral Eye EOMI Respiratory: other (unable to sit up unassisted, anterior exam clear) Cardiovascular: regular rate, rhythm Gastrointestinal: normal bowel sounds, non tender, soft Extremities: pedal edema (non-pitting) Neurologic/Psychiatric: alert, normal mood/affect Skin: other (erythema of both lower legs, right greater than left especially over [place], abdominal wound with granulation tissue at base, scattered petechiae on arms and legs) Assessment/Plan Assessment/Plan Admission Status: Inpatient Order (span 2 midnights) Reason for Inpatient Admission: Septic shock (1) Sepsis Status: Acute Assessment & Plan: Uncertain source, initially suspecting intra-abdominal, unable to get CT due to weight, started on ceftriaxone and metronidazole. Received 30 cc/kg bolus in ER, but repeat lactic acid was 8 yesterday evening, at that time BP was still normal, further 3 liter bolus given and lactate did start to decrease slowly, but blood pressure also decreased overnight, this morning transferred to ICU due to persistent hypotension in spite of fluid resuscitation. Central line placed and norepeinephrine ordered. This mroning notified that blood cultures positive for gram pos cocci strep or enterococcus suspected, linezolid added to antibiotic regimen. Qualifiers: Qualified Codes: A41.9 - Sepsis, unspecified organism; R65.21 - Severe sepsis with septic shock; N17.9 - Acute kidney failure, unspecified (2) JENNI (acute kidney injury) Status: Acute Assessment & Plan: Secondary to sepsis, worsened in spite of massive fluid resuscitation. Appreciate Keli ICU recommendations. (3) Abdominal pain Status: Resolved Assessment & Plan: Pt reporting no further abdominal pain by the time of admission. Unable to obtain CT due to weight limit. Qualifiers: Qualified Codes: R10.30 - Lower abdominal pain, unspecified (4) Sleep apnea Status: Chronic Assessment & Plan: CPAP at night Qualifiers: Qualified Codes: G47.33 - Obstructive sleep apnea (adult) (pediatric) (5) Diabetes mellitus Assessment & Plan: ICU glycemic protocol Qualifiers: Qualified Codes: E11.622 - Type 2 diabetes mellitus with other skin ulcer (6) Hyperlipidemia (7) Hypertension Status: Chronic Assessment & Plan: currently hypotensive, hold home meds Qualifiers: Qualified Codes: I10 - Essential (primary) hypertension (8) CKD (chronic kidney disease) Assessment & Plan: Outpatient cr 1.Nov. Qualifiers: (9) Chronic acquired lymphedema (10) Obesity, morbid, BMI 50 or higher (11) Abdominal wall skin ulcer Status: Chronic Assessment & Plan: Wound care consulted, appreciate recommendations. (12) DVT prophylaxis Status: Acute Assessment & Plan: Home Xarelto- reports history of DVT. EDWIN GARCIA MD Feb 16, 2022 12:20
[2022-02-16] MEDS ORDERED: ALBUMIN 5% 12.5 GM/250 ML 250 ML IV ONE (12:45)
[2022-02-16] MEDS: LACTATED RINGERS 500 ML IV SCH ×2 (13:27→20:22)
[2022-02-16] MEDS ORDERED: HYDROcodone/APAP 5 MG/325 MG (LORTAB) TAB PO PRN (13:30)
[2022-02-16] MEDS: GABAPENTIN 300 MG (NEURONTIN) CAP PO SCH ×2 (13:41→20:40)
--- NOTE | 2022-02-16 14:18 | OPERATIVE REPORT ---
DATE OF SERVICE: 02/16/2022 ADMITTING PHYSICIAN: Dr. Garcia. ATTENDING PRIMARY CARE PHYSICIAN: Dr. Cardenas. PREPROCEDURE DIAGNOSIS: Septic shock. POSTPROCEDURE DIAGNOSIS: Septic shock. PROCEDURE: Placement of left subclavian central venous catheter. SURGEON: Delores Aquino MD ANESTHESIA: Local. ESTIMATED BLOOD LOSS: Minimal. DISPOSITION: The patient tolerated the procedure well. INDICATIONS: The patient is a 62-year-old male with multiple medical problems including morbid obesity, COPD, sleep apnea, and diabetes. He also reports that he has been having episodes of nausea as well as diarrhea for the past 3 days. He was found to be hypotensive and was given approximately 5 liters of crystalloid, however, his blood pressure did not respond to the fluid challenge. He will require central venous catheter for vasopressor support. DESCRIPTION OF PROCEDURE: The chest and neck were prepped and draped in standard surgical fashion. A 1% lidocaine was used to anesthetize the left subclavian region. Left subclavian vein was then cannulated withdrawing the venous blood and the guidewire was then inserted without any resistance. The cannulating needle removed and a skin incision made using 11 blade. A tract was then created using a venous dilator and through this opening, a triple lumen central venous catheter was placed over the guidewire using the Seldinger technique and the guidewire was then removed. All three ports iveth venous blood and saline pushed in without any resistance. The catheter was then sutured to the skin using 3-0 silk interrupted sutures. Catheter was then cleaned and covered with Op-Site. The patient tolerated the procedure well. We will get a post-procedure chest x-ray once confirmation of placement of catheter may be used at any time. Job ID: [id number] DocumentID: [id number] Dictated Date: 02/16/2022 09:53:30 Executive Director [employer] Date: 02/16/2022 14:17:56 Dictated By: DELORES AQUINO MD [facility]
[2022-02-16] MEDS: PIPERACILLIN SODIUM/TAZOBACTAM 4.5 GM in NS (IVPB) 100 ML IV SCH ×2 (16:31→22:57)
[2022-02-16] MEDS: inSUlin ASPART (NovoLOG) 1 UNIT/0.01 ML (CHARGE PER UNIT) SC SCH ×2 (18:42→23:01)
[2022-02-16 20:08] LABS: CALCIUM 7.4 MG/DL (8.5-10.1)
[2022-02-16 20:13] LABS: CREATININE SERUM 2.82 MG/DL (0.60-1.30)
[2022-02-16 20:22] LABS: MAGNESIUM 1.1 MG/DL (1.6-2.4)
[2022-02-16] MEDS ORDERED: SODIUM BICARB 8.4% 50 MEQ/50 ML (ABBOTT) SYR IV ONE (21:00)
[2022-02-16] MEDS ORDERED: SOD POLYSTERENE 15 GM/60 ML (KAYEXALATE) UNIT DOSE PO ONE (21:00)
[2022-02-16] MEDS ORDERED: CALCIUM GLUC. 10% 4.65 MEQ/10 ML VIAL IV ONE (21:00)
[2022-02-16] MEDS ORDERED: D5 NS 1000 ML IV SOLUTION 1,000 ML IV ONE (21:08)
[2022-02-16] MEDS ORDERED: MAGNESIUM 1 GM/100 ML IVPB 100 ML IV ONE ×2 (21:08→21:36)
[2022-02-16] MEDS ORDERED: CALCIUM GLUC. 10% 4.65 MEQ/10 ML VIAL ONE (21:08)
[2022-02-16] MEDS ORDERED: SODIUM POLYSTYRENE POWDER 15 GM BOTTLE ONE (21:08)
[2022-02-16] MEDS ORDERED: SODIUM BICARB 8.4% 50 MEQ/50 ML VIAL ONE (21:08)
[2022-02-16] MEDS: D5 NS 1000 ML IV SOLUTION 1,000 ML IV SCH (21:16)
[2022-02-16] MEDS: MAGNESIUM 1 GM/100 ML IVPB 100 ML IV SCH ×2 (21:19→22:20)
[2022-02-17] VITALS (10 sets, daily range): BP systolic 88–135; BP diastolic 57–109
[2022-02-17 01:31] LABS: POTASSIUM 6.4 MMOL/L (3.6-5.0)
[2022-02-17 01:32] LABS: CALCIUM 7.8 MG/DL (8.5-10.1)
[2022-02-17 01:37] LABS: CREATININE SERUM 3.18 MG/DL (0.60-1.30)
[2022-02-17] MEDS: NOREPINEPHRINE 8 MG/250 ML 250 ML IV SCH ×2 (02:03→08:56)
[2022-02-17] MEDS ORDERED: inSUlin (REGULAR) HUMAN 1 UNIT/0.01 ML (CHARGE PER UNIT) IV ONE (02:15)
[2022-02-17] MEDS ORDERED: CALCIUM CHLORIDE 1 GM/10 ML (IMS) SYR IV ONE (02:15)
[2022-02-17] MEDS ORDERED: DEXTROSE 50% 50 ML (IMS) SYR IV ONE (02:15)
[2022-02-17] MEDS ORDERED: SOD POLYSTERENE 15 GM/60 ML (KAYEXALATE) UNIT DOSE PR ONE (02:15)
[2022-02-17] MEDS ORDERED: RT-ALBUTEROL SULF 2.5 MG/3 ML PRE-MIX VIAL INH ONE (02:15)
--- NOTE | 2022-02-17 02:20 | Tele-ICU Progress Note ---
Progress Note Chemistry at 1945 with K6.0. Given bicarb, calcium, kayexelate. Held off on insulin due to hypoglycemia. Held off on lasix due to JENNI and pressor support. Creatinine from 2.6 to 2.8 despite estimated 8L IVF today. Approaching oliguria. Now surveillance BMP with further increase in creatinine to 3.2 and increase in K to 6.4 despite treatment. Another bicarb, calcium ordered. Insulin/D50 ordered as hypoglycemia has resolved. Albuterol neb also ordered. Requesting transfer to facility with dialysis capabilities. At this rate, at risk of progressive hyperkalemia and cardiac arrest within the next 6-12 hours. Will follow BMP closely. Next check AM labs in 2-3 hours. Focused Exam Lactate Level 02/16/22 14:38: Lactic Acid Level 2.67*H 02/16/22 19:46: Lactic Acid Level 2.03*H 02/16/22 22:04: Lactic Acid Level 1.87 Height, Weight, BMI Height: '" Weight: lbs. oz. kg; 58.94 BMI Method: ASHLEY CUNNINGHAM MD Feb 17, 2022 02:20
[2022-02-17] MEDS ORDERED: SODIUM BICARB 8.4% 50 MEQ/50 ML VIAL IV ONE (02:30)
[2022-02-17] MEDS ORDERED: SODIUM POLYSTYRENE POWDER 15 GM BOTTLE ONE (03:02)
[2022-02-17 03:22] LABS: BASOPHILS # (AUTO) 0.1 10^3/uL (0.0-0.1); BASOPHILS % (AUTO) 0 % (0-10); EOSINOPHILS # (AUTO) 0.3 10^3/uL (0.0-0.3); EOSINOPHILS % (AUTO) 1 % (0-10); HEMATOCRIT 34 % (40-54); HEMOGLOBIN 10.3 g/dL (13.3-17.7); LYMPHOCYTES # (AUTO) 0.9 10^3/uL (1.0-4.0); LYMPHOCYTES % (AUTO) 5 % (12-44); MEAN CORPUSCULAR HEMOGLOBIN 28 pg (25-34); MEAN CORPUSCULAR HGB CONC 30 g/dL (32-36); MEAN CORPUSCULAR VOLUME 92 fL (80-99); MEAN PLATELET VOLUME 9.2 fL (9.0-12.2); MONOCYTES # (AUTO) 0.8 10^3/uL (0.0-1.0); MONOCYTES % (AUTO) 4 % (0-12); NEUTROPHILS # (AUTO) 17.2 10^3/uL (1.8-7.8); NEUTROPHILS % (AUTO) 83 % (42-75); PLATELET COUNT 188 10^3/uL (130-400); WHITE BLOOD COUNT 20.7 10^3/uL (4.3-11.0)
[2022-02-17 03:35] LABS: ALBUMIN 2.7 GM/DL (3.2-4.5)
[2022-02-17 03:36] LABS: CALCIUM 8.1 MG/DL (8.5-10.1)
[2022-02-17 03:38] LABS: TOTAL PROTEIN 5.3 GM/DL (6.4-8.2)
[2022-02-17 03:39] LABS: BILIRUBIN,TOTAL 0.5 MG/DL (0.1-1.0)
[2022-02-17 03:41] LABS: CREATININE SERUM 3.24 MG/DL (0.60-1.30)
[2022-02-17 03:44] LABS: MAGNESIUM 1.4 MG/DL (1.6-2.4)
[2022-02-17] MEDS ORDERED: MAGNESIUM 1 GM/100 ML IVPB 200 ML IV ONE (03:56)
[2022-02-17] MEDS: MAGNESIUM 1 GM/100 ML IVPB 100 ML IV SCH ×2 (04:08→04:57)
[2022-02-17] MEDS: NS IV 1000 ML 1,000 ML IV SCH (04:08)
[2022-02-17] MEDS: D5 NS 1000 ML IV SOLUTION 1,000 ML IV SCH (04:58)
[2022-02-17] MEDS: inSUlin ASPART (NovoLOG) 1 UNIT/0.01 ML (CHARGE PER UNIT) SC SCH (05:29)
[2022-02-17] MEDS ORDERED: POTASSIUM CL 10MEQ/50ML IVPB 50 ML IV SCH (06:00)
[2022-02-17] MEDS ORDERED: MAGNESIUM 1 GM/100 ML IVPB 100 ML IV SCH (06:00)
[2022-02-17] MEDS ORDERED: KCL 20 MEQ TAB (K-DUR) PO SCH (06:00)
[2022-02-17] MEDS: VASOPRESSIN INJECTION 20 UNIT in NS (IVPB) 100 ML IV SCH (07:48)
[2022-02-17] MEDS ORDERED: ALBUMIN 25% 25 GM/100 ML 100 ML IV SCH (08:00)
[2022-02-17] MEDS ORDERED: NS IV 1000 ML 1,000 ML IV SCH (08:00)
[2022-02-17] MEDS ORDERED: PIPERACILLIN SODIUM/TAZOBACTAM 4.5 GM in NS (IVPB) 100 ML IV SCH (12:00)
== END 2022-02-17 09:15 | disposition short-term general hospital (02) | DRG 871 ==
LOC: EDUNIT# 15:04 → ER FS 15:08 → CSD 19:20 → ICU 02-16 08:41
PROVIDERS: ADMIT Family Medicine; ATTEND Family Medicine
PROC: 02HV33Z Insertion of Infusion Device into Superior Vena Cava, Percutaneous Approach (ICD-10-PCS; principal; 2022-02-16)
DX: A41.9 Sepsis, unspecified organism (principal); R65.21 Severe sepsis with septic shock; N17.9 Acute kidney failure, unspecified; Z68.44 Body mass index [BMI] 60.0-69.9, adult; L03.116 Cellulitis of left lower limb; L03.115 Cellulitis of right lower limb; E86.0 Dehydration; E66.01 Morbid (severe) obesity due to excess calories; Z20.822 Contact with and (suspected) exposure to COVID-19; I12.9 Hypertensive chronic kidney disease with stage 1 through stage 4 chronic kidney disease, or unspecified chronic kidney disease; E11.22 Type 2 diabetes mellitus with diabetic chronic kidney disease; N18.9 Chronic kidney disease, unspecified; J44.9 Chronic obstructive pulmonary disease, unspecified; E11.40 Type 2 diabetes mellitus with diabetic neuropathy, unspecified; E11.649 Type 2 diabetes mellitus with hypoglycemia without coma; G47.33 Obstructive sleep apnea (adult) (pediatric); K21.9 Gastro-esophageal reflux disease without esophagitis; R19.7 Diarrhea, unspecified; L98.499 Non-pressure chronic ulcer of skin of other sites with unspecified severity; I87.2 Venous insufficiency (chronic) (peripheral); F41.9 Anxiety disorder, unspecified; I89.0 Lymphedema, not elsewhere classified; M19.91 Primary osteoarthritis, unspecified site; M10.9 Gout, unspecified; Z79.84 Long term (current) use of oral hypoglycemic drugs; Z87.891 Personal history of nicotine dependence; Z86.718 Personal history of other venous thrombosis and embolism; Z79.01 Long term (current) use of anticoagulants; Z88.1 Allergy status to other antibiotic agents
CPT/HCPCS: 36415; 71045; 80048; 80053; 81000; 82947; 83605; 83690; 83735; 84100; 84132; 84484; 85007; 85025; 85027; 85610; 85730; 87040; 87070; 87077; 87186; 87205; 87324; 87449; 87636; 87804; 93005; 93306; 94640; 94660

== ENCOUNTER 2022-03-18 08:25 | Inpatient (IN) | payer MEDICARE ==
[~2022-03-18] VITALS: Ht 187 cm; Wt 157.3 kg
--- NOTE | 2022-03-18 08:46 | ED General ---
General Chief Complaint: Glucose Problems Stated Complaint: UNRESPONSIVE Source of Information: Patient Exam Limitations: No Limitations History of Present Illness Date Seen by Provider: March 18, 2022 Time Seen by Provider: 08:32 Initial Comments Patient to the ER by EMS from [facility] with chief complaint of 1 staff went to get him up this morning and he was unresponsive. He typically transfers to a wheelchair and is alert and talkative. Staff noted his blood sugar to be 36 so they gave him a shot of glucagon and by the time EMS arrived it was still in the mid 30s so they started an IV and gave him an amp of D50. Nursing staff in the ER noted his blood sugar to be 79 on arrival. EMS notes th at he opens his eyes now in regards you if you talk to him or say his name but does not answer questions or follow commands otherwise. No recent illness noted. No cough chest pain shortness of air nausea or vomiting per staff. Patient does not participate in the interview. He is on Xarelto. He is on glimepiride but no insulin. Patient has an EF of 35 to 40% and grade 1 diastolic dysfunction on echocardiogram from [address] Baca. Severe concentric hypertrophy. Patient has a history of gout, morbid obesity, sleep apnea on CPAP, type 2 diabetes, hyperlipidemia, hypertension, leukocytoclastic vasculitis, CKD, lymphedema. Patient was seen about a month ago in the hospital for suspecting intra-abdominal infection but due to his girth unable to get a CT. He was started on Keflex and metronidazole given fluid bolus and pressors. He had a negative C. difficile colitis test then and mixed shefali considered contamination. Strep agalactiae group B was isolated, clindamycin resistant. Allergies and Home Medications Allergies Coded Allergies: azithromycin (Verified Allergy, Unknown, Rash, 11/27/19) dicloxacillin (Verified Allergy, Unknown, Rash, 11/27/19) Patient Home Medication List Home Medication List Reviewed: Yes Dapsone (Dapsone) 100 Mg Tablet, 150 MG PO DAILY, (Reported) Entered as Reported by: YEYO GAN on 11/27/19 1333 Gabapentin (Gabapentin) 300 Mg Capsule, 300 MG PO TID, (Reported) Entered as Reported by: YEYO GAN on 11/27/19 1333 Glimepiride (Glimepiride) 4 Mg Tablet, 4 MG PO DAILY, (Reported) Entered as Reported by: YEYO GAN on 03/17/20 1355 Lisinopril (Lisinopril) 40 Mg Tablet, 40 MG PO DAILY, (Reported) Entered as Reported by: YEYO GAN on 11/27/19 1333 Metformin HCl (Metformin HCl) 500 Mg Tablet, 500 MG PO BID, (Reported) Entered as Reported by: YEYO GAN on 11/27/19 1333 Rivaroxaban (Xarelto) 20 Mg Tablet, 20 MG PO DAILY, (Reported) Entered as Reported by: YEYO GAN on 11/27/19 1333 Tamsulosin HCl (Flomax) 0.4 Mg Cap, 0.4 MG PO DAILY, (Reported) Entered as Reported by: YEYO GAN on 03/17/20 1355 Review of Systems Review of Systems Constitutional: No chills, No diaphoresis EENTM: No ear discharge, No ear pain Respiratory: No cough, No short of breath Cardiovascular: No chest pain, No palpitations Gastrointestinal: No abdominal pain, No constipation, No diarrhea Genitourinary: No discharge, No dysuria Musculoskeletal: No back pain, No joint swelling Psychiatric/Neurological: Denies Anxiety, Denies Depressed All Other Systems Reviewed Negative Unless Noted: Yes Past Sdvfimm-Dxlakf-Nitwhe Hx Patient Social History Smoking Status: Unknown if Ever Smoked Use of E-Cig and/or Vaping dev: No Substance use?: Unable to obtain Alcohol Use?: Unable to obtain Pt feels they are or have been: No Immunizations Up To Date First/Initial COVID19 Vaccinat: 02/11/2021 Second COVID19 Vaccination Randal: 03/11/2021 Third COVID19 Vaccination Date: 02/11/2021 Seasonal Allergies Seasonal Allergies: No Past Medical History Surgery/Hospitalization HX: HTN; Morbid obesity; DM; Neuropathy; BPH; wound vac to r thigh Surgeries: Yes (skin ulceration sx2, R elbow sx, r CTR) Orthopedic, Vasectomy Respiratory: Yes Sleep Apnea Currently Using CPAP: No (SUPPOSED TO, DOES NOT WEAR) Currently Using BIPAP: No Cardiac: Yes Hypertension Neurological: Yes Neuropathy Genitourinary: No Gastrointestinal: Yes Gastroesophageal Reflux, Chronic Diarrhea Musculoskeletal: Yes Arthritis, Chronic Back Pain, Gout Endocrine: Yes Diabetes, Non-Insulin dep HEENT: Yes (glasses, ) Cancer: No Psychosocial: Yes Anxiety Integumentary: Yes (R foot abrasion) Blood Disorders: No (HX OF DVT) Physical Exam Vital Signs Vital Signs - First Documented 03/18/22 08:25 Temp 36.1 Pulse 96 Resp 18 B/P (MAP) 146/81 (102) Pulse Ox 98 Capillary Refill : Height, Weight, BMI Height: '" Weight: lbs. oz. kg; 58.94 BMI Method: General Appearance: Moderate Distress, Obese Eyes: Bilateral Eye Normal Inspection, Bilateral Eye PERRL, Bilateral Eye EOMI HEENT: PERRL/EOMI, TMs Normal, Normal ENT Inspection; No Pharynx Normal (Dry oral mucosa but no erythema or exudate noted.), No Moist Mucous Membranes Neck: Full Range of Motion, Normal Inspection Respiratory: Chest Non Tender, Lungs Clear, Normal Breath Sounds, No Accessory Muscle Use, No Respiratory Distress (Oxygen saturations 98% on room air. No labored breathing.) Cardiovascular: Regular Rate, Rhythm, No Edema, Normal Peripheral Pulses Gastrointestinal: Normal Bowel Sounds, Non Tender, Soft Extremity: Normal Capillary Refill, Normal Inspection Neurologic/Psychiatric: Other (Opens eyes and regards the provider but does not speak. Does withdraw to painful stimuli while starting lines. GCS 10.) Skin: Normal Color, Warm/Dry, Other (He has a wound VAC on his right thigh which is not turned on yet. Surrounding skin is nonerythematous, nonindurated and appears to be healing well.) Progress/Results/Core Measures Suspected Sepsis SIRS Temperature: Pulse: Respiratory Rate: Laboratory Tests 03/18/22 08:41: White Blood Count 7.6 Blood Pressure / Mean: Laboratory Tests 03/18/22 08:41: Creatinine 4.32H, Platelet Count 207, Total Bilirubin 0.3 Results/Orders Lab Results Laboratory Tests Test 03/18/22 08:33 03/18/22 08:41 03/18/22 08:50 03/18/22 09:28 Range/Units Glucometer 79 80 70-110 MG/DL White Blood Count 7.6 4.3-11.0 10^3/uL Red Blood Count 3.14 L 4.30-5.52 10^6/uL Hemoglobin 8.7 L 13.3-17.7 g/dL Hematocrit 29 L 40-54 % Mean Corpuscular Volume 91 80-99 fL Mean Corpuscular Hemoglobin 28 25-34 pg Mean Corpuscular Hemoglobin Concent 30 L 32-36 g/dL Red Cell Distribution Width 15.6 H 10.0-14.5 % Platelet Count 207 130-400 10^3/uL Mean Platelet Volume 9.6 9.0-12.2 fL Immature Granulocyte % (Auto) 1 % Neutrophils (%) (Auto) 56 42-75 % Lymphocytes (%) (Auto) 29 12-44 % Monocytes (%) (Auto) 10 0-12 % Eosinophils (%) (Auto) 3 0-10 % Basophils (%) (Auto) 1 0-10 % Neutrophils # (Auto) 4.2 1.8-7.8 10^3/uL Lymphocytes # (Auto) 2.2 1.0-4.0 10^3/uL Monocytes # (Auto) 0.8 0.0-1.0 10^3/uL Eosinophils # (Auto) 0.3 0.0-0.3 10^3/uL Basophils # (Auto) 0.0 0.0-0.1 10^3/uL Immature Granulocyte # (Auto) 0.1 0.0-0.1 10^3/uL Sodium Level 143 135-145 MMOL/L Potassium Level 4.3 3.6-5.0 MMOL/L Chloride Level 108 H 98-107 MMOL/L Carbon Dioxide Level 25 21-32 MMOL/L Anion Gap 10 5-14 MMOL/L Blood Urea Nitrogen 41 H 7-18 MG/DL Creatinine 4.32 H 0.60-1.30 MG/DL Estimat Glomerular Filtration Rate 15 BUN/Creatinine Ratio 9 Glucose Level 85 70-105 MG/DL Calcium Level 8.6 8.5-10.1 MG/DL Corrected Calcium 9.6 8.5-10.1 MG/DL Total Bilirubin 0.3 0.1-1.0 MG/DL Aspartate Amino Transf (AST/SGOT) 21 5-34 U/L Alanine Aminotransferase (ALT/SGPT) 7 0-55 U/L Alkaline Phosphatase 60 40-136 U/L Troponin I < 0.028 <0.028 NG/ML C-Reactive Protein High Sensitivity 0.95 H 0.00-0.50 MG/DL B-Type Natriuretic Peptide 82.7 <100.0 PG/ML Total Protein 6.4 6.4-8.2 GM/DL Albumin 2.7 L 3.2-4.5 GM/DL Blood Gas Puncture Site UNK Blood Gas Patient Temperature 37 Arterial Blood pH 7.32 *L 7.37-7.43 Arterial Blood Partial Pressure CO2 51 H 35-45 MMHG Arterial Blood Partial Pressure O2 85 79-93 MMHG Arterial Blood HCO3 26 23-27 MMOL/L Arterial Blood Total CO2 27.5 21.0-31.0 MMOL/L Arterial Blood Oxygen Saturation 98 94-100 % Arterial Blood Base Excess 0.2 -2.5-2.5 MMOL/L Werner Test POSITIVE Blood Gas Ventilator Setting NO Blood Gas Inspired Oxygen 0L Test 03/18/22 10:14 03/18/22 10:15 03/18/22 11:36 03/18/22 11:38 Range/Units Glucometer 64 L 59 *L 50 *L 32 *L 70-110 MG/DL Test 03/18/22 12:21 Range/Units Glucometer 283 H 70-110 MG/DL My Orders Orders - JAYLEN TY Ekg Tracing (03/18/22 08:39) Accucheck Stat ONCE (03/18/22 08:41) Accucheck Stat ONCE (03/18/22 08:41) Cbc With Automated Diff (03/18/22 08:41) Comprehensive Metabolic Panel (03/18/22 08:41) Hs C Reactive Protein (03/18/22 08:41) Ua Culture If Indicated (03/18/22 08:41) Catheter(Urinary) Insert & Ass 03,15 (03/18/22 08:41) Blood Culture (03/18/22 08:41) Arterial Blood Gas (03/18/22 08:41) Chest 1 View, Ap/Pa Only (03/18/22 08:41) Troponin I Ky (03/18/22 08:41) Bnp Ky (03/18/22 08:41) Ct Head Wo (03/18/22 08:41) Ed Iv/Invasive Line Start (03/18/22 08:46) Lactated Ringers (Lr 1000 Ml Iv Solution (03/18/22 09:00) D5 Ns 1000 Ml Iv Solution (Dextrose 5%/0 (03/18/22 09:00) Ed Iv/Invasive Line Start (03/18/22 08:54) Ns Iv 500 Ml (Sodium Chloride 0.9%) (03/18/22 09:00) Accucheck Stat ONCE (03/18/22 10:11) General/Regular (03/18/22 Lunch) D50w (Emergency) Syringe (Dextrose 50% 5 (03/18/22 11:45) D50w (Emergency) Syringe (Dextrose 50% 5 (03/18/22 11:40) Medications Given in ED Current Medications Medications Dose Ordered Sig/Delmar Route Start Time Stop Time Status Last Admin Dose Admin Dextrose 50 ml ONCE ONCE IV 03/18/22 11:45 03/18/22 11:46 DC 03/18/22 11:40 50 ML Sodium Chloride 500 ml @ 0 mls/hr Q0M ONCE IV 03/18/22 09:00 03/18/22 09:01 DC 03/18/22 10:00 0 MLS/HR Vital Signs/I&O 03/18/22 08:25 Temp 36.1 Pulse 96 Resp 18 B/P (MAP) 146/81 (102) Pulse Ox 98 Capillary Refill : Progress Note #1: Time: 08:51 Progress Note Patient is still altered despite blood sugar improving. We are going to put him on a D5 drip at 100 mL/h and give him a half of a liter of fluids since he looks dry. Plan to get a CT of his head since he is on Xarelto looking for bleeds, chest x-ray looking for infection and put a Vargas catheter inserted collect a clean specimen looking for infection. Repeat blood sugar in 30 minutes. Progress Note #2: Time: 09:05 Progress Note Several attempts were made to place a Vargas catheter so we can get a clean urine specimen however the patient's anatomy and body habitus was not conducive to easy placement of a Vargas catheter. We could not get the penis to present. We did try a 14 Cameroonian coud without success. Going to let that rest and recheck sugar. The patient is a little more alert and is now nodding his head yes and no in response to questioning. We explained the plan and he nodded yes. Progress Note #3: Time: 10:13 Progress Note Perhaps due to the patient's hyperglycemia he has CO2 retention, respiratory acidemia. We will let him ride the BiPAP for a while. Recheck of blood sugar and if he is doing better we will even take him off the BiPAP and have him try and eat something. Continue to cautiously get some fluids in his IV. With his poor heart failure we do not want to overload him. Chest x-ray looks clear. Progress Note #4: Time: 11:40 Progress Note Patient is awake, alert, talking oriented x4. He did eat all of his lunch. Subsequent blood sugar was 32. He does have his D5 running so we are going to give him an amp of D50. We will make another attempt at collecting a urinalysis. ECG Initial ECG Impression Date: March 18, 2022 Initial ECG Impression Time: 08:42 Initial ECG Rate: 89 Initial ECG Rhythm: Normal Sinus Initial ECG Intervals: Normal Initial ECG Impression: Normal Initial ECG Comparisson: Unchanged Comment Normal sinus rhythm with PVC but no clinically relevant ST changes. Diagnostic Imaging Diagonstic Imaging: Xray Plain Films/CT/US/NM/MRI: chest Comments NAME: OLI BASHIR [facility] REC#: [id number] PT STATUS: REG ER : 1960 PHYSICIAN: JAYLEN TY MD ADMIT DATE: 03/18/22/ER Draft Date of Exam:03/18/22 CHEST 1 VIEW, AP/PA ONLY Indication: Postop. Findings: There is trace juxta fissural subsegmental atelectasis right perihilar stable. Mild elevation of the right diaphragm chronic. Lungs otherwise clear. No edema, pneumonia, effusion, pneumothorax or failure pattern. Impression: Trace atelectasis, otherwise negative. Dictated on workstation # [id number] Dict: 03/18/22 1008 Trans: 03/18/22 1010 [facility] [place] [id number] Interpreted by: LIZZY SHAFFER Electronically signed by: Reviewed: Reviewed by Me Diagonstic Imaging: CT Plain Films/CT/US/NM/MRI: head Comments NAME: OLI BASHIR [facility] REC#: [id number] PT STATUS: REG ER : 1960 PHYSICIAN: JAYLEN TY MD ADMIT DATE: 03/18/22/ER Draft Date of Exam:03/18/22 CT HEAD WO INDICATION: Altered mental status. TECHNIQUE: Routine non contrast-enhanced axial images were obtained from the skull base to the vertex. Auto Exposure Controls were utilized during the CT exam to meet ALARA standards for radiation dose reduction COMPARISON: None. FINDINGS: The ventricles and cortical sulci are diffusely prominent, compatible with age-related volume loss. There are confluent areas of abnormal, low attenuation in the periventricular white matter. This is consistent with small vessel ischemic changes; age-indeterminate. There is no prior study available for comparison. There is no midline shift or mass-effect. No acute intra-axial hemorrhage is seen. There are no abnormal areas of increased or decreased density to suggest acute hemorrhage or edema. No extra-axial masses or collections are present. The bony calvarium is intact. The visualized paranasal sinuses are unremarkable. The mastoid air cells show a few air-fluid levels on the right. IMPRESSION: 1. No acute intracranial abnormality. No CT evidence of mass, acute infarct or intracranial hemorrhage. 2. Small vessel ischemic changes in the periventricular and subcortical white matter; likely chronic. Dictated on workstation # [id number] Dict: 03/18/22 1005 Trans: 03/18/22 1009 [id number] Interpreted by: MARIANNA TRAN MD Electronically signed by: Reviewed: Reviewed by Diagonstic Imaging: CT Plain Films/CT/US/NM/MRI: abdomen, pelvis Reviewed: Reviewed by Me Departure Communication (Admissions) Time/Spoke to Admitting Phy: 12:40 Reviewed labs and findings with Dr. Conner and it was felt that the glimepiride and kidney failure is the source of the patient's hypoglycemia. She is going to put in queued orders and place the patient in the ICU for persistent hypoglycemia Impression Primary Impression: Hypoglycemia associated with diabetes Disposition: ADMITTED INPATIENT Condition: Stable Admissions Decision to Admit Reason: Admit from ER (General) Decision to Admit/Date: March 18, 2022 Time/Decision to Admit Time: 12:49 Departure-Patient Inst. Referrals: LOGAN CARDENAS MD (PCP/Family) Primary Care Physician JAYLEN TY March 18, 2022 08:46
[2022-03-18 08:57] LABS: ABG BASE EXCESS 0.2 MMOL/L (-2.5-2.5); ABG OXYGEN SATURATION 98 % (94-100); ABG PCO2 51 MMHG (35-45); ABG PO2 85 MMHG (79-93); ABG TCO2 27.5 MMOL/L (21.0-31.0)
[2022-03-18 08:58] LABS: ALLENS TEST POSITIVE
[2022-03-18 08:59] LABS: INSPIRED O2 0L; PATIENT TEMP 37; VENTILATOR NO
[2022-03-18] MEDS ORDERED: NS IV 500 ML 500 ML IV ONE (09:00)
[2022-03-18] MEDS ORDERED: LACTATED RINGERS 1,000 ML IV ONE (09:00)
[2022-03-18 09:02] LABS: BASOPHILS % (AUTO) 1 % (0-10); EOSINOPHILS # (AUTO) 0.3 10^3/uL (0.0-0.3); EOSINOPHILS % (AUTO) 3 % (0-10); HEMATOCRIT 29 % (40-54); HEMOGLOBIN 8.7 g/dL (13.3-17.7); LYMPHOCYTES # (AUTO) 2.2 10^3/uL (1.0-4.0); LYMPHOCYTES % (AUTO) 29 % (12-44); MEAN CORPUSCULAR HEMOGLOBIN 28 pg (25-34); MEAN CORPUSCULAR HGB CONC 30 g/dL (32-36); MEAN CORPUSCULAR VOLUME 91 fL (80-99); MEAN PLATELET VOLUME 9.6 fL (9.0-12.2); MONOCYTES # (AUTO) 0.8 10^3/uL (0.0-1.0); MONOCYTES % (AUTO) 10 % (0-12); NEUTROPHILS # (AUTO) 4.2 10^3/uL (1.8-7.8); NEUTROPHILS % (AUTO) 56 % (42-75); PLATELET COUNT 207 10^3/uL (130-400); WHITE BLOOD COUNT 7.6 10^3/uL (4.3-11.0)
[2022-03-18 09:03] LABS: ABG PH 7.32 (7.37-7.43)
[2022-03-18 09:04] LABS: ALBUMIN 2.7 GM/DL (3.2-4.5); CHLORIDE 108 MMOL/L (98-107); POTASSIUM 4.3 MMOL/L (3.6-5.0); SODIUM 143 MMOL/L (135-145)
[2022-03-18 09:05] LABS: CALCIUM 8.6 MG/DL (8.5-10.1)
[2022-03-18 09:06] LABS: GLUCOSE 85 MG/DL (70-105)
[2022-03-18 09:07] LABS: TOTAL PROTEIN 6.4 GM/DL (6.4-8.2)
[2022-03-18] MEDS: D5 NS 1000 ML IV SOLUTION 1,000 ML IV SCH ×2 (09:07→15:03)
[2022-03-18 09:08] LABS: BILIRUBIN,TOTAL 0.3 MG/DL (0.1-1.0); CARBON DIOXIDE 25 MMOL/L (21-32)
[2022-03-18 09:10] LABS: ALKALINE PHOSPHATASE 60 U/L (40-136); CREATININE SERUM 4.32 MG/DL (0.60-1.30); GFR ESTIMATED 15
[2022-03-18 09:11] LABS: BUN/CREATININE RATIO 9
[2022-03-18 09:13] LABS: ALANINE AMINOTRANSFERASE 7 U/L (0-55)
--- NOTE | 2022-03-18 10:09 | Diagnostic Imaging Report ---
INDICATION: Altered mental status. TECHNIQUE: Routine non contrast-enhanced axial images were obtained from the skull base to the vertex. Auto Exposure Controls were utilized during the CT exam to meet ALARA standards for radiation dose reduction COMPARISON: None. FINDINGS: The ventricles and cortical sulci are diffusely prominent, compatible with age-related volume loss. There are confluent areas of abnormal, low attenuation in the periventricular white matter. This is consistent with small vessel ischemic changes; age-indeterminate. There is no prior study available for comparison. There is no midline shift or mass-effect. No acute intra-axial hemorrhage is seen. There are no abnormal areas of increased or decreased density to suggest acute hemorrhage or edema. No extra-axial masses or collections are present. The bony calvarium is intact. The visualized paranasal sinuses are unremarkable. The mastoid air cells show a few air-fluid levels on the right. IMPRESSION: 1. No acute intracranial abnormality. No CT evidence of mass, acute infarct or intracranial hemorrhage. 2. Small vessel ischemic changes in the periventricular and subcortical white matter; likely chronic. Dictated by: Dictated on workstation # [id number]
--- NOTE | 2022-03-18 10:11 | Diagnostic Imaging Report ---
Indication: Postop. Findings: There is trace juxta fissural subsegmental atelectasis right perihilar stable. Mild elevation of the right diaphragm chronic. Lungs otherwise clear. No edema, pneumonia, effusion, pneumothorax or failure pattern. Impression: Trace atelectasis, otherwise negative. Dictated by: Dictated on workstation # [id number]
[2022-03-18] MEDS ORDERED: DEXTROSE 50% 50 ML (IMS) SYR ONE ×2 (11:40→15:20)
[2022-03-18] MEDS ORDERED: DEXTROSE 50% 50 ML (IMS) SYR IV ONE (11:45)
[2022-03-18] MEDS ORDERED: NALOXONE 0.4 MG/ML 1 ML (NARCAN) VIAL IV PRN (15:00)
[2022-03-18] MEDS: D5 1/2 NS 1000 ML IV SOLUTION 1,000 ML IV SCH ×2 (15:03→23:37)
[2022-03-18] MEDS: DEXTROSE 50% 50 ML (IMS) SYR IV PRN ×4 (15:22→19:52)
[2022-03-18] MEDS ORDERED: LIDOCAINE UROJET 2% GEL 10 ML PKG ONE (15:45)
--- NOTE | 2022-03-18 15:48 | History & Physical-Hospitalist ---
History of Present Illness HPI/Chief Complaint Chief complaint: Severe hypoglycemia History of present illness: This is a 62-year-old white male with history of morbid obesity and diabetes with chronic kidney disease baseline creatinine 3.2 who resides currently at [facility] after recent septic shock who presented to the ER with hypoglycemia. Hypoglycemia is severe and refractory. He has been on glimepiride and his creatinine is now over 4 so this long-acting oral hypoglycemic agent will last for approximately 48 hours so he will require glucometer checks every hour and a D5 normal saline IV fluid along with amps of D50. He denies any other significant problems. No evidence of any sepsis. Source: patient Exam Limitations: no limitations Date Seen 03/18/22 Time Seen by a Provider: 16:00 Attending Physician Anju Conner Pankaj K MD Referring Physician Date of Admission March 18, 2022 at 12:52 Home Medications & Allergies Home Medications Reviewed patient Home Medication Reconciliation performed by pharmacy medication reconciliations maintenance mechanic technician and/or nursing. Patients Allergies have been reviewed. Allergies Allergies Coded Allergies azithromycin (Verified Allergy, Unknown, Rash, 11/27/19) dicloxacillin (Verified Allergy, Unknown, Rash, 11/27/19) Past Fsqvang-Rvhlrf-Gfnjvr Hx Patient Social History Marrital Status: single Employed/Student: unemployed Tobacco Use?: No Smoking Status: Unknown if Ever Smoked Use of E-Cig and/or Vaping dev: No Substance use?: No Alcohol Use?: No Pt feels they are or have been: No Immunizations Up To Date Date of Influenza Vaccine: Nov 13, 2019 First/Initial COVID19 Vaccinat: 02/11/2021 Second COVID19 Vaccination Randal: 03/11/2021 Tetanus Booster (TDap): Unknown Seasonal Allergies Seasonal Allergies: No Current Status Advance Directives: Yes Communicates: Verbally Primary Language: Turkmen Preferred Spoken Language: Turkmen Is interpretation needed?: No Past Medical History Surgeries: Orthopedic, Vasectomy Sleep Apnea Currently Using CPAP: No (SUPPOSED TO, DOES NOT WEAR) Currently Using BIPAP: No Hypertension Neuropathy Gastroesophageal Reflux, Chronic Diarrhea Arthritis, Chronic Back Pain, Gout Diabetes, Non-Insulin dep Anxiety Blood Disorders: No (HX OF DVT) PMHx: Gout Morbid obesity Sleep apnea DMII HLD HTN Leukocytoclastic vasculitis CKD Lymphedema SurgHx: Elbow Vasectomy Review of Systems Constitutional: see HPI, malaise, weakness EENTM: no symptoms reported Respiratory: no symptoms reported Cardiovascular: no symptoms reported Gastrointestinal: no symptoms reported Genitourinary: no symptoms reported Musculoskeletal: no symptoms reported Skin: no symptoms reported Psychiatric/Neurological: No Symptoms Reported All Other Systems Reviewed Negative Unless Noted: Yes Physical Exam Physical Exam Vital Signs Vital Signs - First Documented 03/18/22 03/18/22 08:25 13:50 Temp 36.1 Pulse 96 Resp 18 B/P (MAP) 146/81 (102) Pulse Ox 98 O2 Delivery Nasal Cannula O2 Flow Rate 2.00 Capillary Refill : Less Than 3 Seconds Height, Weight, BMI Height: '" Weight: lbs. oz. kg; 57.47 BMI Method: General Appearance: No Apparent Distress, Chronically ill, Obese Eyes: Right Eye Normal Inspection, Right Eye PERRL HEENT: PERRL/EOMI, Normal ENT Inspection, Pharynx Normal, Moist Mucous Membranes Neck: Full Range of Motion, Normal Inspection, Non Tender Respiratory: Chest Non Tender, Lungs Clear, Normal Breath Sounds, No Accessory Muscle Use, No Respiratory Distress Cardiovascular: Regular Rate, Rhythm, No Edema, No Gallop, No JVD, No Murmur, Normal Peripheral Pulses Gastrointestinal: Normal Bowel Sounds, No Organomegaly, No Pulsatile Mass, Non Tender, Soft Back: Normal Inspection, No CVA Tenderness, No Vertebral Tenderness Extremity: Normal Capillary Refill, Normal Inspection, Normal Range of Motion, Non Tender, No Calf Tenderness, No Pedal Edema Neurologic/Psychiatric: Alert, Oriented x3, No Motor/Sensory Deficits, Normal Mood/Affect Skin: Normal Color, Warm/Dry Lymphatic: No Adenopathy Results Results/Procedures Labs Laboratory Tests 03/18/22 08:41 Patient resulted labs reviewed. Assessment/Plan Admission Diagnosis Assessment: Severe and refractory hypoglycemia due to oral hypoglycemic agent given daily and a chronic kidney disease patient Chronic kidney disease stage IV Sleep apnea Super morbid obesity BMI 57 Recent septic shock Anemia of chronic kidney disease Plan: D5NS IV fluid with D50 amps as needed Supportive care Admission Status: Inpatient Order (span 2 midnights) Reason for Inpatient Admission: Severe and refractory hypoglycemia Diagnosis/Problems Diagnosis/Problems (1) Hypoglycemia associated with diabetes Status: Acute ANJU CONNER DO March 18, 2022 15:47
[2022-03-18] MEDS ORDERED: oxyCODONE/APAP 5/325MG (PERCOCET 5) TABLET ONE (17:07)
--- NOTE | 2022-03-18 18:06 | Tele-ICU Consult ---
History of Present Illness History of Present Illness Date Seen by Provider: March 18, 2022 Time Seen by Provider: 18:05 Date of Admission Tele-ICU Physician , consultation) Available chart/ vitals / labs / Images reviewed H&P is from ER notes Patient's inform ROS as per chart and RN report Now in ICU, hemodynamically stable Video assessment done using teleICU camera, rest of exam as per RN Discussed with RN. 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 nephrology f/up as outpatient CHF -EF 35% - on Xarelto Anemia - stable obesity MARITA - not compl with CPAP - will need to cont here nocturnal Lines : (Central Line Necessity Reviewed) Vargas: OG: Nutrition: Analgesia: Anxiety/ delirium VTE Prophylaxis: xqrelto Stress Ulcer Prophylaxis: po Plans in collaboration with bedside consultants and IM MDs. Discussed with RN to reach out if any questions or concerns A total of 20minutes of critical care time was devoted to this patient today, required to treat and/or prevent further deterioration of critical care condition ( as above ) . Allergies and Home Medications Allergies Coded Allergies: azithromycin (Verified Allergy, Unknown, Rash, 11/27/19) dicloxacillin (Verified Allergy, Unknown, Rash, 11/27/19) Home Medications Dapsone 100 Mg Tablet, 150 MG PO DAILY, (Reported) TAKES 1 & (100MG) TAB TO EQUAL 150MG Gabapentin 300 Mg Capsule, 300 MG PO TID, (Reported) Glimepiride 4 Mg Tablet, 4 MG PO DAILY, (Reported) Lisinopril 40 Mg Tablet, 40 MG PO DAILY, (Reported) Metformin HCl 500 Mg Tablet, 500 MG PO BID, (Reported) Rivaroxaban 20 Mg Tablet, 20 MG PO DAILY, (Reported) Tamsulosin HCl 0.4 Mg Cap, 0.4 MG PO DAILY, (Reported) Past Medical/Social/Family Hx Patient Social History Tobacco Use?: No Smoking Status: Unknown if Ever Smoked Use of E-Cig and/or Vaping dev: No Substance use?: No Alcohol Use?: No Pt stated abuse/neglect: No Immunizations Up To Date First/Initial COVID19 Vaccinat: 02/11/2021 Second COVID19 Vaccination Randal: 03/11/2021 Tetanus Booster (TDap): Unknown Current Status Advance Directives: Yes Communicates: Verbally Primary Language: [place] Preferred Spoken Language: [place] Is interpretation needed?: No Past Medical History PMHx: Gout Morbid obesity Sleep apnea DMII HLD HTN Leukocytoclastic vasculitis CKD Lymphedema SurgHx: Elbow Vasectomy Review of Systems Constitutional: see HPI Focused Exam Height, Weight, BMI Height: '" Weight: lbs. oz. kg; 57.47 BMI Method: Exam Exam Patient acknowledged, consented, and participated in this virtual visit which was conducted using real time audio/video Vital Signs Date Time Temp Pulse Resp B/P (MAP) Pulse Ox O2 Delivery O2 Flow Rate FiO2 03/18/22 17:00 108 10 114/57 99 Nasal Cannula 2.00 03/18/22 16:00 94 14 164/69 97 Nasal Cannula 2.00 03/18/22 15:27 97 03/18/22 15:12 96 Room Air 03/18/22 15:00 94 16 157/92 98 Nasal Cannula 2.00 03/18/22 13:50 89 20 134/66 100 Nasal Cannula 2.00 03/18/22 08:25 36.1 96 18 146/81 (102) 98 Height & Weight Height: '" Weight: lbs. oz. kg; 57.47 BMI Method: General Appearance: No Apparent Distress, Moderate Distress, Obese HEENT: PERRL/EOMI, TMs Normal, Normal ENT Inspection; No Pharynx Normal (Dry oral mucosa but no erythema or exudate noted.), No Moist Mucous Membranes Neck: Full Range of Motion, Normal Inspection Respiratory: Chest Non Tender, Lungs Clear, Normal Breath Sounds, No Accessory Muscle Use, No Respiratory Distress (Oxygen saturations 98% on room air. No labored breathing.) Cardiovascular: Regular Rate, Rhythm, No Edema, Normal Peripheral Pulses Capillary Refill: Less Than 3 Seconds Extremity: Normal Capillary Refill, Normal Inspection Neurologic/Psychiatric: Other (Opens eyes and regards the provider but does not speak. Does withdraw to painful stimuli while starting lines. GCS 10.) Skin: Normal Color, Warm/Dry, Other (He has a wound VAC on his right thigh which is not turned on yet. Surrounding skin is nonerythematous, nonindurated and appears to be healing well.) Results Lab Laboratory Tests 03/18/22 08:41 Assessment/Plan Assessment/Plan Tele-ICU Physician , consultation) Available chart/ vitals / labs / Images reviewed H&P is from ER notes Patient's inform ROS as per chart and RN report Now in ICU, hemodynamically stable Video assessment done using teleICU camera, rest of exam as per RN Discussed with RN. 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 nephrology f/up as outpatient CHF -EF 35% - on Xarelto Anemia - stable obesity MARITA - not compl with CPAP - will need to cont here nocturnal Lines : (Central Line Necessity Reviewed) Vargas: OG: Nutrition: Analgesia: Anxiety/ delirium VTE Prophylaxis: xqrelto Stress Ulcer Prophylaxis: po Plans in collaboration with bedside consultants and IM MDs. Discussed with RN to reach out if any questions or concerns A total of 20minutes of critical care time was devoted to this patient today, required to treat and/or prevent further deterioration of critical care condition ( as above ) . LIOR HOWARD MD March 18, 2022 18:06
[2022-03-19] MEDS: DEXTROSE 50% 50 ML (IMS) SYR IV PRN ×6 (01:00→12:03)
[2022-03-19] MEDS ORDERED: DEXTROSE 10% IV SOLUTION 1,000 ML IV ONE (02:52)
[2022-03-19] MEDS: DEXTROSE 10% IV SOLUTION 1,000 ML IV SCH ×3 (02:54→23:17)
[2022-03-19] MEDS: D5 NS 1000 ML IV SOLUTION 1,000 ML IV SCH ×2 (04:14→13:15)
[2022-03-19 05:00] LABS: BASOPHILS # (AUTO) 0.1 10^3/uL (0.0-0.1); BASOPHILS % (AUTO) 1 % (0-10); EOSINOPHILS # (AUTO) 0.3 10^3/uL (0.0-0.3); EOSINOPHILS % (AUTO) 4 % (0-10); HEMATOCRIT 28 % (40-54); HEMOGLOBIN 8.2 g/dL (13.3-17.7); LYMPHOCYTES # (AUTO) 2.3 10^3/uL (1.0-4.0); LYMPHOCYTES % (AUTO) 29 % (12-44); MEAN CORPUSCULAR HEMOGLOBIN 27 pg (25-34); MEAN CORPUSCULAR HGB CONC 30 g/dL (32-36); MEAN CORPUSCULAR VOLUME 92 fL (80-99); MEAN PLATELET VOLUME 9.8 fL (9.0-12.2); MONOCYTES # (AUTO) 0.9 10^3/uL (0.0-1.0); MONOCYTES % (AUTO) 11 % (0-12); NEUTROPHILS # (AUTO) 4.3 10^3/uL (1.8-7.8); NEUTROPHILS % (AUTO) 55 % (42-75); PLATELET COUNT 199 10^3/uL (130-400); WHITE BLOOD COUNT 7.8 10^3/uL (4.3-11.0)
[2022-03-19 05:26] LABS: ALBUMIN 2.6 GM/DL (3.2-4.5); POTASSIUM 4.3 MMOL/L (3.6-5.0)
[2022-03-19 05:27] LABS: CALCIUM 8.1 MG/DL (8.5-10.1)
[2022-03-19 05:30] LABS: BILIRUBIN,TOTAL 0.3 MG/DL (0.1-1.0)
[2022-03-19 05:31] LABS: PHOSPHORUS 3.5 MG/DL (2.3-4.7)
[2022-03-19 05:32] LABS: CREATININE SERUM 4.02 MG/DL (0.60-1.30)
[2022-03-19 05:35] LABS: MAGNESIUM 1.2 MG/DL (1.6-2.4)
[2022-03-19] MEDS ORDERED: KCL 20 MEQ TAB (K-DUR) PO SCH (06:00)
[2022-03-19] MEDS ORDERED: MAGNESIUM 1 GM/100 ML IVPB 100 ML IV SCH (06:00)
[2022-03-19] MEDS ORDERED: POTASSIUM CL 10MEQ/50ML IVPB 50 ML IV SCH (06:00)
[2022-03-19] MEDS: MAGNESIUM 1 GM/100 ML IVPB 100 ML IV SCH ×2 (06:34→08:03)
[2022-03-19] MEDS: D5 1/2 NS 1000 ML IV SOLUTION 1,000 ML IV SCH ×2 (08:05→20:23)
--- NOTE | 2022-03-19 09:49 | Tele-ICU Progress Note ---
Subjective Date Seen by a Provider: March 19, 2022 Time Seen by a Provider: 09:44 Subjective/Events-last exam This patient today states that he is feeling somewhat better. His blood pressure is stable. Blood sugar improved to 112 while receiving D5W. In the last 2 years his creatinine got worse significantly which might be the cause for his prolonged hypoglycemia on long-acting oral hypoglycemic agents. He denies any abdominal pain at this time. Video visit made and discussed with the patient as well as the SENIOR PRODUCT DESIGNER. Sepsis Event Evaluation Height, Weight, BMI Height: '" Weight: lbs. oz. kg; 57.47 BMI Method: Exam Exam Patient acknowledged, consented, and participated in this virtual visit which was conducted using real time audio/video Vital Signs Date Time Temp Pulse Resp B/P (MAP) Pulse Ox O2 Delivery O2 Flow Rate FiO2 03/19/22 08:00 99 158/122 98 Room Air 03/19/22 08:00 Room Air 03/19/22 07:55 36.4 03/19/22 07:46 Room Air 03/19/22 07:00 86 12 143/77 98 Room Air 03/19/22 07:00 96 03/19/22 06:00 90 11 142/79 97 Room Air 03/19/22 05:00 86 12 124/70 97 Room Air 03/19/22 04:00 89 13 127/75 97 Room Air 03/19/22 04:00 95 NIV CPAP 03/19/22 04:00 36.6 03/19/22 03:00 91 13 119/55 96 03/19/22 02:00 105 13 114/80 96 Room Air 03/19/22 01:00 105 17 132/55 99 Room Air 03/19/22 01:00 113 03/19/22 00:07 NIV CPAP 03/19/22 00:00 115 18 123/63 99 Room Air 03/19/22 00:00 36.2 03/18/22 23:59 96 NIV CPAP 03/18/22 23:00 112 15 156/48 98 Room Air 03/18/22 22:00 111 14 143/58 98 Room Air 03/18/22 21:00 111 14 154/88 99 Room Air 03/18/22 20:00 103 11 184/103 98 Room Air 03/18/22 20:00 95 Room Air 03/18/22 19:47 36.1 105 14 127/65 99 Room Air 03/18/22 19:00 95 03/18/22 18:00 101 12 99 Nasal Cannula 2.00 03/18/22 17:00 108 10 114/57 99 Nasal Cannula 2.00 03/18/22 16:00 94 14 164/69 97 Nasal Cannula 2.00 03/18/22 15:27 97 03/18/22 15:12 96 Room Air 03/18/22 15:00 94 16 157/92 98 Nasal Cannula 2.00 03/18/22 13:50 89 20 134/66 100 Nasal Cannula 2.00 I & O 03/19/22 07:00 Intake Total 2750 ml Output Total 1275 ml Balance 1475 ml Height & Weight Height: '" Weight: lbs. oz. kg; 57.47 BMI Method: General Appearance: No Apparent Distress, Chronically ill, Obese HEENT: PERRL/EOMI, Normal ENT Inspection, Pharynx Normal, Moist Mucous Membranes Neck: Full Range of Motion, Normal Inspection, Non Tender Respiratory: Chest Non Tender, Lungs Clear, Normal Breath Sounds, No Accessory Muscle Use, No Respiratory Distress Cardiovascular: Regular Rate, Rhythm, No Edema, No Gallop, No JVD, No Murmur, Normal Peripheral Pulses Capillary Refill: Less Than 3 Seconds Extremity: Normal Capillary Refill, Normal Inspection, Normal Range of Motion, Non Tender, No Calf Tenderness, No Pedal Edema Neurologic/Psychiatric: Alert, Oriented x3, No Motor/Sensory Deficits, Normal Mood/Affect Skin: Normal Color, Warm/Dry Lymphatic: No Adenopathy Results Lab Laboratory Tests 03/18/22 08:41 03/19/22 04:49 Assessment/Plan Assessment/Plan 1. Severe refractory hypoglycemia improving after holding oral hypoglycemic agents in conjunction with administration of D5 normal saline. 2. Acute and chronic kidney disease worsening. 3. Morbid obesity 4. History of sleep apnea 5. Recent history of septic shock 6. History of anemia of chronic kidney disease. Recommendations 1. We will continue D5 normal saline and monitor his BUN/creatinine as well as a blood sugars 2. We will continue to hold off oral hypoglycemic agents 3. We will add DVT prophylaxis and ulcer prophylaxis. 4. Continue monitor BUN/creatinine while hydrating the patient. 5. Video visit made and discussed with the patient as well as the SENIOR PRODUCT DESIGNER. Critical Care: Critically Ill Patient Time spent with patient (mins): 20 NORBERTO KHAN MD March 19, 2022 09:49
[2022-03-19] MEDS: FAMOTIDINE 20 MG (PEPCID) TABLET PO SCH (10:14)
--- NOTE | 2022-03-19 12:05 | Progress Note - Hospitalist ---
JUDYERIC 03/19/22 1205: Subjective HPI/CC On Admission Date Seen by Provider: March 19, 2022 Time Seen by Provider: 09:00 Chief complaint: Severe hypoglycemia History of present illness: This is a 62-year-old white male with history of morbid obesity and diabetes with chronic kidney disease baseline creatinine 3.2 who resides currently at [facility] and rehab after recent septic shock who presented to the ER with hypoglycemia. Hypoglycemia is severe and refractory. He has been on glimepiride and his creatinine is now over 4 so this long-acting oral hypoglycemic agent will last for approximately 48 hours so he will require glucometer checks every hour and a D5 normal saline IV fluid along with amps of D50. He denies any other significant problems. No evidence of any sepsis. Subjective/Events-last exam The patient was laying in bed this morning and was not in distress. He reports complaints of pain in the R hip and R foot. He is not having chest pain, SOB, nausea, or vomiting. He is not having any episodes of dizziness or passing out. Review of Systems General: No Chills; Other (no fever ) HEENT: No Head Aches, No Visual Changes Pulmonary: No Dyspnea, No Cough Cardiovascular: Edema; No: Chest Pain Gastrointestinal: No: Nausea, Vomiting Genitourinary: No Dysuria, No Hematuria Musculoskeletal: other (R hip pain ), foot pain (R side) Neurological: No: Change in speech, Confusion Objective Exam Vital Signs Vital Signs Date Time Temp Pulse Resp B/P (MAP) Pulse Ox O2 Delivery O2 Flow Rate FiO2 03/19/22 12:00 96 26 119/63 97 NIV CPAP 03/19/22 11:48 37.7 03/18/22 18:00 2.00 Capillary Refill : Less Than 3 Seconds General Appearance: No Apparent Distress, Chronically ill, Obese HEENT: PERRL/EOMI, Moist Mucous Membranes Neck: Full Range of Motion, Normal Inspection Respiratory: Chest Non Tender, Lungs Clear, Normal Breath Sounds, No Accessory Muscle Use, No Respiratory Distress Cardiovascular: Regular Rate, Rhythm, No Murmur, Normal Peripheral Pulses Gastrointestinal: Normal Bowel Sounds, No Organomegaly, No Pulsatile Mass, Non Tender, Soft Extremity: Non Tender, No Calf Tenderness, Pedal Edema Neurologic/Psychiatric: Alert, Oriented x3, No Motor/Sensory Deficits Skin: Normal Color, Warm/Dry Results/Procedures Lab Laboratory Tests 03/19/22 04:49 Patient resulted labs reviewed. Assessment/Plan Assessment and Plan Assess & Plan/Chief Complaint Assessment: Severe and refractory Hypoglycemia due to daily glimepride therapy DM CKD MARITA Hx of recent septic shock Anemia of chronic disease Plan: Severe and refractory Hypoglycemia due to daily glimepride therapy DM Monitor blood glucose Q 1 HR. Glimepride therapy stopped at this time. Continue D5NS 1000 mL @ 100 mls/hr. When blood sugar falls under 90 administer d50 amp Q 1HR PRN. CKD: Continue to monitor kindey function. Last creatinine was 4.02 today. MARITA: Weight loss. Hx of recent septic shock Monitor vitals and white count Anemia of chronic disease Monitor Hb. Last hemoglobin was 8.2 today. Consider blood transfusion if hemoglobin falls under 7. Peripheral edema Monitor. Diuretic therapy contraindicated due to the patient's CKD. Foot and hip pain Pain management of PRN APAP 325mg Q6hr. ANJU FLETCHER DO 03/19/22 1451: Subjective Subjective/Events-last exam Pt about the same Maintained on BiPAP and doing well Blood sugars are still low requiring a D10 drip now We will continue monitoring blood sugar checks Checked meds and labs Review of Systems General: Fatigue, Malaise Musculoskeletal: leg pain, foot pain (R side) Objective Exam General Appearance: No Apparent Distress, WD/WN, Chronically ill, Obese Respiratory: Lungs Clear, Normal Breath Sounds Cardiovascular: Regular Rate, Rhythm Neurologic/Psychiatric: Alert, Oriented x3 Supervisory-Addendum Brief Verification & Attestation Participated in pt care: history, MDM, physical Personally performed: exam, history, MDM, supervision of care Care discussed with: Medical Student Procedures: n/a Results interpretation: Verified all documentation Verification and Attestation of Medical Student E/M Service A medical student performed and documented this service in my presence. I reviewed and verified all information documented by the medical student and made modifications to such information, when appropriate. I personally performed the physical exam and medical decision making. Anju Fletcher, March 19, 2022,14:50 ERIC KIM March 19, 2022 12:05 ANJU FLETCHER DO March 19, 2022 14:51
[2022-03-19] MEDS ORDERED: HYDROcodone/APAP 5 MG/325 MG (LORTAB) TAB PO PRN (14:15)
[2022-03-19] MEDS: GABAPENTIN 300 MG (NEURONTIN) CAP PO SCH ×2 (15:20→21:15)
[2022-03-19] MEDS ORDERED: LIDOCAINE UROJET 2% GEL 10 ML PKG ONE (18:27)
[2022-03-20] MEDS: D5 NS 1000 ML IV SOLUTION 1,000 ML IV SCH ×2 (00:20→10:38)
--- NOTE | 2022-03-20 05:04 | Progress Note - Hospitalist ---
Subjective HPI/CC On Admission Date Seen by Provider: March 20, 2022 Time Seen by Provider: 05:00 Chief complaint: Severe hypoglycemia History of present illness: This is a 62-year-old white male with history of morbid obesity and diabetes with chronic kidney disease baseline creatinine 3.2 who resides currently at [facility] and rehab after recent septic shock who presented to the ER with hypoglycemia. Hypoglycemia is severe and refractory. He has been on glimepiride and his creatinine is now over 4 so this long-acting oral hypoglycemic agent will last for approximately 48 hours so he will require glucometer checks every hour and a D5 normal saline IV fluid along with amps of D50. He denies any other significant problems. No evidence of any sepsis. Subjective/Events-last exam Pt doing a lot better Pt maintained on BiPAP Blood sugars much improved now D10 still running Having no new problems Checked meds and labs Review of Systems General: Fatigue, Malaise Pulmonary: Dyspnea Objective Exam Vital Signs Vital Signs Date Time Temp Pulse Resp B/P (MAP) Pulse Ox O2 Delivery O2 Flow Rate FiO2 03/20/22 15:22 36.8 95 18 147/82 98 Room Air 03/18/22 18:00 2.00 Capillary Refill : Less Than 3 Seconds General Appearance: No Apparent Distress, WD/WN, Chronically ill, Obese Respiratory: Lungs Clear, Normal Breath Sounds Cardiovascular: Regular Rate, Rhythm Neurologic/Psychiatric: Alert, Oriented x3 Results/Procedures Lab Laboratory Tests 03/20/22 05:14 Patient resulted labs reviewed. Assessment/Plan Assessment and Plan Assess & Plan/Chief Complaint Assessment: Severe and refractory hypoglycemia due to oral hypoglycemic agent given daily and a chronic kidney disease patient Chronic kidney disease stage IV Sleep apnea Super morbid obesity BMI 57 Recent septic shock Anemia of chronic kidney disease Plan: D5NS IV fluid with D50 amps as needed Supportive care 03/20/2022: Move to floor D10 drip until hyperglycemia Critical Care Critically Ill Patient Diagnosis/Problems Diagnosis/Problems (1) Hypoglycemia associated with diabetes Status: MELITON Patel DO March 20, 2022 05:04
[2022-03-20 05:38] LABS: BASOPHILS % (AUTO) 1 % (0-10); EOSINOPHILS # (AUTO) 0.2 10^3/uL (0.0-0.3); EOSINOPHILS % (AUTO) 3 % (0-10); HEMATOCRIT 26 % (40-54); HEMOGLOBIN 8.2 g/dL (13.3-17.7); LYMPHOCYTES # (AUTO) 1.9 10^3/uL (1.0-4.0); LYMPHOCYTES % (AUTO) 26 % (12-44); MEAN CORPUSCULAR HEMOGLOBIN 28 pg (25-34); MEAN CORPUSCULAR HGB CONC 31 g/dL (32-36); MEAN CORPUSCULAR VOLUME 90 fL (80-99); MEAN PLATELET VOLUME 9.6 fL (9.0-12.2); MONOCYTES # (AUTO) 0.9 10^3/uL (0.0-1.0); MONOCYTES % (AUTO) 12 % (0-12); NEUTROPHILS # (AUTO) 4.3 10^3/uL (1.8-7.8); NEUTROPHILS % (AUTO) 58 % (42-75); PLATELET COUNT 176 10^3/uL (130-400); WHITE BLOOD COUNT 7.4 10^3/uL (4.3-11.0)
[2022-03-20 05:59] LABS: ALBUMIN 2.5 GM/DL (3.2-4.5); POTASSIUM 4.5 MMOL/L (3.6-5.0)
[2022-03-20 06:01] LABS: TOTAL PROTEIN 5.9 GM/DL (6.4-8.2)
[2022-03-20 06:03] LABS: BILIRUBIN,TOTAL 0.5 MG/DL (0.1-1.0)
[2022-03-20 06:04] LABS: PHOSPHORUS 3.2 MG/DL (2.3-4.7)
[2022-03-20 06:05] LABS: CREATININE SERUM 4.04 MG/DL (0.60-1.30)
[2022-03-20 06:08] LABS: MAGNESIUM 1.3 MG/DL (1.6-2.4)
[2022-03-20] MEDS: MAGNESIUM 1 GM/100 ML IVPB 100 ML IV SCH ×2 (06:40→07:53)
[2022-03-20] MEDS: D5 1/2 NS 1000 ML IV SOLUTION 1,000 ML IV SCH (07:36)
[2022-03-20] MEDS: GABAPENTIN 300 MG (NEURONTIN) CAP PO SCH ×3 (07:52→21:11)
[2022-03-20] MEDS: FAMOTIDINE 20 MG (PEPCID) TABLET PO SCH (07:52)
--- NOTE | 2022-03-20 09:21 | Tele-ICU Progress Note ---
Subjective Date Seen by a Provider: March 20, 2022 Time Seen by a Provider: 09:16 Subjective/Events-last exam Today patient is feeling somewhat better. He is blood sugar are in the range of 150s. However his BUN/creatinine remain the same. Hemodynamically stable Video visit made and d/w patient. Review of Systems ROS PER RN Sepsis Event Evaluation Height, Weight, BMI Height: '" Weight: lbs. oz. kg; 57.47 BMI Method: Exam Exam Patient acknowledged, consented, and participated in this virtual visit which was conducted using real time audio/video Vital Signs Date Time Temp Pulse Resp B/P (MAP) Pulse Ox O2 Delivery O2 Flow Rate FiO2 03/20/22 08:00 Room Air 03/20/22 07:49 36.3 03/20/22 07:00 77 117/62 97 Room Air 03/20/22 07:00 85 03/20/22 06:00 85 97 Room Air 03/20/22 05:00 94 113/62 98 Room Air 03/20/22 04:05 Room Air 03/20/22 04:00 80 121/62 97 Room Air 03/20/22 03:00 78 98 Room Air 03/20/22 02:00 82 125/63 99 Room Air 03/20/22 01:00 85 03/20/22 01:00 87 116/59 97 Room Air 03/20/22 00:15 37.2 03/20/22 00:00 85 119/52 97 Room Air 03/20/22 00:00 Room Air 03/19/22 23:00 79 92/62 97 Room Air 03/19/22 22:00 92 115/57 97 Room Air 03/19/22 21:00 80 108/51 96 Room Air 03/19/22 20:45 Room Air 03/19/22 20:45 37.1 03/19/22 20:00 87 106/51 95 Room Air 03/19/22 19:00 94 03/19/22 19:00 97 30 82/59 99 Room Air 03/19/22 18:00 91 112/60 96 Room Air 03/19/22 17:00 100 18 115/63 98 Room Air 03/19/22 16:00 90 14 108/48 97 Room Air 03/19/22 15:48 Room Air 03/19/22 15:19 Room Air 03/19/22 15:00 96 124/54 97 NIV CPAP 03/19/22 14:00 96 89/63 99 NIV CPAP 03/19/22 13:00 103 26 103/45 97 NIV CPAP 03/19/22 12:50 93 03/19/22 12:00 96 26 119/63 97 NIV CPAP 03/19/22 11:48 37.7 03/19/22 11:43 NIV CPAP 03/19/22 11:35 NIV CPAP 03/19/22 11:00 98 19 111/58 100 Room Air 03/19/22 10:00 98 15 100/51 98 Room Air I & O 03/20/22 07:00 Intake Total 2270 ml Output Total 950 ml Balance 1320 ml Height & Weight Height: '" Weight: lbs. oz. kg; 57.47 BMI Method: General Appearance: No Apparent Distress, WD/WN, Chronically ill, Obese HEENT: PERRL/EOMI, Moist Mucous Membranes Neck: Full Range of Motion, Normal Inspection Respiratory: Lungs Clear, Normal Breath Sounds Cardiovascular: Regular Rate, Rhythm Capillary Refill: Less Than 3 Seconds Extremity: Non Tender, No Calf Tenderness, Pedal Edema Neurologic/Psychiatric: Alert, Oriented x3 Skin: Normal Color, Warm/Dry Lymphatic: No Adenopathy Other comments PE PER RN Results Lab Laboratory Tests 03/19/22 04:49 03/20/22 05:14 Assessment/Plan Assessment/Plan 1. Severe refractory hypoglycemia improving after holding oral hypoglycemic agents in conjunction with administration of D5 normal saline. 2. Acute and chronic kidney disease worsening.remained stable today 3. Morbid obesity 4. History of sleep apnea 5. Recent history of septic shock 6. History of anemia of chronic kidney disease. Recommendations 1. continue D5 normal saline and monitor his BUN/creatinine as well as a blood sugars 2. continue to hold off oral hypoglycemic agents 3. Continue monitor BUN/creatinine while hydrating the patient. 4. Video visit made and discussed with the patient as well as the MISSING PERSONS INVESTIGATOR. Critical Care: Critically Ill Patient Time spent with patient (mins): 20 NORBERTO KHAN MD March 20, 2022 09:21
[2022-03-20] MEDS ORDERED: CALCIUM CARBONATE 500 MG (TUMS) TAB.CHEW PO PRN (20:15)
[2022-03-20] MEDS: inSUlin ASPART (NovoLOG) 1 UNIT/0.01 ML (CHARGE PER UNIT) SC SCH (21:11)
[2022-03-21 05:42] LABS: BASOPHILS % (AUTO) 1 % (0-10); EOSINOPHILS # (AUTO) 0.2 10^3/uL (0.0-0.3); EOSINOPHILS % (AUTO) 3 % (0-10); HEMATOCRIT 24 % (40-54); HEMOGLOBIN 7.4 g/dL (13.3-17.7); LYMPHOCYTES # (AUTO) 1.9 10^3/uL (1.0-4.0); LYMPHOCYTES % (AUTO) 28 % (12-44); MEAN CORPUSCULAR HEMOGLOBIN 27 pg (25-34); MEAN CORPUSCULAR HGB CONC 31 g/dL (32-36); MEAN CORPUSCULAR VOLUME 90 fL (80-99); MEAN PLATELET VOLUME 9.4 fL (9.0-12.2); MONOCYTES # (AUTO) 0.9 10^3/uL (0.0-1.0); MONOCYTES % (AUTO) 13 % (0-12); NEUTROPHILS # (AUTO) 3.5 10^3/uL (1.8-7.8); NEUTROPHILS % (AUTO) 54 % (42-75); PLATELET COUNT 170 10^3/uL (130-400); WHITE BLOOD COUNT 6.5 10^3/uL (4.3-11.0)
[2022-03-21 06:08] LABS: ALBUMIN 2.5 GM/DL (3.2-4.5); CHLORIDE 106 MMOL/L (98-107); POTASSIUM 4.8 MMOL/L (3.6-5.0); SODIUM 137 MMOL/L (135-145)
[2022-03-21 06:10] LABS: CALCIUM 8.1 MG/DL (8.5-10.1)
[2022-03-21 06:11] LABS: GLUCOSE 149 MG/DL (70-105); TOTAL PROTEIN 5.8 GM/DL (6.4-8.2)
[2022-03-21 06:12] LABS: CARBON DIOXIDE 19 MMOL/L (21-32)
[2022-03-21 06:13] LABS: BILIRUBIN,TOTAL 0.4 MG/DL (0.1-1.0)
[2022-03-21 06:14] LABS: ALKALINE PHOSPHATASE 51 U/L (40-136); CREATININE SERUM 4.28 MG/DL (0.60-1.30); GFR ESTIMATED 15
[2022-03-21 06:15] LABS: BUN/CREATININE RATIO 11
[2022-03-21 06:17] LABS: ALANINE AMINOTRANSFERASE < 6 U/L (0-55)
[2022-03-21] MEDS: inSUlin ASPART (NovoLOG) 1 UNIT/0.01 ML (CHARGE PER UNIT) SC SCH ×2 (06:21→13:11)
[2022-03-21] MEDS ORDERED: ATOR10TA66 PO (09:12)
[2022-03-21] MEDS ORDERED: LOPE2TAB48 PO (09:12)
[2022-03-21] MEDS ORDERED: GABA300C PO (09:12)
[2022-03-21] MEDS ORDERED: FURO40TA4 PO (09:12)
[2022-03-21] MEDS ORDERED: FURO20TA4 PO (09:12)
[2022-03-21] MEDS ORDERED: LACT1CAP39 PO (09:12)
[2022-03-21] MEDS ORDERED: RT-ALBUINH IH (09:12)
[2022-03-21] MEDS ORDERED: ACHD5005 PO (09:12)
[2022-03-21] MEDS ORDERED: AMLO2.5T4 PO (09:12)
[2022-03-21] MEDS ORDERED: CALC-308 PO (09:12)
[2022-03-21] MEDS ORDERED: NYST60PO TOP (09:12)
[2022-03-21] MEDS ORDERED: BISA10SU8 RC (09:12)
[2022-03-21] MEDS ORDERED: METO-333 PO (09:12)
[2022-03-21] MEDS: FAMOTIDINE 20 MG (PEPCID) TABLET PO SCH (09:16)
[2022-03-21] MEDS: GABAPENTIN 300 MG (NEURONTIN) CAP PO SCH ×2 (09:16→13:11)
[2022-03-21] MEDS ORDERED: INSU100I14 SQ (10:14)
--- NOTE | 2022-03-21 10:17 | Discharge Inst-Skilled Nursing ---
Discharge Inst-Skilled NF Reconcile Patient Problems Problems Reviewed?: Yes Chief Complaint Chief complaint: Severe hypoglycemia History of present illness: This is a 62-year-old white male with history of morbid obesity and diabetes with chronic kidney disease baseline creatinine 3.2 who resides currently at [facility] and rehab after recent septic shock who presented to the ER with hypoglycemia. Hypoglycemia is severe and refracto ry. He has been on glimepiride and his creatinine is now over 4 so this long- acting oral hypoglycemic agent will last for approximately 48 hours so he will require glucometer checks every hour and a D5 normal saline IV fluid along with amps of D50. He denies any other significant problems. No evidence of any sepsis. Patient Instructions Patient Problems: Hypoglycemia CKD Stage IV Consult/Follow Up/Orders Follow Up Appt.: PCP [place] rounds Skilled NF Admit to: [facility] Certification (SNF) I certify that SNF services are required to be given on an inpatient basis because of the above named patient's need for shelter care on a continuing basis for the conditions(s) for which he/she was receiving inpatient hospital services prior to his/her transfer to the SNF. [facility] Facility Order: Nursing Services, Flavor Room Worker-Evaluate & Treat, Physical Therapy-Evaluate & Treat Oxygen Delivery Method: Room Air Discharge Diet: ADA Diet Daily Activity as Tolerated: Yes Resuscitation Status: Full Code New & Resume Previous Orders New Medications: Insulin Aspart (Novolog Flexpen) 100 Unit/Ml (3 Ml) Solution 7 UNITS SQ AC, #1 EA Continued Medications: Albuterol Sulfate (Proair Hfa) 1 Puff Puff 2 PUFF IH Q6H PRN for SHORTNESS OF BREATH, EA Amlodipine Besylate (Amlodipine Besylate) 2.5 Mg Tablet 2.5 MG PO BID, TAB Atorvastatin Calcium (Atorvastatin Calcium) 10 Mg Tablet 10 MG PO DAILY, TAB Bisacodyl (Bisacodyl) 10 Mg Supp.rect 10 MG RC DAILY PRN for CONSTIPATION-4TH LINE, SUPP.RECT Calcium Carbonate (Calcium) 500 Mg Calcium (1250 Mg) Tab.chew 500 MG PO AC, TAB Gabapentin (Neurontin) 300 Mg Capsule 300 MG PO TID, TAB Hydrocodone/Acetaminophen (Hydrocodone-Acetamin 5-325 mg) 5 Mg-325 Mg Tablet 1 EA PO Q6H PRN for PAIN-MODERATE (5-7), TAB Lactobacillus Rhamnosus GG (Culturelle) 10 Billion Cell Capsule 1 EACH PO BID, CAP Loperamide HCl (Ultra A-D) 2 Mg Tablet 2 MG PO Q6H PRN for DIARRHEA, TAB Metoprolol Tartrate (Metoprolol Tartrate) 25 Mg Tablet 25 MG PO BID, TAB HOLD FOR SBP <100 OR PULSE <60, NOTIFY PCP IF HELD FOR 3 DAYS Nystatin (Nystop) 100,000 Unit/Gram Powder 1 APPLIC TOP BID, EA Tamsulosin HCl (Flomax) 0.4 Mg Cap 0.4 MG PO HS, CAP Discontinued Medications: Furosemide (Furosemide) 20 Mg Tablet 20 MG PO DAILY, TAB FOR 14 DAYS FOR FLUID OVERLOAD STARTING 03-16-2022 Furosemide (Furosemide) 40 Mg Tablet 40 MG PO DAILY PRN for LB GAIN >2 LBS, TAB Glimepiride (Glimepiride) 4 Mg Tablet 4 MG PO DAILY, TAB Rivaroxaban (Xarelto) 20 Mg Tablet 20 MG PO DAILY, TAB Anju Conner March 21, 2022 10:16 ANJU CONNER DO March 21, 2022 10:17
[2022-03-21] MEDS ORDERED: ASPI-1238 PO (10:25)
--- NOTE | 2022-03-21 10:26 | Discharge Summary ---
Discharge Summary Hospital Course Was the Problem List Reviewed?: Yes Problems/Dx: (1) Hypoglycemia associated with diabetes Status: Acute Hospital Course Date of Admission: March 18, 2022 at 12:52 Admission Diagnosis : Family Physician/Provider: David Cardenas MD Date of Discharge: 03/21/22 Discharge Diagnosis: Severe and refractory hypoglycemia due to oral hypoglycemic agent and chronic kidney disease patient, morbid obesity, acute on chronic renal failure likely needs dialysis soon Hospital Course: Pt had an uneventful hospital course after he was admitted for severe refractory hypoglycemia due to oral hyperglycemic agent and chronic kidney disease. He had a creatinine of 4.3. IV fluids initiated along with D50 and D10 drip. He ultimately resolved the hypoglycemia. Pt was placed on a small dose of Novolog insulin before meals. He will obtain an appt with nephrology for chronic kidney disease stage 4, likely will require dialysis in the future. Labs and Pending Lab Test: Laboratory Tests 03/20/22 11:51: Glucometer 241H 03/20/22 15:27: Glucometer 251H 03/20/22 20:18: Glucometer 219H 03/21/22 05:17: White Blood Count 6.5, Red Blood Count 2.70L, Hemoglobin 7.4L, Hematocrit 24L, Mean Corpuscular Volume 90, Mean Corpuscular Hemoglobin 27, Mean Corpuscular Hemoglobin Concent 31L, Red Cell Distribution Width 15.4H, Platelet Count 170, Mean Platelet Volume 9.4, Immature Granulocyte % (Auto) 2, Neutrophils (%) (Auto) 54, Lymphocytes (%) (Auto) 28, Monocytes (%) (Auto) 13H, Eosinophils (%) (Auto) 3, Basophils (%) (Auto) 1, Neutrophils # (Auto) 3.5, Lymphocytes # (Auto) 1.9, Monocytes # (Auto) 0.9, Eosinophils # (Auto) 0.2, Basophils # (Auto) 0.0, Immature Granulocyte # (Auto) 0.1, Sodium Level 137, Potassium Level 4.8, Chloride Level 106, Carbon Dioxide Level 19L, Anion Gap 12, Blood Urea Nitrogen 46H, Creatinine 4.28H, Estimat Glomerular Filtration Rate 15, BUN/Creatinine Ratio 11, Glucose Level 149H, Calcium Level 8.1L, Corrected Calcium 9.3, Total Bilirubin 0.4, Aspartate Amino Transf (AST/SGOT) 14, Alanine Aminotransferase (ALT/SGPT) < 6, Alkaline Phosphatase 51, Total Protein 5.8L, Albumin 2.5L 03/21/22 06:05: Glucometer 161H Microbiology 03/18/22 MRSA Screen - Final, Complete MRSA not isolated 03/18/22 Blood Culture - Preliminary, Resulted No growth Home Meds Active Aspirin EC (Aspirin) 81 Mg Tablet.dr 81 Mg PO DAILY Novolog Flexpen (Insulin Aspart) 100 Unit/Ml (3 Ml) Solution 7 Units SQ AC Reported Ultra A-D (Loperamide HCl) 2 Mg Tablet 2 Mg PO Q6H PRN Furosemide 40 Mg Tablet 40 Mg PO DAILY PRN Proair Hfa (Albuterol Sulfate) 1 Puff Puff 2 Puff IH Q6H PRN Neurontin (Gabapentin) 300 Mg Capsule 300 Mg PO TID Calcium (Calcium Carbonate) 500 Mg Calcium (1250 Mg) Tab.chew 500 Mg PO AC Metoprolol Tartrate 25 Mg Tablet 25 Mg PO BID HOLD FOR SBP <100 OR PULSE <60, NOTIFY PCP IF HELD FOR 3 DAYS Culturelle (Lactobacillus Rhamnosus GG) 10 Billion Cell Capsule 1 Each PO BID Amlodipine Besylate 2.5 Mg Tablet 2.5 Mg PO BID Furosemide 20 Mg Tablet 20 Mg PO DAILY FOR 14 DAYS FOR FLUID OVERLOAD STARTING 03-16-2022 Atorvastatin Calcium 10 Mg Tablet 10 Mg PO DAILY Hydrocodone-Acetamin 5-325 mg (Hydrocodone/Acetaminophen) 5 Mg-325 Mg Tablet 1 Ea PO Q6H PRN Bisacodyl 10 Mg Supp.rect 10 Mg RC DAILY PRN Nystop (Nystatin) 100,000 Unit/Gram Powder 1 Applic TOP BID Flomax (Tamsulosin HCl) 0.4 Mg Cap 0.4 Mg PO HS Glimepiride 4 Mg Tablet 4 Mg PO DAILY Xarelto (Rivaroxaban) 20 Mg Tablet 20 Mg PO DAILY Assessment/Pt Instructions PCP in 1 week Nephrology follow-up Discharge Planning: <30 minutes discharge planning Discharge Instructions Discharge Diet: ADA Diet Discharge Physical Examination Vital Signs Vital Signs Date Time Temp Pulse Resp B/P (MAP) Pulse Ox O2 Delivery O2 Flow Rate FiO2 03/21/22 09:00 Room Air 03/21/22 08:30 36.5 83 18 138/74 97 03/18/22 18:00 2.00 General Appearance: No Apparent Distress, WD/WN, Chronically ill, Obese Respiratory: Lungs Clear Cardiovascular: Regular Rate, Rhythm Neurologic/Psychiatric: Alert, Oriented x3 Allergies: Coded Allergies: azithromycin (Verified Allergy, Unknown, Rash, 11/27/19) dicloxacillin (Verified Allergy, Unknown, Rash, 11/27/19) Discharge Summary Date of Admission March 18, 2022 at 12:52 Date of Discharge Discharge Date: March 21, 2022 Admission Diagnosis Assessment: Severe and refractory hypoglycemia due to oral hypoglycemic agent given daily and a chronic kidney disease patient Chronic kidney disease stage IV Sleep apnea Super morbid obesity BMI 57 Recent septic shock Anemia of chronic kidney disease Plan: D5NS IV fluid with D50 amps as needed Supportive care Discharge Diagnosis Assessment: Severe and refractory hypoglycemia due to oral hypoglycemic agent given daily and a chronic kidney disease patient Chronic kidney disease stage IV Sleep apnea Super morbid obesity BMI 57 Recent septic shock Anemia of chronic kidney disease Plan: D5NS IV fluid with D50 amps as needed Supportive care 03/20/2022: Move to floor D10 drip until hyperglycemia (1) Hypoglycemia associated with diabetes Status: Acute MELITON FLETCHER DO March 21, 2022 10:26
[2022-03-21 11:58] VITALS: BP 168/85
== END 2022-03-21 14:38 | DRG 637 ==
LOC: EDUNIT# 08:25 → ER 08:26 → ICU 12:52 → 4TH 03-20 10:10
PROVIDERS: ADMIT Internal Medicine; ATTEND Internal Medicine
PROC: 5A09357 Assistance with Respiratory Ventilation, Less than 24 Consecutive Hours, Continuous Positive Airway Pressure (ICD-10-PCS; principal; 2022-03-18)
DX: E11.649 Type 2 diabetes mellitus with hypoglycemia without coma (principal); J96.20 Acute and chronic respiratory failure, unspecified whether with hypoxia or hypercapnia; Z68.43 Body mass index [BMI] 50.0-59.9, adult; E87.2 Acidosis; T38.3X5A Adverse effect of insulin and oral hypoglycemic [antidiabetic] drugs, initial encounter; E11.22 Type 2 diabetes mellitus with diabetic chronic kidney disease; N17.9 Acute kidney failure, unspecified; E66.01 Morbid (severe) obesity due to excess calories; N18.4 Chronic kidney disease, stage 4 (severe); D63.1 Anemia in chronic kidney disease; M10.9 Gout, unspecified; G47.39 Other sleep apnea; I12.9 Hypertensive chronic kidney disease with stage 1 through stage 4 chronic kidney disease, or unspecified chronic kidney disease; E78.5 Hyperlipidemia, unspecified; I89.0 Lymphedema, not elsewhere classified; E11.40 Type 2 diabetes mellitus with diabetic neuropathy, unspecified; N40.0 Benign prostatic hyperplasia without lower urinary tract symptoms; K21.9 Gastro-esophageal reflux disease without esophagitis; M19.90 Unspecified osteoarthritis, unspecified site; G89.29 Other chronic pain; M54.9 Dorsalgia, unspecified; F41.9 Anxiety disorder, unspecified; I50.9 Heart failure, unspecified; G47.33 Obstructive sleep apnea (adult) (pediatric); M25.559 Pain in unspecified hip; M79.673 Pain in unspecified foot; Z79.84 Long term (current) use of oral hypoglycemic drugs; Z79.899 Other long term (current) drug therapy
CPT/HCPCS: 36415; 70450; 71045; 80053; 82805; 82947; 83735; 83880; 84100; 84484; 85025; 86141; 87040; 87081; 93005; 99291